=== PATIENT | female | born 1985 | race Caucasian/White ===

== ENCOUNTER 2023-04-18 12:30 | Emergency (ER) | payer OTHER, SELFPAY ==
[2023-04-18 12:34] VITALS: BP 131/65; PULSE 88; RESP 18; TEMP 36.8; O2SAT 100; BMI 26.9
--- NOTE | 2023-04-18 12:40 | ED_ITS ---
HPI - General Chief complaint: OB/Uterine Contractions Stated complaint: ISSUES 7 WEEKS Time Seen by Provider: 04/18/23 12:40 Source: patient Mode of arrival: walk-in Limitations: no limitations History of Present Illness HPI Narrative: patient here with lower abdominal cramping and some vaginal bleeding and spotting. She is approximately seven weeks by dates. She is under the care of Dr. Nowak.she has not seen her PUBLICATIONS MANAGER yet. She has not had previous ultrasound. She has two previous children. No other complaints today.patient she is Rh positive. Related Data Home Medications Medication Instructions Recorded Confirmed vit 115-iron fum 29 mg 1 tab PO QDAY 04/18/23 04/18/23 iron-folic acid 1 mg-dss 25 mg tablet Allergies Allergy/AdvReac Type Severity Reaction Status Date / Time morphine AdvReac Intermediate Verified 04/18/23 12:33 Exam Narrative Exam Narrative: patient is awake alert normal vital signs very pleasant here with her . She is in no distress and has no abdominal complaints. She says she's taken four tests at home over the last nine days and they were all faintly positive. She said this bleeding today was a little bit heavier than her normal menses. She does not have any other symptoms at this time. An ultrasound and hCG were ordered. Constitutional Vital Signs, click to edit/add: Last Vital Signs Temp 98.2 F 04/18/23 12:34 Pulse 88 04/18/23 12:34 Resp 18 04/18/23 12:34 BP 131/65 04/18/23 12:34 Pulse Ox 100 04/18/23 12:34 O2 Del Method Room Air 04/18/23 12:34 Course Vital Signs Vital signs: Vital Signs Temperature 98.2 F 04/18/23 12:34 Pulse Rate 88 04/18/23 12:34 Respiratory Rate 18 04/18/23 12:34 Blood Pressure 131/65 04/18/23 12:34 Pulse Oximetry 100 04/18/23 12:34 Oxygen Delivery Method Room Air 04/18/23 12:34 Temperature 98.2 F 04/18/23 12:34 Pulse Rate 88 04/18/23 12:34 Respiratory Rate 18 04/18/23 12:34 Blood Pressure 131/65 04/18/23 12:34 Pulse Oximetry 100 04/18/23 12:34 Oxygen Delivery Method Room Air 04/18/23 12:34 MDM - OB/Uterine Contractions MDM Narrative Medical decision making narrative: patient's hCG was extremely low at twelve and her transvaginal ultrasound could not identify any evidence of any . There is possibility that she had a very very early and is now miscarried. We will repeat her quantitative next week and she should follow-up with her PUBLICATIONS MANAGER for definitive evaluation and explanation Lab Data Labs: Lab Results 04/18/23 Range/Units 13:00 HCG, Quant 12 mIU/mL Discharge Plan Discharge Chief Complaint: OB/Uterine Contractions Clinical Impression: Abnormal vaginal bleeding Time of Disposition Decision: 14:50 Prescriptions / Home Meds: No Action prenat 115-iron [id number] 29 mg iron- 1 mg-25 mg tablet 1 tab PO QDAY Additional Instructions: repeat hCG next week and follow-up with Dr. Nowak Stand Alone Forms: Portal Instructions Referrals: Physician,Non-Staff, MD [Primary Care Provider] - 1 week
--- NOTE | 2023-04-18 12:41 | US_ITS ---
[address] [address] Patient Name: ALYSA RIOS MRN: [id number] date: 1985 Sex: F Assigned Patient Location: ER Current Patient Location: ER Accession/Order Number: [id number] Exam Date: 04/18/2023 13:15 Report Date: 04/18/2023 14:09 At the request of: ADRIENNE FOSTER Procedure: US OB transvaginal EXAMINATION: US OB transvaginal HISTORY: with vaginal bleeding COMPARISON: No relevant comparison available. FINDINGS: Transvaginal images No intrauterine or ectopic observed The uterus is normal in size, contour and echotexture. The endometrium measures 1.2 cm thick. Area of anechoic echogenicity posterior to the uterus measuring 2.1 x 0.7 x 1.7 cm, nonspecific. The cervix is closed measuring 2.9 cm. The right ovary is 3.7 x 2.4 x 2.5 cm. 1.1 cm complex cystic structure. Left ovary was not visualized US/US OB transvaginal IMPRESSION: No intrauterine or ectopic is observed. Correlate with quantitative beta hCG Nonvisualization of the left ovary Electronically authenticated by: LYNETTE NORMAN Date: 04/18/2023 14:09
[2023-04-18 13:32] LABS: HCG Quantitative 12 mIU/mL
== END 2023-04-18 14:57 | disposition home or self-care (01) ==
PROVIDERS: Emergency Provider Emergency Medicine Emergency Medical Services
DX: N93.9 Abnormal uterine and vaginal bleeding, unspecified (principal)
CPT/HCPCS: 36415; 76817; 84702; 99284

== ENCOUNTER 2023-09-03 16:33 | Outpatient (OUT) | payer OTHER, SELFPAY ==
[2023-09-03 17:13] LABS: HCG Quantitative 64 mIU/mL
== END 2023-09-03 16:34 | disposition home or self-care (01) ==
PROVIDERS: Visit Provider Obstetrics & Gynecology
DX: N92.6 Irregular menstruation, unspecified (principal)
CPT/HCPCS: 36415; 84702

== ENCOUNTER 2023-09-05 15:56 | Outpatient (OUT) | payer OTHER, SELFPAY ==
--- OUTSIDE RECORDS SUMMARY | 2023-09-05 16:01 | XMS_ITS | CCD ---
Author Name Unknown Address [address] [place] [address] [address] [place] [address] Organization [facility] Care Team Providers [employer] Name Role Phone Len YEPEZ Primary Care Physician [phone] Salome Sousa I Unavailable Unavailable NONE, XXXX Primary Care Physician Unavailab Luis Fernando Foote Attending Unavailable Luis Fernando GUZMAN Admitting Unavailable Calin Ordaz Attending Unavailable Calin Ordaz Admitting Unavailable Luis Fernando GUZMAN Consulting Unavailable DO Luis Fernando GUZMAN Consulting Unavailable Luis Fernando GUZMAN Consulting Unavailable Len YEPEZ Attending Unavailable Allergies Allergy Classification Reported Allergen(s) Allergy Type Date of Onset Reaction(s) Facility (4 sources) Morphine; Translations: [morphine] Drug Allergy [facility] Medications Current Medications Medication Drug Class(es) Dates Sig (Normalized) Sig (Original) busPIRone hydrochloride 5 mg oral tablet (3 sources) Start: 10-07-2022 take 1 tablet by mouth twice daily busPIRone 5 mg Tab 5 mg = 1 tab(s), Oral, BID, Refills(s) 0 Start Date: 10/07/22 Status: Ordered Problems Problem Classification Problem Date Documented Da te Episodic/Chronic Abdominal pain (3 sources) Epigastric pain 08-23-2020 Episodic Biliary tract disease (3 sources) Biliary dyskinesia 10-29-2013 Episodic Coagulation and hemorrhagic disorders (3 sources) Lupus anticoagulant disorder 04-30-2013 Chronic Headache; including migraine (3 sources) Migraine 03-04-2019 Chronic Thyroid disorders (3 sources) Hyperthyroidism 07-07-2010 Chronic Unclassified (3 sources) Exposure to 2019 novel coronavirus 07-12-2020 Unclassified (3 sources) Patient encounter status 08-23-2020 Results Test Name Value Interpretation Reference Range Facility DHEAon 05-05-2023 DHEA [Mass/Vol] 118 ng/dL Invalid Interpretation Code 31-701 [facility] Comment on above: Result Comment: This test was developed and its performance characteristics determined by [facility]. It has not been cleared or approved by the Food and Drug Administration. Performed at: [address] [id number] MD Garry Montenegro Performed By: #### 1 [id number], 0270250, 3844179, 45665671, 7111885, [id number], 49866169, 7195033 ####[facility] [address] [place] [address] DHEASon 05-05-2023 DHEA-S [Mass/Vol] 91.7 microgram/dL Invalid Interpretation Code 57.3-279.2 [facility] Comment on above: Result Comment: Perf ormed at: [address] [id number] PhD Salbador Douglass Performed By: #### 1 [id number], 6959717, 5649739, 86210070, 3963176, 943134130, 00698623, 3802881 #### [facility] [address] [place] [address] FSH and LHon 05-05-2023 Follitropin Qn 5.6 m[IU]/mL Invalid Interpretation Code [facility] Comment on above: Result Comment: Adul t Female: Follicular phase 3.5 - 12.5 Ovulation phase 4.7 - 21.5 Luteal phase 1.7 - 7.7 Postmenopausal 25.8 - 134.8 Performed at: [address] [id number] PhD Salbador Douglass Performed By: #### 1 [id number], 4002564, 0423344, 01830564, 8609512, 296945556, 09378393, 1649471 #### [facility] [address] [place] [address] Lutropin Qn 10.4 m[IU]/mL Invalid Interpretation Code [facility] Comment on above: Result Comment: Adul t Female: Follicular phase 2.4 - 12.6 Ovulation phase 14.0 - 95.6 Luteal phase 1.0 - 11.4 Postmenopausal 7.7 - 58.5 Performed By: #### 1 3583178, 1585421, 6663410, 26483159, 2386954, 382798516, 61283302, 6266924 #### [facility] [address] [place] [address] Auto Diffon 04-29-2023 Basophils/100 WBC (Bld) 0.8 % Normal 0.0-2.0 [facility] Comment on above: Order Comment: Order Added by Discern Expert. Performed By: #### 1 4629324, 0633088, 3064082, 21407440, 4161937, 868750388, 03850720, 0138841 #### [facility] [address] [place] [address] Basophils/Leukocytes Auto (Bld) [Pure # fraction] 0.0 E9/L Normal 0.0-0.2 [facility] Comment on above: Order Comment: Order Added by Discern Expert. Performed By: #### 1 9993099, 6855736, 4487752, 58446313, 3957138, 001714165, 68060836, 9948441 #### [facility] [address] [place] [address] Eosinophils/100 WBC (Bld) 2.3 % Normal 0.0-8.0 [facility] Comment on above: Order Comment: Order Added by Discern Expert. Performed By: #### 1 9605385, 9399861, 5555516, 98517697, 4805887, 814871999, 75545151, 2681904 #### [facility] [address] [place] [address] Eosinophils/Leukocyte s Auto (Bld) [Pure # fraction] 0.1 E9/L Normal 0.0-0.5 [facility] Comment on above: Order Comment: Order Added by Discern Expert. Performed By: #### 1 4058578, 9128275, 8790116, 45490626, 7860406, 498856120, 41104366, 4063471 #### [facility] [address] [place] [address] Lymphocytes/100 WBC (Bld) 42.1 % Normal 14.0-50.0 [facility] Comment on above: Order Comment: Order Added by Discern Expert. Performed By: #### 1 9911918, 9799361, 9479631, 11721553, 0188434, 995735014, 45821837, 1114291 #### [facility] [address] [place] [address] Lymphocytes/Leukocyte s Auto (Bld) [Pure # fraction] 2.0 E9/L Normal 1.0-4.0 [facility] Comment on above: Order Comment: Order Added by Discern Expert. Performed By: #### 1 0558800, 2331435, 7589920, 88992358, 6009820, 220144510, 25760133, 0567678 #### [facility] [address] [place] [address] Monocytes/100 WBC (Bld) 7.7 % Normal 4.0-14.0 [facility] Comment on above: Order Comment: Order Added by Discern Expert. Performed By: #### 1 6488437, 4535991, 4792744, 70360808, 4351681, 147808597, 42606300, 8529309 #### [facility] [address] [place] [address] Monocytes/Leukocytes Auto (Bld) [Pure # fraction] 0.4 E9/L Normal 0.2-1.0 [facility] Comment on above: Order Comment: Order Added by Discern Expert. Performed By: #### 1 8633556, 9909290, 0156290, 76437264, 9299716, 638584887, 67928852, 6804394 #### [facility] [address] [place] [address] Neutrophils/100 WBC (Bld) 47.1 % Normal 36.0-75.0 [facility] Comment on above: Order Comment: Order Added by Discern Expert. Performed By: #### 1 3585178, 8899044, 0075694, 86973395, 3256127, 274241798, 25841391, 7249476 #### [facility] [address] [place] [address] Neutrophils/Leukocyte s Auto (Bld) [Pure # fraction] 2.3 E9/L Normal 2.0-7.5 [facility] Comment on above: Order Comment: Order Added by Discern Expert. Performed By: #### 1 5722295, 5712361, 6182956, 36345669, 4725010, 781442533, 09432103, 7883611 #### [facility] [address] [place] [address] BhCG Quanton 04-29-2023 HCG.beta subunit Qn m[IU]/mL Normal 1-3 [facility] Comment on above: Result Comment: GEST ATIONAL AGE HCG RANGE (mIU/mL) NON- <1-3 0.2-1 WEEKS 5-50 1-2 WEEKS 50-500 2-3 WEEKS 100-5,000 3-4 WEEKS 500-10,000 4-5 WEEKS 1,000-50,000 5-6 WEEKS 10,000-100,000 6-8 WEEKS 15,000-200,000 8-12 WEEKS 10,000-100,000 Performed By: #### 2 [id number] ####[facility] [address] [place] [address] CBC w/ Auto Diffon Erythrocyte distribution width (RBC) [Ratio] 12.5 % Normal 10.9-14.2 [facility] Comment on above: Performed By: #### 1 9941404, 9914494, 8789328, 26540681, 4462340, 762409905, 29717430, 1795272 #### [facility] [address] [place] [address] Hematocrit (Bld) [Volume fraction] 39.3 % Normal 34.0-46.0 [facility] Comment on above: Performed By: #### 1 8031109, 6419899, 7860157, 72225102, 8610434, 308629430, 72010549, 0988514 #### [facility] [address] [place] [address] Hemoglobin (Bld) [Mass/Vol] 13.3 g/dL Normal 12.0-16.0 [facility] Comment on above: Performed By: #### 1 3082992, 4380497, 7650692, 43660662, 9047794, 842733243, 42295508, 4457944 #### [facility] [address] [place] [address] MCH (RBC) [Entitic mass] 32.3 pg Normal 27.0-34.0 [facility] Comment on above: Performed By: #### 1 1544662, 8821999, 5624216, 41402763, 0003455, 397395386, 44382649, 3144587 #### [facility] [address] [place] [address] MCHC (RBC) [Mass/Vol] 33.9 g/dL Normal 31.4-36.0 [facility] Comment on above: Performed By: #### 1 0473285, 6904516, 8724705, 26513178, 3660668, 389435500, 17050770, 2937351 #### [facility] [address] [place] [address] MCV (RBC) [Entitic vol] 95.2 fL Normal 80.0-100.0 [facility] Comment on above: Performed By: #### 1 9062310, 7540770, 1127168, 10884497, 3051028, 565179202, 15960713, 2826934 #### [facility] [address] [place] [address] Platelet mean volume (Bld) [Entitic vol] 9.0 fL Normal 6.4-10.8 [facility] Comment on above: Performed By: #### 1 8083820, 3387403, 4572636, 26185574, 6570252, 589819873, 32198407, 8744044 #### [facility] [address] [place] [address] Platelets (Bld) [#/Vol] 172.0 E9/L Normal 150.0-500.0 [facility] Comment on above: Performed By: #### 1 5613992, 3471404, 4480720, 86831956, 6554543, 249067143, 84414623, 5581354 #### [facility] [address] [place] [address] RBC (Bld) [#/Vol] 4.1 E12/L Low 4.3-5.9 [facility] Comment on above: Performed By: #### 1 1384673, 3584765, 6439271, 94852488, 1894580, 222507282, 83764272, 9018172 #### [facility] [address] [place] [address] WBC corrected for nucl RBC Auto (Bld) [#/Vol] 4.8 E9/L Normal 4.0-11.0 [facility] Comment on above: Performed By: #### 1 3252063, 5642002, 7593793, 37591968, 1509992, 308179904, 46087099, 7538827 #### [facility] [address] [place] [address] CHEMISTRYOrdered By: SYSTEM SYSTEM on 04-29-2023 Free T4 [Mass/Vol] 0.89 ng/dL Normal 0.58 - 1. 64 ng/dL [facility] Remisol HCG.beta subunit Qn mIU/mL Normal 1 - 3 mIU/mL FTM C Remisol TSH Qn 2.70 m[IU]/L Normal 0.34 - 5.60 mcIU/mL [facility] Remisol CHEMISTRYOrdered By: Britt Suh on 04-29-2023 HbA1c (Bld) [Mass fraction] 4.4 % Normal <=5.9% FT ChemAutoSS Consent for Treatmenton 04-18 Consent for Treatment [id number] 36#1.00CD:127 Normal [facility] Free T4on 04-29-2023 Free T4 [Mass/Vol] 0.89 ng/dL Normal 0.58-1.64 [facility] Comment on above: Performed By: #### 1 1045051, 5731025, 1997085, 35649208, 5413707, 784620421, 76775467, 9437065 #### [facility] [address] [place] [address] HEMATOLOGYOrdered By: SYSTEM SYSTEM on 04-29-2023 Basophils/100 WBC (Bld) 0.8 % Normal 0.0 - 2.0 % [facility] HemeAutoSS Basophils/Leukocytes Auto (Bld) [Pure # fraction] 0.0 E9/L Normal 0.0 - 0.2 E9/L [facility] HemeAutoSS Eosinophils/100 WBC (Bld) 2.3 % Normal 0.0 - 8.0 % [facility] HemeAutoSS Eosinophils/Leukocyte s Auto (Bld) [Pure # fraction] 0.1 E9/L Normal 0.0 - 0.5 E9/L [facility] HemeAutoSS Lymphocytes/100 WBC (Bld) 42.1 % Normal 14.0 - 50.0 % [facility] HemeAutoSS Lymphocytes/Leukocyte s Auto (Bld) [Pure # fraction] 2.0 E9/L Normal 1.0 - 4.0 E9/L [facility] HemeAutoSS Monocytes/100 WBC (Bld) 7.7 % Normal 4.0 - 14.0 % [facility] HemeAutoSS Monocytes/Leukocytes Auto (Bld) [Pure # fraction] 0.4 E9/L Normal 0.2 - 1.0 E9/L [facility] HemeAutoSS Neutrophils/100 WBC (Bld) 47.1 % Normal 36.0 - 75.0 % [facility] HemeAutoSS Neutrophils/Leukocyte s Auto (Bld) [Pure # fraction] 2.3 E9/L Normal 2.0 - 7.5 E9/L [facility] HemeAutoSS HEMATOLOGYOrdered By: Emily Encarnacion on 04-29-2023 Erythrocyte distribution width (RBC) [Ratio] 12.5 % Normal 10.9 - 14.2 % [facility] HemeAutoSS Hematocrit (Bld) [Volume fraction] 39.3 % Normal 34.0 - 46.0 % [facility] HemeAutoSS Hemoglobin (Bld) [Mass/Vol] 13.3 g/dL Normal 12.0 - 16.0 gm/dL [facility] HemeAutoSS MCH (RBC) [Entitic mass] 32.3 pg Normal 27.0 - 34.0 pg [facility] HemeAutoSS MCHC (RBC) [Mass/Vol] 33.9 g/dL Normal 31.4 - 36.0 gm/dL [facility] HemeAutoSS MCV (RBC) [Entitic vol] 95.2 fL Normal 80.0 - 100.0 fL [facility] HemeAutoSS Platelet mean volume (Bld) [Entitic vol] 9.0 fL Normal 6.4 - 10.8 fL [facility] HemeAutoSS Platelets (Bld) [#/Vol] 172.0 E9/L Normal 150.0 - 500.0 E9/L [facility] HemeAutoSS RBC (Bld) [#/Vol] 4.1 E12/L Low 4.3 - 5.9 E12/L [facility] HemeAutoSS WBC corrected for nucl RBC Auto (Bld) [#/Vol] 4.8 E9/L Normal 4.0 - 11.0 E9/L [facility] HemeAutoSS HoeU1rag 04-29-2023 HbA1c (Bld) [Mass fraction] 4.4 % Normal <=5.9 [facility] Comment on above: Performed By: #### 1 1546075, 5810887, 7303730, 23494237, 7045441, 225116485, 97222239, 4381033 #### [facility] [address] [place] [address] Physician Orderon 04-29-2023 Physician Order [id number]#1.00CD:127 Normal [facility] TSHon 04-29-2023 TSH Qn 2.70 m[IU]/L Normal 0.34-5.60 [facility] Comment on above: Performed By: #### 1 1719105, 5118234, 1364688, 06714947, 4160721, 262559196, 30349583, 4713525 #### [facility] [address] [place] [address] BhCG Quanton 04-22-2023 HCG.beta subunit Qn 2 m[IU]/mL Normal 1-3 [facility] Comment on above: Result Comment: GEST ATIONAL AGE HCG RANGE (mIU/mL) NON- <1-3 0.2-1 WEEKS 5-50 1-2 WEEKS 50-500 2-3 WEEKS 100-5,000 3-4 WEEKS 500-10,000 4-5 WEEKS 1,000-50,000 5-6 WEEKS 10,000-100,000 6-8 WEEKS 15,000-200,000 8-12 WEEKS 10,000-100,000 Performed By: #### 2 885137 #### [facility] [address] [place] [address] CHEMISTRYOrdered By: SYSTEM SYSTEM on 04-22-2023 HCG.beta subunit Qn 2 m[IU]/mL Normal 1 - 3 mIU/mL FTM C Remisol Consent for Treatmenton Consent for Treatment [id number]#1.00CD:127 Normal [facility] Physician Orderon 04-22-2023 Physician Order [id number]#1.00CD:127 Normal [facility] Ambulatory Visit Summaryon 0 10-07-2022 Ambulatory Visit Summary DONATO BALDWINICA Blair :1985 Visit Date:10/07/2022 Ambulatory Visit Instructions Your Care Team Attending Physician - Len YEPEZ DO Primary Care Physician - Len YEPEZ DO This Is Your Medications List busPIRone (busPIRone 5 mg Tab) Procedures Performed Extraction of wisdom tooth (07/18/2022), right scapular bursa injection (07/26/2015), TPI - Trigger point injection (07/26/2015), single site robot assisted laparoscopic cholecystectomy (05/11/2013), appendectomy (2002). Discharge Vitals Temperature (Temporal Artery) 36.1 ?C Heart Rate (Peripheral) 66 Blood Pressure 114/68 Height 170 cm Height 67 in Weight 70.3 kg Weight 154.66 lb BMI 24.33 Medications What How Much When Instructions Unchanged busPIRone (busPIRone 5 mg Tab) 1 Tablets By Mouth 2 times a day Medications and Immunizations Administered Not Given influenza virus vaccine, inactivated, Patient Refuses Allergies morphine (Hives) Problems Ongoing - Any problem that you are currently receiving treatment for. Biliary dyskinesia Epigastric pain Exposure to COVID-19 virus Lupus anticoagulant Migraine Preventative health care Historical - Any problem that you are no longer receiving treatment for. Appendectomy hyperthyroid Normal [facility] Medicine Office/Clini c Noteon 10-07-2022 Family Medicine Office/Clinic Note HPI Staff Alysa is a 36 year old female who presents for a yearly physical. History of Present Illness I have reviewed and verified the staff HPI to be accurate for this encounter. She has some plantar warts she would like checked. No major family history. Vegetarian(Vegan). some exercise. Has not been supplementing with B12. Review of Systems PHQ Score Initial Depression Screen Score: 0 Constitutional: no fever, no chills, no sweats, no weakness Respiratory: no shortness of breath, no cough, no orthopnea, no wheezing Cardiovascular: no chest pain, no palpitations, no edema Additional ROS info: Except as noted in the above Review of Systems and in the History of Present Illness all other systems have been reviewed and are negative or noncontributory. Physical Exam Vitals & Measurements T: 36.1 ?C(Temporal Artery) HR: 66(Peripheral) BP: 114/68 SpO2: 99% HT: 67 in HT: 170 cm WT: 70.3 kg WT: 154.66 lb BMI: 24.33 General: alert, no acute distress Skin: warm, dry Head: no trauma, normocephalic Neck: Trachea midline, no adenopathy, no tenderness Eye: normal conjunctiva, sclera clear ENMT: TM's clear, oral mucosa moist, no pharyngeal erythema or exudate Cardiovascular: regular rate and rhythm, normal peripheral perfusion Respiratory: Lungs CTA, respirations non labored Chest wall: no deformity. Gastrointestinal: soft, non distended, no tenderness, no guarding. Back: No tenderness, Normal ROM, Normal alignment. Extremities: no deformity, no trauma Neurological: oriented x 4, LOC appropriate for age, CN II-XII intact, motor strength equal & normal bilaterally, sensation equal & normal bilaterally, speech normal Psychiatric: cooperative, affect appropriate for age, normal judgement, normal psychiatric thoughts. Assessment/Plan 1. Preventative health care (Z00.00: Encounter for general adult medical examination without abnormal findings) No labs at this time. She does need to supplement with B12. Orders: famotidine, 40 mg = 1 tab(s), Oral, Once a day (at bedtime), # 90 tab(s), Refills(s) 1, Pharmacy: [facility]/pharmacy #[id number], 170, cm, 08/23/20 8:37:00 EST, Height/Length Dosing, 65.1, kg, 08/23/20 8:37:00 EST, Weight Dosing pantoprazole, 40 mg = 1 tab(s), Oral, Daily, # 90 tab(s), Refills(s) 1, Pharmacy: [facility]/pharmacy #[id number], 170, cm, 08/23/20 8:37:00 EST, Height/Length Dosing, 65.1, kg, 08/23/20 8:37:00 EST, Weight Dosing Follow-up With When Contact Information Len YEPEZ DO, FAM In 1 [address] [place] [address]- Additional Instructions: Problem List/Past Medical History Ongoing Biliary dyskinesia Epigastric pain Exposure to COVID-19 virus Lupus anticoagulant Migraine Preventative health care Historical Appendectomy hyperthyroid Procedure/Surgical History Extraction of wisdom tooth (07/18/2022), right scapular bursa injection (07/26/2015), TPI - Trigger point injection (07/26/2015), single site robot assisted laparoscopic cholecystectomy (05/11/2013), appendectomy (2002). Medications busPIRone 5 mg Tab, 5 mg= 1 tab(s), Oral, BID Allergies morphine (Hives) Social History Alcohol - Denies Alcohol Use, 04/30/2013 Substance Abuse - Denies Substance Abuse, 04/30/2013 Tobacco - Denies Tobacco Use, 04/30/2013 Never (less than 100 in lifetime) Tobacco Use:., 03/04/2019 Family History Family history is negative Immunizations Vaccine Date Status Comments influenza virus vaccine, inactivated - Not Given Patient Refuses Normal [facility] Comment on above: Result Comment: Elec tronically Signed By: Len YEPEZ DO\.br\Date and Time Signed: 10/07/22 17:12 EST Vital Signs Date Time Vital Sign Value Performing Clinician Faci keven 10-07-2022 16:18-0500 Blood Pressure Location Len YEPEZ [facility] 10-07-2022 16:18-0500 Body temperature 96.98 [degF] Len YEPEZ [facility] 10-07-2022 16:18-0500 Diastolic blood pressure 68 mm[Hg] Len YEPEZ [facility] 10-07-2022 16:18-0500 Heart rate 66 /min Len YEPEZ [facility] 10-07-2022 16:18-0500 SaO2% (BldA) [Mass fraction] 99 % Len YEPEZ [facility] 10-07-2022 16:18-0500 Systolic blood pressure 114 mm[Hg] Len YEPEZ [facility] Encounters Encounter Date Encounter Type Care Provider Facility Start: 04-29-2023 End: 04-30-2023 ambulatory Luis Fernando GUZMAN Facility:[facility] Start: 04-29-2023 End: 04-29-2023 Patient encounter procedure Luis Fernando GUZMAN [facility] Start: 04-22-2023 End: 04-23-2023 ambulatory Calin Ordaz Facility:[facility] Start: 04-22-2023 End: 04-22-2023 Patient encounter procedure Calin Ordaz [facility] Start: 10-07-2022 End: 10-08-2022 ambulatory Len YEPEZ Facility:[facility] Start: 10-07-2022 End: 10-07-2022 Patient encounter procedure Len YEPEZ [facility] Start: 10-07-2022 End: 10-07-2022 Well adult monitoring check done Len Garcia LUCHO [facility] Procedures Date Procedure Procedure Detail Performing Clinician Start: 07-18-2022 Extraction of wisdom tooth Len LUCHO Start: 07-26-2015 Injection of trigger points Len LUCHO Comment on above: right scapulathoraci c TPI in office today Start: 07-26-2015 right scapular bursa injection 1 Len LUCHO Comment on above: in office injection 0% relief Start: 05-11-2013 single site robot as sisted laparoscopic cholecystectomy 3 Len LUCHO Comment on above: 05/11/2013 Start: 08-18-2002 Appendectomy Len ANTHONY Appendectomy Appendectomy Len YEPEZ Immunizations Immunization Date Immunization Notes Care Provider Aurora guy NEGATED: Highlighted row has not occurred!10-07-2022 influenza virus vaccine, unspecified formulation Len LUCHO [facility] Payers Date Payer Category Payer Private Health Insurance 2021 Unknown [id number] 1985 Unknown [id number] [id number] 1985 Unknown [id number] [id number] 1985 Unknown [id number] [id number] [id number] Social History Date Type Detail Facility Start: 03-04-2019 Tobacco smoking status Never s moked tobacco (finding) [facility] Sex Assigned At Female [facility] Functional Status Date Assessment Result Facility 10-07-2022 Functional Status N/A [facility] Evaluation + Plan note 04-29-2023 Note Date & Type Note Facility 04-29-2023 Evaluation + Plan note Diagnostic Tests PendingFSH and LH 04/29/23DHEA 04/29/23DHEAS 04/29/23 [facility] Hospital Discharge instructions 09-24-2022 Note Date & Type Note Facility 09-24-2022 Hospital Discharg e instructions Follow Up Care 09/24/2022 13:44:14 With:Len YEPEZ DO, FAM Address: [address] [place] [address]- When:Within 1 Year(s) [facility] Evaluation + Plan note Note Date & Type Note Facility Evaluation + Plan note No data available for this section [facility] Hospital Discharge instructions Note Date & Type Note Facility Hospital Discharge instructions No data available for this section [facility] Progress note Note Date & Type Note Facility Progress note No data available for this section [facility] Summary Purpose Family History No Family History Records Found Advance Directives No Advanced Directives Records Found Additional Source Comments Patient Care team informatio n (unrecognized section and content) Personnel Name: Len YEPEZ DO Address: Address: [address] [place] [address]- Name: Salome Sousa I Personnel Name: Len YEPEZ DO Address: Address: [address] [place] [id number] Name: Salome Sousa I Personnel Name: NONE, XXXX Address: Address: [facility] Name: Salome Sousa I INFORMATION SOURCE (unrecogn ized section and content) DATE CREATED AUTHOR 05/05/2023 [place] FOR RECORDS PERTAINING TO PATIENTS WHO ARE OR HAVE BEEN ENROLLED IN A CHEMICAL DEPENDENCY/SUBSTANCEABUSE PROGRAM, SOME INFORMATION MAY BE OMITTED. This clinical summary was aggregated from multiple sources. Caution should be exercised in using it in the provision of clinical care. This summary normalizes information from multiple sources, and as a consequence, information in this document may materially change the coding, format and clinical context of patient data. In addition, data may be omitted in some cases. CLINICAL DECISIONS SHOULD BE BASED ON THE PRIMARY CLINICAL RECORDS. [facility]. provides no warranty or guarantee of the accuracy or completeness of information in this document.
[2023-09-05 17:42] LABS: HCG Quantitative 120 mIU/mL
== END 2023-09-05 15:57 | disposition home or self-care (01) ==
PROVIDERS: Visit Provider Obstetrics & Gynecology
DX: N92.6 Irregular menstruation, unspecified (principal)
CPT/HCPCS: 36415; 84702

== ENCOUNTER 2023-10-02 12:58 | Outpatient (OUT) | payer OTHER, SELFPAY ==
--- NOTE | 2023-10-02 13:00 | US_ITS ---
[place] [id number] Patient Name: ALYSA BALDWIN MRN: [id number] date: 1985 Sex: F Assigned Patient Location: [facility] Current Patient Location: [facility] Accession/Order Number: [id number] Exam Date: 10/02/2023 13:00 Report Date: 10/02/2023 14:36 At the request of: FRED GUZMAN Procedure: US OB transvaginal EXAMINATION: US OB transvaginal HISTORY: MISSED MENSES COMPARISON: No relevant comparison available. FINDINGS: GESTATIONAL SAC: Present and normal appearing. YOLK SAC: Present and normal appearing. POLE: Present and normal appearing. CARDIAC: Present. UTERUS: Normal size and appearance. OVARIES: Right: Normal. Left: Not seen. CERVIX: 4.1 cm in length and closed. CUL-DE-SAC: Normal. OTHER: None. AGE BY LMP: 8 weeks 4 days DERICK BY LMP: 05/09/2024 AGE BY US CRL: 8 weeks 0 days DERICK BY US CRL: 04/12/2024 US/US OB transvaginal IMPRESSION: 1. Single live intrauterine . Electronically authenticated by: GILDARDO WEINER Date: 10/02/2023 14:36
--- OUTSIDE RECORDS SUMMARY | 2023-10-02 13:05 | XMS_ITS | CCD ---
Author Name Unknown Address [address] [place] [address] [address] [place] [address] Organization [facility] Care Team Providers Care Salesperson Shoes Name Role Phone Len YEPEZ Primary Care Physician Salome Sousa I Unavailable Unavailable NONE, XXXX [...] (4 sources) Morphine; Translations: [morphine] Drug Allergy [facility] Medications Current Medications Medication Drug Class(es) [...] [Mass/Vol] 118 ng/dL Invalid Interpretation Code 31-701 [facility] Comment on above: Result Comment: This test was developed and its performance characteristics determined by [facility]. It has not been cleared or approved by the Food and Drug Administration. Performed at: [address] [id number] MD Garry Montenegro Performed By: #### 1 [id number], 5645634, 4638691, 91504670, 1767738, 717965220, 83375114, 8928178 ####[facility] [address] [place] [address] DHEASon 05-05-2023 DHEA-S [Mass/Vol] 91.7 microgram/dL Invalid Interpretation Code 57.3-279.2 [facility] Comment on above: Result Comment: Perf ormed at: [address] [id number] PhD Salbador Douglass Performed By: #### 1 [id number], 5619487, 7086039, 54512043, 5783230, 374913102, 47982341, 7860454 #### [facility] [address] [place] [address] FSH and LHon 05-05-2023 Follitropin Qn 5.6 m[IU]/mL Invalid Interpretation Code [facility] Comment on above: Result Comment: Adul t Female: Follicular phase 3.5 - 12.5 Ovulation phase 4.7 - 21.5 Luteal phase 1.7 - 7.7 Postmenopausal 25.8 - 134.8 Performed at: [address] [id number] PhD Salbador Douglass Performed By: #### 1 [id number], 6946994, 6439151, 63344124, 8881683, 621132270, 09217441, 8560337 #### [facility] [address] [place] [address] Lutropin Qn 10.4 m[IU]/mL Invalid Interpretation Code [facility] Comment on above: Result Comment: Adul t Female: Follicular phase 2.4 - 12.6 Ovulation phase 14.0 - 95.6 Luteal phase 1.0 - 11.4 Postmenopausal 7.7 - 58.5 Performed By: #### 1 8162618, 8235771, 5069188, 06665143, 7077760, 178814737, 06142994, 7238662 #### [facility] [address] [place] [address] Auto Diffon 04-29-2023 Basophils/100 WBC (Bld) 0.8 % Normal 0.0-2.0 [facility] Comment on above: Order Comment: Order Added by Discern Expert. Performed By: #### 1 2660690, 2847337, 1806308, 60012225, 6101939, 588642696, 78237865, 2740984 #### [facility] [address] [place] [address] Basophils/Leukocytes Auto (Bld) [Pure # fraction] 0.0 E9/L Normal 0.0-0.2 [facility] Comment on above: Order Comment: Order Added by Discern Expert. Performed By: #### 1 0928304, 6577218, 6064074, 92392545, 0092294, 065492018, 26879377, 9708586 #### [facility] [address] [place] [address] Eosinophils/100 WBC (Bld) 2.3 % Normal 0.0-8.0 [facility] Comment on above: Order Comment: Order Added by Discern Expert. Performed By: #### 1 5639881, 9186370, 6853700, 87865678, 7828121, 799427153, 06315056, 1268000 #### [facility] [address] [place] [address] Eosinophils/Leukocyte s Auto (Bld) [Pure # fraction] 0.1 E9/L Normal 0.0-0.5 [facility] Comment on above: Order Comment: Order Added by Discern Expert. Performed By: #### 1 8791484, 7258785, 5963659, 49086210, 2145885, 029153785, 75002578, 6726165 #### [facility] [address] [place] [address] Lymphocytes/100 WBC (Bld) 42.1 % Normal 14.0-50.0 [facility] Comment on above: Order Comment: Order Added by Discern Expert. Performed By: #### 1 4146176, 0842652, 7125311, 60355449, 8100246, 378934179, 96747037, 8691146 #### [facility] [address] [place] [address] Lymphocytes/Leukocyte s Auto (Bld) [Pure # fraction] 2.0 E9/L Normal 1.0-4.0 [facility] Comment on above: Order Comment: Order Added by Discern Expert. Performed By: #### 1 7913000, 9963479, 5914082, 31341347, 4547430, 851302740, 06646918, 6355179 #### [facility] [address] [place] [address] Monocytes/100 WBC (Bld) 7.7 % Normal 4.0-14.0 [facility] Comment on above: Order Comment: Order Added by Discern Expert. Performed By: #### 1 7208275, 2603962, 9692985, 34164167, 7493881, 731011683, 64660940, 1425220 #### [facility] [address] [place] [address] Monocytes/Leukocytes Auto (Bld) [Pure # fraction] 0.4 E9/L Normal 0.2-1.0 [facility] Comment on above: Order Comment: Order Added by Discern Expert. Performed By: #### 1 9736335, 8430464, 2450752, 73078765, 4661373, 590356333, 82510039, 8772333 #### [facility] [address] [place] [address] Neutrophils/100 WBC (Bld) 47.1 % Normal 36.0-75.0 [facility] Comment on above: Order Comment: Order Added by Discern Expert. Performed By: #### 1 8464238, 2754394, 7240137, 15313423, 4261501, 320696380, 00971164, 0815210 #### [facility] [address] [place] [address] Neutrophils/Leukocyte s Auto (Bld) [Pure # fraction] 2.3 E9/L Normal 2.0-7.5 [facility] Comment on above: Order Comment: Order Added by Discern Expert. Performed By: #### 1 4000058, 6935474, 8883630, 46370974, 5220995, 344806268, 02212062, 6020106 #### [facility] [address] [place] [address] BhCG Quanton 04-29-2023 HCG.beta subunit Qn m[IU]/mL Normal 1-3 [facility] Comment on above: Result Comment: GEST ATIONAL AGE HCG RANGE (mIU/mL) NON- <1-3 0.2-1 WEEKS 5-50 1-2 WEEKS 50-500 2-3 WEEKS 100-5,000 3-4 WEEKS 500-10,000 4-5 WEEKS 1,000-50,000 5-6 WEEKS 10,000-100,000 6-8 WEEKS 15,000-200,000 8-12 WEEKS 10,000-100,000 Performed By: #### 2 444559 ####[facility] [address] [place] [address] CBC w/ Auto Diffon Erythrocyte distribution width (RBC) [Ratio] 12.5 % Normal 10.9-14.2 [facility] Comment on above: Performed By: #### 1 3173141, 1488939, 5620175, 03115040, 2034633, 075030967, 56060260, 2093514 #### [facility] [address] [place] [address] Hematocrit (Bld) [Volume fraction] 39.3 % Normal 34.0-46.0 [facility] Comment on above: Performed By: #### 1 7757579, 8403423, 5575783, 19997617, 6068601, 399808561, 94508264, 9876355 #### [facility] [address] [place] [address] Hemoglobin (Bld) [Mass/Vol] 13.3 g/dL Normal 12.0-16.0 [facility] Comment on above: Performed By: #### 1 0535959, 2582589, 9739494, 84668115, 3804235, 801473162, 08823578, 3364483 #### [facility] [address] [place] [address] MCH (RBC) [Entitic mass] 32.3 pg Normal 27.0-34.0 [facility] Comment on above: Performed By: #### 1 4568780, 2044729, 3503790, 75875883, 7986603, 715849501, 50154122, 1602159 #### [facility] [address] [place] [address] MCHC (RBC) [Mass/Vol] 33.9 g/dL Normal 31.4-36.0 [facility] Comment on above: Performed By: #### 1 4654376, 1872381, 6836017, 89492393, 9932162, 419216671, 94665008, 6656680 #### [facility] [address] [place] [address] MCV (RBC) [Entitic vol] 95.2 fL Normal 80.0-100.0 [facility] Comment on above: Performed By: #### 1 4348668, 6286692, 3806097, 05284133, 4016482, 577283975, 68183066, 9147550 #### [facility] [address] [place] [address] Platelet mean volume (Bld) [Entitic vol] 9.0 fL Normal 6.4-10.8 [facility] Comment on above: Performed By: #### 1 7410992, 9194504, 5295622, 72987927, 2226673, 437009904, 44524572, 2596388 #### [facility] [address] [place] [address] Platelets (Bld) [#/Vol] 172.0 E9/L Normal 150.0-500.0 [facility] Comment on above: Performed By: #### 1 1920707, 7917279, 7983124, 38187741, 2332246, 087493640, 59335018, 6524354 #### [facility] [address] [place] [address] RBC (Bld) [#/Vol] 4.1 E12/L Low 4.3-5.9 [facility] Comment on above: Performed By: #### 1 2018621, 6439464, 6600198, 08070631, 9989033, 445571040, 42345652, 2110035 #### [facility] [address] [place] [address] WBC corrected for nucl RBC Auto (Bld) [#/Vol] 4.8 E9/L Normal 4.0-11.0 [facility] Comment on above: Performed By: #### 1 0313217, 2122884, 4403653, 67271705, 2861365, 601813547, 86239108, 6243248 #### [facility] [address] [place] [address] CHEMISTRYOrdered By: SYSTEM SYSTEM on 04-29-2023 Free [...] Treatmenton 04-18 Consent for Treatment [id number] 36#1.00CD:127 Normal [facility] Free T4on 04-29-2023 Free T4 [Mass/Vol] 0.89 ng/dL Normal 0.58-1.64 [facility] Comment on above: Performed By: #### 1 5319720, 3377818, 1664995, 36898657, 9880018, 662804715, 18660022, 4779065 #### [facility] [address] [place] [address] HEMATOLOGYOrdered By: SYSTEM SYSTEM on 04-29-2023 Basophils/100 [...] Normal 4.0 - 11.0 E9/L [facility] HemeAutoSS [id number] 04-29-2023 HbA1c (Bld) [Mass fraction] 4.4 % Normal <=5.9 [facility] Comment on above: Performed By: #### 1 9737952, 3161947, 8846973, 36833722, 3201747, 597998846, 88588776, 9225501 #### [facility] [address] [place] [address] Physician Orderon 04-29-2023 Physician Order [id number]#1.00CD:127 Normal [facility] TSHon 04-29-2023 TSH Qn 2.70 m[IU]/L Normal 0.34-5.60 [facility] Comment on above: Performed By: #### 1 6654612, 2529139, 1232550, 95736428, 7358113, 392023329, 28866535, 0616336 #### [facility] [address] [place] [address] BhCG Quanton 04-22-2023 HCG.beta subunit Qn 2 m[IU]/mL Normal 1-3 [facility] Comment on above: Result Comment: GEST ATIONAL AGE HCG RANGE (mIU/mL) NON- <1-3 0.2-1 WEEKS 5-50 1-2 WEEKS 50-500 2-3 WEEKS 100-5,000 3-4 WEEKS 500-10,000 4-5 WEEKS 1,000-50,000 5-6 WEEKS 10,000-100,000 6-8 WEEKS 15,000-200,000 8-12 WEEKS 10,000-100,000 Performed By: #### 2 749101 #### [facility] [address] [place] [address] CHEMISTRYOrdered By: SYSTEM SYSTEM on 04-22-2023 HCG.beta subunit Qn 2 m[IU]/mL Normal 1 - 3 mIU/mL FTM C Remisol Consent for Treatmenton Consent for Treatment [id number] 5B#1.00CD:127 Normal [facility] Physician Orderon 04-22-2023 Physician Order [id number]#1.00CD:127 Normal [facility] Ambulatory Visit Summaryon 0 10-07-2022 Ambulatory Visit [...] receiving treatment for. Appendectomy hyperthyroid Normal [facility] Medicine Office/Clini c Noteon 10-07-2022 Family [...] bedtime), # 90 tab(s), Refills(s) 1, Pharmacy: [facility]/pharmacy #[id number], 170, cm, 08/23/20 8:37:00 EST, Height/Length Dosing, 65.1, kg, 08/23/20 8:37:00 EST, Weight Dosing pantoprazole, 40 mg = 1 tab(s), Oral, Daily, # 90 tab(s), Refills(s) 1, Pharmacy: [facility]/pharmacy #[id number], 170, cm, 08/23/20 8:37:00 EST, Height/Length Dosing, 65.1, kg, 08/23/20 8:37:00 EST, Weight Dosing Follow-up With When Contact Information Len YEPEZ DO, FAM In 1 year [address] [place] [address]- Additional Instructions: Problem List/Past Medical History Ongoing [...] inactivated - Not Given Patient Refuses Normal [facility] Comment on above: Result Comment: Elec tronically Signed By: Len YEPEZ DO\.br\Date and Time Signed: 10/07/22 17:12 EST Vital Signs Date Time Vital Sign Value Performing Clinician Faci keven 10-07-2022 16:18-0500 Blood Pressure Location Len YEPEZ [facility] 10-07-2022 16:18-0500 Body temperature 96.98 [degF] Len YEPEZ [facility] 10-07-2022 16:18-0500 Diastolic blood pressure 68 mm[Hg] Len YEPEZ [facility] 10-07-2022 16:18-0500 Heart rate 66 /min Len YEPEZ [facility] 10-07-2022 16:18-0500 SaO2% (BldA) [Mass fraction] 99 % Len YEPEZ [facility] 10-07-2022 16:18-0500 Systolic blood pressure 114 mm[Hg] Len YEPEZ [facility] Encounters Encounter Date Encounter Type Care Provider Facility Start: 04-29-2023 End: 04-30-2023 ambulatory Luis Fernando GUZMAN Facility[facility] Start: 04-29-2023 End: 04-29-2023 Patient encounter procedure Luis Fernando GUZMAN [facility] Start: 04-22-2023 End: 04-23-2023 ambulatory Calin Ordaz Facility:[facility] Start: 04-22-2023 End: 04-22-2023 Patient encounter procedure Calin Ordaz [facility] Start: 10-07-2022 End: 10-08-2022 ambulatory Len YEPEZ Facility:[facility] Start: 10-07-2022 End: 10-07-2022 Patient encounter procedure Len YEPEZ [facility] Start: 10-07-2022 End: 10-07-2022 Well adult monitoring check done Len Garcia LUCHO [facility] Procedures Date Procedure Procedure Detail Performing Clinician [...] influenza virus vaccine, unspecified formulation Len LUCHO [facility] Payers Date Payer Category Payer Private Health Insurance 2021 Unknown [id number] 1985 Unknown [id number] 1985 Unknown [id number] [id number] [id number] 1985 Unknown [id number] [id number] [id number] Social History Date Type Detail Facility Start: 03-04-2019 Tobacco smoking status Never s moked tobacco (finding) [facility] Sex Assigned At Female [facility] Functional Status Date Assessment Result Facility 10-07-2022 Functional Status N/A [facility] Evaluation + Plan note 04-29-2023 Note Date & Type Note Facility 04-29-2023 Evaluation + Plan note Diagnostic Tests PendingFSH and LH 04/29/23DHEA 04/29/23DHEAS 04/29/23 [facility] Hospital Discharge instructions 09-24-2022 Note Date & Type Note Facility 09-24-2022 Hospital Discharg e instructions Follow Up Care 09/24/2022 13:44:14 With:Len YEPEZ DO, FAM Address: [address] [place] [address]- When:Within 1 Year(s) [facility] Evaluation + Plan note Note Date & Type Note Facility Evaluation + Plan note No data available for this section [facility] Hospital Discharge instructions Note Date & Type Note Facility Hospital Discharge instructions No data available for this section [facility] Progress note Note Date & Type Note Facility Progress note No data available for this section [facility] Summary Purpose Family History No Family History Records Found Advance Directives No Advanced Directives Records Found Additional Source Comments Patient Care team informatio n (unrecognized section and content) Personnel Name: Len YEPEZ DO Address: Address: [address] [place] [address]- Name: Salome Sousa I Personnel Name: Len YEPEZ DO Address: Address: [address] [place] [id number] Name: Salome Sousa I Personnel Name: NONE, XXXX Address: Address: [facility] Name: Salome Sousa I INFORMATION SOURCE (unrecogn ized section and content) DATE CREATED AUTHOR 05/05/2023 [facility] FOR RECORDS PERTAINING TO PATIENTS WHO ARE [...] BASED ON THE PRIMARY CLINICAL RECORDS. [employer] [facility]. provides no warranty or guarantee of the accuracy or completeness of information in this document.
== END 2023-10-02 12:59 | disposition home or self-care (01) ==
LOC: NOMS 12:58
PROVIDERS: Visit Provider Obstetrics & Gynecology
DX: Z34.91 Encounter for supervision of normal pregnancy, unspecified, first trimester (principal); Z3A.08 8 weeks gestation of pregnancy; N92.6 Irregular menstruation, unspecified
CPT/HCPCS: 76817

== ENCOUNTER 2023-10-14 16:33 | Outpatient (OUT) | payer OTHER, SELFPAY ==
[2023-10-14 17:23] LABS: Basophils Percent Auto 0.7 % (0.2-2.0); Eosinophils Absolute Auto 0.1 10^3/uL (0.0-0.7); Eosinophils Percent Auto 1.2 % (0.9-7.0); Hematocrit 37.6 % (36.0-48.0); Hemoglobin 12.9 g/dL (12.0-16.0); Immature Granulocytes Abs Auto 0.03 10^3/uL (0.00-0.03); Immature Granulocytes Pct Auto 0.5 % (0.0-0.5); Lymphocytes Absolute Auto 2.2 10^3/uL (1.2-3.8); Lymphocytes Percent Auto 36.3 % (20.5-60.0); Mean Corpuscular HGB Conc 34.3 g/dL (29.9-35.2); Mean Corpuscular Volume 96.2 fL (81.0-99.0); Mean Platelet Volume 10.1 fL (9.5-13.5); Monocytes Absolute Auto 0.5 10^3/uL (0.3-0.8); Monocytes Percent Auto 9.1 % (1.7-12.0); Neutrophils Absolute Auto 3.1 10^3/uL (1.4-6.5); Neutrophils Percent Auto 52.2 % (43.0-75.0); Platelet Count 183 10^3/uL (150-450); Red Blood Count 3.91 10^6/uL (4.20-5.40); Red Cell Distribution Width 12.1 % (11.0-15.0); White Blood Count 5.9 10^3/uL (4.0-11.0)
[2023-10-14 17:24] LABS: Estimated Average Glucose 82 mg/dL; Glycohemoglobin A1C 4.5 % (4.5-6.2)
[2023-10-15 08:09] LABS: BOX Test Sent Out Y
[2023-10-16 06:09] LABS: Rubella Antibodies, IgG 1.17 index (Immune >0.99)
[2023-10-16 08:12] LABS: HBsAg Screen Negative (Negative); HCV Ab Non Reactive (Non Reactive); HIV Ab/p24 Ag Screen Non Reactive (Non Reactive)
[2023-10-16 11:11] LABS: Rapid Plasma Reagin, Quant Non Reactive titer (NonRea<1:1)
== END 2023-10-14 16:34 | disposition home or self-care (01) ==
LOC: LAB 16:38
PROVIDERS: Visit Provider Obstetrics & Gynecology
DX: N92.6 Irregular menstruation, unspecified (principal); Z36.0 Encounter for antenatal screening for chromosomal anomalies
CPT/HCPCS: 36415; 83036; 85025; 86592; 86762; 86803; 86850; 86900; 86901; 87086; 87340; 87389

== ENCOUNTER 2023-12-01 20:22 | Outpatient (REF) | payer OTHER, SELFPAY ==
--- OUTSIDE RECORDS SUMMARY | 2023-12-01 20:39 | XMS_ITS | CCD ---
Author Organization [facility] Care Team Providers Care Artist Suspect Name Role Phone Len YEPEZ Primary Care Physician Salome Sousa I Unavailable Unavailable NONE, XXXX Primary Care Physician Unavailab Fred Foote Attending Unavailable Fred GUZMAN Admitting Unavailable Calin Ordaz Attending Unavailable Calin Ordaz Admitting Unavailable Fred GUZMAN Consulting Unavailable DO Fred GUZMAN Consulting Unavailable Fred GUZMAN Consulting Unavailable Len YEPEZ Attending Unavailable Unavailable Primary Care Provider Unavailabl e FRED GUZMAN Attending Unavailable FRED GUZMAN Attending Unavailable Allergies Allergy Classification Reported Allergen(s) Allergy Type Date of Onset Reaction(s) Facility (5 sources) Morphine; Translations: [morphine] Drug Allergy 10-29-2010 [facility] Medications Current Medications Medication Drug Class(es) Dates Sig (Normalized) Sig (Original) busPIRone hydrochloride 15 mg oral tablet (4 sources) Start: 05-02-2023 busPIRone (Buspar) 15 MG tablet Start: 10-07-2022 take 1 tablet by shyla twice daily busPIRone 5 mg Tab 5 mg = 1 tab(s), Oral, BID, Refills(s) 0 Start Date: 10/07/22 Status: Ordered ibuprofen 600 mg oral tablet (1 source) Nonsteroidal Anti-inflammatory Drug Start: 07-18-2022 take 1 tablet by mouth every six hours as needed ibuprofen 600 MG tablet Take 1 tablet by mouth every 6 (six) hours if needed. 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 Headache; including migraine (3 sources) Migraine 03-04-2019 Chronic Menstrual disorders (1 source) Missed period; Translations: [Irregular menstruation, unspecified] 09-24-2023 Chronic Thyroid disorders (3 sources) Hyperthyroidism 07-07-2010 Chronic Unclassified (3 sources) Exposure to 2019 novel coronavirus 07-12-2020 Unclassified (3 sources) Patient encounter status 08-23-2020 Results Test Name Value Interpretation Reference Range Facility HCG ( test) Ql (U)o n 10-02-2023 Interpretation and review of laboratory results Abnormal [facility] Preg Test, Ur Positive [facility] Urinalysis macro (dipstick) panel (U)on 10-02-2023 Bilirubin, UA Negative Negative - 4(70) +++ mg/dL [facility] Blood, UA Negative Negative - 50 Ra/mcL [facility] Clarity, UA Clear [facility] Color, UA Yellow [facility] Glucose, UA Negative Negative - 1999(110) ++++ mg/dL [facility] Interpretation and review of laboratory results Abnormal [facility] Ketones, UA Negative Negative - 160(16) ++++ mg/dL [facility] Leukocytes, UA Trace Negative - 500+++ Gaurav/mcL [facility] Nitrite, UA Negative Negative - Positive [facility] pH, UA 6.0 5 - 9 [facility] Protein, UA Negative Negative - 2000(20) ++++ mg/dL [facility] Spec Grav, UA 1.030 1 - 1.03 [facility] Urobilinogen, UA 0.2 0.2 - 12 mg/dL [facility] DHEAon 05-05-2023 DHEA [Mass/Vol] 118 ng/dL Invalid Interpretation Code 31-701 [facility] Comment on above: Result Comment: This test was developed and its performance characteristics determined by [facility]. It has not been cleared or approved by the Food and Drug Administration. Performed at: [address] [id number] MD Garry Montenegro Performed By: #### 1 [id number], 0720735, 9264743, 36367278, 2503352, [id number], 81299014, 1702959 ####[facility] [address] [place] [address] DHEASon 05-05-2023 DHEA-S [Mass/Vol] 91.7 microgram/dL Invalid Interpretation Code 57.3-279.2 [facility] Comment on above: Result Comment: Perf ormed at: [address] [id number] PhD Salbador Douglass Performed By: #### 1 [id number], 4584449, 0628057, 68005878, 0398273, [id number], 04023250, 9839344 #### [facility] [address] [place] [address] FSH and LHon 05-05-2023 Follitropin Qn 5.6 m[IU]/mL Invalid Interpretation Code [facility] Comment on above: Result Comment: Adul t Female: Follicular phase 3.5 - 12.5 Ovulation phase 4.7 - 21.5 Luteal phase 1.7 - 7.7 Postmenopausal 25.8 - 134.8 Performed at: [address] [id number] PhD Salbador Douglass Performed By: #### 1 [id number], 4043282, 8832580, 29465703, 3593820, 719691096, 77437152, 0291386 #### [facility] [address] [place] [address] Lutropin Qn 10.4 m[IU]/mL Invalid Interpretation Code [facility] Comment on above: Result Comment: Adul t Female: Follicular phase 2.4 - 12.6 Ovulation phase 14.0 - 95.6 Luteal phase 1.0 - 11.4 Postmenopausal 7.7 - 58.5 Performed By: #### 1 [id number], 7065150, 5961096, 48970167, 1468317, 499169811, 32847731, 4088960 #### [facility] [address] [place] [address] Auto Diffon 04-29-2023 Basophils/100 WBC (Bld) 0.8 % Normal 0.0-2.0 [facility] Comment on above: Order Comment: Order Added by Discern Expert. Performed By: #### 1 2393283, 0653476, 1789074, 95343023, 5500963, 939650398, 35453102, 9210097 #### [facility] [address] [place] [address] Basophils/Leukocytes Auto (Bld) [Pure # fraction] 0.0 E9/L Normal 0.0-0.2 [facility] Comment on above: Order Comment: Order Added by Discern Expert. Performed By: #### 1 3916108, 0011237, 2328036, 40242829, 7239386, 767873120, 70316408, 5943680 #### [facility] [address] [place] [address] Eosinophils/100 WBC (Bld) 2.3 % Normal 0.0-8.0 [facility] Comment on above: Order Comment: Order Added by Discern Expert. Performed By: #### 1 7637914, 3636051, 4830390, 64530698, 0279688, 481855393, 86586333, 9503641 #### [facility] [address] [place] [address] Eosinophils/Leukocyte s Auto (Bld) [Pure # fraction] 0.1 E9/L Normal 0.0-0.5 [facility] Comment on above: Order Comment: Order Added by Discern Expert. Performed By: #### 1 7919462, 7619753, 9526235, 94754818, 6987919, 008341271, 55260286, 2056572 #### [facility] [address] [place] [address] Lymphocytes/100 WBC (Bld) 42.1 % Normal 14.0-50.0 [facility] Comment on above: Order Comment: Order Added by Francisco Expert. Performed By: #### 1 9935149, 5627448, 4011608, 38450135, 5813458, 782723424, 66028738, 9925912 #### [facility] [address] [place] [address] Lymphocytes/Leukocyte s Auto (Bld) [Pure # fraction] 2.0 E9/L Normal 1.0-4.0 [facility] Comment on above: Order Comment: Order Added by Discern Expert. Performed By: #### 1 4171352, 4506380, 5264491, 91207449, 3402995, 444154403, 96793729, 4694989 #### [facility] [address] [place] [address]118 Monocytes/100 WBC (Bld) 7.7 % Normal 4.0-14.0 [facility] Comment on above: Order Comment: Order Added by Francisco Expert. Performed By: #### 1 2855938, 7768280, 7639363, 28480766, 7340156, 435527682, 63653416, 7541555 #### [facility] [address] [place] [address] Monocytes/Leukocytes Auto (Bld) [Pure # fraction] 0.4 E9/L Normal 0.2-1.0 [facility] Comment on above: Order Comment: Order Added by Francisco Expert. Performed By: #### 1 2323108, 7745998, 8194790, 00078557, 6270160, 991677744, 64317433, 9798688 #### [facility] [address] [place] [address] Neutrophils/100 WBC (Bld) 47.1 % Normal 36.0-75.0 [facility] Comment on above: Order Comment: Order Added by Discern Expert. Performed By: #### 1 8348011, 6558685, 4129037, 57366647, 7706112, 559669353, 74606754, 7705716 #### [facility] [address] [place] [address] Neutrophils/Leukocyte s Auto (Bld) [Pure # fraction] 2.3 E9/L Normal 2.0-7.5 [facility] Comment on above: Order Comment: Order Added by Francisco Expert. Performed By: #### 1 8719374, 7752655, 2942010, 07983363, 0532404, 821157196, 83738823, 3886362 #### [facility] [address] [place] [address] BhCG Quanton 04-29-2023 HCG.beta subunit Qn m[IU]/mL Normal 1-3 [facility] Comment on above: Result Comment: GEST ATIONAL AGE HCG RANGE (mIU/mL) NON- <1-3 0.2-1 WEEKS 5-50 1-2 WEEKS 50-500 2-3 WEEKS 100-5,000 3-4 WEEKS 500-10,000 4-5 WEEKS 1,000-50,000 5-6 WEEKS 10,000-100,000 6-8 WEEKS 15,000-200,000 8-12 WEEKS 10,000-100,000 Performed By: #### 2 862953 ####[facility] [address] [place] [address] CBC w/ Auto Diffon Erythrocyte distribution width (RBC) [Ratio] 12.5 % Normal 10.9-14.2 [facility] Comment on above: Performed By: #### 1 5681453, 8540401, 5822039, 44135991, 7262350, 157886741, 88453383, 9671162 #### [facility] [address] [place] [address] Hematocrit (Bld) [Volume fraction] 39.3 % Normal 34.0-46.0 [facility] Comment on above: Performed By: #### 1 9984083, 7805223, 9322474, 00525714, 3681737, 900566278, 04999539, 0095498 #### [facility] [address] [place] [address] Hemoglobin (Bld) [Mass/Vol] 13.3 g/dL Normal 12.0-16.0 [facility] Comment on above: Performed By: #### 1 0641285, 4757878, 6557636, 63563663, 5997357, 005039010, 08851780, 8901226 #### [facility] [address] [place] [address] MCH (RBC) [Entitic mass] 32.3 pg Normal 27.0-34.0 [facility] Comment on above: Performed By: #### 1 0607488, 7280590, 8290876, 91758605, 7320315, 674895299, 84782836, 0774249 #### [facility] [address] [place] [address] MCHC (RBC) [Mass/Vol] 33.9 g/dL Normal 31.4-36.0 [facility] Comment on above: Performed By: #### 1 7759753, 7560380, 3461952, 65179521, 7787227, 568418564, 10150271, 2977654 #### [facility] [address] [place] [address] 32761 MCV (RBC) [Entitic vol] 95.2 fL Normal 80.0-100.0 [facility] Comment on above: Performed By: #### 1 4756753, 1774466, 7657198, 26169170, 0457361, 454339799, 87697914, 3288241 #### [facility] [address] [place] [address] 27789 Platelet mean volume (Bld) [Entitic vol] 9.0 fL Normal 6.4-10.8 [facility] Comment on above: Performed By: #### 1 0710308, 7291747, 0156429, 82044018, 5069233, 150506952, 33484115, 7758365 #### [facility] [address] [place] [address] Platelets (Bld) [#/Vol] 172.0 E9/L Normal 150.0-500.0 [facility] Comment on above: Performed By: #### 1 7323935, 9645964, 8446996, 74876900, 1374223, 232582681, 04078999, 6486485 #### [facility] [address] [place] [address] RBC (Bld) [#/Vol] 4.1 E12/L Low 4.3-5.9 [facility] Comment on above: Performed By: #### 1 0620415, 9883959, 2861589, 09245370, 4346076, 036561933, 37814835, 7253150 #### [facility] [address] [place] [address] WBC corrected for nucl RBC Auto (Bld) [#/Vol] 4.8 E9/L Normal 4.0-11.0 [facility] Comment on above: Performed By: #### 1 3896343, 8825723, 9207406, 90523463, 9082458, 611834529, 04158087, 6328192 #### [facility] [address] [place] [address] CHEMISTRYOrdered By: SYSTEM SYSTEM on 04-29-2023 Free T4 [Mass/Vol] 0.89 ng/dL Normal 0.58 - 1. 64 ng/dL [facility] Remisol HCG.beta subunit Qn mIU/mL Normal 1 - 3 mIU/mL [facility] C Remisol TSH Qn 2.70 m[IU]/L Normal 0.34 - 5.60 mcIU/mL [facility]isol CHEMISTRYOrdered By: Britt Shu on 04-29-2023 HbA1c (Bld) [Mass fraction] 4.4 % Normal <=5.9% [facility] ChemAutoSS Consent for Treatmenton 04-18 Consent for Treatment [id number] 36#1.00CD:127 Normal [facility] Free T4on 04-29-2023 Free T4 [Mass/Vol] 0.89 ng/dL Normal 0.58-1.64 [facility] Comment on above: Performed By: #### 1 5426245, 2339814, 8536141, 65786006, 0641669, 033449208, 53755249, 1557014 #### [facility] [address] [place] [address] HEMATOLOGYOrdered By: SYSTEM SYSTEM on 04-29-2023 Basophils/100 [...] 172.0 E9/L Normal 150.0 - 500.0 E9/L [facility] HemeAutoSS RBC (Bld) [#/Vol] 4.1 E12/L Low 4.3 - 5.9 E12/L [facility] HemeAutoSS WBC corrected for nucl RBC Auto (Bld) [#/Vol] 4.8 E9/L Normal 4.0 - 11.0 E9/L [facility] HemeAutoSS [id number] 04-29-2023 HbA1c (Bld) [Mass fraction] 4.4 % Normal <=5.9 [facility] Comment on above: Performed By: #### 1 3199139, 2514235, 7940187, 43455296, 4368592, 402705008, 23253041, 7033875 #### [facility] [address] [place] [address] Physician Orderon 04-29-2023 Physician Order [id number] 732#1.00CD:127 Normal [facility] TSHon 04-29-2023 TSH Qn 2.70 m[IU]/L Normal 0.34-5.60 [facility] Comment on above: Performed By: #### 1 4572608, 6429563, 3325830, 74338130, 2499452, 373706339, 02393979, 9513783 #### [facility] [address] [place] [address] BhCG Quanton 04-22-2023 HCG.beta subunit Qn 2 m[IU]/mL Normal 1-3 [facility] Comment on above: Result Comment: GEST ATIONAL AGE HCG RANGE (mIU/mL) NON- <1-3 0.2-1 WEEKS 5-50 1-2 WEEKS 50-500 2-3 WEEKS 100-5,000 3-4 WEEKS 500-10,000 4-5 WEEKS 1,000-50,000 5-6 WEEKS 10,000-100,000 6-8 WEEKS 15,000-200,000 8-12 WEEKS 10,000-100,000 Performed By: #### 2 118580 #### [facility] [address] [place] [address] CHEMISTRYOrdered By: SYSTEM SYSTEM on 04-22-2023 HCG.beta subunit Qn 2 m[IU]/mL Normal 1 - 3 mIU/mL [facility] Remisol Consent for Treatmenton Consent for Treatment [id number] 5B#1.00CD:127 Normal [facility] Physician Orderon 04-22-2023 Physician Order [id number]#1.00CD:127 Normal [facility] Ambulatory Visit Summaryon 10-07-2022 Ambulatory Visit Summary ALYSA WILLIAM :1985 Visit Date:10/07/2022 Ambulatory Visit Instructions Your [...] longer receiving treatment for. Appendectomy hyperthyroid Normal [facility] Family Medicine Office/Clini c Noteon 10-07-2022 Family Medicine Office/Clinic Note HPI Staff Gonzalez is a 36 year old female who [...] bedtime), # 90 tab(s), Refills(s) 1, Pharmacy: [facility]/pharmacy #[id number], 170, cm, 08/23/20 8:37:00 EST, Height/Length Dosing, 65.1, kg, 08/23/20 8:37:00 EST, Weight Dosing pantoprazole, 40 mg = 1 tab(s), Oral, Daily, # 90 tab(s), Refills(s) 1, Pharmacy: [facility]/pharmacy #[id number], 170, cm, 08/23/20 8:37:00 EST, Height/Length Dosing, 65.1, kg, 08/23/20 8:37:00 EST, Weight Dosing Follow-up With When Contact Information Len YEPEZ DO, FAM In 1 [address] [place] [id number]- Additional Instructions: Problem List/Past Medical History Ongoing [...] inactivated - Not Given Patient Refuses Normal [facility] Comment on above: Result Comment: Elec tronically Signed By: Len YEPEZ DO\.br\Date and Time Signed: 10/07/22 17:12 EST Vital Signs Date Time Vital Sign Value Performing Clinician Facility 10-02-2023 14:02-0500 Body mass index (BMI) [Ratio] 24.22 kg/m2 [facility] 10-02-2023 14:02-0500 Body weight 74.39 kg [facility] 10-02-2023 14:02-0500 Diastolic blood pressure 70 mm[Hg] [facility] 10-02-2023 14:02-0500 Systolic blood pressure 118 mm[Hg] [facility] 10-07-2022 16:18-0500 Blood Pressure Location Len YEPEZ [facility] 10-07-2022 16:18-0500 Body temperature 96.98 [degF] Len YEPEZ [facility] 10-07-2022 16:18-0500 Diastolic blood pressure 68 mm[Hg] Len YEPEZ [facility] 10-07-2022 16:18-0500 Heart rate 66 /min Len YEPEZ [facility] 10-07-2022 16:18-0500 SaO2% (BldA) [Mass fraction] 99 % Len YEPEZ [facility] 10-07-2022 16:18-0500 Systolic blood pressure 114 mm[Hg] Len YEPEZ [facility] Encounters Encounter Date Encounter Type Care Provider Facility Start: 12-01-2023 End: 12-01-2023 ambulatory FRED ELIU Not Available Start: 10-30-2023 End: 10-30-2023 ambulatory FRED ELIU Not Available Start: 10-02-2023 End: 10-02-2023 ambulatory FRED ELIU Not Available Start: 10-02-2023 End: 10-02-2023 Office outpatient visit 5 minutes [facility] Comment on above: GA: 8w4d Start: 04-29-2023 End: 04-30-2023 ambulatory Fred R ELIU Facility:[facility] Start: 04-29-2023 End: 04-29-2023 Patient encounter procedure Fred R ELIU [facility] Start: 04-22-2023 End: 04-23-2023 ambulatory Calin Ordaz Facility:[facility] Start: 04-22-2023 End: 04-22-2023 Patient encounter procedure Calin Ordaz [facility] Start: 10-07-2022 End: 10-08-2022 ambulatory Lensilverio YEPEZ Facility:[facility] Start: 10-07-2022 End: 10-07-2022 Patient encounter procedure Len YEPEZ [facility] Start: 10-07-2022 End: 10-07-2022 Well adult monitoring check done Len Garcia LUCHO [facility] Procedures Date Procedure Procedure Detail Performing Clinician Start: 10-02-2023 Urnls dip stick/tabl et rgnt non-auto w/o micrscp Madiha MCDANIEL Work Phone: Start: 07-18-2022 Extraction of wisdom tooth Len YEPEZ Start: 07-26-2015 Injection of trigger points Len YEPEZ Comment on above: right scapulathoraci c TPI in office today Start: 07-26-2015 right scapular bursa injection 1 Len YEPEZ Comment on above: in office injection 0% relief Start: 05-11-2013 single site robot as sisted laparoscopic cholecystectomy 3 Len YEPEZ Comment on above: 05/11/2013 Start: 08-18-2002 Appendectomy Len ANTHONY Appendectomy Appendectomy Len YEPEZ Plan of Treatment Date Care Activity Detail Author Start: 10-02-2023 End: 10-02-2024 ABO/Rh ABO/Rh Lab Routine Missed menses Expected: 10/02/2023 (Approximate), Expires: 10/02/2024 [facility] Comment on above: Expected: 10/02/2023 (Approximate), Expires: 10/02/2024 Start: 10-02-2023 End: 10-02-2024 Blood type and Indirect antibody screen panel - Blood Type and screen Lab Routine Missed menses Expected: 10/02/2023 (Approximate), Expires: 10/02/2024 [facility] Work Phone: Comment on above: Expected: 10/02/2023 (Approximate), Expires: 10/02/2024 Start: 10-02-2023 End: 10-02-2024 US Pelvis transvaginal US OB transvaginal Imaging Routine Missed menses Expected: 10/02/2023 (Approximate), Expires: 10/02/2024 [facility] Comment on above: Expected: 10/02/2023 (Approximate), Expires: 10/02/2024 Bacteria identified in Urine by Culture Urine culture Microbiology Routine Missed menses Ordered: 10/02/2023 [facility] Comment on above: Ordered: 10/02/2023 CBC W Auto Different ial panel - Blood CBC and differential Lab Routine Missed menses Ordered: 10/02/2023 [facility] Comment on above: Ordered: 10/02/2023 Hemoglobin A1c/Hemoglobin.total in Blood Hemoglobin A1c Lab Routine Missed menses Ordered: 10/02/2023 [facility] Comment on above: Ordered: 10/02/2023 Hepatitis B virus surface Ag [Presence] in Serum or Plasma by Immunoassay Hepatitis B surface antigen Lab Routine Missed menses Ordered: 10/02/2023 [facility] Comment on above: Ordered: 10/02/2023 Hepatitis C virus Ab [Presence] in Serum or Plasma by Immunoassay Hepatitis C antibody Lab Routine Missed menses Ordered: 10/02/2023 [facility] Comment on above: Ordered: 10/02/2023 HIV-1/HIV-2 antigen/antibody combination immunoassay HIV-1 and HIV-2 antibodies Lab Routine Missed menses Ordered: 10/02/2023 [facility] Comment on above: Ordered: 10/02/2023 Reagin Ab [Presence] in Serum by RPR RPR Lab Routine Missed menses Ordered: 10/02/2023 [facility] Comment on above: Ordered: 10/02/2023 Rubella antibody, IgG Rubella an tibody, IgG Lab Routine Missed menses Ordered: 10/02/2023 [facility] Comment on above: Ordered: 10/02/2023 Immunizations Immunization Date Immunization Notes Care Provider Fa cility NEGATED: Highlighted row has not occurred!02-20-2023 influenza virus vaccine, unspecified formulation Len LUCHO [facility] [place] Payers Date Payer Category Payer Unknown [employer] [id number] 2023-Present [address] [place] [address] [id number] 2023 Private Health Insurance 2023 Managed Care HMO (unspecified) [employer] AETNA [id number] 2023-Present [address] [place] [address] HMO [id number] 2023 Private Health Insurance [id number] 2021 Unknown [id number] 1985 Unknown [id number] 27 1985 Unknown [id number] 27 1985 Unknown [id number] 27 1985 Unknown [id number] 1985 Unknown [id number] 259 1985 Unknown [id number] 259 Social History Date Type Detail Facility Start: 03-04-2019 Tobacco smoking status Never smoked tobacco (finding) [facility] Sex Assigned At Female [facility] Tobacco smoking status NHIS Tobacco smoking consumption unknown [facility] Start: 08-17-2023 [facility] Start: 1985 Sex Assigned At Not on file [facility] Functional Status Date Assessment Result Facility 10-07-2022 Functional Status N/A [facility] History of Present illness Narrative 10-02-2023 Teodora Vegas MA - 10/02/2023 1:30 PM EST Note Date & Type Note Facility 10-02-2023 History of Presen t illness Narrative Reason for Appointment: Patient ID: Alysa William is a 37 y.o. female who presents for Amenorrhea Patient presents today for a Nurse OB Intake appointment. Patient is Unknown with a Estimated Date of Delivery: None noted. OB History Para Term AB Living 4 2 1 SAB IAB Ectopic Multiple Live Births # Outcome Date GA Lbr Sean/2nd Weight Sex Delivery Anes PTL Lv 4 3 Para 2 Para 1 AB Current Medications: has a current medication list which includes the following prescription(s): buspirone and ibuprofen. Medical History: Active Ambulatory Problems Diagnosis Date Noted No Active Ambulatory Problems Resolved Ambulatory Problems Diagnosis Date Noted No Resolved Ambulatory Problems Past Medical History: Diagnosis Date Miscarriage 04/18/2023 No family history on file. Social History Tobacco Use Smoking status: Not on file Smokeless tobacco: Not on file Substance Use Topics Alcohol use: Not on file Drug use: Not on file History reviewed. No pertinent surgical history. Allergies Allergen Reactions Morphine Hives Vitals: Estimated body mass index is 23.91 kg/m as calculated from the following: Height as of 04/28/23: 5' 9 . Weight as of 04/28/23: 161 lb 14.4 oz. BP: No LMP recorded. Assessment/Plan Diagnoses and all orders for this visit: Missed menses - Type and screen; Future - ABO/Rh; Future - CBC and differential - Hemoglobin A1c - RPR - Rubella antibody, IgG - Hepatitis B surface antigen - Hepatitis C antibody - HIV-1 and HIV-2 antibodies - Urine culture - US OB transvaginal; Future - POCT , urine manually resulted - POCT urinalysis dipstick manually resulted Nurse Note: Pt was given her OB folder and desires [place] 21. Advised to make sure she is 10 weeks before having Maupin done along with her labs. Pt did complain of a rash in middle of her cleavage. Madiha Modi did go and examine the patients rash and advised to put hydrocortisone cream and take benadryl. To call office if it does not go away or gets worse. Follow Up: Patient is to have labs drawn at directed and return to office for initial OB appointment with provider. Patient may call office as needed with any concerns or questions. Nurse Visit Completed by: Teodora Vegas MA documented in this encounter [facility] Healthcare Evaluation + Plan note 04-29-2023 Note Date & Type Note Facility 04-29-2023 Evaluation + Plan note Diagnostic Tests PendingFSH and LH 04/29/23DHEA 04/29/23DHEAS 04/29/23 [facility] Hospital Discharge instructions 09-24-2022 Note Date & Type Note Facility 09-24-2022 Hospital Discharg e instructions Follow Up Care 09/24/2022 13:44:14 With:Len YEPEZ DO, FAM Address: [address] [place] [address]- When:Within 1 Year(s) [facility] Evaluation + Plan note Note Date & Type Note Facility Evaluation + Plan note No data available for this section [facility] Evaluation note Note Date & Type Note Facility Evaluation note Diagnosis Missed menses documented in this encounter [facility] Discharge instructions Note Date & Type Note Facility Hospital Discharge instructions No data available for this section [facility] Progress note Note Date & Type Note Facility Progress note No data available for this section [facility] Summary Purpose Family History No Family History Records FoundNo Family History Records Found Advance Directives No Advanced Directives Records FoundNo Advanced Directives Records Found Additional Source Comments Patient Care team informatio n (unrecognized section and content) Personnel Name: Len YEPEZ DO Address: Address: [address] [place] [address]- Name: Salome Sousa I Personnel Name: Len YEPEZ DO Address: Address: [address] [facility] [place] [address]- Name: Salome Sousa I Personnel Name: NONE, XXXX Address: Address: [facility] Name: Salome Sousa I INFORMATION SOURCE (unrecogn ized section and content) DATE CREATED AUTHOR 05/05/2023 [facility] DATE CREATED AUTHOR AUTHOR'S JEMAL SMITH 12/01/2023 [facility] EPIC Reason for Visit (unrecogniz ed section and content) Reason Comments Amenorrhea FOR RECORDS PERTAINING TO PATIENTS WHO ARE [...] BE BASED ON THE PRIMARY CLINICAL RECORDS. [facility] [employer] provides no warranty or guarantee of the accuracy or completeness of information in this document.
[2023-12-05 11:09] LABS: Age Gdln ACOG Testing Note (.); HPV Aptima Negative (Negative); IGP, Aptima HPV, rfx 16/18,45 Note (.)
== END 2023-12-01 20:23 | disposition home or self-care (01) ==
LOC: LAB 20:22
PROVIDERS: Visit Provider Obstetrics & Gynecology
DX: Z01.419 Encounter for gynecological examination (general) (routine) without abnormal findings (principal)
CPT/HCPCS: G0145

== ENCOUNTER 2023-12-10 16:10 | Outpatient (OUT) | payer OTHER, SELFPAY ==
--- OUTSIDE RECORDS SUMMARY | 2023-12-10 16:22 | XMS_ITS | CCD ---
Author Organization [facility] Care Team Providers Care Budget Counselor Name Role Phone Len YEPEZ Primary Care Physician [phone] Salome Sousa I Unavailable Unavailable NONE, XXXX [...] sources) Morphine; Translations: [morphine] Drug Allergy 10-29-2010 [facility] Medications Current Medications Medication Drug Class(es) Dates [...] Interpretation and review of laboratory results Abnormal [facility] Preg Test, Ur Positive [facility] Urinalysis macro (dipstick) panel (U)on 10-02-2023 Bilirubin, UA Negative Negative - 4(70) +++ mg/dL [facility] Blood, UA Negative Negative - 50 Ra/mcL [facility] Clarity, UA Clear [facility] Color, UA Yellow [facility] Glucose, UA Negative Negative - 1999(110) ++++ mg/dL [facility] Interpretation and review of laboratory results Abnormal [facility] Ketones, UA Negative Negative - 160(16) ++++ mg/dL [facility] Leukocytes, UA Trace Negative - 500+++ Gaurav/mcL [facility] Nitrite, UA Negative Negative - Positive [facility] pH, UA 6.0 5 - 9 [facility] Protein, UA Negative Negative - 2000(20) ++++ mg/dL [facility] Spec Grav, UA 1.030 1 - 1.03 [facility] Urobilinogen, UA 0.2 0.2 - 12 mg/dL [facility] DHEAon 05-05-2023 DHEA [Mass/Vol] 118 ng/dL Invalid Interpretation Code 31-701 [facility] Comment on above: Result Comment: This test was developed and its performance characteristics determined by [facility] [place]. It has not been cleared or approved by the Food and Drug Administration. Performed at: [address] [id number] MD Garry Montenegro Performed By: #### 1 [id number], 7644387, 2852864, 60119234, 7085687, 566555236, 44700168, 9854203 ####[facility] [id number] [place] [address] DHEASon 05-05-2023 DHEA-S [Mass/Vol] 91.7 microgram/dL Invalid Interpretation Code 57.3-279.2 [facility] Comment on above: Result Comment: Perf ormed at: [address] [id number] PhD Salbador Douglass Performed By: #### 1 [id number], 2908976, 9471713, 18559789, 7408750, 910757516, 52337788, 0318667 #### [facility] [address] [place] [address] FSH and LHon 05-05-2023 Follitropin Qn 5.6 m[IU]/mL Invalid Interpretation Code [facility] Comment on above: Result Comment: Adul t Female: Follicular phase 3.5 - 12.5 Ovulation phase 4.7 - 21.5 Luteal phase 1.7 - 7.7 Postmenopausal 25.8 - 134.8 Performed at: [address] [id number] PhD Salbador Douglass Performed By: #### 1 [id number], 9231420, 2622621, 11461228, 8089609, 874025877, 46525770, 3438077 #### [facility] [address] [place] [address] Lutropin Qn 10.4 m[IU]/mL Invalid Interpretation Code [facility] Comment on above: Result Comment: Adul t Female: Follicular phase 2.4 - 12.6 Ovulation phase 14.0 - 95.6 Luteal phase 1.0 - 11.4 Postmenopausal 7.7 - 58.5 Performed By: #### 1 5530591, 4641616, 0885078, 80789254, 9904573, 985892037, 50404275, 0701664 #### [facility] [address] [place] [address] Auto Diffon 04-29-2023 Basophils/100 WBC (Bld) 0.8 % Normal 0.0-2.0 [facility] Comment on above: Order Comment: Order Added by Discern Expert. Performed By: #### 1 [id number], 6291552, 6679857, 45510559, 2303629, 170045732, 15773564, 6459474 #### [facility] [address] [place] [address] Basophils/Leukocytes Auto (Bld) [Pure # fraction] 0.0 E9/L Normal 0.0-0.2 [facility] Comment on above: Order Comment: Order Added by Discern Expert. Performed By: #### 1 8129160, 9145713, 0274344, 15741288, 4360335, 247728608, 43097917, 8645409 #### [facility] [address] [place] [address] Eosinophils/100 WBC (Bld) 2.3 % Normal 0.0-8.0 [facility] Comment on above: Order Comment: Order Added by Discern Expert. Performed By: #### 1 3014546, 9088065, 5335274, 78708156, 5581596, 318948161, 78187805, 0103681 #### [facility] [address] [place] [address] Eosinophils/Leukocyte s Auto (Bld) [Pure # fraction] 0.1 E9/L Normal 0.0-0.5 [facility] Comment on above: Order Comment: Order Added by Discern Expert. Performed By: #### 1 1365525, 2302616, 4110876, 42190067, 3392034, 472188370, 68661302, 7545996 #### [facility] [address] [place] [address] Lymphocytes/100 WBC (Bld) 42.1 % Normal 14.0-50.0 [facility] Comment on above: Order Comment: Order Added by Francisco Expert. Performed By: #### 1 1154401, 3023689, 0535182, 66417696, 9421313, 181936254, 64086712, 8708905 #### [facility] [address] [place] [address] Lymphocytes/Leukocyte s Auto (Bld) [Pure # fraction] 2.0 E9/L Normal 1.0-4.0 [facility] Comment on above: Order Comment: Order Added by Discern Expert. Performed By: #### 1 0851884, 5338543, 1228617, 93760460, 0051933, 154281419, 01989478, 6771755 #### [facility] [address] [place] [address] Monocytes/100 WBC (Bld) 7.7 % Normal 4.0-14.0 [facility] Comment on above: Order Comment: Order Added by Francisco Expert. Performed By: #### 1 1072902, 8551006, 8633187, 37385730, 9447782, 358530196, 92622670, 4781108 #### [facility] [address] [place] [address] Monocytes/Leukocytes Auto (Bld) [Pure # fraction] 0.4 E9/L Normal 0.2-1.0 [facility] Comment on above: Order Comment: Order Added by Francisco Expert. Performed By: #### 1 6927399, 1588569, 0096539, 25172077, 2163705, 580012627, 26145954, 9325281 #### [facility] [address] [place] [address] Neutrophils/100 WBC (Bld) 47.1 % Normal 36.0-75.0 [facility] Comment on above: Order Comment: Order Added by Discern Expert. Performed By: #### 1 4153944, 1936217, 7120130, 02591365, 1544879, 978375422, 57699635, 7561175 #### [facility] [address] [place] [address] Neutrophils/Leukocyte s Auto (Bld) [Pure # fraction] 2.3 E9/L Normal 2.0-7.5 [facility] Comment on above: Order Comment: Order Added by Francisco Expert. Performed By: #### 1 7846708, 4930920, 9587543, 15518188, 5163208, 882644065, 02715711, 0158674 #### [facility] [address] [place] [address] BhCG Quanton 04-29-2023 HCG.beta subunit Qn m[IU]/mL Normal 1-3 [facility] Comment on above: Result Comment: GEST ATIONAL AGE HCG RANGE (mIU/mL) NON- <1-3 0.2-1 WEEKS 5-50 1-2 WEEKS 50-500 2-3 WEEKS 100-5,000 3-4 WEEKS 500-10,000 4-5 WEEKS 1,000-50,000 5-6 WEEKS 10,000-100,000 6-8 WEEKS 15,000-200,000 8-12 WEEKS 10,000-100,000 Performed By: #### 2 842791 ####[facility] [address] [place] [address] CBC w/ Auto Diffon Erythrocyte distribution width (RBC) [Ratio] 12.5 % Normal 10.9-14.2 [facility] Comment on above: Performed By: #### 1 1605467, 6201234, 6427035, 44198037, 5428902, 915523823, 61846681, 4146616 #### [facility] [address] [place] [address] Hematocrit (Bld) [Volume fraction] 39.3 % Normal 34.0-46.0 [facility] Comment on above: Performed By: #### 1 8627852, 4294929, 9425247, 08495582, 4003824, 182671713, 89154761, 1152180 #### [facility] [address] [place] [address] Hemoglobin (Bld) [Mass/Vol] 13.3 g/dL Normal 12.0-16.0 [facility] Comment on above: Performed By: #### 1 3709702, 5116978, 1681050, 93356688, 3390413, 125360831, 89088008, 9793677 #### [facility] [address] [place] [address] MCH (RBC) [Entitic mass] 32.3 pg Normal 27.0-34.0 [facility] Comment on above: Performed By: #### 1 7660508, 4512927, 6924282, 31718677, 6356869, 925001630, 27255395, 0650706 #### [facility] [address] [place] [address] MCHC (RBC) [Mass/Vol] 33.9 g/dL Normal 31.4-36.0 [facility] Comment on above: Performed By: #### 1 2947927, 1685996, 2914984, 12928039, 7170503, 383371112, 28983148, 8504483 #### [facility] [address] [place] [address] MCV (RBC) [Entitic vol] 95.2 fL Normal 80.0-100.0 [facility] Comment on above: Performed By: #### 1 7959019, 0975208, 8351799, 87424544, 3500603, 449543924, 51547777, 9564424 #### [facility] [address] [place] [address] Platelet mean volume (Bld) [Entitic vol] 9.0 fL Normal 6.4-10.8 [facility] Comment on above: Performed By: #### 1 0801330, 0442837, 4297988, 57721340, 0529220, 864115856, 30396916, 2400050 #### [facility] [address] [place] [address] Platelets (Bld) [#/Vol] 172.0 E9/L Normal 150.0-500.0 [facility] Comment on above: Performed By: #### 1 7877640, 1580297, 2536577, 31705274, 7350333, 912797038, 35903297, 7802492 #### [facility] [address] [place] [address] RBC (Bld) [#/Vol] 4.1 E12/L Low 4.3-5.9 [facility] Comment on above: Performed By: #### 1 1087850, 1566455, 4233171, 53533099, 4630097, 152416606, 73087109, 4235456 #### [facility] [address] [place] [address] WBC corrected for nucl RBC Auto (Bld) [#/Vol] 4.8 E9/L Normal 4.0-11.0 [facility] Comment on above: Performed By: #### 1 0761230, 4978283, 9889608, 33252968, 1858224, 034974023, 85211743, 0673513 #### [facility] [address] [place] [address] CHEMISTRYOrdered By: SYSTEM SYSTEM on 04-29-2023 Free [...] Treatmenton 04-18 Consent for Treatment [id number] 36#1.00CD:127 Normal [facility] Free T4on 04-29-2023 Free T4 [Mass/Vol] 0.89 ng/dL Normal 0.58-1.64 [facility] Comment on above: Performed By: #### 1 9214477, 7430199, 9136171, 83856461, 1047237, 194181864, 55649955, 8040581 #### [facility] [address] [place] [address] HEMATOLOGYOrdered By: SYSTEM SYSTEM on 04-29-2023 Basophils/100 [...] 172.0 E9/L Normal 150.0 - 500.0 E9/L [facility] HemeAutoSS RBC (Bld) [#/Vol] 4.1 E12/L Low 4.3 - 5.9 E12/L FT HemeAutoSS WBC corrected for nucl RBC Auto (Bld) [#/Vol] 4.8 E9/L Normal 4.0 - 11.0 E9/L [facility] HemeAutoSS [id number] 04-29-2023 HbA1c (Bld) [Mass fraction] 4.4 % Normal <=5.9 [facility] Comment on above: Performed By: #### 1 0269916, 1861581, 1808294, 26968634, 0785050, 561052986, 18904338, 1749011 #### [facility] [address] [place] [address] Physician Orderon 04-29-2023 Physician Order [id number]#1.00CD:127 Normal [facility] TSHon 04-29-2023 TSH Qn 2.70 m[IU]/L Normal 0.34-5.60 [facility] Comment on above: Performed By: #### 1 5720790, 5499999, 8115858, 45844415, 6455273, 416198080, 37027361, 1765721 #### [facility] [address] [place] [address] BhCG Quanton 04-22-2023 HCG.beta subunit Qn 2 m[IU]/mL Normal 1-3 [facility] Comment on above: Result Comment: GEST ATIONAL AGE HCG RANGE (mIU/mL) NON- <1-3 0.2-1 WEEKS 5-50 1-2 WEEKS 50-500 2-3 WEEKS 100-5,000 3-4 WEEKS 500-10,000 4-5 WEEKS 1,000-50,000 5-6 WEEKS 10,000-100,000 6-8 WEEKS 15,000-200,000 8-12 WEEKS 10,000-100,000 Performed By: #### 2 621156 #### [facility] [address] [place] [address] CHEMISTRYOrdered By: SYSTEM SYSTEM on 04-22-2023 HCG.beta subunit Qn 2 m[IU]/mL Normal 1 - 3 mIU/mL FTM C Remisol Consent for Treatmenton Consent for Treatment [id number]#1.00CD:127 Normal [facility] Physician Orderon 04-22-2023 Physician Order [id number]#1.00CD:127 Normal [facility] Ambulatory Visit Summaryon 10-07-2022 Ambulatory Visit [...] longer receiving treatment for. Appendectomy hyperthyroid Normal [facility] Office/Clini c Noteon 10-07-2022 [...] bedtime), # 90 tab(s), Refills(s) 1, Pharmacy: [facility]/pharmacy #[id number], 170, cm, 08/23/20 8:37:00 EST, Height/Length Dosing, 65.1, kg, 08/23/20 8:37:00 EST, Weight Dosing pantoprazole, 40 mg = 1 tab(s), Oral, Daily, # 90 tab(s), Refills(s) 1, Pharmacy: [facility]/pharmacy #[id number], 170, cm, 08/23/20 8:37:00 EST, Height/Length Dosing, 65.1, kg, 08/23/20 8:37:00 EST, Weight Dosing Follow-up With When Contact Information Len YEPEZ DO, FAM In 1 year [address] [place] [id number]- Additional Instructions: Problem List/Past Medical History Ongoing [...] inactivated - Not Given Patient Refuses Normal [facility] Comment on above: Result Comment: Elec tronically Signed By: Len YEPEZ DO\.br\Date and Time Signed: 10/07/22 17:12 EST Vital Signs Date Time Vital Sign Value Performing Clinician Facility 10-02-2023 14:02-0500 Body mass index (BMI) [Ratio] 24.22 kg/m2 [facility] 10-02-2023 14:02-0500 Body weight 74.39 kg [facility] 10-02-2023 14:02-0500 Diastolic blood pressure 70 mm[Hg] [facility] 10-02-2023 14:02-0500 Systolic blood pressure 118 mm[Hg] [facility] 10-07-2022 16:18-0500 Blood Pressure Location Len YEPEZ [facility] 10-07-2022 16:18-0500 Body temperature 96.98 [degF] Len YEPEZ [facility] 10-07-2022 16:18-0500 Diastolic blood pressure 68 mm[Hg] Len YEPEZ [facility] 10-07-2022 16:18-0500 Heart rate 66 /min Len YEPEZ [facility] 10-07-2022 16:18-0500 SaO2% (BldA) [Mass fraction] 99 % Len YEPEZ [facility] 10-07-2022 16:18-0500 Systolic blood pressure 114 mm[Hg] Len YEPEZ [facility] Encounters Encounter Date Encounter Type Care Provider [...] 04-29-2023 End: 04-30-2023 ambulatory Fred R ELIU Facility:[facility] Start: 04-29-2023 End: 04-29-2023 Patient encounter procedure Fred R ELIU [facility] Start: 04-22-2023 End: 04-23-2023 ambulatory Calin Ordaz Facility:[facility] Start: 04-22-2023 End: 04-22-2023 Patient encounter procedure Calin Ordaz [facility] Start: 10-07-2022 End: 10-08-2022 ambulatory Lensilverio YEPEZ Facility:[facility] Start: 10-07-2022 End: 10-07-2022 Patient encounter procedure Len YEPEZ [facility] Start: 10-07-2022 End: 10-07-2022 Well adult monitoring check done Len Garcia LUCHO [facility] Procedures Date Procedure Procedure Detail Performing Clinician [...] Missed menses Expected: 10/02/2023 (Approximate), Expires: 10/02/2024 [facility] Comment on above: Expected: 10/02/2023 (Approximate), Expires: 10/02/2024 Start: 10-02-2023 End: 10-02-2024 Blood type and Indirect antibody screen panel - Blood Type and screen Lab Routine Missed menses Expected: 10/02/2023 (Approximate), Expires: 10/02/2024 [facility] Work Phone: Comment on above: Expected: 10/02/2023 (Approximate), Expires: 10/02/2024 Start: 10-02-2023 End: 10-02-2024 US Pelvis transvaginal US OB transvaginal Imaging Routine Missed menses Expected: 10/02/2023 (Approximate), Expires: 10/02/2024 [facility] Comment on above: Expected: 10/02/2023 (Approximate), Expires: 10/02/2024 Bacteria identified in Urine by Culture Urine culture Microbiology Routine Missed menses Ordered: 10/02/2023 [facility] Comment on above: Ordered: 10/02/2023 CBC W Auto Different ial panel - Blood CBC and differential Lab Routine Missed menses Ordered: 10/02/2023 [facility] Comment on above: Ordered: 10/02/2023 Hemoglobin A1c/Hemoglobin.total in Blood Hemoglobin A1c Lab Routine Missed menses Ordered: 10/02/2023 [facility] Comment on above: Ordered: 10/02/2023 Hepatitis B virus surface Ag [Presence] in Serum or Plasma by Immunoassay Hepatitis B surface antigen Lab Routine Missed menses Ordered: 10/02/2023 [facility] Comment on above: Ordered: 10/02/2023 Hepatitis C virus Ab [Presence] in Serum or Plasma by Immunoassay Hepatitis C antibody Lab Routine Missed menses Ordered: 10/02/2023 [facility] Comment on above: Ordered: 10/02/2023 HIV-1/HIV-2 antigen/antibody combination immunoassay HIV-1 and HIV-2 antibodies Lab Routine Missed menses Ordered: 10/02/2023 [facility] Comment on above: Ordered: 10/02/2023 Reagin Ab [Presence] in Serum by RPR RPR Lab Routine Missed menses Ordered: 10/02/2023 [facility] Comment on above: Ordered: 10/02/2023 Rubella antibody, IgG Rubella an tibody, IgG Lab Routine Missed menses Ordered: 10/02/2023 [facility] Comment on above: Ordered: 10/02/2023 Immunizations Immunization Date Immunization Notes Care Provider Fa cility NEGATED: Highlighted row has not occurred!02-20-2023 influenza virus vaccine, unspecified formulation Len LUCHO [facility] [place] Payers Date Payer Category Payer Unknown [employer] [id number] 2023-Present [address] [place] [address] [id number] 2023 Private Health Insurance 2023 Managed Care HMO (unspecified) [employer] A[employer]NA [id number] 2023-Present [address] [place] [address] HMO [id number] 2023 Private Health Insurance [id number] 2021 Unknown [id number] 1987 Unknown [id number] 27 1987 Unknown [id number] 27 1987 Unknown [id number] 27 1987 Unknown [id number] 1987 Unknown [id number] 259 1987 Unknown [id number] 259 Social History Date Type Detail Facility Start: 03-04-2019 Tobacco smoking status Never smoked tobacco (finding) [facility] Sex Assigned At Female [facility] Tobacco smoking status NHIS Tobacco smoking consumption unknown [facility] Start: 08-17-2023 [facility] Start: 1985 Sex Assigned At Not on file [facility] Functional Status Date Assessment Result Facility 10-07-2022 Functional Status N/A [facility] History of Present illness Narrative 10-02-2023 Teodora [...] was given her OB folder and desires Hollister 21. Advised to make sure she is 10 weeks before having Hollister done along with her labs. Pt did [...] Teodora Vegas MA documented in this encounter [facility] Healthcare Evaluation + Plan note 04-29-2023 Note Date & Type Note Facility 04-29-2023 Evaluation + Plan note Diagnostic Tests PendingFSH and LH 04/29/23DHEA 04/29/23DHEAS 04/29/23 [facility] Hospital Discharge instructions 09-24-2022 Note Date & Type Note Facility 09-24-2022 Hospital Discharg e instructions Follow Up Care 09/24/2022 13:44:14 With:Len YEPEZ DO, FAM Address: [address] [place] [address]- When:Within 1 Year(s) [facility] Evaluation + Plan note Note Date & Type Note Facility Evaluation + Plan note No data available for this section [facility] Evaluation note Note Date & Type Note Facility Evaluation note Diagnosis Missed menses documented in this encounter [facility] Hospital Discharge instructions Note Date & Type Note Facility Hospital Discharge instructions No data available for this section [facility] Progress note Note Date & Type Note Facility Progress note No data available for this section [facility] Summary Purpose Family History No Family History Records FoundNo Family History Records Found Advance Directives No Advanced Directives Records FoundNo Advanced Directives Records Found Additional Source Comments Patient Care team informatio n (unrecognized section and content) Personnel Name: Len YEPEZ DO Address: Address: [address] [place] [address]- Name: Salome Sousa I Personnel Name: eLn YEPEZ DO Address: Address: [address] [facility] [place] [address]- Name: Salome Sousa I Personnel Name: NONE, XXXX Address: Address: [facility] Name: Salome Sousa I INFORMATION SOURCE (unrecogn ized section and content) DATE CREATED AUTHOR 05/05/2023 [facility] DATE CREATED AUTHOR AUTHOR'S JEMAL SMITH 12/01/2023 [facility] d[facility] Specialists EPIC Reason for Visit [...] BE BASED ON THE PRIMARY CLINICAL RECORDS. [facility] [employer] provides no warranty or guarantee of the accuracy or completeness of information in this document.
[2023-12-10 17:11] LABS: Total Protein 7.1 g/dL (6.4-8.2)
[2023-12-12 15:11] LABS: Anticardiolipin Ab, IgG, Qn <9 GPL U/mL (0-14)
[2023-12-13 01:07] LABS: Antithrombin Activity 113 % (75-135); Protein C-Functional 107 % (73-180); Protein S, Free 64 % (61-136); Protein S, Total 54 % (60-150)
[2023-12-18 10:23] LABS: Gest. Age on Collection Date 18.4 weeks; Results Report
[2023-12-18 10:24] LABS: AFP Value 39.6 ng/mL; Insulin Dep Diabetes No; Maternal Age At EDD 36.4 yrs; OSBR Risk 1 IN 10000
== END 2023-12-10 16:11 | disposition home or self-care (01) ==
LOC: LAB 16:11
PROVIDERS: Visit Provider Obstetrics & Gynecology
DX: Z34.92 Encounter for supervision of normal pregnancy, unspecified, second trimester (principal); D69.9 Hemorrhagic condition, unspecified; Z3A.17 17 weeks gestation of pregnancy
CPT/HCPCS: 36415; 81241; 82105; 84155; 85303; 85305; 85306; 85613; 86146; 86147

== ENCOUNTER 2024-01-28 07:38 | Outpatient (OUT) | payer OTHER, SELFPAY ==
--- OUTSIDE RECORDS SUMMARY | 2024-01-28 07:40 | XMS_ITS | CCD ---
Author Organization [facility] Care Team Providers Care Drain Technician Name Role Phone Len YEPEZ Primary Care Physician Salome Sousa I Unavailable Unavailable NONE, XXXX Primary Care Physician Unavailab Fred Foote Attending Unavailable Fred GUZMAN Admitting Unavailable Calin Ordaz Attending Unavailable Calin Ordaz Admitting Unavailable Fred GUZMAN R Consulting Unavailable ELIU, DO Gould R Consulting Unavailable Manju GUZMANy R Consulting Unavailable Len YEPEZ Attending Unavailable Unavailable Primary Care Provider Unavailasaf e FRED GUZMAN Attending Unavailable ELIU, FRED Attending Unavailable ELIU, FRED Attending Unavailable ELIU, FRED Attending Unavailable ОЛЬГА CAVAZOS Referring Unavailable NO, PCP Primary Care Unavailable Allergies Allergy Classification Reported Allergen(s) Allergy Type Date of Onset Reaction(s) Facility (5 sources) Morphine; Translations: [morphine] Drug Allergy 10-29-2010 [facility] Medications Current Medications Medication Drug [...] Active Problems Problem Classification Problem Date Documented Date Episodic/Chronic Abdominal pain (3 sources) Epigastric pain 08-23-2020 Episodic Biliary tract disease (3 sources) Biliary dyskinesia 10-29-2013 Episodic Coagulation and hemorrhagic disorders (3 sources) Lupus anticoagulant disorder 04-30-2013 Chronic Contraceptive and procreative management (2 sources) Encounter of female for testing for genetic disease carrier status for procreative management; Translations: [Encounter of female for testing for genetic disease carrier status for procreative management] Onset: 12-30-2023 Episodic Headache; including migraine (3 sources) Migraine 03-04-2019 Chronic Menstrual disorders (1 source) Missed period; Translations: [Irregular menstruation, unspecified] 09-24-2023 Chronic Other complications of (2 sources) Supervision of other high risk pregnancies, second trimester; Translations: [Supervision of other high risk pregnancies, second trimester] Onset: 12-30-2023 Episodic Thyroid disorders (3 sources) Hyperthyroidism 07-07-2010 Chronic Unclassified (3 sources) Exposure to 2018 novel coronavirus 07-12-2020 Unclassified (3 sources) Patient encounter status 08-23-2020 Results Test Name Value Interpretation Reference Range Facility Miscellaneouson 12-31-2023 Send Out Report [employer], FED EX [id number] Normal [facility] Comment on above: Performed By: #### C MIS #### [facility] [address] [place] [address] Liquor Maker: Gonzalo Matthews MD HCG ( test) Ql (U)o n 10-02-2023 Interpretation and review of laboratory results Abnormal [facility] Preg Test, Ur Positive [facility] Urinalysis macro (dipstick) panel (U)on 10-02-2023 Bilirubin, UA Negative Negative - 4(70) +++ mg/dL [facility] Blood, UA Negative Negative - 50 Ra/mcL [facility] Clarity, UA Clear [facility] Color, UA Yellow [facility] Glucose, UA Negative Negative - 2000(110) ++++ mg/dL [facility] Interpretation and review of laboratory results Abnormal [facility] Ketones, UA Negative Negative - 160(16) ++++ mg/dL [facility] Leukocytes, UA Trace Negative - 500+++ Gaurav/mcL [facility] Nitrite, UA Negative Negative - Positive [facility] pH, UA 6.0 5 - 9 [facility] Protein, UA Negative Negative - 1999(20) ++++ mg/dL [facility] Spec Grav, UA 1.030 1 - 1.03 [facility] Urobilinogen, UA 0.2 0.2 - 12 mg/dL [facility] DHEAon 05-05-2023 DHEA [Mass/Vol] 118 ng/dL Invalid Interpretation Code 31-681 [facility] Comment on above: Result Comment: This test was developed and its performance characteristics determined by [facility]. It has not been cleared or approved by the Food and Drug Administration. Performed at: [address] [id number] MD Garry Montenegro Performed By: #### 1 [id number], 7446557, 7482244, 60161030, 7870663, [id number], 13068179, 2028229 ####[facility] [address] [place] [address] DHEASon 05-05-2023 DHEA-S [Mass/Vol] 91.7 microgram/dL Invalid Interpretation Code 57.3-279.2 [facility] Comment on above: Result Comment: Perf ormed at: [address] [id number] PhD Salbador Douglass Performed By: #### 1 [id number], 9522858, 9733683, 06237292, 7053995, [id number], 22815180, 4698810 #### [facility] [address] [id number] FSH and LHon 05-05-2023 Follitropin Qn 5.6 m[IU]/mL Invalid Interpretation Code [facility] Comment on above: Result Comment: Adul t Female: Follicular phase 3.5 - 12.5 Ovulation phase 4.7 - 21.5 Luteal phase 1.7 - 7.7 Postmenopausal 25.8 - 134.8 Performed at: [address] [id number] PhD Salbador Douglass Performed By: #### 1 1512229, 4914550, 3856548, 36544223, 1952080, 979409867, 61033133, 1475648 #### [facility] [address] [place] [address] Lutropin Qn 10.4 m[IU]/mL Invalid Interpretation Code [facility] Comment on above: Result Comment: Adul t Female: Follicular phase 2.4 - 12.6 Ovulation phase 14.0 - 95.6 Luteal phase 1.0 - 11.4 Postmenopausal 7.7 - 58.5 Performed By: #### 1 9420498, 5454466, 9896942, 25396079, 8461351, 047445719, 22602089, 6316672 #### [facility] [address] [place] [address] Auto Diffon 04-29-2023 Basophils/100 WBC (Bld) 0.8 % Normal 0.0-2.0 [facility] Comment on above: Order Comment: Order Added by Discern Expert. Performed By: #### 1 5702992, 5848447, 3386981, 32854803, 6708639, 789440404, 21781327, 8137339 #### [facility] [address] [place] [address] Basophils/Leukocytes Auto (Bld) [Pure # fraction] 0.0 E9/L Normal 0.0-0.2 [facility] Comment on above: Order Comment: Order Added by Discern Expert. Performed By: #### 1 8097661, 4671663, 6132909, 71368647, 8143882, 084484611, 35144384, 0222259 #### [facility] [address] [place] [address] Eosinophils/100 WBC (Bld) 2.3 % Normal 0.0-8.0 [facility] Comment on above: Order Comment: Order Added by Discern Expert. Performed By: #### 1 6186498, 4515167, 9698495, 90135062, 8086236, 462708000, 52285412, 9545148 #### [facility] [address] [place] [address] Eosinophils/Leukocyte s Auto (Bld) [Pure # fraction] 0.1 E9/L Normal 0.0-0.5 [facility] Comment on above: Order Comment: Order Added by Discern Expert. Performed By: #### 1 0929470, 4975455, 1176237, 92948602, 0119923, 989825318, 70063826, 9457763 #### [facility] [address] [place] [address] Lymphocytes/100 WBC (Bld) 42.1 % Normal 14.0-50.0 [facility] Comment on above: Order Comment: Order Added by Discern Expert. Performed By: #### 1 3188860, 7616956, 7807480, 02217666, 5265283, 770816585, 15800375, 9021732 #### [facility] [address] [place] [address] Lymphocytes/Leukocyte s Auto (Bld) [Pure # fraction] 2.0 E9/L Normal 1.0-4.0 [facility] Comment on above: Order Comment: Order Added by Discern Expert. Performed By: #### 1 9644743, 0651061, 9501632, 33384691, 0948460, 872368597, 98289216, 6760768 #### [facility] [address] [place] [address] Monocytes/100 WBC (Bld) 7.7 % Normal 4.0-14.0 [facility] Comment on above: Order Comment: Order Added by Discern Expert. Performed By: #### 1 2106238, 3241163, 6444062, 18775977, 0657592, 007861568, 44397259, 0113795 #### [facility] [address] [place] [address] Monocytes/Leukocytes Auto (Bld) [Pure # fraction] 0.4 E9/L Normal 0.2-1.0 [facility] Comment on above: Order Comment: Order Added by Discern Expert. Performed By: #### 1 8762976, 0131016, 5751155, 91464477, 0859138, 162554655, 36544239, 9882933 #### [facility] [address] [place] [address] Neutrophils/100 WBC (Bld) 47.1 % Normal 36.0-75.0 [facility] Comment on above: Order Comment: Order Added by Discern Expert. Performed By: #### 1 0249876, 3047125, 9910524, 98087292, 1834423, 435201871, 57391809, 5542342 #### [facility] [address] [place] [address] Neutrophils/Leukocyte s Auto (Bld) [Pure # fraction] 2.3 E9/L Normal 2.0-7.5 [facility] Comment on above: Order Comment: Order Added by Discern Expert. Performed By: #### 1 4587804, 3121910, 6663479, 57959607, 4081261, 376201779, 34063907, 6983880 #### [facility] [address] [place] [address] BhCG Quanton 04-29-2023 HCG.beta subunit Qn m[IU]/mL Normal 1-3 [facility] Comment on above: Result Comment: GEST ATIONAL AGE HCG RANGE (mIU/mL) NON- <1-3 0.2-1 WEEKS 5-50 1-2 WEEKS 50-500 2-3 WEEKS 100-5,000 3-4 WEEKS 500-10,000 4-5 WEEKS 1,000-50,000 5-6 WEEKS 10,000-100,000 6-8 WEEKS 15,000-200,000 8-12 WEEKS 10,000-100,000 Performed By: #### 2 514544 ####[facility] [address] [place] [address] CBC w/ Auto Diffon Erythrocyte distribution width (RBC) [Ratio] 12.5 % Normal 10.9-14.2 [facility] Comment on above: Performed By: #### 1 6193593, 5295198, 4655835, 08869131, 3026303, 596088005, 23533197, 6960841 #### [facility] [address] [place] [address] Hematocrit (Bld) [Volume fraction] 39.3 % Normal 34.0-46.0 [facility] Comment on above: Performed By: #### 1 0814940, 0088279, 0627076, 96013094, 1267849, 997623095, 19128869, 4216307 #### [facility] [address] [place] [address] Hemoglobin (Bld) [Mass/Vol] 13.3 g/dL Normal 12.0-16.0 [facility] Comment on above: Performed By: #### 1 5944552, 2749638, 3997679, 23734641, 2205799, 094093291, 07037226, 8867427 #### [facility] [address] [place] [address] MCH (RBC) [Entitic mass] 32.3 pg Normal 27.0-34.0 [facility] Comment on above: Performed By: #### 1 2077717, 9711794, 3106105, 80522262, 9565659, 880416042, 66429337, 5713848 #### [facility] [address] [place] [address] MCHC (RBC) [Mass/Vol] 33.9 g/dL Normal 31.4-36.0 [facility] Comment on above: Performed By: #### 1 4711005, 0555814, 8845235, 03311794, 5560606, 421625507, 95523579, 3222497 #### [facility] [address] [place] [address] MCV (RBC) [Entitic vol] 95.2 fL Normal 80.0-100.0 [facility] Comment on above: Performed By: #### 1 8497434, 2518367, 0150194, 97642468, 9330974, 795603043, 69903948, 8737971 #### [facility] [address] [place] [address] Platelet mean volume (Bld) [Entitic vol] 9.0 fL Normal 6.4-10.8 [facility] Comment on above: Performed By: #### 1 1972691, 2423814, 8654932, 80067037, 9931604, 375997312, 61512586, 6993965 #### [facility] [address] [place] [address] Platelets (Bld) [#/Vol] 172.0 E9/L Normal 150.0-500.0 [facility] Comment on above: Performed By: #### 1 6496789, 6619168, 6037436, 76094430, 1740251, 767720318, 76411551, 2236474 #### [facility] [address] [place] [address] RBC (Bld) [#/Vol] 4.1 E12/L Low 4.3-5.9 [facility] Comment on above: Performed By: #### 1 1331636, 1966082, 8681290, 75177056, 2162387, 342679415, 74923871, 3974076 #### [facility] [address] [place] [address] WBC corrected for nucl RBC Auto (Bld) [#/Vol] 4.8 E9/L Normal 4.0-11.0 [facility] Comment on above: Performed By: #### 1 4648786, 2117393, 5535346, 57209717, 6285735, 431857844, 77643937, 5825472 #### [facility] [address] [place] [address] CHEMISTRYOrdered By: [employer] SYSTEM on 04-29-2023 Free T4 [Mass/Vol] 0.89 [...] Treatmenton 04-18 Consent for Treatment [id number] 36#1.00CD:127 Normal [facility] Free T4on 04-29-2023 Free T4 [Mass/Vol] 0.89 ng/dL Normal 0.58-1.64 [facility] Comment on above: Performed By: #### 1 5485369, 7658100, 5943663, 01271758, 6514878, 907170517, 39602619, 3332450 #### [facility] [address] [place] [address] HEMATOLOGYOrdered By: SYSTEM SYSTEM on 04-29-2023 Basophils/100 [...] Normal 4.0 - 11.0 E9/L [facility] HemeAutoSS RblM4ast 04-29-2023 HbA1c (Bld) [Mass fraction] 4.4 % Normal <=5.9 [facility] Comment on above: Performed By: #### 1 1404499, 6215948, 0687714, 54053419, 6995056, 847480288, 26380600, 4679092 #### [facility] [address] [place] [address] Physician Orderon 04-29-2023 Physician Order [id number] 732#1.00CD:127 Normal [facility] TSHon 04-29-2023 TSH Qn 2.70 m[IU]/L Normal 0.34-5.60 [facility] Comment on above: Performed By: #### 1 4125949, 3426691, 3710660, 13286202, 5655171, 603611975, 42349869, 9290824 #### [facility] [address] [place] [address] BhCG Quanton 04-22-2023 HCG.beta subunit Qn 2 m[IU]/mL Normal 1-3 [facility] Comment on above: Result Comment: GEST ATIONAL AGE HCG RANGE (mIU/mL) NON- <1-3 0.2-1 WEEKS 5-50 1-2 WEEKS 50-500 2-3 WEEKS 100-5,000 3-4 WEEKS 500-10,000 4-5 WEEKS 1,000-50,000 5-6 WEEKS 10,000-100,000 6-8 WEEKS 15,000-200,000 8-12 WEEKS 10,000-100,000 Performed By: #### 2 952668 #### [facility] [address] [place] [address] CHEMISTRYOrdered By: SYSTEM SYSTEM on 04-22-2023 HCG.beta subunit Qn 2 m[IU]/mL Normal 1 - 3 mIU/mL FTM C Remisol Consent for Treatmenton Consent for Treatment [id number] 5B#1.00CD:127 Normal [facility] Physician Orderon 04-22-2023 Physician Order [id number]#1.00CD:127 Normal [facility] Ambulatory Visit Summaryon 0 10-07-2022 Ambulatory Visit Summary DENNYDONATOALYSA L :1985 Visit Date:10/07/2022 Ambulatory Visit Instructions Your [...] longer receiving treatment for. Appendectomy hyperthyroid Normal [facility] Office/Clini c Noteon 10-07-2022 Family [...] # 90 tab(s), Refills(s) 1, Pharmacy: [facility]/pharmacy #[id number], 170, cm, 08/23/20 8:37:00 EST, Height/Length Dosing, 65.1, kg, 08/23/20 8:37:00 EST, Weight Dosing pantoprazole, 40 mg = 1 tab(s), Oral, Daily, # 90 tab(s), Refills(s) 1, Pharmacy: [facility]/pharmacy #[id number], 170, cm, 08/23/20 8:37:00 EST, Height/Length Dosing, 65.1, kg, 08/23/20 8:37:00 EST, Weight Dosing Follow-up With When Contact Information Len YEPEZ DO, FAM In 1 year [address] [place] [id number]- Additional Instructions: Problem List/Past Medical History Ongoing [...] inactivated - Not Given Patient Refuses Normal [facility] Comment on above: Result Comment: Elec tronically Signed By: Len YEPEZ DO\.br\Date and Time Signed: 10/07/22 17:12 EST Vital Signs Date Time Vital Sign Value Performing Clinician Facility 10-02-2023 14:02-050 Body mass index (BMI) [Ratio] 24.22 kg/m2 [facility] 10-02-2023 14:02-050 Body weight 74.[address] [facility] 10-02-2023 14:02-0500 Diastolic blood pressure 70 mm[Hg] [facility] 10-02-2023 14:02050 Systolic blood pressure 118 mm[Hg] [facility] 10-07-2022 16:18-0500 Blood Pressure Location Len YEPEZ [facility] 10-07-2022 16:18-0500 Body temperature 96.98 [degF] Len YEPEZ [facility] 10-07-2022 16:18-0500 Diastolic blood pressure 68 mm[Hg] Len YEPEZ [facility] 10-07-2022 16:18-0500 Heart rate 66 /min Len YEPEZ [facility] 10-07-2022 16:18-0500 SaO2% (BldA) [Mass fraction] 99 % Len YEPEZ [facility] 10-07-2022 16:18-0500 Systolic blood pressure 114 mm[Hg] Len YEPEZ [facility] Encounters Encounter Date Encounter Type Care Provider Facility Start: 01-26-2024 End: 01-26-2024 ambulatory FRED GUZMAN Not Available Start: 12-30-2023 End: 12-30-2023 [facility] Start: 12-29-2023 End: 12-29-2023 ambulatory FRED ELIU Not Available Start: 12-01-2023 End: 12-01-2023 ambulatory FRED ELIU Not Available Start: 10-30-2023 End: 10-30-2023 ambulatory FRED ELIU Not Available Start: 10-02-2023 End: 10-02-2023 ambulatory FRED ELIU Not Available Start: 10-02-2023 End: 10-02-2023 Office outpatient visit 5 minutes [facility] Comment on above: GA: 8w4d Start: 04-29-2023 End: 04-30-2023 ambulatory Fred R ELIU Facility:[facility] Start: 04-29-2023 End: 04-29-2023 Patient encounter procedure Fred R ELIU [facility] Start: 04-22-2023 End: 04-23-2023 ambulatory Calin Ordaz Facility:[facility] Start: 04-22-2023 End: 04-22-2023 Patient encounter procedure Calin Ordaz [facility] Start: 10-07-2022 End: 10-08-2022 ambulatory Len YEPEZ Facility:[facility] Start: 10-07-2022 End: 10-07-2022 Patient encounter procedure Len YEPEZ [facility] Start: 10-07-2022 End: 10-07-2022 Well adult monitoring check done Len YEPEZ [facility] Procedures Date Procedure Procedure Detail Performing Clinician [...] on above: 05/11/2013 Start: 08-18-2002 Appendectomy Len NASH RAJ Appendectomy Appendectomy Len YEPEZ Plan of Treatment Date Care Activity Detail Author Start: 10-02-2023 End: 10-02-2024 ABO/Rh ABO/Rh Lab Routine Missed menses Expected: 10/02/2023 (Approximate), Expires: 10/02/2024 [facility] [employer] Comment on above: Expected: 10/02/2023 (Approximate), Expires: 10/02/2024 Start: 10-02-2023 End: 10-02-2024 Blood type and Indirect antibody screen panel - Blood Type and screen Lab Routine Missed menses Expected: 10/02/2023 (Approximate), Expires: 10/02/2024 [facility] [employer] Work Phone: Comment on above: Expected: 10/02/2023 (Approximate), Expires: 10/02/2024 Start: 10-02-2023 End: 10-02-2024 US Pelvis transvaginal US OB transvaginal Imaging Routine Missed menses Expected: 10/02/2023 (Approximate), Expires: 10/02/2024 [facility] [employer] Comment on above: Expected: 10/02/2023 (Approximate), Expires: 10/02/2024 Bacteria identified in Urine by Culture Urine culture Microbiology Routine Missed menses Ordered: 10/02/2023 [facility] Comment on above: Ordered: 10/02/2023 CBC W Auto Different ial panel - Blood CBC and differential Lab Routine Missed menses Ordered: 10/02/2023 [facility] Comment on above: Ordered: 10/02/2023 Hemoglobin A1c/Hemoglobin.total in Blood Hemoglobin A1c Lab Routine Missed menses Ordered: 10/02/2023 [facility] Comment on above: Ordered: 10/02/2023 Hepatitis B virus surface Ag [Presence] in Serum or Plasma by Immunoassay Hepatitis B surface antigen Lab Routine Missed menses Ordered: 10/02/2023 [facility] Comment on above: Ordered: 10/02/2023 Hepatitis C virus Ab [Presence] in Serum or Plasma by Immunoassay Hepatitis C antibody Lab Routine Missed menses Ordered: 10/02/2023 [facility] Comment on above: Ordered: 10/02/2023 HIV-1/HIV-2 antigen/antibody combination immunoassay HIV-1 and HIV-2 antibodies Lab Routine Missed menses Ordered: 10/02/2023 [facility] Comment on above: Ordered: 10/02/2023 Reagin Ab [Presence] in Serum by RPR RPR Lab Routine Missed menses Ordered: 10/02/2023 [facility] Comment on above: Ordered: 10/02/2023 Rubella antibody, IgG Rubella an tibody, IgG Lab Routine Missed menses Ordered: 10/02/2023 [facility] Comment on above: Ordered: 10/02/2023 Immunizations Immunization Date Immunization Notes Care Provider Fa cility NEGATED: Highlighted row has not occurred!10-07-2022 influenza virus vaccine, unspecified formulation Len YEPEZ [facility] Payers Date Payer Category Payer Unknown [employer] [id number] 2023-Present [address] [place] [address] [id number] 2023 Private Health Insurance 2023 Managed Care HMO (unspecified) [employer] A[employer]NA [id number] 2023-Present [address] [place] [address] HMO [id number] 2023 Private Health Insurance [id number] 2021 Unknown [id number] 1985 Unknown [id number] 27 1985 Unknown [id number] 27 1985 Unknown [id number] 27 1985 Unknown [id number] 259 1985 Unknown [id number] 259 1987 Unknown [id number] 259 1987 Unknown [id number] [id number] 259 1987 Unknown [id number] [id number] 259 1985 Unknown [id number] [id number] 75 Social History Date Type Detail Facility Start: 03-04-2019 Tobacco smoking status Never smoked tobacco (finding) [facility] Sex Assigned At Female [facility] Tobacco smoking status NHIS Tobacco smoking consumption unknown [facility] Start: 08-17-2023 [facility] Start: 1985 Sex Assigned At Not on file [facility] Functional Status Date Assessment Result Facility 10-07-2022 Functional Status N/A [facility] [place] History of Present illness Narrative 10-02-2023 Teodora [...] was given her OB folder and desires Charlo 21. Advised to make sure she is 10 weeks before having Charlo done along with her labs. Pt did [...] Teodora Vegas MA documented in this encounter [facility] Evaluation + Plan note 04-29-2023 Note Date & Type Note Facility 04-29-2023 Evaluation + Plan note [facility] 04/29/23[facility] 04/29/23DHEAS 04/29/23 [facility] Discharge instructions 09-24-2022 Note Date & Type Note Facility 09-24-2022 Hospital Discharg e instructions Follow Up Care 09/24/2022 13:44:14 With:Len YEPEZ DO, FAM Address: [address] [place] [address]- When:Within 1 Year(s) [facility] Evaluation + Plan note Note Date & Type Note Facility Evaluation + Plan note No data available for this section [facility] Evaluation note Note Date & Type Note Facility Evaluation note Diagnosis Missed menses documented in this encounter [facility] Hospital Discharge instructions Note Date & Type Note Facility Hospital Discharge instructions No data available for this section [facility] Progress note Note Date & Type Note Facility Progress note No data available for this section [facility] Summary Purpose Family History No Family History Records FoundNo Family History Records FoundNo Family History Records Found Advance Directives No Advanced Directives Records FoundNo Advanced Directives Records FoundNo Advanced Directives Records Found Additional Source Comments Patient Care team informatio n (unrecognized section and content) Personnel Name: Len YEPEZ DO Address: Address: [address] [place] [address]- Name: Salome Sousa I Personnel Name: Len YEPEZ DO Address: Address: [address] [place] [address] [place] [address]- Name: Salome Sousa I Personnel Name: NONE, XXXX Address: Address: [facility] Name: Salome Sousa I INFORMATION SOURCE (unrecogn ized section and content) DATE CREATED AUTHOR 05/05/2023 [facility] DATE CREATED AUTHOR AUTHOR'S ORGANIZ ATION 01/26/2024 [facility] EPIC DATE CREATED AUTHOR AUTHOR'S ORGANIZ ATION 01/28/2024 [facility] Reason for Visit (unrecogniz ed section and [...] BE BASED ON THE PRIMARY CLINICAL RECORDS. [facility]. provides no warranty or guarantee of the accuracy or completeness of information in this document.
[2024-01-28 08:53] LABS: Basophils Percent Auto 0.5 % (0.2-2.0); Eosinophils Absolute Auto 0.1 10^3/uL (0.0-0.7); Eosinophils Percent Auto 1.1 % (0.9-7.0); Hematocrit 35.9 % (36.0-48.0); Hemoglobin 12.2 g/dL (12.0-16.0); Immature Granulocytes Pct Auto 1.2 % (0.0-0.5); Lymphocytes Absolute Auto 1.6 10^3/uL (1.2-3.8); Lymphocytes Percent Auto 20.4 % (20.5-60.0); Mean Corpuscular Hemoglobin 33.3 pg (26.7-34.0); Mean Corpuscular Volume 98.1 fL (81.0-99.0); Mean Platelet Volume 10.5 fL (9.5-13.5); Monocytes Absolute Auto 0.4 10^3/uL (0.3-0.8); Monocytes Percent Auto 5.3 % (1.7-12.0); Neutrophils Absolute Auto 5.7 10^3/uL (1.4-6.5); Neutrophils Percent Auto 71.5 % (43.0-75.0); Platelet Count 171 10^3/uL (150-450); Red Blood Count 3.66 10^6/uL (4.20-5.40); Red Cell Distribution Width 12.8 % (11.0-15.0)
[2024-01-28 09:48] LABS: Glucose 1 Hour 161 mg/dL (<130)
== END 2024-01-28 07:39 | disposition home or self-care (01) ==
LOC: LAB 07:38
PROVIDERS: Visit Provider Obstetrics & Gynecology
DX: Z13.1 Encounter for screening for diabetes mellitus (principal)
CPT/HCPCS: 36415; 82950; 85025

== ENCOUNTER 2024-02-09 07:08 | Outpatient (OUT) | payer OTHER, SELFPAY ==
--- OUTSIDE RECORDS SUMMARY | 2024-02-09 07:11 | XMS_ITS | CCD ---
Author Organization [facility] Informformerly [facility] Care Team Providers Care [facility] Specialists Name Role Phone Len YEPEZ Primary Care Physician Salome Sousa I Unavailable Unavailable NONE, XXXX Primary Care Physician Unavailab Fred Foote Attending Unavailable Fred GUZMAN Admitting Unavailable Calin Ordaz Attending Unavailable Calin Ordaz Admitting Unavailable Fred GUZMAN R Consulting Unavailable ELIU, DO Gould R Consulting Unavailable Manju GUZMANy R Consulting Unavailable Len YEPEZ Attending Unavailable Unavailable Primary Care Provider Unavailsaaf e FRED GUZMAN Attending Unavailable ELIU, FRED Attending Unavailable ELIU, FRED Attending Unavailable ELIU, FRED Attending Unavailable ОЛЬГА CAVAZOS Referring Unavailable NO, PCP Primary Care Unavailable Allergies Allergy Classification Reported Allergen(s) Allergy Type Date of Onset Reaction(s) Facility (5 sources) Morphine; Translations: [morphine] Drug Allergy 10-29-2010 [facility] Medications Current Medications Medication Drug [...] Out Report [employer], FED EX [id number] Normal [facility] Comment on above: Performed By: #### C MIS #### [facility] [address] [place] [address] [employer] Specialist: Gonzalo Matthews MD HCG ( test) Ql (U)o n 10-02-2023 Interpretation and review of laboratory results Abnormal [facility] Preg Test, Ur Positive [facility] Urinalysis macro (dipstick) panel (U)on 10-02-2023 Bilirubin, UA Negative Negative - 4(70) +++ mg/dL [facility] Blood, UA Negative Negative - 50 Ra/mcL [facility] Clarity, UA Clear [facility] Color, UA Yellow [facility] Glucose, UA Negative Negative - 2000(110) ++++ mg/dL [facility] Interpretation and review of laboratory results Abnormal [facility] Ketones, UA Negative Negative - 160(16) ++++ mg/dL [facility] Leukocytes, UA Trace Negative - 500+++ Gaurav/mcL [facility] Nitrite, UA Negative Negative - Positive [facility] pH, UA 6.0 5 - 9 [facility] Protein, UA Negative Negative - 1999(20) ++++ mg/dL [facility] Spec Grav, UA 1.030 1 - 1.03 [facility] Urobilinogen, UA 0.2 0.2 - 12 mg/dL [facility] DHEAon 05-05-2023 DHEA [Mass/Vol] 118 ng/dL Invalid Interpretation Code 31-[address] [facility] Comment on above: Result Comment: This test was developed and its performance characteristics determined by [facility]. It has not been cleared or approved by the Food and Drug Administration. Performed at: [address] [id number] MD Garry Montenegro Performed By: #### 1 [id number], 3364423, 2951109, 83058348, 9174431, [id number], 89081846, 2663630 ####[facility] [address] [place] [address] DHEASon 05-05-2023 DHEA-S [Mass/Vol] 91.7 microgram/dL Invalid Interpretation Code 57.3-279.[address] [facility] Comment on above: Result Comment: Perf ormed at: [address] [id number] PhD Salbador Douglass Performed By: #### 1 [id number], 9630059, 5116625, 05910278, 8440310, 792970653, 82677964, 3075722 #### [facility] [address] [id number] FSH and LHon 05-05-2023 Follitropin Qn 5.6 m[IU]/mL Invalid Interpretation Code [facility] Comment on above: Result Comment: Adul t Female: Follicular phase 3.5 - 12.5 Ovulation phase 4.7 - 21.5 Luteal phase 1.7 - 7.7 Postmenopausal 25.8 - 134.8 Performed at: [facility] [address] [place] [address] [id number] PhD Salbador Douglass Performed By: #### 1 8858627, 0918857, 3084766, 58035530, 5553864, 195955435, 73840015, 1033452 #### [facility] [address] [place] [address] Lutropin Qn 10.4 m[IU]/mL Invalid Interpretation Code [facility] Comment on above: Result Comment: Adul t Female: Follicular phase 2.4 - 12.6 Ovulation phase 14.0 - 95.6 Luteal phase 1.0 - 11.4 Postmenopausal 7.7 - 58.5 Performed By: #### 1 [id number], 4963189, 0376957, 48707510, 2514646, 870899226, 97731994, 4547725 #### [facility] [address] [place] [address] 19476 Auto Diffon 04-29-2023 Basophils/100 WBC (Bld) 0.8 % Normal 0.0-2.[address] [facility] Comment on above: Order Comment: Order Added by Discern Expert. Performed By: #### 1 3363703, 0269560, 6105607, 65352268, 3309032, 257402489, 78982000, 7012694 #### [facility] [address] [place] [address] Basophils/Leukocytes Auto (Bld) [Pure # fraction] 0.0 E9/L Normal 0.0-0.[address] [facility] Comment on above: Order Comment: Order Added by Discern Expert. Performed By: #### 1 0283128, 6872140, 5967429, 08470273, 5517283, 731077832, 41195935, 1825922 #### [facility] [address] [place] [address] Eosinophils/100 WBC (Bld) 2.3 % Normal 0.0-8.[address] [facility] Comment on above: Order Comment: Order Added by Discern Expert. Performed By: #### 1 8318909, 8875135, 2034193, 50436420, 7889489, 758790282, 42342761, 1941844 #### [facility] [address] [place] [address] Eosinophils/Leukocyte s Auto (Bld) [Pure # fraction] 0.1 E9/L Normal 0.0-0.[address] [facility] Comment on above: Order Comment: Order Added by Discern Expert. Performed By: #### 1 4931108, 4050624, 5808836, 66661162, 6788110, 351696156, 20293245, 1549792 #### [facility] [address] [place] [address] Lymphocytes/100 WBC (Bld) 42.1 % Normal 14.0-50.[address] [facility] Comment on above: Order Comment: Order Added by Discern Expert. Performed By: #### 1 0741319, 1205284, 6515411, 48781028, 3687660, 779810349, 83972527, 2914284 #### [facility] [address] [place] [address] Lymphocytes/Leukocyte s Auto (Bld) [Pure # fraction] 2.0 E9/L Normal 1.0-4.[address] [facility] Comment on above: Order Comment: Order Added by Discern Expert. Performed By: #### 1 8124046, 2884418, 5183720, 78466211, 5584447, 547784553, 24293111, 5146226 #### [facility] [address] [place] [address] 09342 Monocytes/100 WBC (Bld) 7.7 % Normal 4.0-14.[address] [facility] Comment on above: Order Comment: Order Added by Discern Expert. Performed By: #### 1 1457145, 4120179, 9455686, 19946770, 2871566, 295307075, 15474798, 5402222 #### [facility] [address] [place] [address] Monocytes/Leukocytes Auto (Bld) [Pure # fraction] 0.4 E9/L Normal 0.2-1.[address] [facility] Comment on above: Order Comment: Order Added by Francisco Expert. Performed By: #### 1 7987673, 7949224, 0049973, 93251429, 5009954, 550373915, 78028607, 4391896 #### [facility] [address] [place] [address] Neutrophils/100 WBC (Bld) 47.1 % Normal 36.0-75.[address] [facility] Comment on above: Order Comment: Order Added by Discern Expert. Performed By: #### 1 0289810, 2069791, 0791113, 26181067, 2747142, 844871595, 83079714, 1437649 #### [facility] [address] [place] [address] Neutrophils/Leukocyte s Auto (Bld) [Pure # fraction] 2.3 E9/L Normal 2.0-7.[address] [facility] Comment on above: Order Comment: Order Added by Discern Expert. Performed By: #### 1 1066434, 7966996, 6760388, 18775200, 9755705, 632306324, 27798407, 1797378 #### [facility] [address] [place] [address] BhCG Quanton 04-29-2023 HCG.beta subunit Qn m[IU]/mL Normal 1-3 [facility] Comment on above: Result Comment: GEST ATIONAL AGE HCG RANGE (mIU/mL) NON- <1-3 0.2-1 WEEKS 5-50 1-2 WEEKS 50-500 2-3 WEEKS 100-5,000 3-4 WEEKS 500-10,000 4-5 WEEKS 1,000-50,000 5-6 WEEKS 10,000-100,000 6-8 WEEKS 15,000-200,000 8-12 WEEKS 10,000-100,000 Performed By: #### 2 712720 ####[facility] [address] [place] [address] CBC w/ Auto Diffon Erythrocyte distribution width (RBC) [Ratio] 12.5 % Normal 10.9-14.[address] [facility] Comment on above: Performed By: #### 1 9559330, 8038332, 0895299, 35953125, 9206749, 961101305, 39588674, 1457813 #### [facility] [address] [place] [address] Hematocrit (Bld) [Volume fraction] 39.3 % Normal 34.0-46.[address] [facility] Comment on above: Performed By: #### 1 3115242, 7720274, 6502398, 87252842, 3879035, 028225271, 74343672, 5580611 #### [facility] [address] [place] [address] Hemoglobin (Bld) [Mass/Vol] 13.3 g/dL Normal 12.0-16.[address] [facility] Comment on above: Performed By: #### 1 8454936, 7030379, 4034103, 91791756, 0095973, 833635632, 02940057, 0181146 #### [facility] [address] [place], [place] [address] MCH (RBC) [Entitic mass] 32.3 pg Normal 27.0-34.[address] [facility] Comment on above: Performed By: #### 1 0814532, 7459921, 6361095, 54902332, 5902224, 823081815, 17546258, 8178668 #### [facility] [address] [place] [address] MCHC (RBC) [Mass/Vol] 33.9 g/dL Normal 31.4-36.0 [facility] Comment on above: Performed By: #### 1 7290747, 1317626, 3067023, 45024733, 3219387, 027417633, 34892740, 1173534 #### [facility] [address] [place] [address] 87881 MCV (RBC) [Entitic vol] 95.2 fL Normal 80.0-100.[address] [facility] Comment on above: Performed By: #### 1 7389087, 6298464, 4543934, 42571517, 4016675, 658033864, 59625681, 1319898 #### [facility] [address] [place] [address] 566[address] Platelet mean volume (Bld) [Entitic vol] 9.0 fL Normal 6.4-10.[address] [facility] Comment on above: Performed By: #### 1 5396911, 5463761, 2347138, 56412650, 7843036, 634077117, 35666841, 3427396 #### [facility] [address] [place] [address] Platelets (Bld) [#/Vol] 172.0 E9/L Normal 150.0-500.[address] [facility] Comment on above: Performed By: #### 1 7335493, 4378390, 0047885, 25151203, 8516299, 801127852, 46880247, 5186971 #### [facility] [address] [place] [address] RBC (Bld) [#/Vol] 4.1 E12/L Low 4.3-5.[address] [facility] Comment on above: Performed By: #### 1 4559701, 1177124, 4239608, 71820074, 9604083, 684850661, 00769730, 3237000 #### [facility] [address] [place] [address] WBC corrected for nucl RBC Auto (Bld) [#/Vol] 4.8 E9/L Normal 4.0-11.[address] [facility] Comment on above: Performed By: #### 1 7614889, 1364147, 3999460, 12661928, 1528997, 683508079, 22784093, 1264389 #### [facility] [address] [place] [address] CHEMISTRYOrdered By: Bucky Box SYSTEM on 04-29-2023 Free T4 [Mass/Vol] 0.89 [...] Treatmenton 04-18 Consent for Treatment [id number] 36#1.00CD:[address] [facility] Free T4on 04-29-2023 Free T4 [Mass/Vol] 0.89 ng/dL Normal 0.58-1.[address] [facility] Comment on above: Performed By: #### 1 0573376, 4935082, 0093009, 53910347, 6787728, 187613682, 46333655, 2340999 #### [facility] [address] [place] [address] HEMATOLOGYOrdered By: SYSTEM SYSTEM on 04-29-2023 Basophils/100 [...] Normal 4.0 - 11.0 E9/L [facility] HemeAutoSS [id number] 04-29-2023 HbA1c (Bld) [Mass fraction] 4.4 % Normal <=5.[address] [facility] Comment on above: Performed By: #### 1 6802285, 5805660, 5026546, 41559618, 0369969, 726343607, 11871025, 1905873 #### [facility] [address] [place] [address] Physician Orderon 04-29-2023 Physician Order [id number]#1.00CD:[address] [facility] TSHon 04-29-2023 TSH Qn 2.70 m[IU]/L Normal 0.34-5.[address] [facility] Comment on above: Performed By: #### 1 8768440, 4445410, 4236144, 58234825, 2082892, 011719693, 81003002, 3681053 #### [facility] [address] [place] [address] BhCG Quanton 04-22-2023 HCG.beta subunit Qn 2 m[IU]/mL Normal 1-3 [facility] Comment on above: Result Comment: GEST ATIONAL AGE HCG RANGE (mIU/mL) NON- <1-3 0.2-1 WEEKS 5-50 1-2 WEEKS 50-500 2-3 WEEKS 100-5,000 3-4 WEEKS 500-10,000 4-5 WEEKS 1,000-50,000 5-6 WEEKS 10,000-100,000 6-8 WEEKS 15,000-200,000 8-12 WEEKS 10,000-100,000 Performed By: #### 2 067510 #### [facility] [address] [place] [address] CHEMISTRYOrdered By: SYSTEM SYSTEM on 04-22-2023 HCG.beta subunit Qn 2 m[IU]/mL Normal 1 - 3 mIU/mL FTM C Remisol Consent for Treatmenton Consent for Treatment [id number]#1.00CD:[address] [facility] Physician Orderon 04-22-2023 Physician Order [id number]#1.00CD:[address] [facility] Ambulatory Visit Summaryon 0 10-07-2022 Ambulatory [...] longer receiving treatment for. Appendectomy hyperthyroid Normal [facility] Family Medicine Office/Clini c Noteon 10-07-2022 [...] # 90 tab(s), Refills(s) 1, Pharmacy: [facility]/pharmacy #[id number], 170, cm, 08/23/20 8:37:00 EST, Height/Length Dosing, 65.1, kg, 08/23/20 8:37:00 EST, Weight Dosing pantoprazole, 40 mg = 1 tab(s), Oral, Daily, # 90 tab(s), Refills(s) 1, Pharmacy: [facility]/pharmacy #[id number], 170, cm, 08/23/20 8:37:00 EST, Height/Length Dosing, 65.1, kg, 08/23/20 8:37:00 EST, Weight Dosing Follow-up With When Contact Information Len YEPEZ DO, FAM In 1 year [address] [place] [id number]- Additional Instructions: Problem List/Past Medical History Ongoing [...] inactivated - Not Given Patient Refuses Normal [facility] Comment on above: Result Comment: Elec tronically Signed By: Len YEPEZ DO\.br\Date and Time Signed: 10/07/22 17:12 EST Vital Signs Date Time Vital Sign Value Performing Clinician Facility 10-02-2023 14:02-050 Body mass index (BMI) [Ratio] 24.22 kg/m2 [facility] 10-02-2023 14:02-050 Body weight 74.39 kg [facility] Nurse [facility] 10-02-2023 14:02-0500 Diastolic blood pressure 70 mm[Hg] [facility] Nurse [facility] 10-02-2023 14:02050 Systolic blood pressure 118 mm[Hg] [facility] Nurse [facility] 10-07-2022 16:18-0500 Blood Pressure Location Len YEPEZ [facility] 10-07-2022 16:18-0500 Body temperature 96.98 [degF] Len YEPEZ [facility] 10-07-2022 16:18-0500 Diastolic blood pressure 68 mm[Hg] Len YEPEZ [facility] 10-07-2022 16:18-0500 Heart rate 66 /min Len YEPEZ [facility] 10-07-2022 16:18-0500 SaO2% (BldA) [Mass fraction] 99 % Len YEPEZ [facility] 10-07-2022 16:18-0500 Systolic blood pressure 114 mm[Hg] Len YEPEZ [facility] Encounters Encounter Date Encounter Type Care Provider Facility Start: 01-26-2024 End: 01-26-2024 ambulatory FRED GUZMAN Not Available Start: 12-30-2023 End: 12-30-2023 ambulatory ОЛЬГА CAVAZOS [facility] Start: 12-29-2023 End: 12-29-2023 ambulatory FRED [...] 04-29-2023 End: 04-30-2023 ambulatory Fred R ELIU [place] Start: 04-29-2023 End: 04-29-2023 Patient encounter procedure Fred R ELIU [facility] Start: 04-22-2023 End: 04-23-2023 ambulatory Calin Ordaz [place] Start: 04-22-2023 End: 04-22-2023 Patient encounter procedure Calin Ordaz [facility] Start: 10-07-2022 End: 10-08-2022 ambulatory Len YEPEZ Facility:[facility] Start: 10-07-2022 End: 10-07-2022 Patient encounter procedure Len YEPEZ [facility] Start: 10-07-2022 End: 10-07-2022 Well adult monitoring check done Len YEPEZ [facility] Procedures Date Procedure Procedure Detail Performing [...] Missed menses Expected: 10/02/2023 (Approximate), Expires: 10/02/2024 [facility] Comment on above: Expected: 10/02/2023 (Approximate), Expires: 10/02/2024 Start: 10-02-2023 End: 10-02-2024 Blood type and Indirect antibody screen panel - Blood Type and screen Lab Routine Missed menses Expected: 10/02/2023 (Approximate), Expires: 10/02/2024 [facility] Work Phone: Comment on above: Expected: 10/02/2023 (Approximate), Expires: 10/02/2024 Start: 10-02-2023 End: 10-02-2024 US Pelvis transvaginal US OB transvaginal Imaging Routine Missed menses Expected: 10/02/2023 (Approximate), Expires: 10/02/2024 [facility] Comment on above: Expected: 10/02/2023 (Approximate), Expires: 10/02/2024 Bacteria identified in Urine by Culture Urine culture Microbiology Routine Missed menses Ordered: 10/02/2023 [facility] Comment on above: Ordered: 10/02/2023 CBC W Auto Different ial panel - Blood CBC and differential Lab Routine Missed menses Ordered: 10/02/2023 [facility] Comment on above: Ordered: 10/02/2023 Hemoglobin A1c/Hemoglobin.total in Blood Hemoglobin A1c Lab Routine Missed menses Ordered: 10/02/2023 [facility] Comment on above: Ordered: 10/02/2023 Hepatitis B virus surface Ag [Presence] in Serum or Plasma by Immunoassay Hepatitis B surface antigen Lab Routine Missed menses Ordered: 10/02/2023 [facility] Comment on above: Ordered: 10/02/2023 Hepatitis C virus Ab [Presence] in Serum or Plasma by Immunoassay Hepatitis C antibody Lab Routine Missed menses Ordered: 10/02/2023 [facility] Comment on above: Ordered: 10/02/2023 HIV-1/HIV-2 antigen/antibody combination immunoassay HIV-1 and HIV-2 antibodies Lab Routine Missed menses Ordered: 10/02/2023 [facility] Comment on above: Ordered: 10/02/2023 Reagin Ab [Presence] in Serum by RPR RPR Lab Routine Missed menses Ordered: 10/02/2023 [facility] Comment on above: Ordered: 10/02/2023 Rubella antibody, IgG Rubella an tibody, IgG Lab Routine Missed menses Ordered: 10/02/2023 [facility] Comment on above: Ordered: 10/02/2023 Immunizations Immunization Date Immunization Notes Care Provider Fa cility NEGATED: Highlighted row has not occurred!10-07-2022 influenza virus vaccine, unspecified formulation Len YEPEZ [facility] [place] Payers Date Payer Category Payer Unknown [employer] [id number] 2023-Present [address] [place] [address] [id number] 2023 Private Health Insurance 2023 Managed Care HMO (unspecified) [employer] A[employer]NA [id number] 2023-Present [address] [place] [address] HMO [id number] 2023 Private Health Insurance [id number] 2021 Unknown [id number] 1987 Unknown [id number] 27 1987 Unknown [id number] 27 1987 Unknown [id number] 27 1987 Unknown [id number] 259 1987 Unknown [id number] [id number] 259 1987 Unknown [id number] [id number] 259 1987 Unknown [id number] [id number] 259 1987 Unknown [id number] [id number] 259 1987 Unknown [id number] [id number] 75 Social History Date Type Detail Facility Start: 03-04-2019 Tobacco smoking status Never smoked tobacco (finding) [facility] Sex Assigned At Female [facility] Tobacco smoking status NHIS Tobacco smoking consumption unknown [facility] Start: 08-17-2023 [facility] Start: 1985 Sex Assigned At Not on file [facility] Functional Status Date Assessment Result Facility 10-07-2022 Functional Status N/A [facility] [place] History of Present illness Narrative 10-02-2023 Teodora [...] was given her OB folder and desires Miles 21. Advised to make sure she is 10 weeks before having Miles done along with her labs. Pt did [...] 04-29-2023 Evaluation + Plan note [facility] 04/29/23[facility] 04/29/23DHEAS 04/29/23 [facility] Discharge instructions 09-24-2022 Note Date & Type Note Facility 09-24-2022 Hospital Discharg e instructions Follow Up Care 09/24/2022 13:44:14 With:Len YEPEZ DO, FAM Address: [address] [place] [address]- When:Within 1 Year(s) [facility] Evaluation + Plan note Note Date & Type Note Facility Evaluation + Plan note No data available for this section [facility] Evaluation note Note Date & Type Note Facility Evaluation note Diagnosis Missed menses documented in this encounter [facility] Hospital Discharge instructions Note Date & Type Note Facility Hospital Discharge instructions No data available for this section [facility] Progress note Note Date & Type Note Facility Progress note No data available for this section [facility] Summary Purpose Family History No Family History Records FoundNo Family History Records FoundNo Family History Records Found Advance Directives No Advanced Directives Records FoundNo Advanced Directives Records FoundNo Advanced Directives Records Found Additional Source Comments Patient Care team informatio n (unrecognized section and content) Personnel Name: Len YEPEZ DO Address: Address: [address] [place] [address]- Name: Salome Sousa I Personnel Name: Len YEPEZ DO Address: Address: [address] [place] [address] [facility] [place] [address] Name: Salome Sousa I Personnel Name: NONE, XXXX Address: Address: [facility] Name: Salome Sousa I INFORMATION SOURCE (unrecogn ized section and content) DATE CREATED AUTHOR 05/05/2023 [facility] DATE CREATED AUTHOR AUTHOR'S ORGANIZ ATION 01/26/2024 [facility] EPIC DATE CREATED AUTHOR AUTHOR'S ORGANIZ ATION 01/28/2024 [facility] Reason for Visit (unrecogniz ed section and [...] BE BASED ON THE PRIMARY CLINICAL RECORDS. [facility]. provides no warranty or guarantee of the accuracy or completeness of information in this document.
[2024-02-09 08:12] LABS: Glucose Fasting 84 mg/dL (<95)
[2024-02-09 10:07] LABS: Glucose 1 Hour 185 mg/dL (<180)
[2024-02-09 10:34] LABS: Glucose 2 Hour 151 mg/dL (<155)
[2024-02-09 12:14] LABS: Glucose 3 Hour 99 mg/dL (<140)
== END 2024-02-09 07:09 | disposition home or self-care (01) ==
LOC: LAB 07:09
PROVIDERS: Visit Provider Obstetrics & Gynecology
DX: R73.09 Other abnormal glucose (principal)
CPT/HCPCS: 36415; 82951; 82952

== ENCOUNTER 2024-03-16 07:26 | Outpatient (OUT) | payer OTHER, SELFPAY ==
--- OUTSIDE RECORDS SUMMARY | 2024-03-16 07:29 | XMS_ITS | CCD ---
Author Organization [facility] Care Team Providers Care Director Learning And Development Name Role Phone Len YEPEZ Primary Care Physician Salome Sousa I Unavailable Unavailable NONE, XXXX Primary Care Physician Unavailab Fred Foote Attending Unavailable ELIU, Fred R Admitting Unavailable Calin Ordaz Attending Unavailable Calin Ordaz Admitting Unavailable ELIU, Fred R Consulting Unavailable ELIU, DO Gould R Consulting Unavailable ELIU, Fred R Consulting Unavailable Len YEPEZ Attending Unavailable Unavailable Primary Care Provider Unavailabl e ELIUSTEVENY Attending Unavailable ELIU, FRED Attending Unavailable ELIU, FRED Attending Unavailable ELIU, FRED Attending Unavailable ELIU, FRED Attending Unavailable ОЛЬГА CAVAZOS Referring Unavailable NO, PCP Primary Care Unavailable Allergies Allergy Classification Reported Allergen(s) Allergy Type Date of Onset Reaction(s) Facility (5 sources) Morphine; Translations: [morphine] Drug Allergy 10-29-2010 [facility] Medications Current Medications Medication Drug Class(es) [...] Out Report [employer], FED EX [id number] Normal [facility] Comment on above: Performed By: #### C MIS #### [address] [address] Underground Conduit Installer: Gonzalo Matthews MD HCG ( test) Ql (U)o n 10-02-2023 Interpretation and review of laboratory results Abnormal [facility] Preg Test, Ur Positive [facility] Urinalysis macro (dipstick) panel (U)on 10-02-2023 Bilirubin, UA Negative Negative - 4(70) +++ mg/dL [facility] Blood, UA Negative Negative - 50 Ra/mcL [facility] Clarity, UA Clear [facility] Color, UA Yellow [facility] Glucose, UA Negative Negative - 2000(110) ++++ mg/dL [facility] Interpretation and review of laboratory results Abnormal [facility] Ketones, UA Negative Negative - 160(16) ++++ mg/dL [facility] Leukocytes, UA Trace Negative - 500+++ Gaurav/mcL [facility] Nitrite, UA Negative Negative - Positive [facility] pH, UA 6.0 5 - 9 [facility] Protein, UA Negative Negative - 2000(20) ++++ mg/dL [facility] Spec Grav, UA 1.030 1 - 1.03 [facility] Urobilinogen, UA 0.2 0.2 - 12 mg/dL [facility] DHEAon 05-05-2023 DHEA [Mass/Vol] 118 ng/dL Invalid Interpretation Code 31-951 [facility] Comment on above: Result Comment: This test was developed and its performance characteristics determined by [facility]. It has not been cleared or approved by the Food and Drug Administration. Performed at: [address] [id number] MD Garry Montenegro Performed By: #### 1 [id number], 1163947, 1866777, 84331451, 1397677, [id number], 87021530, 6087112 ####[facility] [address] [place] [address] DHEASon 05-05-2023 DHEA-S [Mass/Vol] 91.7 microgram/dL Invalid Interpretation Code 57.3-279.2 [facility] Comment on above: Result Comment: Perf ormed at: [address] [id number] PhD Salbador Douglass Performed By: #### 1 [id number], 1776737, 3422762, 68686623, 2555904, 047184874, 41728585, 4351342 #### [facility] [address] [place] [address] FSH and LHon 05-05-2023 Follitropin Qn 5.6 m[IU]/mL Invalid Interpretation Code [facility] Comment on above: Result Comment: Adul t Female: Follicular phase 3.5 - 12.5 Ovulation phase 4.7 - 21.5 Luteal phase 1.7 - 7.7 Postmenopausal 25.8 - 134.8 Performed at: [address] [id number] PhD Salbador Douglass Performed By: #### 1 7369245, 2791732, 3318104, 33453918, 7295960, 368634055, 75599100, 5133172 #### [facility] [address] [place] [address] Lutropin Qn 10.4 m[IU]/mL Invalid Interpretation Code [facility] Comment on above: Result Comment: Adul t Female: Follicular phase 2.4 - 12.6 Ovulation phase 14.0 - 95.6 Luteal phase 1.0 - 11.4 Postmenopausal 7.7 - 58.5 Performed By: #### 1 9984438, 2508541, 6739609, 83758146, 0029506, 816041305, 98516325, 8726526 #### [facility] [address] [place] [address] Auto Diffon 04-29-2023 Basophils/100 WBC (Bld) 0.8 % Normal 0.0-2.0 [facility] Comment on above: Order Comment: Order Added by Discern Expert. Performed By: #### 1 0013667, 7882570, 1219612, 38236326, 4506235, 116435011, 14064461, 0642760 #### [facility] [address] [place] [address] Basophils/Leukocytes Auto (Bld) [Pure # fraction] 0.0 E9/L Normal 0.0-0.2 [facility] Comment on above: Order Comment: Order Added by Discern Expert. Performed By: #### 1 6837341, 6962046, 1401221, 64100250, 1394894, 247961610, 78033326, 2393906 #### [facility] [address] [place] [address] Eosinophils/100 WBC (Bld) 2.3 % Normal 0.0-8.0 [facility] Comment on above: Order Comment: Order Added by Discern Expert. Performed By: #### 1 4125197, 7341322, 0017332, 24061594, 1048655, 188306114, 63358247, 1013060 #### [facility] [address] [place] [address] Eosinophils/Leukocyte s Auto (Bld) [Pure # fraction] 0.1 E9/L Normal 0.0-0.5 [facility] Comment on above: Order Comment: Order Added by Discern Expert. Performed By: #### 1 2147439, 2423096, 1639020, 89891905, 3271525, 574971932, 17066568, 4410868 #### [facility] [address] [place] [address] Lymphocytes/100 WBC (Bld) 42.1 % Normal 14.0-50.0 [facility] Comment on above: Order Comment: Order Added by Discern Expert. Performed By: #### 1 7361324, 6756134, 3828689, 80453835, 8564712, 540201148, 61868336, 5943054 #### [facility] [address] [place] [address] Lymphocytes/Leukocyte s Auto (Bld) [Pure # fraction] 2.0 E9/L Normal 1.0-4.0 [facility] Comment on above: Order Comment: Order Added by Discern Expert. Performed By: #### 1 8105173, 4219616, 7342799, 99512766, 1646072, 144286068, 55767909, 4658558 #### [facility] [address] [place] [address] Monocytes/100 WBC (Bld) 7.7 % Normal 4.0-14.0 [facility] Comment on above: Order Comment: Order Added by Discern Expert. Performed By: #### 1 6636239, 2678878, 2811537, 17347446, 1792241, 704977308, 07078698, 3110875 #### [facility] [address] [place] [address] Monocytes/Leukocytes Auto (Bld) [Pure # fraction] 0.4 E9/L Normal 0.2-1.0 [facility] Comment on above: Order Comment: Order Added by Discern Expert. Performed By: #### 1 1125166, 9998051, 3411333, 16286486, 6947041, 051938172, 62983371, 4086812 #### [facility] [address] [place] [address] Neutrophils/100 WBC (Bld) 47.1 % Normal 36.0-75.0 [facility] Comment on above: Order Comment: Order Added by Discern Expert. Performed By: #### 1 9057703, 2434260, 2526550, 27908159, 9061597, 498741763, 10666575, 7665473 #### [facility] [address] [place] [address] Neutrophils/Leukocyte s Auto (Bld) [Pure # fraction] 2.3 E9/L Normal 2.0-7.5 [facility] Comment on above: Order Comment: Order Added by Discern Expert. Performed By: #### 1 1412717, 4755448, 9221378, 30553208, 1374908, 755814655, 84675787, 3173701 #### [facility] [address] [place] [address] BhCG Quanton 04-29-2023 HCG.beta subunit Qn m[IU]/mL Normal 1-3 [facility] Comment on above: Result Comment: GEST ATIONAL AGE HCG RANGE (mIU/mL) NON- <1-3 0.2-1 WEEKS 5-50 1-2 WEEKS 50-500 2-3 WEEKS 100-5,000 3-4 WEEKS 500-10,000 4-5 WEEKS 1,000-50,000 5-6 WEEKS 10,000-100,000 6-8 WEEKS 15,000-200,000 8-12 WEEKS 10,000-100,000 Performed By: #### 2 649111 ####[facility] [address] [place] [address] CBC w/ Auto Diffon 3 Erythrocyte distribution width (RBC) [Ratio] 12.5 % Normal 10.9-14.2 [facility] Comment on above: Performed By: #### 1 1335006, 0103196, 5938589, 14617845, 1902589, 896490695, 32769970, 2276102 #### [facility] [address] [place] [address] Hematocrit (Bld) [Volume fraction] 39.3 % Normal 34.0-46.0 [facility] Comment on above: Performed By: #### 1 3183295, 8500892, 9104972, 14819548, 9075325, 300562997, 10100397, 6560015 #### [facility] [address] [place] [address] Hemoglobin (Bld) [Mass/Vol] 13.3 g/dL Normal 12.0-16.0 [facility] Comment on above: Performed By: #### 1 6243496, 9917041, 2473247, 77271172, 2571880, 989712194, 68430764, 6864871 #### [facility] [address] [place] [address] MCH (RBC) [Entitic mass] 32.3 pg Normal 27.0-34.0 [facility] Comment on above: Performed By: #### 1 6102754, 7184537, 5982591, 37452925, 6995678, 375287977, 08051197, 5161888 #### [facility] [address] [place] [address] MCHC (RBC) [Mass/Vol] 33.9 g/dL Normal 31.4-36.0 [facility] Comment on above: Performed By: #### 1 6242837, 6469938, 8026672, 31397784, 7109626, 279696086, 82314316, 5936473 #### [facility] [address] [place] [address] MCV (RBC) [Entitic vol] 95.2 fL Normal 80.0-100.0 [facility] Comment on above: Performed By: #### 1 6857114, 8185850, 7935140, 29742645, 7539824, 900959113, 73380140, 6673287 #### [facility] [address] [place] [address] Platelet mean volume (Bld) [Entitic vol] 9.0 fL Normal 6.4-10.8 [facility] Comment on above: Performed By: #### 1 3131076, 6291335, 5682518, 20990102, 5796219, 149844853, 10066216, 8711685 #### [facility] [address] [place] [address] Platelets (Bld) [#/Vol] 172.0 E9/L Normal 150.0-500.0 [facility] Comment on above: Performed By: #### 1 8690902, 4803176, 6096627, 77502852, 2694545, 243890887, 55652503, 6424305 #### [facility] [address] [place] [address] RBC (Bld) [#/Vol] 4.1 E12/L Low 4.3-5.9 [facility] Comment on above: Performed By: #### 1 6357690, 9359364, 0800275, 96792762, 0880859, 978045014, 44597016, 1304283 #### [facility] [address] [place] [address] WBC corrected for nucl RBC Auto (Bld) [#/Vol] 4.8 E9/L Normal 4.0-11.0 [facility] Comment on above: Performed By: #### 1 9543795, 0567855, 3581404, 54643923, 5572442, 110018247, 13552666, 4355417 #### [facility] [address] [place] [address] CHEMISTRYOrdered By: [employer] SYSTEM on 04-29-2023 Free T4 [Mass/Vol] 0.89 ng/dL Normal 0.58 - 1. 64 ng/dL [facility] Remisol HCG.beta subunit Qn mIU/mL Normal 1 - 3 mIU/mL [facility] C Remisol TSH Qn 2.70 m[IU]/L Normal 0.34 - 5.60 mcIU/mL [facility] Remisol CHEMISTRYOrdered By: Brtit Suh on 04-29-2023 HbA1c (Bld) [Mass fraction] 4.4 % Normal <=5.9% [facility] ChemAutoSS Consent for Treatmenton 04-18 Consent for Treatment [id number] 36#1.00CD:127 Normal [facility] Free T4on 04-29-2023 Free T4 [Mass/Vol] 0.89 ng/dL Normal 0.58-1.64 [facility] Comment on above: Performed By: #### 1 8607017, 2581067, 5549772, 34347593, 8922866, 411012521, 55190804, 3095072 #### [facility] [address] [place] [address] HEMATOLOGYOrdered By: SYSTEM SYSTEM on 04-29-2023 Basophils/100 [...] Normal 4.0 - 11.0 E9/L [facility] HemeAutoSS [id number] 04-29-2023 HbA1c (Bld) [Mass fraction] 4.4 % Normal <=5.9 [facility] Comment on above: Performed By: #### 1 8900003, 9173912, 4291897, 90426345, 6322713, 645395251, 97071302, 7670241 #### [facility] [address] [place] [address] Physician Orderon 04-29-2023 Physician Order [id number]#1.00CD:127 Normal [facility] TSHon 04-29-2023 TSH Qn 2.70 m[IU]/L Normal 0.34-5.60 [facility] Comment on above: Performed By: #### 1 8897338, 3517358, 3268983, 77104090, 2728156, 169720321, 28767338, 5201395 #### [facility] [address] [place] [address] [facility] HCG.beta subunit Qn 2 m[IU]/mL Normal 1-3 [facility] Comment on above: Result Comment: GEST ATIONAL AGE HCG RANGE (mIU/mL) NON- <1-3 0.2-1 WEEKS 5-50 1-2 WEEKS 50-500 2-3 WEEKS 100-5,000 3-4 WEEKS 500-10,000 4-5 WEEKS 1,000-50,000 5-6 WEEKS 10,000-100,000 6-8 WEEKS 15,000-200,000 8-12 WEEKS 10,000-100,000 Performed By: #### 2 904672 #### [facility] [address] [place] [address] CHEMISTRYOrdered By: SYSTEM SYSTEM on 04-22-2023 HCG.beta subunit Qn 2 m[IU]/mL Normal 1 - 3 mIU/mL F[facility] C Remisol Consent for Treatmenton Consent for Treatment [id number]#1.00CD:127 Normal [facility] Physician Orderon 04-22-2023 Physician Order [id number]#1.00CD:127 Normal [facility] Ambulatory Visit Summaryon 0 10-07-2022 Ambulatory Visit Summary ALYSA WILLIAM :1985 [...] longer receiving treatment for. Appendectomy hyperthyroid Normal [facility] Family Medicine Office/Clini c Noteon 10-07-2022 [...] 90 tab(s), Refills(s) 1, Pharmacy: [facility]/pharmacy #[id number], 170, cm, 08/23/20 8:37:00 EST, Height/Length Dosing, 65.1, kg, 08/23/20 8:37:00 EST, Weight Dosing pantoprazole, 40 mg = 1 tab(s), Oral, Daily, # 90 tab(s), Refills(s) 1, Pharmacy: [facility]/pharmacy #[id number], 170, cm, 08/23/20 8:37:00 EST, Height/Length Dosing, 65.1, kg, 08/23/20 8:37:00 EST, Weight Dosing Follow-up With When Contact Information Len YEPEZ DO, FAM In 1 year [address] [place] [address]- Additional Instructions: Problem List/Past Medical History Ongoing [...] inactivated - Not Given Patient Refuses Normal [facility] Comment on above: Result Comment: Elec tronically Signed By: Len YEPEZ DO.br\Date and Time Signed: 10/07/22 17:12 EST Vital Signs Date Time Vital Sign Value Performing Clinician Facility 10-02-2023 14:02-050 Body mass index (BMI) [Ratio] 24.22 kg/m2 [facility] Nurse [facility] 10-02-2023 14:050 Body weight 74.39 kg [facility] Nurse [facility] 10-02-2023 14:-050 Diastolic blood pressure 70 mm[Hg] [facility] Nurse [facility] 10-02-2023 14:050 Systolic blood pressure 118 mm[Hg] [facility] Nurse [facility] 10-07-2022 16:18-0500 Blood Pressure Location Len YEPEZ [facility] 10-07-2022 16:18-0500 Body temperature 96.98 [degF] Len YEPEZ [facility] 10-07-2022 16:18-0500 Diastolic blood pressure 68 mm[Hg] Len YEPEZ [facility] 10-07-2022 16:18-0500 Heart rate 66 /min Len YEPEZ [facility] 10-07-2022 16:18-0500 SaO2% (BldA) [Mass fraction] 99 % Len YEPEZ [facility] 10-07-2022 16:18-0500 Systolic blood pressure 114 mm[Hg] Len YEPEZ [facility] Encounters Encounter Date Encounter Type Care Provider Facility Start: 02-16-2024 End: 02-16-2024 ambulatory FRED ELIU Not Available Start: 01-26-2024 End: 01-26-2024 ambulatory FRED ELIU Not Available Start: 12-30-2023 End: 12-30-2023 ambulatory ОЛЬГА CAVAZOS [facility] Start: 12-29-2023 End: 12-29-2023 ambulatory FRED [...] End: 04-30-2023 ambulatory Fred R ELIU Facility:[facility] [place] Start: 04-29-2023 End: 04-29-2023 Patient encounter procedure Fred R ELIU [facility] Start: 04-22-2023 End: 04-23-2023 ambulatory Calin Ordaz Facility:[facility] [place] Start: 04-22-2023 End: 04-22-2023 Patient encounter procedure Calin Ordaz [facility] Start: 10-07-2022 End: 10-08-2022 ambulatory Len YEPEZ Facility:[facility] Start: 10-07-2022 End: 10-07-2022 Patient encounter procedure Len YEPEZ [facility] Start: 10-07-2022 End: 10-07-2022 Well adult monitoring check done Len YEPEZ [facility] Procedures Date Procedure Procedure Detail Performing [...] Comment on above: 05/11/2013 Start: 08-18-2002 Appendectomy eLn ANTHONY Appendectomy Appendectomy Len LUCHO Plan of Treatment Date Care Activity Detail Author Start: 10-02-2023 End: 10-02-2024 ABO/Rh ABO/Rh Lab Routine Missed menses Expected: 10/02/2023 (Approximate), Expires: 10/02/2024 [facility] Comment on above: Expected: 10/02/2023 (Approximate), Expires: 10/02/2024 Start: 10-02-2023 End: 10-02-2024 Blood type and Indirect antibody screen panel - Blood Type and screen Lab Routine Missed menses Expected: 10/02/2023 (Approximate), Expires: 10/02/2024 [facility] [employer] Work Phone: Comment on above: Expected: 10/02/2023 (Approximate), Expires: 10/02/2024 Start: 10-02-2023 End: 10-02-2024 US Pelvis transvaginal US OB transvaginal Imaging Routine Missed menses Expected: 10/02/2023 (Approximate), Expires: 10/02/2024 [facility] Comment on above: Expected: 10/02/2023 (Approximate), Expires: 10/02/2024 Bacteria identified in Urine by Culture Urine culture Microbiology Routine Missed menses Ordered: 10/02/2023 [facility] Comment on above: Ordered: 10/02/2023 CBC W Auto Different ial panel - Blood CBC and differential Lab Routine Missed menses Ordered: 10/02/2023 [facility] Comment on above: Ordered: 10/02/2023 Hemoglobin A1c/Hemoglobin.total in Blood Hemoglobin A1c Lab Routine Missed menses Ordered: 10/02/2023 [facility] Comment on above: Ordered: 10/02/2023 Hepatitis B virus surface Ag [Presence] in Serum or Plasma by Immunoassay Hepatitis B surface antigen Lab Routine Missed menses Ordered: 10/02/2023 [facility] Comment on above: Ordered: 10/02/2023 Hepatitis C virus Ab [Presence] in Serum or Plasma by Immunoassay Hepatitis C antibody Lab Routine Missed menses Ordered: 10/02/2023 [facility] Comment on above: Ordered: 10/02/2023 HIV-1/HIV-2 antigen/antibody combination immunoassay HIV-1 and HIV-2 antibodies Lab Routine Missed menses Ordered: 10/02/2023 [facility] Comment on above: Ordered: 10/02/2023 Reagin Ab [Presence] in Serum by RPR RPR Lab Routine Missed menses Ordered: 10/02/2023 [facility] Comment on above: Ordered: 10/02/2023 Rubella antibody, IgG Rubella an tibody, IgG Lab Routine Missed menses Ordered: 10/02/2023 [facility] Comment on above: Ordered: 10/02/2023 Immunizations Immunization Date Immunization Notes Care Provider Aurora ugy NEGATED: Highlighted row has not occurred!10-07-2022 influenza virus vaccine, unspecified formulation Len YEPEZ [facility] [place] Payers Date Payer Category Payer Unknown [employer] [id number] 2023-Present [address] [place] [address] [id number] 2023 Private Health Insurance 2023 Managed Care HMO (unspecified) [employer] A[employer] [id number] 2023-Present [address] [place] [address] HMO [id number] 2023 Private Health Insurance [id number] 2021 Unknown [id number] 1985 Unknown [id number] 27 1987 Unknown [id number] [id number] 27 1987 Unknown [id number] [id number] 27 1987 Unknown [id number] 2.16.840.1.482873.3.579.2.1 259 1987 Unknown [id number] 2.16.840.1.595055.3.579.2.1 259 1987 Unknown [id number] [id number] 259 1987 Unknown [id number] [id number] 259 1987 Unknown [id number] 2.16.840.1.400535.3.579.2.1 259 1987 Unknown [id number] [id number] 259 1987 Unknown [id number] [id number] 77 Social History Date Type Detail Facility Start: 03-04-2019 Tobacco smoking status Never smoked tobacco (finding) [facility] Sex Assigned At Female [facility] Tobacco smoking status NHIS Tobacco smoking consumption unknown [facility] Start: 08-17-2023 [facility] Start: 1985 Sex Assigned At Not on file [facility] Functional Status Date Assessment Result Facility 10-07-2022 Functional Status N/A [facility] [place] History of Present illness Narrative 10-02-2023 Teodora Vegas MA - 10/02/2023 1:30 PM EST Note Date & Type Note Facility 02-15-2024 History of Presen t illness Narrative Reason [...] was given her OB folder and desires [place] 21. Advised to make sure she is 10 weeks before having Sonora done along with her labs. Pt did [...] Teodora Vegas MA documented in this encounter [facility] Healthcare Evaluation + Plan note 04-29-2023 Note Date & Type Note Facility 04-29-2023 Evaluation + Plan note Diagnostic Tests PendingFSH and LH 04/29/23DHEA 04/29/23DHEAS 04/29/23 [facility] Hospital Discharge instructions 09-24-2022 Note Date & Type Note Facility 09-24-2022 Hospital Discharg e instructions Follow Up Care 09/24/2022 13:44:14 With:Len YEPEZ DO, FAM Address: [address] [place] [address]- When:Within 1 Year(s) [facility] Evaluation + Plan note Note Date & Type Note Facility Evaluation + Plan note No data available for this section [facility] Evaluation note Note Date & Type Note Facility Evaluation note Diagnosis Missed menses documented in this encounter [facility] Hospital Discharge instructions Note Date & Type Note Facility Hospital Discharge instructions No data available for this section [facility] Progress note Note Date & Type Note Facility Progress note No data available for this section [facility] Summary Purpose Family History No Family History Records FoundNo Family History Records FoundNo Family History Records Found Advance Directives No Advanced Directives Records FoundNo Advanced Directives Records FoundNo Advanced Directives Records Found Additional Source Comments Patient Care team informatio n (unrecognized section and content) Personnel Name: Len YEPEZ DO Address: Address: [address] [place] [address]- Name: Salome Sousa I Personnel Name: Len YEPEZ DO Address: Address: [address] [facility] [facility] [place] [address]- Name: Salome Sousa I Personnel Name: NONE, XXXX Address: Address: [facility] Name: Salome Sousa I INFORMATION SOURCE (unrecogn ized section and content) DATE CREATED AUTHOR 05/05/2023 [facility] DATE CREATED AUTHOR 'S ORGANIZ ATION 02/17/2024 [facility] EPIC DATE CREATED AUTHOR AUTHOR'S JEMAL SMITH 03/08/2024 [facility] Reason for Visit (unrecogniz ed section [...] BE BASED ON THE PRIMARY CLINICAL RECORDS. [facility] [employer] [facility]. provides no warranty or guarantee of the accuracy or completeness of information in this document.
--- NOTE | 2024-03-16 08:07 | US_ITS ---
[address] [address] Patient Name: ALYSA BALDWIN MRN: [id number] date: 1985 Sex: F Assigned Patient Location: [facility] Current Patient Location: [facility] Accession/Order Number: [id number] Exam Date: 03/16/2024 08:08 Report Date: 03/16/2024 08:41 At the request of: FRED GUZMAN Procedure: US OB BPP w non-stress EXAMINATION: US OB BPP w non-stress HISTORY: Gestational diabetes mellitus COMPARISON: No relevant comparison available. TECHNIQUE: Ultrasound biophysical profile was performed in the radiology department. non-reactive stress testing was performed by nursing staff in the birthing center. FINDINGS: BREATHING MOVEMENTS: 2 GROSS BODY MOVEMENTS: 2 TONE: 2 QUALITATIVE AMNIOTIC FLUID VOLUME: 2 PRESENTATION: CEPHALIC HEART RATE: 161.68 bpm AMNIOTIC FLUID VOLUME: 16.6 cm GESTATIONAL AGE: 32 weeks 2 days US/US OB BPP w non-stress IMPRESSION: Total biophysical profile score: 8 Electronically authenticated by: LYNETTE NORMAN Date: 03/16/2024 08:41
[2024-03-16 08:25] VITALS: TEMP 36.3
[2024-03-16 08:26] VITALS: BP 129/73; PULSE 81
== END 2024-03-16 08:50 | disposition home or self-care (01) ==
LOC: US 07:27 → FBC 08:04
PROVIDERS: Visit Provider Obstetrics & Gynecology
DX: O24.419 Gestational diabetes mellitus in pregnancy, unspecified control (principal); Z3A.32 32 weeks gestation of pregnancy
CPT/HCPCS: 76818

== ENCOUNTER 2024-03-19 06:55 | Outpatient (OUT) | payer OTHER, SELFPAY ==
--- OUTSIDE RECORDS SUMMARY | 2024-03-19 06:58 | XMS_ITS | CCD ---
Author Organization [facility] Care Team Providers Care Buckle Attacher Name Role Phone Len YEPEZ Primary Care Physician [phone] Salome Sousa I Unavailable Unavailable NONE, XXXX [...] sources) Morphine; Translations: [morphine] Drug Allergy 10-29-2010 [facility] Medications Current Medications Medication Drug Class(es) Dates [...] Out Report [employer], FED EX [phone] Normal [facility] Comment on above: Performed By: #### C MIS #### [address] [address] Grief Counselor: Gonzalo Matthews MD HCG ( test) Ql (U)o n 10-02-2023 Interpretation and review of laboratory results Abnormal [facility] Preg Test, Ur Positive [facility] Urinalysis macro (dipstick) panel (U)on 10-02-2023 Bilirubin, UA Negative Negative - 4(70) +++ mg/dL [facility] Blood, UA Negative Negative - 50 Ra/mcL [facility] Clarity, UA Clear [facility] Color, UA Yellow [facility] Glucose, UA Negative Negative - 2000(110) ++++ mg/dL [facility] Interpretation and review of laboratory results Abnormal [facility] Ketones, UA Negative Negative - 160(16) ++++ mg/dL [facility] Leukocytes, UA Trace Negative - 500+++ Gaurav/mcL [facility] Nitrite, UA Negative Negative - Positive [facility] pH, UA 6.0 5 - 9 [facility] Protein, UA Negative Negative - 2000(20) ++++ mg/dL [facility] Spec Grav, UA 1.030 1 - 1.03 [facility] Urobilinogen, UA 0.2 0.2 - 12 mg/dL [facility] DHEAon 05-05-2023 DHEA [Mass/Vol] 118 ng/dL Invalid Interpretation Code 31-731 [facility] Comment on above: Result Comment: This test was developed and its performance characteristics determined by [facility]. It has not been cleared or approved by the Food and Drug Administration. Performed at: [address] [id number] MD Garry Montenegro Performed By: #### 1 [id number], 8626319, 1132023, 08645275, 6462596, 037306875, 33495579, 9085971 ####[facility] [address] [place] [address] DHEASon 05-05-2023 DHEA-S [Mass/Vol] 91.7 microgram/dL Invalid Interpretation Code 57.3-279.2 [facility] Comment on above: Result Comment: Perf ormed at: [address] [id number] PhD Salbador Douglass Performed By: #### 1 [id number], 7997293, 4241016, 13534012, 1760264, 256507216, 60254370, 8835777 #### [facility] [address] [place] [address] FSH and LHon 05-05-2023 Follitropin Qn 5.6 m[IU]/mL Invalid Interpretation Code [facility] Comment on above: Result Comment: Adul t Female: Follicular phase 3.5 - 12.5 Ovulation phase 4.7 - 21.5 Luteal phase 1.7 - 7.7 Postmenopausal 25.8 - 134.8 Performed at: [address] [id number] PhD Salbador Douglass Performed By: #### 1 [id number], 5820640, 0444848, 69820817, 9881308, 721771417, 68707833, 9816194 #### [facility] [address] [place] [address] Lutropin Qn 10.4 m[IU]/mL Invalid Interpretation Code [facility] Comment on above: Result Comment: Adul t Female: Follicular phase 2.4 - 12.6 Ovulation phase 14.0 - 95.6 Luteal phase 1.0 - 11.4 Postmenopausal 7.7 - 58.5 Performed By: #### 1 1365417, 7781598, 7244502, 54028215, 1375583, 249384923, 30069284, 6074108 #### [facility] [address] [place] [address] Auto Diffon 04-29-2023 Basophils/100 WBC (Bld) 0.8 % Normal 0.0-2.0 [facility] Comment on above: Order Comment: Order Added by Discern Expert. Performed By: #### 1 8992063, 0233060, 7953043, 26589832, 1806033, 829286868, 38110570, 6687061 #### [facility] [address] [place] [address] Basophils/Leukocytes Auto (Bld) [Pure # fraction] 0.0 E9/L Normal 0.0-0.2 [facility] Comment on above: Order Comment: Order Added by Discern Expert. Performed By: #### 1 5476839, 0323973, 7986325, 83647450, 9076246, 130080069, 62198398, 0638384 #### [facility] [address] [place] [address] Eosinophils/100 WBC (Bld) 2.3 % Normal 0.0-8.0 [facility] Comment on above: Order Comment: Order Added by Discern Expert. Performed By: #### 1 4229578, 2602993, 0843806, 49150258, 7743603, 328922637, 57665336, 1583371 #### [facility] [address] [place] [address] Eosinophils/Leukocyte s Auto (Bld) [Pure # fraction] 0.1 E9/L Normal 0.0-0.5 [facility] Comment on above: Order Comment: Order Added by Discern Expert. Performed By: #### 1 9714702, 4015909, 8953863, 71729604, 1638532, 703707050, 55739401, 0909604 #### [facility] [address] [place] [address] Lymphocytes/100 WBC (Bld) 42.1 % Normal 14.0-50.0 [facility] Comment on above: Order Comment: Order Added by Discern Expert. Performed By: #### 1 6510141, 4859240, 8509451, 47800414, 5324149, 801467200, 14754642, 6146107 #### [facility] [address] [place] [address] Lymphocytes/Leukocyte s Auto (Bld) [Pure # fraction] 2.0 E9/L Normal 1.0-4.0 [facility] Comment on above: Order Comment: Order Added by Discern Expert. Performed By: #### 1 8348526, 9542668, 8198366, 68514206, 5647658, 188450636, 80385091, 1750309 #### [facility] [address] [place] [address] Monocytes/100 WBC (Bld) 7.7 % Normal 4.0-14.0 [facility] Comment on above: Order Comment: Order Added by Discern Expert. Performed By: #### 1 6643932, 5946186, 7045970, 25287766, 3574316, 120379331, 18421706, 1328141 #### [facility] [address] [place] [address] Monocytes/Leukocytes Auto (Bld) [Pure # fraction] 0.4 E9/L Normal 0.2-1.0 [facility] Comment on above: Order Comment: Order Added by Discern Expert. Performed By: #### 1 8301305, 7950165, 6810333, 89247775, 5594962, 861131167, 61001471, 5387595 #### [facility] [address] [place] [address] Neutrophils/100 WBC (Bld) 47.1 % Normal 36.0-75.0 [facility] Comment on above: Order Comment: Order Added by Discern Expert. Performed By: #### 1 8331395, 2626979, 8926440, 87983720, 5159322, 406867457, 79293624, 4298844 #### [facility] [address] [place] [address] Neutrophils/Leukocyte s Auto (Bld) [Pure # fraction] 2.3 E9/L Normal 2.0-7.5 [facility] Comment on above: Order Comment: Order Added by Discern Expert. Performed By: #### 1 5858399, 4332199, 7075999, 13751897, 6326752, 157999552, 22034413, 8747344 #### [facility] [address] [place] [address] BhCG Quanton 04-29-2023 HCG.beta subunit Qn m[IU]/mL Normal 1-3 [facility] Comment on above: Result Comment: GEST ATIONAL AGE HCG RANGE (mIU/mL) NON- <1-3 0.2-1 WEEKS 5-50 1-2 WEEKS 50-500 2-3 WEEKS 100-5,000 3-4 WEEKS 500-10,000 4-5 WEEKS 1,000-50,000 5-6 WEEKS 10,000-100,000 6-8 WEEKS 15,000-200,000 8-12 WEEKS 10,000-100,000 Performed By: #### 2 568[address] ####[facility] [address] [place] [address] CBC w/ Auto Diffon 3 Erythrocyte distribution width (RBC) [Ratio] 12.5 % Normal 10.9-14.2 [facility] Comment on above: Performed By: #### 1 4459718, 5715833, 0245561, 68162036, 0431173, 569435534, 15752750, 4768486 #### [facility] [address] [place] [address] Hematocrit (Bld) [Volume fraction] 39.3 % Normal 34.0-46.0 [facility] Comment on above: Performed By: #### 1 1838023, 1507776, 3543906, 06363434, 8341721, 399700581, 12896559, 4373974 #### [facility] [address] [place] [address] Hemoglobin (Bld) [Mass/Vol] 13.3 g/dL Normal 12.0-16.0 [facility] Comment on above: Performed By: #### 1 0462661, 9702476, 4893984, 00974959, 3717778, 345855756, 10233893, 8998588 #### [facility] [address] [place] [address] MCH (RBC) [Entitic mass] 32.3 pg Normal 27.0-34.0 [facility] Comment on above: Performed By: #### 1 4414098, 2449374, 7011120, 50225901, 6355746, 175079841, 95170442, 1698560 #### [facility] [address] [place] [address] MCHC (RBC) [Mass/Vol] 33.9 g/dL Normal 31.4-36.0 [facility] Comment on above: Performed By: #### 1 7860849, 4925403, 3076663, 57689911, 7895793, 983034930, 38052923, 0401319 #### [facility] [address] [place] [address] MCV (RBC) [Entitic vol] 95.2 fL Normal 80.0-100.0 [facility] Comment on above: Performed By: #### 1 7635863, 6124542, 6239245, 76900553, 5728567, 543918135, 35480165, 5086431 #### [facility] [address] [place] [address] Platelet mean volume (Bld) [Entitic vol] 9.0 fL Normal 6.4-10.8 [facility] Comment on above: Performed By: #### 1 6828995, 1305712, 6169776, 55008755, 0462514, 620809527, 94959862, 5516118 #### [facility] [address] [place] [address] Platelets (Bld) [#/Vol] 172.0 E9/L Normal 150.0-500.0 [facility] Comment on above: Performed By: #### 1 4983580, 1328839, 1142828, 05393789, 8449721, 484870441, 06329365, 7928505 #### [facility] [address] [place] [address] RBC (Bld) [#/Vol] 4.1 E12/L Low 4.3-5.9 [facility] Comment on above: Performed By: #### 1 4697875, 5896330, 0888404, 84952694, 2977267, 149334283, 86239377, 7040817 #### [facility] [address] [place] [address] WBC corrected for nucl RBC Auto (Bld) [#/Vol] 4.8 E9/L Normal 4.0-11.0 [facility] Comment on above: Performed By: #### 1 3623746, 3157374, 9467713, 82371516, 6055968, 711414990, 80077920, 0296081 #### [facility] [address] [place] [address] CHEMISTRYOrdered By: [employer] SYSTEM on 04-29-2023 Free T4 [Mass/Vol] 0.89 [...] Treatmenton 04-18 Consent for Treatment [id number] 36#1.00CD:127 Normal [facility] Free T4on 04-29-2023 Free T4 [Mass/Vol] 0.89 ng/dL Normal 0.58-1.64 [facility] Comment on above: Performed By: #### 1 9883174, 6364706, 3605544, 00311216, 6527171, 019334310, 48514627, 4373542 #### [facility] [address] [place] [address] HEMATOLOGYOrdered By: SYSTEM SYSTEM on 04-29-2023 Basophils/100 [...] Normal 4.0 - 11.0 E9/L [facility] HemeAutoSS UptV2rox 04-29-2023 HbA1c (Bld) [Mass fraction] 4.4 % Normal <=5.9 [facility] Comment on above: Performed By: #### 1 7926767, 1497666, 8303279, 40055559, 0410608, 586641649, 17810169, 3663003 #### [facility] [address] [place] [address] Physician Orderon 04-29-2023 Physician Order [id number]#1.00CD:127 Normal [facility] TSHon 04-29-2023 TSH Qn 2.70 m[IU]/L Normal 0.34-5.60 [facility] Comment on above: Performed By: #### 1 4129914, 7075948, 1018411, 36296705, 8078491, 352455560, 62812017, 8080538 #### [facility] [address] [place] [address] [facility] 04-22-2023 HCG.beta subunit Qn 2 m[IU]/mL Normal 1-3 [facility] Comment on above: Result Comment: GEST ATIONAL AGE HCG RANGE (mIU/mL) NON- <1-3 0.2-1 WEEKS 5-50 1-2 WEEKS 50-500 2-3 WEEKS 100-5,000 3-4 WEEKS 500-10,000 4-5 WEEKS 1,000-50,000 5-6 WEEKS 10,000-100,000 6-8 WEEKS 15,000-200,000 8-12 WEEKS 10,000-100,000 Performed By: #### 2 481708 #### [facility] [address] [place] [address] CHEMISTRYOrdered By: SYSTEM SYSTEM on 04-22-2023 HCG.beta subunit Qn 2 m[IU]/mL Normal 1 - 3 mIU/mL FTM C Remisol Consent for Treatmenton Consent for Treatment [id number]#1.00CD:127 Normal [facility] Physician Orderon 04-22-2023 Physician Order [id number]#1.00CD:127 Normal [facility] Ambulatory Visit Summaryon 0 10-07-2022 Ambulatory [...] longer receiving treatment for. Appendectomy hyperthyroid Normal [facility] Noteon 10-07-2022 [...] bedtime), # 90 tab(s), Refills(s) 1, Pharmacy: [facility]/pharmacy #[id number], 170, cm, 08/23/20 8:37:00 EST, Height/Length Dosing, 65.1, kg, 08/23/20 8:37:00 EST, Weight Dosing pantoprazole, 40 mg = 1 tab(s), Oral, Daily, # 90 tab(s), Refills(s) 1, Pharmacy: [facility]/pharmacy #[id number], 170, cm, 08/23/20 8:37:00 EST, Height/Length Dosing, 65.1, kg, 08/23/20 8:37:00 EST, Weight Dosing Follow-up With When Contact Information Len YEPEZ DO, FAM In 1 [address] [place] [address]- Additional Instructions: Problem List/Past Medical History Ongoing [...] inactivated - Not Given Patient Refuses Normal [facility] Comment on above: Result Comment: Elec tronically Signed By: Len YEPEZ DO.br\Date and Time Signed: 10/07/22 17:12 EST Vital Signs Date Time Vital Sign Value Performing Clinician Facility 10-02-2023 14:02-050 Body mass index (BMI) [Ratio] 24.22 kg/m2 [facility] Nurse [facility] 10-02-2023 14:050 Body weight 74.39 kg [facility] Nurse [facility] 10-02-2023 14:-050 Diastolic blood pressure 70 mm[Hg] [facility] Nurse [facility] 10-02-2023 14:050 Systolic blood pressure 118 mm[Hg] [facility] Nurse [facility] 10-07-2022 16:18-0500 Blood Pressure Location Len YEPEZ [facility] 10-07-2022 16:18-0500 Body temperature 96.98 [degF] Len YEPEZ [facility] 10-07-2022 16:18-0500 Diastolic blood pressure 68 mm[Hg] Len YEPEZ [facility] 10-07-2022 16:18-0500 Heart rate 66 /min Len YEPEZ [facility] 10-07-2022 16:18-0500 SaO2% (BldA) [Mass fraction] 99 % Len YEPEZ [facility] 10-07-2022 16:18-0500 Systolic blood pressure 114 mm[Hg] Len YEPEZ [facility] Encounters Encounter Date Encounter Type Care Provider Facility Start: 02-16-2024 End: 02-16-2024 ambulatory FRED ELIU Not Available Start: 01-26-2024 End: 01-26-2024 ambulatory FRED ELIU Not Available Start: 12-30-2023 End: 12-30-2023 ambulatory ОЛЬГА CAVAZOS [facility] Start: 12-29-2023 End: 12-29-2023 ambulatory FRED [...] 04-29-2023 End: 04-30-2023 ambulatory Fred R ELIU Facility:[facility] Start: 04-29-2023 End: 04-29-2023 Patient encounter procedure Fred R ELIU [facility] Start: 04-22-2023 End: 04-23-2023 ambulatory Calin Ordaz Facility:[facility] Start: 04-22-2023 End: 04-22-2023 Patient encounter procedure Calin Ordaz [facility] Start: 10-07-2022 End: 10-08-2022 ambulatory Len YEPEZ Facility:[facility] Start: 10-07-2022 End: 10-07-2022 Patient encounter procedure Len YEPEZ [facility] Start: 10-07-2022 End: 10-07-2022 Well adult monitoring check done Len YEPEZ [facility] Procedures Date Procedure Procedure Detail Performing Clinician Start: 10-02-2023 Urnls dip stick/tabl et rgnt non-auto w/o micrscp Madiha MCDANIEL Work Phone: Start: 07-18-2022 Extraction of wisdom tooth Len LUCHO Start: 07-26-2015 Injection of trigger points Lne LUCHO Comment on above: right scapulathoraci c TPI in office today Start: 07-26-2015 right scapular bursa injection 1 Len LUCHO Comment on above: in office injection 0% relief Start: 05-11-2013 single site robot as sisted laparoscopic cholecystectomy 3 Len LUCHO Comment on above: 05/11/2013 Start: 08-18-2002 Appendectomy Len ANTHONY Appendectomy Appendectomy Len LUCHO Plan of Treatment Date Care Activity Detail Author Start: 10-02-2023 End: 10-02-2024 ABO/Rh ABO/Rh Lab Routine Missed menses Expected: 10/02/2023 (Approximate), Expires: 10/02/2024 [facility] Comment on above: Expected: 10/02/2023 (Approximate), Expires: 10/02/2024 Start: 10-02-2023 End: 10-02-2024 Blood type and Indirect antibody screen panel - Blood Type and screen Lab Routine Missed menses Expected: 10/02/2023 (Approximate), Expires: 10/02/2024 [facility] [employer] Work Phone: Comment on above: Expected: 10/02/2023 (Approximate), Expires: 10/02/2024 Start: 10-02-2023 End: 10-02-2024 US Pelvis transvaginal US OB transvaginal Imaging Routine Missed menses Expected: 10/02/2023 (Approximate), Expires: 10/02/2024 [facility] Comment on above: Expected: 10/02/2023 (Approximate), Expires: 10/02/2024 Bacteria identified in Urine by Culture Urine culture Microbiology Routine Missed menses Ordered: 10/02/2023 [facility] Comment on above: Ordered: 10/02/2023 CBC W Auto Different ial panel - Blood CBC and differential Lab Routine Missed menses Ordered: 10/02/2023 [facility] Comment on above: Ordered: 10/02/2023 Hemoglobin A1c/Hemoglobin.total in Blood Hemoglobin A1c Lab Routine Missed menses Ordered: 10/02/2023 [facility] Comment on above: Ordered: 10/02/2023 Hepatitis B virus surface Ag [Presence] in Serum or Plasma by Immunoassay Hepatitis B surface antigen Lab Routine Missed menses Ordered: 10/02/2023 [facility] Comment on above: Ordered: 10/02/2023 Hepatitis C virus Ab [Presence] in Serum or Plasma by Immunoassay Hepatitis C antibody Lab Routine Missed menses Ordered: 10/02/2023 [facility] Comment on above: Ordered: 10/02/2023 HIV-1/HIV-2 antigen/antibody combination immunoassay HIV-1 and HIV-2 antibodies Lab Routine Missed menses Ordered: 10/02/2023 [facility] Comment on above: Ordered: 10/02/2023 Reagin Ab [Presence] in Serum by RPR RPR Lab Routine Missed menses Ordered: 10/02/2023 [facility] Comment on above: Ordered: 10/02/2023 Rubella antibody, IgG Rubella an tibody, IgG Lab Routine Missed menses Ordered: 10/02/2023 [facility] Comment on above: Ordered: 10/02/2023 Immunizations Immunization Date Immunization Notes Care Provider Aurora guy NEGATED: Highlighted row has not occurred!10-07-2022 influenza virus vaccine, unspecified formulation Len YEPEZ [facility] [place] Payers Date Payer Category Payer Unknown [employer] [id number] 2023-Present [address] [place] [address] [id number] 2023 Private Health Insurance 2023 Managed Care HMO (unspecified) [employer] A[employer] [id number] 2023-Present [address] [place] [address] HMO [id number] 2023 Private Health Insurance [id number] 2021 Unknown [id number] 1985 Unknown [id number] [id number] 27 1985 Unknown [id number] [id number] 27 1985 Unknown [id number] 2.16.840.1.557448.3.579.2.7 27 1985 Unknown [id number] 2.16.840.1.074077.3.579.2.1 259 1985 Unknown [id number] 2.16.840.1.882481.3.579.2.1 259 1987 Unknown [id number] 2.16.840.1.410119.3.579.2.1 259 1987 Unknown [id number] 2.16.840.1.650201.3.579.2.1 259 1987 Unknown [id number] 2.16.840.1.301527.3.579.2.1 259 1987 Unknown [id number] 2.16.840.1.574378.3.579.2.1 259 1987 Unknown [id number] [id number] 75 Social History Date Type Detail Facility Start: 03-04-2019 Tobacco smoking status Never smoked tobacco (finding) [facility] Sex Assigned At Female [facility] Tobacco smoking status NHIS Tobacco smoking consumption unknown [facility] Start: 08-17-2023 [facility] Start: 1985 Sex Assigned At Not on file [facility] Functional Status Date Assessment Result Facility 10-07-2022 Functional Status N/A [facility] [place] History of Present illness Narrative 10-02-2023 Teodora [...] was given her OB folder and desires [place] 21. Advised to make sure she is 10 weeks before having [place] done along with her labs. Pt did [...] Teodora Vegas MA documented in this encounter [facility] Healthcare Evaluation + Plan note 04-29-2023 Note Date & Type Note Facility 04-29-2023 Evaluation + Plan note Diagnostic Tests PendingFSH and LH 04/29/23DHEA 04/29/23DHEAS 04/29/23 [facility] Hospital Discharge instructions 09-24-2022 Note Date & Type Note Facility 09-24-2022 Hospital Discharg e instructions Follow Up Care 09/24/2022 13:44:14 With:Len YEPEZ DO, FAM Address: [address] [place] [address]- When:Within 1 Year(s) [facility] Evaluation + Plan note Note Date & Type Note Facility Evaluation + Plan note No data available for this section [facility] Evaluation note Note Date & Type Note Facility Evaluation note Diagnosis Missed menses documented in this encounter [facility] Healthcare Hospital Discharge instructions Note Date & Type Note Facility Hospital Discharge instructions No data available for this section [facility] Progress note Note Date & Type Note Facility Progress note No data available for this section [facility] Summary Purpose Family History No Family History Records FoundNo Family History Records FoundNo Family History Records Found Advance Directives No Advanced Directives Records FoundNo Advanced Directives Records FoundNo Advanced Directives Records Found Additional Source Comments Patient Care team informatio n (unrecognized section and content) Personnel Name: Len YEPEZ DO Address: Address: [address] [place] [address]- Name: Salome Sousa I Personnel Name: Len YEPEZ DO Address: Address: [address] [facility] [place] [address]- Name: Salome Sousa I Personnel Name: NONE, XXXX Address: Address: [facility] Name: Salome Sousa I INFORMATION SOURCE (unrecogn ized section and content) DATE CREATED AUTHOR 05/05/2023 [facility] DATE CREATED AUTHOR 'S ORGANIZ ATION 02/17/2024 [facility] EPIC DATE CREATED AUTHOR AUTHOR'S JEMAL SMITH 03/08/2024 [facility] Reason for Visit (unrecogniz ed section and [...] PRIMARY CLINICAL RECORDS. [facility] [employer] [facility]. provides no warranty or guarantee of the accuracy or completeness of information in this document.
[2024-03-19 10:13] VITALS: BP 119/67; PULSE 70
== END 2024-03-19 10:47 | disposition home or self-care (01) ==
LOC: FBCO 06:55 → FBC 10:01
PROVIDERS: Visit Provider Obstetrics & Gynecology
DX: O24.419 Gestational diabetes mellitus in pregnancy, unspecified control (principal)
CPT/HCPCS: 59025

== ENCOUNTER 2024-03-23 07:00 | Outpatient (OUT) | payer OTHER, SELFPAY ==
--- OUTSIDE RECORDS SUMMARY | 2024-03-23 07:03 | XMS_ITS | CCD ---
Author Organization [facility] InformFormerly [facility] Care Team Providers Care Court Commissioner Name Role Phone Len YEPEZ Primary Care Physician Salome Sousa I Unavailable Unavailable NONE, XXXX Primary Care Physician Unavailab Fred Foote Attending Unavailable Fred GUZMAN Admitting Unavailable Calin Ordaz Attending Unavailable Calin Ordaz Admitting Unavailable ELIU, Fred R Consulting Unavailable ELIU, DO Gould R Consulting Unavailable Manju GUZMANy R Consulting Unavailable Len YEPEZ Attending Unavailable Unavailable Primary Care Provider UnavailОЛЬГА Humphreys Referring Unavailable NO, PCP Primary Care Unavailable ELIU, FRED Attending Unavailable ELIU, FRED Attending Unavailable ELIU, FRED Attending Unavailable ELIU, FRED Attending Unavailable ELIU, FRED Attending Unavailable CARL, MADIHA Attending Unavailable CARL, MADIHA Attending Unavailable Allergies Allergy Classification Reported Allergen(s) Allergy Type Date of Onset Reaction(s) Facility (5 sources) Morphine; Translations: [morphine] Drug Allergy 10-29-2010 [facility] Medications Current Medications Medication Drug Class(es) Dates Sig (Normalized) Sig (Original) busPIRone hydrochloride 15 mg oral tablet (4 sources) Start: 05-02-2023 busPIRone (Buspar) 15 MG tablet Start: 10-07-2022 take 1 tablet by twice daily busPIRone 5 mg Tab 5 [...] Out Report [employer], FED EX 1986 [id number] Normal [facility] Comment on above: Performed By: #### C MIS #### [facility] [address] [place] [address] Durable Medical Equipment Repairer: Gonzalo Matthews MD HCG ( test) Ql (U)o n 10-02-2023 Interpretation and review of laboratory results Abnormal [facility] Preg Test, Ur Positive [facility] Urinalysis macro (dipstick) panel (U)on 10-02-2023 Bilirubin, UA Negative Negative - 4(70) +++ mg/dL [facility] Blood, UA Negative Negative - 50 Ra/mcL [facility] Clarity, UA Clear [facility] Color, UA Yellow [facility] Glucose, UA Negative Negative - 2000(110) ++++ mg/dL [facility] Interpretation and review of laboratory results Abnormal [facility] Ketones, UA Negative Negative - 160(16) ++++ mg/dL [facility] Leukocytes, UA Trace Negative - 500+++ Gaurav/mcL [facility] Nitrite, UA Negative Negative - Positive [facility] pH, UA 6.0 5 - 9 [facility] Protein, UA Negative Negative - 2000(20) ++++ mg/dL [facility] Spec Grav, UA 1.030 1 - 1.03 [facility] Urobilinogen, UA 0.2 0.2 - 12 mg/dL [facility] DHEAon 05-05-2023 DHEA [Mass/Vol] 118 ng/dL Invalid Interpretation Code 31701 [facility] Comment on above: Result Comment: This test was developed and its performance characteristics determined by [facility]. It has not been cleared or approved by the Food and Drug Administration. Performed at: [address] [id number] MD Garry Montenegro Performed By: #### 1 [id number], 7592119, 7827902, 19534803, 0342960, [id number], 81120880, 5386108 ####[facility] [id number] [place] [address] DHEASon 05-05-2023 DHEA-S [Mass/Vol] 91.7 microgram/dL Invalid Interpretation Code 57.3-279.2 [facility] Comment on above: Result Comment: Perf ormed at: [address] [id number] PhD Salbador Douglass Performed By: #### 1 [id number], 9205173, 9797946, 98688778, 9726174, [id number], 23219496, 2763674 #### [facility] Laboratory [address] [place] [address] FSH and LHon 05-05-2023 Follitropin Qn 5.6 m[IU]/mL Invalid Interpretation Code [facility] Comment on above: Result Comment: Adul t Female: Follicular phase 3.5 - 12.5 Ovulation phase 4.7 - 21.5 Luteal phase 1.7 - 7.7 Postmenopausal 25.8 - 134.8 Performed at: [address] [id number] PhD Salbador Douglass Performed By: #### 1 3064372, 4297632, 9305928, 09218473, 8507430, 266504975, 82551951, 4457966 #### [facility] Laboratory [address] [place] [address] Lutropin Qn 10.4 m[IU]/mL Invalid Interpretation Code [facility] Comment on above: Result Comment: Adul t Female: Follicular phase 2.4 - 12.6 Ovulation phase 14.0 - 95.6 Luteal phase 1.0 - 11.4 Postmenopausal 7.7 - 58.5 Performed By: #### 1 0488598, 8882772, 2796496, 26947544, 7854207, 228583744, 28694734, 4998170 #### [facility] Laboratory [address] [place] [address] Auto Diffon 04-29-2023 Basophils/100 WBC (Bld) 0.8 % Normal 0.0-2.0 [facility] Comment on above: Order Comment: Order Added by Discern Expert. Performed By: #### 1 5533803, 7399449, 8228350, 95174091, 0873538, 293621541, 65639675, 6749347 #### [facility] Laboratory [address] [place] [address] Basophils/Leukocytes Auto (Bld) [Pure # fraction] 0.0 E9/L Normal 0.0-0.2 [facility] Comment on above: Order Comment: Order Added by Discern Expert. Performed By: #### 1 2828043, 3240850, 2976357, 12631824, 1856056, 019505534, 60167099, 8029158 #### [facility] Laboratory [address] [place] [address] Eosinophils/100 WBC (Bld) 2.3 % Normal 0.0-8.0 [facility] Comment on above: Order Comment: Order Added by Discern Expert. Performed By: #### 1 3778357, 9227878, 2657388, 48796523, 0115755, 517358568, 48670241, 9349652 #### [facility] Laboratory [address] [place] [address] Eosinophils/Leukocyte s Auto (Bld) [Pure # fraction] 0.1 E9/L Normal 0.0-0.5 [facility] Comment on above: Order Comment: Order Added by Discern Expert. Performed By: #### 1 6958770, 2788540, 2347798, 18975404, 0476258, 716031996, 05215183, 6394302 #### [facility] Laboratory [address] [place] [address] Lymphocytes/100 WBC (Bld) 42.1 % Normal 14.0-50.0 [facility] Comment on above: Order Comment: Order Added by Discern Expert. Performed By: #### 1 8836213, 7331176, 3967136, 71089816, 2040459, 460084404, 73783105, 4629951 #### [facility] Laboratory [address] [place] [address] Lymphocytes/Leukocyte s Auto (Bld) [Pure # fraction] 2.0 E9/L Normal 1.0-4.0 [facility] Comment on above: Order Comment: Order Added by Discern Expert. Performed By: #### 1 6210335, 1207333, 0882650, 81982204, 9147862, 452117948, 29710211, 9805630 #### [facility] Laboratory [address] [place] [address] Monocytes/100 WBC (Bld) 7.7 % Normal 4.0-14.0 [facility] Comment on above: Order Comment: Order Added by Discern Expert. Performed By: #### 1 5483366, 7641808, 8896489, 62502135, 0838357, 427725273, 32024895, 8589397 #### [facility] Laboratory [address] [place] [address] Monocytes/Leukocytes Auto (Bld) [Pure # fraction] 0.4 E9/L Normal 0.2-1.0 [facility] Comment on above: Order Comment: Order Added by Francisco Expert. Performed By: #### 1 3739672, 8316250, 4376994, 59110335, 1339335, 468868586, 73402398, 3924652 #### [facility] Laboratory [address] [place] [address] Neutrophils/100 WBC (Bld) 47.1 % Normal 36.0-75.0 [facility] Comment on above: Order Comment: Order Added by Discern Expert. Performed By: #### 1 7157675, 4276222, 6694847, 10185834, 2151159, 801236694, 63003334, 0537558 #### [facility] Laboratory [address] [place] [address] Neutrophils/Leukocyte s Auto (Bld) [Pure # fraction] 2.3 E9/L Normal 2.0-7.5 [facility] Comment on above: Order Comment: Order Added by Discern Expert. Performed By: #### 1 2674947, 7746685, 1764911, 28506423, 0414814, 005955361, 55445110, 0369523 #### [facility] Laboratory [address] [place] [address] BhCG Quanton 04-29-2023 HCG.beta subunit Qn m[IU]/mL Normal 1-3 [facility] Comment on above: Result Comment: GEST ATIONAL AGE HCG RANGE (mIU/mL) NON- <1-3 0.2-1 WEEKS 5-50 1-2 WEEKS 50-500 2-3 WEEKS 100-5,000 3-4 WEEKS 500-10,000 4-5 WEEKS 1,000-50,000 5-6 WEEKS 10,000-100,000 6-8 WEEKS 15,000-200,000 8-12 WEEKS 10,000-100,000 Performed By: #### 2 957251 ####[facility] [id number] [place] [address] CBC w/ Auto Diffon 3 Erythrocyte distribution width (RBC) [Ratio] 12.5 % Normal 10.9-14.2 [facility] Comment on above: Performed By: #### 1 3171181, 7180960, 5434933, 00669047, 6289703, 247749048, 29542995, 3742382 #### [facility] Laboratory [address] [place] [address] Hematocrit (Bld) [Volume fraction] 39.3 % Normal 34.0-46.0 [facility] Comment on above: Performed By: #### 1 2476432, 4852994, 2502355, 42715891, 2575790, 002879670, 10971000, 3184071 #### [facility] Laboratory [address] [place] [address] Hemoglobin (Bld) [Mass/Vol] 13.3 g/dL Normal 12.0-16.0 [facility] Comment on above: Performed By: #### 1 4460141, 7731371, 8689304, 91167124, 2742089, 559906943, 25443965, 6174134 #### [facility] Laboratory [address] [place] [address] MCH (RBC) [Entitic mass] 32.3 pg Normal 27.0-34.0 [facility] Comment on above: Performed By: #### 1 5014774, 9624880, 8250388, 76640838, 5611009, 491612159, 48950896, 2665903 #### [facility] Laboratory [address] [place] [address] MCHC (RBC) [Mass/Vol] 33.9 g/dL Normal 31.4-36.0 [facility] Comment on above: Performed By: #### 1 9597964, 7039506, 6341909, 88005729, 7927596, 960981869, 32363405, 4667967 #### [facility] Laboratory [address] [place] [address] MCV (RBC) [Entitic vol] 95.2 fL Normal 80.0-100.0 [facility] Comment on above: Performed By: #### 1 0295419, 4275665, 3373771, 95912121, 1818061, 724821298, 69010537, 6983563 #### [facility] Laboratory [address] [place] [address] Platelet mean volume (Bld) [Entitic vol] 9.0 fL Normal 6.4-10.8 [facility] Comment on above: Performed By: #### 1 4823964, 3132943, 6344389, 74742478, 2495360, 130968568, 64092062, 4959942 #### [facility] Laboratory [address] [place] [address] Platelets (Bld) [#/Vol] 172.0 E9/L Normal 150.0-500.0 [facility] Comment on above: Performed By: #### 1 1943093, 0637738, 2666824, 47776890, 2072054, 014428885, 02954386, 5590665 #### [facility] Laboratory [address] [place] [address] RBC (Bld) [#/Vol] 4.1 E12/L Low 4.3-5.9 [facility] Comment on above: Performed By: #### 1 8755729, 8102133, 1715826, 86660179, 7666365, 269420793, 45706129, 4766803 #### [facility] [address] [place] [address] WBC corrected for nucl RBC Auto (Bld) [#/Vol] 4.8 E9/L Normal 4.0-11.0 [facility] Comment on above: Performed By: #### 1 6271900, 9789137, 4957759, 32945610, 5329850, 260877764, 59289865, 9795518 #### [facility] [address] [place] [address] CHEMISTRYOrdered By: Sunglass SYSTEM on 04-29-2023 Free T4 [Mass/Vol] 0.89 ng/dL Normal 0.58 - 1. 64 ng/dL [facility] Remisol HCG.beta subunit Qn mIU/mL Normal 1 - 3 mIU/mL F[facility] C Remisol TSH Qn 2.70 m[IU]/L Normal 0.34 - 5.60 mcIU/mL [facility] Remisol CHEMISTRYOrdered By: Britt Suh on 04-29-2023 HbA1c (Bld) [Mass fraction] 4.4 % Normal <=5.9% [facility] ChemAutoSS Consent for Treatmenton 04-18 Consent for Treatment [id number] 36#1.00CD:127 Normal [facility] Free T4on 04-29-2023 Free T4 [Mass/Vol] 0.89 ng/dL Normal 0.58-1.64 [facility] Comment on above: Performed By: #### 1 6007999, 0842021, 7529923, 07242331, 5313006, 619611256, 89642934, 3964134 #### [facility] Laboratory [address] [place] [address] HEMATOLOGYOrdered By: SYSTEM SYSTEM on 04-29-2023 Basophils/100 [...] 12.5 % Normal 10.9 - 14.2 % [facility] HemeAutoSS Hematocrit (Bld) [Volume fraction] 39.3 % Normal 34.0 - 46.0 % [facility] HemeAutoSS Hemoglobin (Bld) [Mass/Vol] 13.3 g/dL Normal 12.0 - 16.0 gm/dL [facility] HemeAutoSS MCH (RBC) [Entitic mass] 32.3 pg Normal 27.0 - 34.0 pg [facility] HemeAutoSS MCHC (RBC) [Mass/Vol] 33.9 g/dL Normal 31.4 - 36.0 gm/dL [facility] HemeAutoSS MCV (RBC) [Entitic vol] 95.2 fL Normal 80.0 - 100.0 fL [facility] HemeAutoSS Platelet mean volume (Bld) [Entitic vol] 9.0 fL Normal 6.4 - 10.8 fL [facility] HemeAutoSS Platelets (Bld) [#/Vol] 172.0 E9/L Normal 150.0 - 500.0 E9/L [facility] HemeAutoSS RBC (Bld) [#/Vol] 4.1 E12/L Low 4.3 - 5.9 E12/L [facility] HemeAutoSS WBC corrected for nucl RBC Auto (Bld) [#/Vol] 4.8 E9/L Normal 4.0 - 11.0 E9/L [facility] HemeAutoSS [id number] 04-29-2023 HbA1c (Bld) [Mass fraction] 4.4 % Normal <=5.9 [facility] Comment on above: Performed By: #### 1 4268471, 0810115, 2833828, 21176756, 5419524, 561427427, 07890906, 9643068 #### [facility] Laboratory [address] [place] [address] Physician Orderon 04-29-2023 Physician Order [id number] 732#1.00CD:127 Normal [facility] TSHon 04-29-2023 TSH Qn 2.70 m[IU]/L Normal 0.34-5.60 [facility] Comment on above: Performed By: #### 1 3318823, 9715572, 3105912, 77548087, 1805546, 269139914, 41928520, 0200147 #### [facility] Laboratory [address] [place] [address] BhCG Quanton 04-22-2023 HCG.beta subunit Qn 2 m[IU]/mL Normal 1-3 [facility] Comment on above: Result Comment: GEST ATIONAL AGE HCG RANGE (mIU/mL) NON- <1-3 0.2-1 WEEKS 5-50 1-2 WEEKS 50-500 2-3 WEEKS 100-5,000 3-4 WEEKS 500-10,000 4-5 WEEKS 1,000-50,000 5-6 WEEKS 10,000-100,000 6-8 WEEKS 15,000-200,000 8-12 WEEKS 10,000-100,000 Performed By: #### 2 892839 #### [facility] Laboratory [address] [place] [address] CHEMISTRYOrdered By: SYSTEM SYSTEM on 04-22-2023 HCG.beta subunit Qn 2 m[IU]/mL Normal 1 - 3 mIU/mL FTM C Remisol Consent for Treatmenton Consent for Treatment [id number]#1.00CD:127 Normal [facility] Physician Orderon 04-22-2023 Physician Order [id number]#1.00CD:127 Normal [facility] Ambulatory Visit Summaryon 0 10-07-2022 Ambulatory Visit Summary DENNY ALYSA L :1985 Visit Date:10/07/2022 Ambulatory Visit Instructions [...] longer receiving treatment for. Appendectomy hyperthyroid Normal [facility] Family Medicine Office/Clini c Noteon 10-07-2022 Family [...] bedtime), # 90 tab(s), Refills(s) 1, Pharmacy: [facility]/pharmacy #[id number], 170, cm, 08/23/20 8:37:00 EST, Height/Length Dosing, 65.1, kg, 08/23/20 8:37:00 EST, Weight Dosing pantoprazole, 40 mg = 1 tab(s), Oral, Daily, # 90 tab(s), Refills(s) 1, Pharmacy: [facility]/pharmacy #[id number], 170, cm, 08/23/20 8:37:00 EST, Height/Length Dosing, 65.1, kg, 08/23/20 8:37:00 EST, Weight Dosing Follow-up With When Contact Information Len YEPEZ DO, FAM In 1 year [address] [place] [address]- Additional Instructions: Problem List/Past Medical History Ongoing [...] inactivated - Not Given Patient Refuses Normal [facility] Comment on above: Result Comment: Elec tronically Signed By: Len YEPEZ DO\.br\Date and Time Signed: 10/07/22 17:12 EST Vital Signs Date Time Vital Sign Value Performing Clinician Facility 10-02-2023 14:02-0500 Body mass index (BMI) [Ratio] 24.22 kg/m2 [facility] Nurse [facility] 10-02-2023 14:-0500 Body weight 74.[address] [facility] Nurse [facility] 10-02-2023 14:02-0500 Diastolic blood pressure 70 mm[Hg] [facility] Nurse [facility] 10-02-2023 14:02-0500 Systolic blood pressure 118 mm[Hg] [facility] Nurse [facility] 10-07-2022 16:18-0500 Blood Pressure Location Len YEPEZ [facility] 10-07-2022 16:18-0500 Body temperature 96.98 [degF] Len YEPEZ [facility] 10-07-2022 16:18-0500 Diastolic blood pressure 68 mm[Hg] Len YEPEZ [facility] 10-07-2022 16:18-0500 Heart rate 66 /min Len YEPEZ [facility] 10-07-2022 16:18-0500 SaO2% (BldA) [Mass fraction] 99 % Len YEPEZ [facility] 10-07-2022 16:18-0500 Systolic blood pressure 114 mm[Hg] Len YEPEZ [facility] Encounters Encounter Date Encounter Type Care Provider Facility Start: 03-17-2024 End: 03-17-2024 ambulatory MADIHA HENRY Not Available Start: 03-01-2024 End: 03-01-2024 ambulatory MADIHA HENRY Not Available Start: 02-16-2024 End: 02-16-2024 ambulatory FRED ELIU Not Available Start: 01-26-2024 End: 01-26-2024 ambulatory FRED ELIU Not Available Start: 12-30-2023 End: 12-30-2023 ambulatory ОЛЬГА CAVAZOS [facility] Start: 12-29-2023 End: 12-29-2023 ambulatory FRED ELIU [...] 04-29-2023 End: 04-30-2023 ambulatory Fred R ELIU Facility:[facility] Start: 04-29-2023 End: 04-29-2023 Patient encounter procedure Fred R ELIU [facility] Start: 04-22-2023 End: 04-23-2023 ambulatory Calin Ordaz Facility:[facility] Start: 04-22-2023 End: 04-22-2023 Patient encounter procedure Calin Ordaz [facility] Start: 10-07-2022 End: 10-08-2022 ambulatory Len YEPEZ Facility: [facility] Start: 10-07-2022 End: 10-07-2022 Patient encounter procedure Len YEPEZ [facility] Start: 10-07-2022 End: 10-07-2022 Well adult monitoring check done Len YEPEZ [facility] [place] Procedures Date Procedure Procedure Detail Performing Clinician [...] Missed menses Expected: 10/02/2023 (Approximate), Expires: 10/02/2024 [facility] Comment on above: Expected: 10/02/2023 (Approximate), Expires: 10/02/2024 Start: 10-02-2023 End: 10-02-2024 Blood type and Indirect antibody screen panel - Blood Type and screen Lab Routine Missed menses Expected: 10/02/2023 (Approximate), Expires: 10/02/2024 [facility] Work Phone: Comment on above: Expected: 10/02/2023 (Approximate), Expires: 10/02/2024 Start: 10-02-2023 End: 10-02-2024 US Pelvis transvaginal US OB transvaginal Imaging Routine Missed menses Expected: 10/02/2023 (Approximate), Expires: 10/02/2024 [facility] Comment on above: Expected: 10/02/2023 (Approximate), Expires: 10/02/2024 Bacteria identified in Urine by Culture Urine culture Microbiology Routine Missed menses Ordered: 10/02/2023 [facility] Comment on above: Ordered: 10/02/2023 CBC W Auto Different ial panel - Blood CBC and differential Lab Routine Missed menses Ordered: 10/02/2023 [facility] Comment on above: Ordered: 10/02/2023 Hemoglobin A1c/Hemoglobin.total in Blood Hemoglobin A1c Lab Routine Missed menses Ordered: 10/02/2023 [facility] Comment on above: Ordered: 10/02/2023 Hepatitis B virus surface Ag [Presence] in Serum or Plasma by Immunoassay Hepatitis B surface antigen Lab Routine Missed menses Ordered: 10/02/2023 [facility] Comment on above: Ordered: 10/02/2023 Hepatitis C virus Ab [Presence] in Serum or Plasma by Immunoassay Hepatitis C antibody Lab Routine Missed menses Ordered: 10/02/2023 [facility] Comment on above: Ordered: 10/02/2023 HIV-1/HIV-2 antigen/antibody combination immunoassay HIV-1 and HIV-2 antibodies Lab Routine Missed menses Ordered: 10/02/2023 [facility] Comment on above: Ordered: 10/02/2023 Reagin Ab [Presence] in Serum by RPR RPR Lab Routine Missed menses Ordered: 10/02/2023 [facility] Comment on above: Ordered: 10/02/2023 Rubella antibody, IgG Rubella an tibody, IgG Lab Routine Missed menses Ordered: 10/02/2023 [facility] Comment on above: Ordered: 10/02/2023 Immunizations Immunization Date Immunization Notes Care Provider Aurora guy NEGATED: Highlighted row has not occurred!10-07-2022 influenza virus vaccine, unspecified formulation Len YEPEZ [facility] [place] Payers Date Payer Category Payer Unknown [employer] [id number] 2023-Present [address] [place] [address] [id number] 2023 Private Health Insurance 2023 Managed Care HMO (unspecified) [employer] A[employer] [id number] 2023-Present [address] [place] [address] [facility] [place] [id number] 2023 Private Health Insurance [id number] 2021 Unknown [id number] 1985 Unknown [id number] 2.16.840.1.734918.3.579.2.7 27 1985 Unknown [id number] 2.16.840.1.135487.3.579.2.7 27 1987 Unknown [id number] 2.16.840.1.260140.3.579.2.7 27 1985 Unknown [id number] 2.16.840.1.109769.3.579.2.1 75 1985 Unknown [id number] 2.16.840.1.315652.3.579.2.1 259 1985 Unknown [id number] 2.16.840.1.156724.3.579.2.1 259 1987 Unknown [id number] 2.16.840.1.178400.3.579.2.1 259 1987 Unknown [id number] 2.16.840.1.681619.3.579.2.1 259 1987 Unknown [id number] 2.16.840.1.697408.3.579.2.1 259 1987 Unknown [id number] 2.16.840.1.225463.3.579.2.1 259 1987 Unknown [id number] 2.16.840.1.265040.3.579.2.1 259 1987 Unknown [id number] 2.16.840.1.694139.3.579.2.1 259 Social History Date Type Detail Facility Start: 03-04-2019 Tobacco smoking status Never smoked tobacco (finding) [facility] Sex Assigned At Female [facility] Tobacco smoking status NHIS Tobacco smoking consumption unknown [facility] Start: 08-17-2023 [facility] Start: 1985 Sex Assigned At Not on file [facility] Functional Status Date Assessment Result Facility 10-07-2022 Functional Status N/A [facility] [place] History of Present illness Narrative 10-02-2023 Teodora [...] was given her OB folder and desires Poca 21. Advised to make sure she is 10 weeks before having Poca done along with her labs. Pt did complain of a rash in middle of her cleavage. Madiha Henry did go and examine the patients rash [...] Teodora Vegas MA documented in this encounter [facility] Evaluation + Plan note 04-29-2023 Note Date & Type Note Facility 04-29-2023 Evaluation + Plan note Diagnostic [facility] 04/29/23DHEA 04/29/23DHEAS 04/29/23 [facility] Hospital Discharge instructions 09-24-2022 Note Date & Type Note Facility 09-24-2022 Hospital Discharg e instructions Follow Up Care 09/24/2022 13:44:14 With:Len YEPEZ DO [facility] Address: [address] [address]- When:Within 1 Year(s) [facility] Evaluation + Plan note Note Date & Type Note Facility Evaluation + Plan note No data available for this section [facility] Evaluation note Note Date & Type Note Facility Evaluation note Diagnosis Missed menses documented in this encounter [facility] Hospital Discharge instructions Note Date & Type Note Facility Hospital Discharge instructions No data available for this section [facility] Progress note Note Date & Type Note Facility Progress note No data available for this section [facility] Summary Purpose Family History No Family History Records FoundNo Family History Records FoundNo Family History Records Found Advance Directives No Advanced Directives Records FoundNo Advanced Directives Records FoundNo Advanced Directives Records Found Additional Source Comments Patient Care team informatio n (unrecognized section and content) Personnel Name: Len YEPEZ DO Address: Address: [address] [place] [id number]- Name: Salome Sousa Prudencio Personnel Name: LUCHO AREVALO Len Garcia Address: Address: [address] [facility] [place] [address]- Name: Salome Sousa I Personnel Name: NONE, XXXX Address: Address: [facility] Name: Salome Sousa I INFORMATION SOURCE (unrecogn ized section and content) DATE CREATED AUTHOR 05/05/2023 [facility] DATE CREATED AUTHOR AUTHOR'S ORGANIZ ATION 03/08/2024 [facility] DATE CREATED AUTHOR AUTHOR'S ORGANIZ ATION 03/19/2024 [facility] EPIC Reason for Visit [...] BE BASED ON THE PRIMARY CLINICAL RECORDS. [facility]. provides no warranty or guarantee of the accuracy or completeness of information in this document.
--- NOTE | 2024-03-23 08:12 | US_ITS ---
[address] [address] Patient Name: ALYSA BALDWIN MRN: [id number] date: 1985 Sex: F Assigned Patient Location: [facility] Current Patient Location: Accession/Order Number: [id number] Exam Date: 03/23/2024 08:15 Report Date: 03/23/2024 09:23 At the request of: FRED GUZMAN Procedure: US OB BPP w non-stress EXAMINATION: US OB BPP w non-stress HISTORY:Gestational diabetes mellitus COMPARISON: Ultrasound OB biophysical 03/16/2024 TECHNIQUE: Ultrasound biophysical profile was performed in the radiology department. BREATHING MOVEMENTS: 2 GROSS BODY MOVEMENTS: 2 TONE: 2 QUALITATIVE AMNIOTIC FLUID VOLUME: 2 PRESENTATION: CEPHALIC HEART RATE: 148.35 bpm AMNIOTIC FLUID VOLUME: 14.98 cm GESTATIONAL AGE: 33 weeks 2 days US/US OB BPP w non-stress IMPRESSION: Total biophysical profile score: 8 Electronically authenticated by: GILDARDO WEINER Date: 03/23/2024 09:23
[2024-03-23 08:44] VITALS: BP 128/73; PULSE 78
== END 2024-03-23 09:10 | disposition home or self-care (01) ==
LOC: US 07:00 → FBC 08:03
PROVIDERS: Visit Provider Obstetrics & Gynecology
DX: O24.419 Gestational diabetes mellitus in pregnancy, unspecified control (principal)
CPT/HCPCS: 76818

== ENCOUNTER 2024-03-26 07:01 | Outpatient (OUT) | payer OTHER, SELFPAY ==
--- OUTSIDE RECORDS SUMMARY | 2024-03-26 07:02 | XMS_ITS | CCD ---
Author Organization [facility] Team Providers Care Clay Preparation Supervisor Name Role Phone Len YEPEZ Primary Care Physician [phone] Salome Sousa I Unavailable Unavailable NONE, XXXX [...] Out Report [employer], FED EX [id number] [id number] Normal [facility] Comment on above: Performed By: #### C MIS #### [facility] Touch-Writer [address] [place] [address] Child Care Associate: Gonzalo Matthews MD HCG ( test) Ql (U)o n 10-02-2023 Interpretation and review of laboratory results Abnormal [facility] Preg Test, Ur Positive [facility] Urinalysis macro (dipstick) panel (U)on 10-02-2023 Bilirubin, UA Negative Negative - 4(70) +++ mg/dL [facility] Blood, UA Negative Negative - 50 Ra/mcL [facility] Clarity, UA Clear [facility] Color, UA Yellow [facility] Glucose, UA Negative Negative - 2000(110) ++++ mg/dL [facility] Interpretation and review of laboratory results Abnormal [facility] Ketones, UA Negative Negative - 160(16) ++++ mg/dL [facility] Leukocytes, UA Trace Negative - 500+++ Gaurav/mcL [facility] Nitrite, UA Negative Negative - Positive [facility] pH, UA 6.0 5 - 9 [facility] Protein, UA Negative Negative - 2000(20) ++++ mg/dL [facility] Spec Grav, UA 1.030 1 - 1.03 [facility] Urobilinogen, UA 0.2 0.2 - 12 mg/dL [facility] DHEAon 05-05-2023 DHEA [Mass/Vol] 118 ng/dL Invalid Interpretation Code 31701 [facility] Comment on above: Result Comment: This test was developed and its performance characteristics determined by [facility]. It has not been cleared or approved by the Food and Drug Administration. Performed at: [address] [id number] MD Garry Montenegro Performed By: #### 1 [id number], 5686566, 0307611, 73749286, 6532945, 228174216, 92041952, 7912580 ####[facility] [address] [place] [address] DHEASon 05-05-2023 DHEA-S [Mass/Vol] 91.7 microgram/dL Invalid Interpretation Code 57.3-279.2 [facility] Comment on above: Result Comment: Perf ormed at: [address] [id number] PhD Salbador Douglass Performed By: #### 1 [id number], 8684296, 5231233, 43494392, 5227166, 668142458, 03110601, 8121456 #### [facility] [address] [place] [address] FSH and LHon 05-05-2023 Follitropin Qn 5.6 m[IU]/mL Invalid Interpretation Code [facility] Comment on above: Result Comment: Adul t Female: Follicular phase 3.5 - 12.5 Ovulation phase 4.7 - 21.5 Luteal phase 1.7 - 7.7 Postmenopausal 25.8 - 134.8 Performed at: [address] [id number] PhD Salbador Douglass Performed By: #### 1 [id number], 0109473, 6852467, 39185587, 1630448, 816482237, 79326263, 2065336 #### [facility] [address] [place] [address] Lutropin Qn 10.4 m[IU]/mL Invalid Interpretation Code [facility] Comment on above: Result Comment: Adul t Female: Follicular phase 2.4 - 12.6 Ovulation phase 14.0 - 95.6 Luteal phase 1.0 - 11.4 Postmenopausal 7.7 - 58.5 Performed By: #### 1 5064240, 4547565, 9850038, 21686637, 3798588, 529918032, 81163856, 7178816 #### [facility] [address] [place] [address] Auto Diffon 04-29-2023 Basophils/100 WBC (Bld) 0.8 % Normal 0.0-2.0 [facility] Comment on above: Order Comment: Order Added by Discern Expert. Performed By: #### 1 [id number], 4867084, 2933586, 32639996, 0952802, 393029377, 91663495, 1633973 #### [facility] [address] [place] [address] Basophils/Leukocytes Auto (Bld) [Pure # fraction] 0.0 E9/L Normal 0.0-0.2 [facility] Comment on above: Order Comment: Order Added by Discern Expert. Performed By: #### 1 9510895, 0712522, 0292397, 60160202, 8237634, 606551758, 89200140, 7856914 #### [facility] [address] [place] [address] Eosinophils/100 WBC (Bld) 2.3 % Normal 0.0-8.0 [facility] Comment on above: Order Comment: Order Added by Discern Expert. Performed By: #### 1 4238748, 9604506, 1653779, 46617642, 1717756, 434487616, 83617371, 5741731 #### [facility] [address] [place] [address] Eosinophils/Leukocyte s Auto (Bld) [Pure # fraction] 0.1 E9/L Normal 0.0-0.5 [facility] Comment on above: Order Comment: Order Added by Discern Expert. Performed By: #### 1 0274432, 0398498, 8413594, 28580148, 7513602, 106318305, 64401370, 2158116 #### [facility] [address] [place] [address] Lymphocytes/100 WBC (Bld) 42.1 % Normal 14.0-50.0 [facility] Comment on above: Order Comment: Order Added by Discern Expert. Performed By: #### 1 2046970, 7972115, 4785100, 49538728, 2814726, 307841792, 08596227, 1351055 #### [facility] [address] [place] [address] Lymphocytes/Leukocyte s Auto (Bld) [Pure # fraction] 2.0 E9/L Normal 1.0-4.0 [facility] Comment on above: Order Comment: Order Added by Discern Expert. Performed By: #### 1 9252698, 2904116, 7266616, 40080039, 2656346, 492276564, 65604851, 0933551 #### [facility] [address] [place] [address] Monocytes/100 WBC (Bld) 7.7 % Normal 4.0-14.0 [facility] Comment on above: Order Comment: Order Added by Discern Expert. Performed By: #### 1 6854252, 7494054, 2711452, 30565336, 1873159, 540651549, 12452378, 6734520 #### [facility] [address] [place] [address] Monocytes/Leukocytes Auto (Bld) [Pure # fraction] 0.4 E9/L Normal 0.2-1.0 [facility] Comment on above: Order Comment: Order Added by Francisco Expert. Performed By: #### 1 2404285, 3653738, 9608984, 35805954, 9122622, 476336198, 71422252, 0177694 #### [facility] [address] [place] [address] Neutrophils/100 WBC (Bld) 47.1 % Normal 36.0-75.0 [facility] Comment on above: Order Comment: Order Added by Discern Expert. Performed By: #### 1 6426593, 8185228, 1666004, 16219752, 2015548, 185168469, 74594313, 2806775 #### [facility] [address] [place] [address] Neutrophils/Leukocyte s Auto (Bld) [Pure # fraction] 2.3 E9/L Normal 2.0-7.5 [facility] Comment on above: Order Comment: Order Added by Discern Expert. Performed By: #### 1 4938125, 5768049, 8792207, 07687451, 9491737, 986648088, 91691226, 6686160 #### [facility] [address] [place] [address] BhCG Quanton 04-29-2023 HCG.beta subunit Qn m[IU]/mL Normal 1-3 [facility] Comment on above: Result Comment: GEST ATIONAL AGE HCG RANGE (mIU/mL) NON- <1-3 0.2-1 WEEKS 5-50 1-2 WEEKS 50-500 2-3 WEEKS 100-5,000 3-4 WEEKS 500-10,000 4-5 WEEKS 1,000-50,000 5-6 WEEKS 10,000-100,000 6-8 WEEKS 15,000-200,000 8-12 WEEKS 10,000-100,000 Performed By: #### 2 [id number] ####[facility] [address] [place] [address] CBC w/ Auto Diffon 3 Erythrocyte distribution width (RBC) [Ratio] 12.5 % Normal 10.9-14.2 [facility] Comment on above: Performed By: #### 1 9424816, 8324094, 0683369, 07469336, 7231760, 736313644, 50109579, 9517405 #### [facility] [address] [place] [address] Hematocrit (Bld) [Volume fraction] 39.3 % Normal 34.0-46.0 [facility] Comment on above: Performed By: #### 1 9506798, 7442461, 7016076, 65787978, 3059035, 209144054, 89305503, 0974734 #### [facility] [address] [place] [address] Hemoglobin (Bld) [Mass/Vol] 13.3 g/dL Normal 12.0-16.0 [facility] Comment on above: Performed By: #### 1 0874891, 0244893, 4911062, 26701862, 7362091, 270836956, 30559890, 1444503 #### [facility] [address] [address] MCH (RBC) [Entitic mass] 32.3 pg Normal 27.0-34.0 [facility] Comment on above: Performed By: #### 1 6262409, 2387289, 4178168, 97928026, 6153818, 843541712, 20664622, 2374589 #### [facility] [address] [place] [address] MCHC (RBC) [Mass/Vol] 33.9 g/dL Normal 31.4-36.0 [facility] Comment on above: Performed By: #### 1 0101997, 5466620, 9704942, 93292717, 7814556, 356602353, 44564523, 0690721 #### [facility] [address] [place] [address] MCV (RBC) [Entitic vol] 95.2 fL Normal 80.0-100.0 [facility] Comment on above: Performed By: #### 1 0121809, 8280759, 7548597, 19351909, 4591260, 404940362, 90861155, 0069995 #### [facility] [address] [place] [address] Platelet mean volume (Bld) [Entitic vol] 9.0 fL Normal 6.4-10.8 [facility] Comment on above: Performed By: #### 1 3970982, 8934637, 8771382, 43180030, 8793626, 647657803, 58176752, 6302509 #### [facility] [address] [place] [address] Platelets (Bld) [#/Vol] 172.0 E9/L Normal 150.0-500.0 [facility] Comment on above: Performed By: #### 1 0898159, 4656959, 4943828, 61948942, 4652378, 912832246, 47769798, 2977974 #### [facility] [address] [place] [address] RBC (Bld) [#/Vol] 4.1 E12/L Low 4.3-5.9 [facility] Comment on above: Performed By: #### 1 5477920, 2256783, 4810880, 39726215, 4926802, 505714270, 61083341, 9983206 #### [facility] [address] [place] [address] WBC corrected for nucl RBC Auto (Bld) [#/Vol] 4.8 E9/L Normal 4.0-11.0 [facility] Comment on above: Performed By: #### 1 2247659, 6142305, 2910708, 38925071, 7892549, 590579376, 99152579, 0630166 #### [facility] [address] [place] [address] CHEMISTRYOrdered By: [employer] SYSTEM on 04-29-2023 Free T4 [Mass/Vol] 0.89 ng/dL Normal 0.58 - 1. 64 ng/dL [facility] HCG.beta subunit Qn mIU/mL Normal 1 - 3 mIU/mL F[facility] C Remisol TSH Qn 2.70 m[IU]/L Normal 0.34 - 5.60 mcIU/mL [facility] CHEMISTRYOrdered By: Brtit Suh on 04-29-2023 HbA1c (Bld) [Mass fraction] 4.4 % Normal <=5.9% [facility] ChemAutoSS Consent for Treatmenton 04-18 Consent for Treatment [id number] 36#1.00CD:127 Normal [facility] Free T4on 04-29-2023 Free T4 [Mass/Vol] 0.89 ng/dL Normal 0.58-1.64 [facility] Comment on above: Performed By: #### 1 0343508, 6528813, 9886479, 44594247, 9362102, 975017680, 02819519, 9454085 #### [facility] [address] [place] [address] HEMATOLOGYOrdered By: SYSTEM SYSTEM on 04-29-2023 Basophils/100 [...] Normal 4.0 - 11.0 E9/L FT HemeAutoSS HoiR2ijy 04-29-2023 HbA1c (Bld) [Mass fraction] 4.4 % Normal <=5.9 [facility] Comment on above: Performed By: #### 1 2516791, 2889167, 1938905, 82695096, 2156616, 336110903, 35913488, 2425696 #### [facility] [address] [place] [address] Physician Orderon 04-29-2023 Physician Order [id number]:127 Normal [facility] TSHon 04-29-2023 TSH Qn 2.70 m[IU]/L Normal 0.34-5.60 [facility] Comment on above: Performed By: #### 1 1303180, 1413337, 6371167, 51889915, 4076306, 495193222, 32482742, 2091826 #### [facility] [address] [place] [address] BhCG Quanton 04-22-2023 HCG.beta subunit Qn 2 m[IU]/mL Normal 1-3 [facility] Comment on above: Result Comment: GEST ATIONAL AGE HCG RANGE (mIU/mL) NON- <1-3 0.2-1 WEEKS 5-50 1-2 WEEKS 50-500 2-3 WEEKS 100-5,000 3-4 WEEKS 500-10,000 4-5 WEEKS 1,000-50,000 5-6 WEEKS 10,000-100,000 6-8 WEEKS 15,000-200,000 8-12 WEEKS 10,000-100,000 Performed By: #### 2 467639 #### [facility] [address] [place] [address] CHEMISTRYOrdered By: SYSTEM SYSTEM on 04-22-2023 HCG.beta subunit Qn 2 m[IU]/mL Normal 1 - 3 mIU/mL FTM C Remisol Consent for Treatmenton Consent for Treatment [id number]#1.00CD:127 Normal [facility] Physician Orderon 04-22-2023 Physician Order [id number]#1.00CD:127 Normal [facility] Ambulatory Visit Summaryon 0 10-07-2022 Ambulatory [...] treatment for. Appendectomy hyperthyroid Normal [facility] Family Medicine Office/Clini c Noteon 10-07-2022 [...] bedtime), # 90 tab(s), Refills(s) 1, Pharmacy: [facility]/pharmacy #[id number], 170, cm, 08/23/20 8:37:00 EST, Height/Length Dosing, 65.1, kg, 08/23/20 8:37:00 EST, Weight Dosing pantoprazole, 40 mg = 1 tab(s), Oral, Daily, # 90 tab(s), Refills(s) 1, Pharmacy: [facility]/pharmacy #[id number], 170, cm, 08/23/20 8:37:00 EST, Height/Length Dosing, 65.1, kg, 08/23/20 8:37:00 EST, Weight Dosing Follow-up With When Contact Information Len YEPEZ DO, FAM In 1 year [address] [place] [address]- Additional Instructions: Problem List/Past Medical History Ongoing [...] Not Given Patient Refuses Normal [facility] Comment on above: Result Comment: Elec tronically Signed By: Len YEPEZ DO\.br\Date and Time Signed: 10/07/22 17:12 EST Vital Signs Date Time Vital Sign Value Performing Clinician Facility 10-02-2023 14:02-0500 Body mass index (BMI) [Ratio] 24.22 kg/m2 [facility] 10-02-2023 14:-0500 Body weight 74.39 kg [facility] 10-02-2023 14:02-0500 Diastolic blood pressure 70 mm[Hg] [facility] 10-02-2023 14:02-0500 Systolic blood pressure 118 mm[Hg] [facility] 10-07-2022 16:18-0500 Blood Pressure Location Len YEPEZ [facility] 10-07-2022 16:18-0500 Body temperature 96.98 [degF] Len YEPEZ [facility] 10-07-2022 16:18-0500 Diastolic blood pressure 68 mm[Hg] Len YEPEZ [facility] 10-07-2022 16:18-0500 Heart rate 66 /min Len YEPEZ [facility] 10-07-2022 16:18-0500 SaO2% (BldA) [Mass fraction] 99 % Len YEPEZ [facility] 10-07-2022 16:18-0500 Systolic blood pressure 114 mm[Hg] Len YEPEZ [facility] Encounters Encounter Date Encounter Type Care Provider Facility Start: 03-17-2024 End: 03-17-2024 ambulatory MADIHA HENRY Not Available Start: 03-01-2024 End: 03-01-2024 ambulatory MADIHA HENRY Not Available Start: 02-16-2024 End: 02-16-2024 ambulatory FRED ELIU Not Available Start: 01-26-2024 End: 01-26-2024 ambulatory FRED ELIU Not Available Start: 12-30-2023 End: 12-30-2023 ambulatory ОЛЬГА CAVAZOS [facility] Start: 12-29-2023 End: 12-29-2023 ambulatory FRED [...] 04-29-2023 End: 04-30-2023 ambulatory Fred R ELIU Facility:[facility] Start: 04-29-2023 End: 04-29-2023 Patient encounter procedure Fred R ELIU [facility] Start: 04-22-2023 End: 04-23-2023 ambulatory Calin Ordaz Facility:[facility] Start: 04-22-2023 End: 04-22-2023 Patient encounter procedure Calin Ordaz [facility] Start: 10-07-2022 End: 10-08-2022 ambulatory Len YEPEZ Facility: [place] Start: 10-07-2022 End: 10-07-2022 Patient encounter procedure Len YEPEZ [facility] [place] Start: 10-07-2022 End: 10-07-2022 Well adult monitoring check done Len YEPEZ [facility] [place] Procedures Date Procedure Procedure Detail Performing Clinician [...] Missed menses Expected: 10/02/2023 (Approximate), Expires: 10/02/2024 [facility] Comment on above: Expected: 10/02/2023 (Approximate), Expires: 10/02/2024 Start: 10-02-2023 End: 10-02-2024 Blood type and Indirect antibody screen panel - Blood Type and screen Lab Routine Missed menses Expected: 10/02/2023 (Approximate), Expires: 10/02/2024 [facility] Work Phone: Comment on above: Expected: 10/02/2023 (Approximate), Expires: 10/02/2024 Start: 10-02-2023 End: 10-02-2024 US Pelvis transvaginal US OB transvaginal Imaging Routine Missed menses Expected: 10/02/2023 (Approximate), Expires: 10/02/2024 [facility] Comment on above: Expected: 10/02/2023 (Approximate), Expires: 10/02/2024 Bacteria identified in Urine by Culture Urine culture Microbiology Routine Missed menses Ordered: 10/02/2023 [facility] Comment on above: Ordered: 10/02/2023 CBC W Auto Different ial panel - Blood CBC and differential Lab Routine Missed menses Ordered: 10/02/2023 [facility] Comment on above: Ordered: 10/02/2023 Hemoglobin A1c/Hemoglobin.total in Blood Hemoglobin A1c Lab Routine Missed menses Ordered: 10/02/2023 [facility] Comment on above: Ordered: 10/02/2023 Hepatitis B virus surface Ag [Presence] in Serum or Plasma by Immunoassay Hepatitis B surface antigen Lab Routine Missed menses Ordered: 10/02/2023 [facility] Comment on above: Ordered: 10/02/2023 Hepatitis C virus Ab [Presence] in Serum or Plasma by Immunoassay Hepatitis C antibody Lab Routine Missed menses Ordered: 10/02/2023 [facility] Comment on above: Ordered: 10/02/2023 HIV-1/HIV-2 antigen/antibody combination immunoassay HIV-1 and HIV-2 antibodies Lab Routine Missed menses Ordered: 10/02/2023 [facility] Comment on above: Ordered: 10/02/2023 Reagin Ab [Presence] in Serum by RPR RPR Lab Routine Missed menses Ordered: 10/02/2023 [facility] Comment on above: Ordered: 10/02/2023 Rubella antibody, IgG Rubella an tibody, IgG Lab Routine Missed menses Ordered: 10/02/2023 [facility] Comment on above: Ordered: 10/02/2023 Immunizations Immunization Date Immunization Notes Care Provider Aurora guy NEGATED: Highlighted row has not occurred!10-07-2022 influenza virus vaccine, unspecified formulation Len YEPEZ [facility] [place] Payers Date Payer Category Payer Unknown [employer] [id number] 2023-Present [address] [place] [address] [id number] 2023 Private Health Insurance 2023 Managed Care HMO (unspecified) [employer] A[employer] [id number] 2023-Present [address] [place] [address] [facility] [id number] 2023 Private Health Insurance [id number] 2021 Unknown [id number] 1987 Unknown [id number] [id number] 27 1987 Unknown [id number] 2.16.840.1.157519.3.579.2.7 27 1987 Unknown [id number] 2.16.840.1.197188.3.579.2.7 27 1987 Unknown [id number] 2.16.840.1.184229.3.579.2.1 75 1987 Unknown [id number] 2.16.840.1.002809.3.579.2.1 259 1987 Unknown [id number] 2.16.840.1.528427.3.579.2.1 259 1987 Unknown [id number] 2.16.840.1.760878.3.579.2.1 259 1987 Unknown [id number] 2.16.840.1.077233.3.579.2.1 259 1987 Unknown [id number] 2.16.840.1.886309.3.579.2.1 259 1987 Unknown [id number] 2.16.840.1.698173.3.579.2.1 259 1987 Unknown [id number] 2.16.840.1.217985.3.579.2.1 259 1987 Unknown [id number] 2.16.840.1.958681.3.579.2.1 259 Social History Date Type Detail Facility Start: 03-04-2019 Tobacco smoking status Never smoked tobacco (finding) [facility] Sex Assigned At Female [facility] Tobacco smoking status NHIS Tobacco smoking consumption unknown [facility] Start: 08-17-2023 [facility] Start: 1985 Sex Assigned At Not on file [facility] Functional Status Date Assessment Result Facility 10-07-2022 Functional Status N/A [facility] [place] History of Present illness [...] was given her OB folder and desires [place] 21. Advised to make sure she is 10 weeks before having [place] done along with her labs. Pt did [...] Teodora Vegas MA documented in this encounter [facility] Evaluation + Plan note 04-29-2023 Note Date & Type Note Facility 04-29-2023 Evaluation + Plan note [facility] 04/29/23DHEA 04/29/23DHEAS 04/29/23 [facility] Hospital Discharge instructions 09-24-2022 Note Date & Type Note Facility 09-24-2022 Hospital Discharg e instructions Follow Up Care 09/24/2022 13:44:14 With:Len YEPEZ DO [facility] Address: [address] [address]- When:Within 1 Year(s) [facility] Evaluation + Plan note Note Date & Type Note Facility Evaluation + Plan note No data available for this section [facility] Evaluation note Note Date & Type Note Facility Evaluation note Diagnosis Missed menses documented in this encounter [facility] Hospital Discharge instructions Note Date & Type Note Facility Hospital Discharge instructions No data available for this section [facility] Progress note Note Date & Type Note Facility Progress note No data available for this section [facility] Summary Purpose Family History No Family History Records FoundNo Family History Records FoundNo Family History Records Found Advance Directives No Advanced Directives Records FoundNo Advanced Directives Records FoundNo Advanced Directives Records Found Additional Source Comments Patient Care team informatio n (unrecognized section and content) Personnel Name: Len YEPEZ DO Address: Address: [address] [place] [address]- Name: Salome Sousa Prudencio Personnel Name: LUCHO AREVALO Len Garcia Address: Address: [address] [facility] [place] [address]- Name: Salome Sousa I Personnel Name: NONE, XXXX Address: Address: [facility] Name: Salome Sousa I INFORMATION SOURCE (unrecogn ized section and content) DATE CREATED AUTHOR 05/05/2023 [facility] DATE CREATED AUTHOR AUTHOR'S ORGANIZ ATION 03/08/2024 [facility] DATE CREATED AUTHOR AUTHOR'S ORGANIZ ATION 03/19/2024 [facility] EPIC Reason for Visit (unrecogniz [...] BE BASED ON THE PRIMARY CLINICAL RECORDS. [facility]. provides no warranty or guarantee of the accuracy or completeness of information in this document.
[2024-03-26 08:11] VITALS: BP 122/75; PULSE 77
== END 2024-03-26 08:43 | disposition home or self-care (01) ==
LOC: FBCO 07:28 → FBC 08:05
PROVIDERS: Visit Provider Obstetrics & Gynecology
DX: O09.529 Supervision of elderly multigravida, unspecified trimester (principal)
CPT/HCPCS: 59025

== ENCOUNTER 2024-03-30 06:58 | Outpatient (OUT) | payer OTHER, SELFPAY ==
--- OUTSIDE RECORDS SUMMARY | 2024-03-30 07:00 | XMS_ITS | CCD ---
Author Organization [facility] Team Providers Care Plant Hr Manager Name Role Phone Len YEPEZ Primary Care [...] sources) Morphine; Translations: [morphine] Drug Allergy 10-29-2010 [facility] Medications Current Medications Medication Drug [...] Out Report FORWARD [employer] KIT, FED EX [id number] Normal [facility] Comment on above: Performed By: #### C MIS #### [facility] [address] [place] [address] Ammonium Nitrate Crystallizer: Gonzalo Matthews MD HCG ( test) Ql (U)o n 10-02-2023 Interpretation and review of laboratory results Abnormal [facility] Preg Test, Ur Positive [facility] Urinalysis macro (dipstick) panel (U)on 10-02-2023 Bilirubin, UA Negative Negative - 4(70) +++ mg/dL [facility] Blood, UA Negative Negative - 50 Ra/mcL [facility] Clarity, UA Clear [facility] Color, UA Yellow [facility] Glucose, UA Negative Negative - 2000(110) ++++ mg/dL [facility] Interpretation and review of laboratory results Abnormal [facility] Ketones, UA Negative Negative - 160(16) ++++ mg/dL [facility] Leukocytes, UA Trace Negative - 500+++ Gaurav/mcL [facility] Nitrite, UA Negative Negative - Positive [facility] pH, UA 6.0 5 - 9 [facility] Protein, UA Negative Negative - 2000(20) ++++ mg/dL [facility] Spec Grav, UA 1.030 1 - 1.03 [facility] Urobilinogen, UA 0.2 0.2 - 12 mg/dL [facility] DHEAon 05-05-2023 DHEA [Mass/Vol] 118 ng/dL Invalid Interpretation Code 31701 [facility] Comment on above: Result Comment: This test was developed and its performance characteristics determined by [facility]. It has not been cleared or approved by the Food and Drug Administration. Performed at: [address] [id number] MD Garry Montenegro Performed By: #### 1 [id number], 6536947, 4989250, 57913247, 8009513, 112238185, 07231067, 6427377 ####[facility] [address] [place] [address] DHEASon 05-05-2023 DHEA-S [Mass/Vol] 91.7 microgram/dL Invalid Interpretation Code 57.3-279.2 [facility] Comment on above: Result Comment: Perf ormed at: [address] [id number] PhD Salbador Douglass Performed By: #### 1 [id number], 5507240, 2918024, 09364399, 5145588, 091475742, 25293701, 3838231 #### [facility] [address] [place] [address] FSH and LHon 05-05-2023 Follitropin Qn 5.6 m[IU]/mL Invalid Interpretation Code [facility] Comment on above: Result Comment: Adul t Female: Follicular phase 3.5 - 12.5 Ovulation phase 4.7 - 21.5 Luteal phase 1.7 - 7.7 Postmenopausal 25.8 - 134.8 Performed at: [address] [id number] PhD Salbador Douglass Performed By: #### 1 [id number], 7098899, 6500732, 81400639, 8891424, 794742778, 42442059, 6666880 #### [facility] [address] [place] [address] Lutropin Qn 10.4 m[IU]/mL Invalid Interpretation Code [facility] Comment on above: Result Comment: Adul t Female: Follicular phase 2.4 - 12.6 Ovulation phase 14.0 - 95.6 Luteal phase 1.0 - 11.4 Postmenopausal 7.7 - 58.5 Performed By: #### 1 7792543, 9277110, 0028705, 26794542, 3535910, 430524742, 89312457, 1173789 #### [facility] [address] [place] [address] Auto Diffon 04-29-2023 Basophils/100 WBC (Bld) 0.8 % Normal 0.0-2.0 [facility] Comment on above: Order Comment: Order Added by Discern Expert. Performed By: #### 1 [id number], 5183723, 6890592, 50153135, 6571338, 088578436, 99345545, 5557723 #### [facility] [address] [place] [address] Basophils/Leukocytes Auto (Bld) [Pure # fraction] 0.0 E9/L Normal 0.0-0.2 [facility] Comment on above: Order Comment: Order Added by Discern Expert. Performed By: #### 1 0590786, 3689437, 4253040, 65033115, 6126319, 639267511, 26495858, 2331032 #### [facility] [address] [place] [address] Eosinophils/100 WBC (Bld) 2.3 % Normal 0.0-8.0 [facility] Comment on above: Order Comment: Order Added by Discern Expert. Performed By: #### 1 7879428, 2311212, 5934067, 28091480, 2298321, 647460652, 11179223, 5566558 #### [facility] [address] [place] [address] Eosinophils/Leukocyte s Auto (Bld) [Pure # fraction] 0.1 E9/L Normal 0.0-0.5 [facility] Comment on above: Order Comment: Order Added by Discern Expert. Performed By: #### 1 9131613, 8760669, 5588107, 64387350, 4182158, 792998258, 65501212, 3765626 #### [facility] [address] [place] [address] Lymphocytes/100 WBC (Bld) 42.1 % Normal 14.0-50.0 [facility] Comment on above: Order Comment: Order Added by Discern Expert. Performed By: #### 1 9568456, 7343525, 9319913, 13778629, 4500819, 292951397, 38950817, 6865022 #### [facility] [address] [place] [address] Lymphocytes/Leukocyte s Auto (Bld) [Pure # fraction] 2.0 E9/L Normal 1.0-4.0 [facility] Comment on above: Order Comment: Order Added by Discern Expert. Performed By: #### 1 2506615, 8441044, 4143297, 83729858, 6385146, 131642050, 93751992, 8797268 #### [facility] [address] [place] [address] Monocytes/100 WBC (Bld) 7.7 % Normal 4.0-14.0 [facility] Comment on above: Order Comment: Order Added by Discern Expert. Performed By: #### 1 3659266, 5828028, 9514168, 68443845, 4077889, 831682296, 43096252, 4214945 #### [facility] [address] [place] [address] Monocytes/Leukocytes Auto (Bld) [Pure # fraction] 0.4 E9/L Normal 0.2-1.0 [facility] Comment on above: Order Comment: Order Added by Francisco Expert. Performed By: #### 1 3740222, 2395032, 5774171, 70666640, 5220383, 886034731, 43657846, 6052183 #### [facility] [address] [place] [address] Neutrophils/100 WBC (Bld) 47.1 % Normal 36.0-75.0 [facility] Comment on above: Order Comment: Order Added by Discern Expert. Performed By: #### 1 2975205, 2520010, 7110052, 25270851, 0467073, 408905706, 53011237, 2347132 #### [facility] [address] [place] [address] Neutrophils/Leukocyte s Auto (Bld) [Pure # fraction] 2.3 E9/L Normal 2.0-7.5 [facility] Comment on above: Order Comment: Order Added by Discern Expert. Performed By: #### 1 6038958, 3792537, 2397319, 43320568, 6027959, 062765574, 56852428, 8461709 #### [facility] [address] [place] [address] BhCG Quanton 04-29-2023 HCG.beta subunit Qn m[IU]/mL Normal 1-3 [facility] Comment on above: Result Comment: GEST ATIONAL AGE HCG RANGE (mIU/mL) NON- <1-3 0.2-1 WEEKS 5-50 1-2 WEEKS 50-500 2-3 WEEKS 100-5,000 3-4 WEEKS 500-10,000 4-5 WEEKS 1,000-50,000 5-6 WEEKS 10,000-100,000 6-8 WEEKS 15,000-200,000 8-12 WEEKS 10,000-100,000 Performed By: #### 2 [id number] ####[facility] [address] [place] [address] CBC w/ Auto Diffon 3 Erythrocyte distribution width (RBC) [Ratio] 12.5 % Normal 10.9-14.2 [facility] Comment on above: Performed By: #### 1 5320146, 3438492, 2637604, 52905358, 5188847, 031130179, 39358634, 5323839 #### [facility] [address] [place] [address] Hematocrit (Bld) [Volume fraction] 39.3 % Normal 34.0-46.0 [facility] Comment on above: Performed By: #### 1 3638503, 7612604, 6761514, 06064111, 7393973, 660072903, 92859370, 6043543 #### [facility] [address] [place] [address] Hemoglobin (Bld) [Mass/Vol] 13.3 g/dL Normal 12.0-16.0 [facility] Comment on above: Performed By: #### 1 3983266, 4256226, 0028429, 27855183, 2619675, 132392487, 72392348, 5764693 #### [facility] [address] [address] MCH (RBC) [Entitic mass] 32.3 pg Normal 27.0-34.0 [facility] Comment on above: Performed By: #### 1 0041778, 2110650, 6591863, 31820594, 0331092, 314721841, 17946507, 7390643 #### [facility] [address] [place] [address] MCHC (RBC) [Mass/Vol] 33.9 g/dL Normal 31.4-36.0 [facility] Comment on above: Performed By: #### 1 6717178, 9899718, 9889135, 81438751, 9352183, 898443537, 68354316, 7786929 #### [facility] [address] [place] [address] MCV (RBC) [Entitic vol] 95.2 fL Normal 80.0-100.0 [facility] Comment on above: Performed By: #### 1 2840627, 3236608, 3334129, 72426703, 0840888, 158170621, 47784165, 0697031 #### [facility] [address] [place] [address] Platelet mean volume (Bld) [Entitic vol] 9.0 fL Normal 6.4-10.8 [facility] Comment on above: Performed By: #### 1 5091510, 7957037, 5300495, 70830986, 8805674, 441755401, 19315951, 6238160 #### [facility] [address] [place] [address] Platelets (Bld) [#/Vol] 172.0 E9/L Normal 150.0-500.0 [facility] Comment on above: Performed By: #### 1 9655341, 7416576, 2165245, 88200792, 8228082, 392559651, 61448629, 8071034 #### [facility] [address] [place] [address] RBC (Bld) [#/Vol] 4.1 E12/L Low 4.3-5.9 [facility] Comment on above: Performed By: #### 1 5223928, 3466602, 3914899, 22886798, 1543699, 797034532, 26155740, 6289677 #### [facility] [address] [place] [address] WBC corrected for nucl RBC Auto (Bld) [#/Vol] 4.8 E9/L Normal 4.0-11.0 [facility] Comment on above: Performed By: #### 1 2530136, 2987604, 4083018, 09355461, 7157149, 537134583, 64110322, 4930950 #### [facility] [address] [place] [address] CHEMISTRYOrdered By: Invoiceable SYSTEM on 04-29-2023 Free T4 [Mass/Vol] 0.89 ng/dL Normal 0.58 - 1. 64 ng/dL [facility] Remisol HCG.beta subunit Qn mIU/mL Normal 1 - 3 mIU/mL [facility] C Remisol TSH Qn 2.70 m[IU]/L Normal 0.34 - 5.60 mcIU/mL [facility] CHEMISTRYOrdered By: Britt Suh on 04-29-2023 HbA1c (Bld) [Mass fraction] 4.4 % Normal <=5.9% [facility] ChemAutoSS Consent for Treatmenton 04-18 Consent for Treatment [id number] 36#1.00CD:127 Normal [facility] Free T4on 04-29-2023 Free T4 [Mass/Vol] 0.89 ng/dL Normal 0.58-1.64 [facility] Comment on above: Performed By: #### 1 3608131, 9707210, 2187114, 31276424, 1418661, 179162140, 29795870, 3509829 #### [facility] [address] [place] [address] HEMATOLOGYOrdered By: SYSTEM SYSTEM on 04-29-2023 Basophils/100 [...] Normal 4.0 - 11.0 E9/L FT HemeAutoSS [id number] 04-29-2023 HbA1c (Bld) [Mass fraction] 4.4 % Normal <=5.9 [facility] Comment on above: Performed By: #### 1 4170946, 5676452, 7722622, 89371714, 1065173, 140576879, 21497355, 2475296 #### [facility] [address] [place] [address] Physician Orderon 04-29-2023 Physician Order [id number] 732#1.00CD:127 Normal [facility] TSHon 04-29-2023 TSH Qn 2.70 m[IU]/L Normal 0.34-5.60 [facility] Comment on above: Performed By: #### 1 0488763, 8559840, 8461416, 72562715, 7833191, 920141806, 54938679, 5841707 #### [facility] [address] [place] [address] BhCG Quanton 04-22-2023 HCG.beta subunit Qn 2 m[IU]/mL Normal 1-3 [facility] Comment on above: Result Comment: GEST ATIONAL AGE HCG RANGE (mIU/mL) NON- <1-3 0.2-1 WEEKS 5-50 1-2 WEEKS 50-500 2-3 WEEKS 100-5,000 3-4 WEEKS 500-10,000 4-5 WEEKS 1,000-50,000 5-6 WEEKS 10,000-100,000 6-8 WEEKS 15,000-200,000 8-12 WEEKS 10,000-100,000 Performed By: #### 2 286631 #### [facility] [address] [place] [address] CHEMISTRYOrdered By: SYSTEM SYSTEM on 04-22-2023 HCG.beta subunit Qn 2 m[IU]/mL Normal 1 - 3 mIU/mL [facility] C Remisol Consent for Treatmenton Consent for Treatment [id number] 5B#1.00CD:127 Normal [facility] Physician Orderon 04-22-2023 Physician Order [id number] 571#1.00CD:127 Normal [facility] Ambulatory Visit Summaryon 0 10-07-2022 Ambulatory Visit [...] longer receiving treatment for. Appendectomy hyperthyroid Normal [facility] Family Medicine Office/Clini c Noteon 10-07-2022 Family [...] bedtime), # 90 tab(s), Refills(s) 1, Pharmacy: [facility]/pharmacy #[id number], 170, cm, 08/23/20 8:37:00 EST, Height/Length Dosing, 65.1, kg, 08/23/20 8:37:00 EST, Weight Dosing pantoprazole, 40 mg = 1 tab(s), Oral, Daily, # 90 tab(s), Refills(s) 1, Pharmacy: [facility]/pharmacy #[id number], 170, cm, 08/23/20 8:37:00 EST, Height/Length Dosing, 65.1, kg, 08/23/20 8:37:00 EST, Weight Dosing Follow-up With When Contact Information Len YEPEZ DO, FAM In 1 year [address] [place] [address]- Additional Instructions: Problem List/Past Medical History Ongoing [...] inactivated - Not Given Patient Refuses Normal [facility] Comment on above: Result Comment: Elec tronically Signed By: Len YEPEZ DO\.br\Date and Time Signed: 10/07/22 17:12 EST Vital Signs Date Time Vital Sign Value Performing Clinician Facility 10-02-2023 14:02-0500 Body mass index (BMI) [Ratio] 24.22 kg/m2 [facility] 10-02-2023 14:-0500 Body weight 74.39 kg [facility] 10-02-2023 14:02-0500 Diastolic blood pressure 70 mm[Hg] [facility] 10-02-2023 14:02-0500 Systolic blood pressure 118 mm[Hg] [facility] 10-07-2022 16:18-0500 Blood Pressure Location Len YEPEZ [facility] 10-07-2022 16:18-0500 Body temperature 96.98 [degF] Len YEPEZ [facility] 10-07-2022 16:18-0500 Diastolic blood pressure 68 mm[Hg] Len YEPEZ [facility] 10-07-2022 16:18-0500 Heart rate 66 /min Len YEPEZ [facility] 10-07-2022 16:18-0500 SaO2% (BldA) [Mass fraction] 99 % Len YEPEZ [facility] 10-07-2022 16:18-0500 Systolic blood pressure 114 mm[Hg] Len YEPEZ [facility] Encounters Encounter Date Encounter Type Care Provider Facility Start: 03-17-2024 End: 03-17-2024 ambulatory MADIHA HENRY Not Available Start: 03-01-2024 End: 03-01-2024 ambulatory MADIHA HENRY Not Available Start: 02-16-2024 End: 02-16-2024 ambulatory FRED ELIU Not Available Start: 01-26-2024 End: 01-26-2024 ambulatory FRED ELIU Not Available Start: 12-30-2023 End: 12-30-2023 ambulatory ОЛЬГА CAVAZOS [facility] Start: 12-29-2023 End: 12-29-2023 ambulatory [...] 04-29-2023 End: 04-30-2023 ambulatory Fred R ELIU Facility:[facility] Start: 04-29-2023 End: 04-29-2023 Patient encounter procedure Fred R ELIU [facility] Start: 04-22-2023 End: 04-23-2023 ambulatory Calin Ordaz Facility:[facility] Start: 04-22-2023 End: 04-22-2023 Patient encounter procedure Calin Ordaz [facility] Start: 10-07-2022 End: 10-08-2022 ambulatory Len YEPEZ Facility: [facility] Start: 10-07-2022 End: 10-07-2022 Patient encounter procedure Len YEPEZ [facility] Start: 10-07-2022 End: 10-07-2022 Well adult monitoring check done Len YEPEZ [facility] [place] Procedures Date Procedure Procedure Detail Performing Clinician [...] Missed menses Expected: 10/02/2023 (Approximate), Expires: 10/02/2024 [facility] Comment on above: Expected: 10/02/2023 (Approximate), Expires: 10/02/2024 Start: 10-02-2023 End: 10-02-2024 Blood type and Indirect antibody screen panel - Blood Type and screen Lab Routine Missed menses Expected: 10/02/2023 (Approximate), Expires: 10/02/2024 [facility] Work Phone: Comment on above: Expected: 10/02/2023 (Approximate), Expires: 10/02/2024 Start: 10-02-2023 End: 10-02-2024 US Pelvis transvaginal US OB transvaginal Imaging Routine Missed menses Expected: 10/02/2023 (Approximate), Expires: 10/02/2024 [facility] Comment on above: Expected: 10/02/2023 (Approximate), Expires: 10/02/2024 Bacteria identified in Urine by Culture Urine culture Microbiology Routine Missed menses Ordered: 10/02/2023 [facility] Comment on above: Ordered: 10/02/2023 CBC W Auto Different ial panel - Blood CBC and differential Lab Routine Missed menses Ordered: 10/02/2023 [facility] Comment on above: Ordered: 10/02/2023 Hemoglobin A1c/Hemoglobin.total in Blood Hemoglobin A1c Lab Routine Missed menses Ordered: 10/02/2023 [facility] Comment on above: Ordered: 10/02/2023 Hepatitis B virus surface Ag [Presence] in Serum or Plasma by Immunoassay Hepatitis B surface antigen Lab Routine Missed menses Ordered: 10/02/2023 [facility] Comment on above: Ordered: 10/02/2023 Hepatitis C virus Ab [Presence] in Serum or Plasma by Immunoassay Hepatitis C antibody Lab Routine Missed menses Ordered: 10/02/2023 [facility] Comment on above: Ordered: 10/02/2023 HIV-1/HIV-2 antigen/antibody combination immunoassay HIV-1 and HIV-2 antibodies Lab Routine Missed menses Ordered: 10/02/2023 [facility] Comment on above: Ordered: 10/02/2023 Reagin Ab [Presence] in Serum by RPR RPR Lab Routine Missed menses Ordered: 10/02/2023 [facility] Comment on above: Ordered: 10/02/2023 Rubella antibody, IgG Rubella an tibody, IgG Lab Routine Missed menses Ordered: 10/02/2023 [facility] Comment on above: Ordered: 10/02/2023 Immunizations Immunization Date Immunization Notes Care Provider Aurora guy NEGATED: Highlighted row has not occurred!10-07-2022 influenza virus vaccine, unspecified formulation Len YEPEZ [facility] [place] Payers Date Payer Category Payer Unknown [employer] [id number] 2023-Present [address] [place] [address] [id number] 2023 Private Health Insurance 2023 Managed Care HMO (unspecified) [employer] A[employer] [id number] 2023-Present [address] [place] [address] [facility] [id number] 2023 Private Health Insurance [id number] 2021 Unknown [id number] 1985 Unknown [id number] [id number] 27 1987 Unknown [id number] 2.16.840.1.540390.3.579.2.7 27 1987 Unknown [id number] 2.16.840.1.606630.3.579.2.7 27 1987 Unknown [id number] 2.16.840.1.211252.3.579.2.1 75 1987 Unknown [id number] 2.16.840.1.719118.3.579.2.1 259 1987 Unknown [id number] 2.16.840.1.886119.3.579.2.1 259 1987 Unknown [id number] 2.16.840.1.806640.3.579.2.1 259 1987 Unknown [id number] 2.16.840.1.521389.3.579.2.1 259 1987 Unknown [id number] 2.16.840.1.061995.3.579.2.1 259 1987 Unknown [id number] 2.16.840.1.900709.3.579.2.1 259 1987 Unknown [id number] 2.16.840.1.128895.3.579.2.1 259 1987 Unknown [id number] 2.16.840.1.819381.3.579.2.1 259 Social History Date Type Detail Facility Start: 03-04-2019 Tobacco smoking status Never smoked tobacco (finding) [facility] Sex Assigned At Female [facility] Tobacco smoking status NHIS Tobacco smoking consumption unknown [facility] Start: 08-17-2023 [facility] Start: 1985 Sex Assigned At Not on file [facility] Functional Status Date Assessment Result Facility 10-07-2022 Functional Status N/A [facility] [place] History of Present illness Narrative 10-02-2023 Teodora [...] was given her OB folder and desires [facility]. Advised to make sure she is 10 weeks before having [facility] done along with her labs. Pt did [...] Teodora Vegas MA documented in this encounter [facility] Evaluation + Plan note 04-29-2023 Note Date & Type Note Facility 04-29-2023 Evaluation + [facility]/29/23[facility] 04/29/23DHEAS 04/29/23 [facility] Hospital Discharge instructions 09-24-2022 Note Date & Type Note Facility 09-24-2022 Hospital Discharg e instructions Follow Up Care 09/24/2022 13:44:14 With:Len YEPEZ DO [facility] Address: [address] [address]- When:Within 1 Year(s) [facility] Evaluation + Plan note Note Date & Type Note Facility Evaluation + Plan note No data available for this section [facility] Evaluation note Note Date & Type Note Facility Evaluation note Diagnosis Missed menses documented in this encounter [facility] Hospital Discharge instructions Note Date & Type Note Facility Hospital Discharge instructions No data available for this section [facility] Progress note Note Date & Type Note Facility Progress note No data available for this section [facility] Summary Purpose Family History No Family History Records FoundNo Family History Records FoundNo Family History Records Found Advance Directives No Advanced Directives Records FoundNo Advanced Directives Records FoundNo Advanced Directives Records Found Additional Source Comments Patient Care team informatio n (unrecognized section and content) Personnel Name: Len YEPEZ DO Address: Address: [address] [place] [address]- Name: Salome Sousa Prudencio Personnel Name: LUCHO AREVALO Len Garcia Address: Address: [address] [facility] [place] [address]- Name: Salome Sousa I Personnel Name: NONE, XXXX Address: Address: [facility] Name: Salome Sousa I INFORMATION SOURCE (unrecogn ized section and content) DATE CREATED AUTHOR 05/05/2023 [facility] DATE CREATED AUTHOR AUTHOR'S ORGANIZ ATION 03/08/2024 [facility] DATE CREATED AUTHOR AUTHOR'S ORGANIZ ATION 03/19/2024 [facility] EPIC Reason for Visit (unrecogniz [...] BE BASED ON THE PRIMARY CLINICAL RECORDS. [facility] [employer] [facility]. provides no warranty or guarantee of the accuracy or completeness of information in this document.
[2024-03-30 08:14] VITALS: BP 117/66; PULSE 74
--- NOTE | 2024-03-30 08:15 | US_ITS ---
[address] [address] Patient Name: ALYSA BALDWIN MRN: [id number] date: 1985 Sex: F Assigned Patient Location: US Current Patient Location: US Accession/Order Number: [id number] Exam Date: 03/30/2024 08:45 Report Date: 03/30/2024 10:20 At the request of: FRED GUZMAN Procedure: US OB BPP w non-stress EXAMINATION: US OB BPP w non-stress HISTORY: Gestational diabetes mellitus O24.419 COMPARISON: No relevant comparison available. TECHNIQUE: Ultrasound biophysical profile was performed in the radiology department. non-reactive stress testing was performed by nursing staff in the birthing center. FINDINGS: BREATHING MOVEMENTS: 2 GROSS BODY MOVEMENTS: 2 TONE: 2 QUALITATIVE AMNIOTIC FLUID VOLUME: 2 PRESENTATION: TRANSVERSE HEART RATE: 149.17 bpm AMNIOTIC FLUID VOLUME: 17.5 cm GESTATIONAL AGE: 34 weeks 2 days US/US OB BPP w non-stress IMPRESSION: Total biophysical profile score: 8 Electronically authenticated by: LYNETTE NORMAN Date: 03/30/2024 10:20
== END 2024-03-30 09:09 | disposition home or self-care (01) ==
LOC: US 06:58 → FBC 08:03
PROVIDERS: Visit Provider Obstetrics & Gynecology
DX: O24.419 Gestational diabetes mellitus in pregnancy, unspecified control (principal); Z3A.34 34 weeks gestation of pregnancy
CPT/HCPCS: 76818

== ENCOUNTER 2024-04-02 06:58 | Outpatient (OUT) | payer OTHER, SELFPAY ==
--- OUTSIDE RECORDS SUMMARY | 2024-04-02 07:00 | XMS_ITS | CCD ---
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 Name Role Phone Len YEPEZ Primary Care [...] sources) Morphine; Translations: [morphine] Drug Allergy 10-29-2010 [facility] Medications Current Medications Medication Drug Class(es) [...] Out Report [employer], FED EX [phone] Normal [facility] Comment on above: Performed By: #### C MIS #### [facility] [employer] [address] [place] [address] Acquisition Professional: Gonzalo Matthews MD HCG ( test) Ql (U)o n 10-02-2023 Interpretation and review of laboratory results Abnormal [facility] Preg Test, Ur Positive [facility] Urinalysis macro (dipstick) panel (U)on 10-02-2023 Bilirubin, UA Negative Negative - 4(70) +++ mg/dL [facility] Blood, UA Negative Negative - 50 Ra/mcL [facility] Clarity, UA Clear [facility] Color, UA Yellow [facility] Glucose, UA Negative Negative - 2000(110) ++++ mg/dL [facility] Interpretation and review of laboratory results Abnormal [facility] Ketones, UA Negative Negative - 160(16) ++++ mg/dL [facility] Leukocytes, UA Trace Negative - 500+++ Gaurav/mcL [facility] Nitrite, UA Negative Negative - Positive [facility] pH, UA 6.0 5 - 9 [facility] Protein, UA Negative Negative - 2000(20) ++++ mg/dL [facility] Spec Grav, UA 1.030 1 - 1.03 [facility] Urobilinogen, UA 0.2 0.2 - 12 mg/dL [facility] DHEAon 05-05-2023 DHEA [Mass/Vol] 118 ng/dL Invalid Interpretation Code 31701 [facility] Comment on above: Result Comment: This test was developed and its performance characteristics determined by [facility]. It has not been cleared or approved by the Food and Drug Administration. Performed at: [address] [id number] MD Garry Montenegro Performed By: #### 1 [id number], 1620785, 4113962, 47304457, 3413893, 246683770, 69756025, 4839459 ####[facility] [address] [place] [address] DHEASon 05-05-2023 DHEA-S [Mass/Vol] 91.7 microgram/dL Invalid Interpretation Code 57.3-279.2 [facility] Comment on above: Result Comment: Perf ormed at: [address] [id number] PhD Salbador Douglass Performed By: #### 1 [id number], 2958877, 6879230, 68944400, 6862625, 299698601, 02452341, 4718387 #### [facility] [address] [place] [address] FSH and LHon 05-05-2023 Follitropin Qn 5.6 m[IU]/mL Invalid Interpretation Code [facility] Comment on above: Result Comment: Adul t Female: Follicular phase 3.5 - 12.5 Ovulation phase 4.7 - 21.5 Luteal phase 1.7 - 7.7 Postmenopausal 25.8 - 134.8 Performed at: [address] [id number] PhD Salbador Douglass Performed By: #### 1 [id number], 5904831, 0088105, 76116899, 5641706, 614060068, 39281107, 3207900 #### [facility] [address] [place] [address] Lutropin Qn 10.4 m[IU]/mL Invalid Interpretation Code [facility] Comment on above: Result Comment: Adul t Female: Follicular phase 2.4 - 12.6 Ovulation phase 14.0 - 95.6 Luteal phase 1.0 - 11.4 Postmenopausal 7.7 - 58.5 Performed By: #### 1 5266115, 1881156, 9482995, 50046937, 8836333, 179437595, 45598168, 8663483 #### [facility] [address] [place] [address] Auto Diffon 04-29-2023 Basophils/100 WBC (Bld) 0.8 % Normal 0.0-2.0 [facility] Comment on above: Order Comment: Order Added by Discern Expert. Performed By: #### 1 2622745, 4324403, 5099526, 70400791, 6412196, 499503716, 38833483, 8003913 #### [facility] [address] [place] [address] Basophils/Leukocytes Auto (Bld) [Pure # fraction] 0.0 E9/L Normal 0.0-0.2 [facility] Comment on above: Order Comment: Order Added by Discern Expert. Performed By: #### 1 9339692, 6602086, 8803624, 08157560, 3209041, 840576472, 57709445, 1970933 #### [facility] [address] [place] [address] Eosinophils/100 WBC (Bld) 2.3 % Normal 0.0-8.0 [facility] Comment on above: Order Comment: Order Added by Discern Expert. Performed By: #### 1 1120374, 7697594, 4918649, 01726909, 9299497, 454724226, 67297910, 5070847 #### [facility] [address] [place] [address] Eosinophils/Leukocyte s Auto (Bld) [Pure # fraction] 0.1 E9/L Normal 0.0-0.5 [facility] Comment on above: Order Comment: Order Added by Discern Expert. Performed By: #### 1 4856495, 0934591, 4376880, 44246726, 5000938, 254760147, 11375061, 6443634 #### [facility] [address] [place] [address] Lymphocytes/100 WBC (Bld) 42.1 % Normal 14.0-50.0 [facility] Comment on above: Order Comment: Order Added by Discern Expert. Performed By: #### 1 6359955, 1295179, 1832801, 06210844, 8000600, 881426504, 59043979, 4603974 #### [facility] [address] [place] [address] Lymphocytes/Leukocyte s Auto (Bld) [Pure # fraction] 2.0 E9/L Normal 1.0-4.0 [facility] Comment on above: Order Comment: Order Added by Discern Expert. Performed By: #### 1 2446240, 8798696, 4710522, 19321769, 2976989, 857395312, 28150421, 3348827 #### [facility] [address] [place] [address] Monocytes/100 WBC (Bld) 7.7 % Normal 4.0-14.0 [facility] Comment on above: Order Comment: Order Added by Discern Expert. Performed By: #### 1 7124743, 4642558, 0126546, 34799565, 2886446, 712675855, 87350357, 1105105 #### [facility] [address] [place] [address] Monocytes/Leukocytes Auto (Bld) [Pure # fraction] 0.4 E9/L Normal 0.2-1.0 [facility] Comment on above: Order Comment: Order Added by Francisco Expert. Performed By: #### 1 0660531, 1501352, 0408582, 44980429, 2176272, 084395343, 77933781, 6060589 #### [facility] [address] [place] [address] Neutrophils/100 WBC (Bld) 47.1 % Normal 36.0-75.0 [facility] Comment on above: Order Comment: Order Added by Discern Expert. Performed By: #### 1 2038996, 2963711, 0083362, 33868315, 8535754, 752159892, 20263198, 8177420 #### [facility] [address] [place] [address] Neutrophils/Leukocyte s Auto (Bld) [Pure # fraction] 2.3 E9/L Normal 2.0-7.5 [facility] Comment on above: Order Comment: Order Added by Discern Expert. Performed By: #### 1 4613801, 6469092, 6766475, 68308841, 3706404, 525366613, 40214322, 9088791 #### [facility] [address] [place] [address] BhCG Quanton 04-29-2023 HCG.beta subunit Qn m[IU]/mL Normal 1-3 [facility] Comment on above: Result Comment: GEST ATIONAL AGE HCG RANGE (mIU/mL) NON- <1-3 0.2-1 WEEKS 5-50 1-2 WEEKS 50-500 2-3 WEEKS 100-5,000 3-4 WEEKS 500-10,000 4-5 WEEKS 1,000-50,000 5-6 WEEKS 10,000-100,000 6-8 WEEKS 15,000-200,000 8-12 WEEKS 10,000-100,000 Performed By: #### 2 072808 ####[facility] [address] [place] [address] CBC w/ Auto Diffon 3 Erythrocyte distribution width (RBC) [Ratio] 12.5 % Normal 10.9-14.2 [facility] Comment on above: Performed By: #### 1 6520908, 1370085, 1710702, 44330607, 3307114, 021224649, 49642845, 6284294 #### [facility] [address] [place] [address] Hematocrit (Bld) [Volume fraction] 39.3 % Normal 34.0-46.0 [facility] Comment on above: Performed By: #### 1 7731172, 7362587, 8191706, 78186401, 3313255, 630226325, 37348633, 3403518 #### [facility] [address] [place] [address] Hemoglobin (Bld) [Mass/Vol] 13.3 g/dL Normal 12.0-16.0 [facility] Comment on above: Performed By: #### 1 3740814, 9189046, 8735044, 51544972, 8859740, 228333758, 84930264, 0045613 #### [facility] [address] [place] [id number] MCH (RBC) [Entitic mass] 32.3 pg Normal 27.0-34.0 [facility] Comment on above: Performed By: #### 1 8178924, 0655154, 7818202, 25421193, 2145046, 627729854, 17165560, 8392699 #### [facility] [address] [place] [address] MCHC (RBC) [Mass/Vol] 33.9 g/dL Normal 31.4-36.0 [facility] Comment on above: Performed By: #### 1 2155587, 1229893, 1757875, 77474339, 5677602, 337782554, 00512345, 1594242 #### [facility] [address] [place] [address] MCV (RBC) [Entitic vol] 95.2 fL Normal 80.0-100.0 [facility] Comment on above: Performed By: #### 1 3332565, 5580840, 5221801, 78696882, 5154644, 184994376, 13163529, 9519618 #### [facility] [address] [place] [address] Platelet mean volume (Bld) [Entitic vol] 9.0 fL Normal 6.4-10.8 [facility] Comment on above: Performed By: #### 1 1017815, 6954010, 1923506, 50972810, 3335269, 866244236, 68900460, 2571279 #### [facility] [address] [place] [address] Platelets (Bld) [#/Vol] 172.0 E9/L Normal 150.0-500.0 [facility] Comment on above: Performed By: #### 1 9755998, 2831162, 0633411, 44900520, 2620770, 831792736, 26273109, 7090860 #### [facility] [address] [place] [address] RBC (Bld) [#/Vol] 4.1 E12/L Low 4.3-5.9 [facility] Comment on above: Performed By: #### 1 5509765, 5032228, 4862824, 72400200, 5823274, 786239202, 37096895, 7950652 #### [facility] [address] [place] [address] WBC corrected for nucl RBC Auto (Bld) [#/Vol] 4.8 E9/L Normal 4.0-11.0 [facility] Comment on above: Performed By: #### 1 0926528, 7106784, 8993952, 61960539, 4631480, 366957242, 93749451, 5864221 #### [facility] [address] [place] [address] CHEMISTRYOrdered By: [employer] SYSTEM on 04-29-2023 Free T4 [Mass/Vol] 0.89 ng/dL Normal 0.58 - 1. 64 ng/dL [facility] Remisol HCG.beta subunit Qn mIU/mL Normal 1 - 3 mIU/mL F[facility] C Remisol TSH Qn 2.70 m[IU]/L Normal 0.34 - 5.60 mcIU/mL [facility]isol CHEMISTRYOrdered By: Britt Suh on 04-29-2023 HbA1c (Bld) [Mass fraction] 4.4 % Normal <=5.9% [facility] ChemAutoSS Consent for Treatmenton 04-18 Consent for Treatment [id number] 36#1.00CD:127 Normal [facility] Free T4on 04-29-2023 Free T4 [Mass/Vol] 0.89 ng/dL Normal 0.58-1.64 [facility] Comment on above: Performed By: #### 1 6806381, 7294855, 5477000, 57763827, 5708601, 113745065, 76394695, 5244102 #### [facility] [address] [place] [address] HEMATOLOGYOrdered By: SYSTEM SYSTEM on 04-29-2023 Basophils/100 [...] Normal 4.0 - 11.0 E9/L FT HemeAutoSS [id number] 04-29-2023 HbA1c (Bld) [Mass fraction] 4.4 % Normal <=5.9 [facility] Comment on above: Performed By: #### 1 4637392, 9883193, 3771420, 77116036, 4007856, 996990423, 82254137, 5572346 #### [facility] [address] [place] [address] Physician Orderon 04-29-2023 Physician Order [id number] 732#1.00CD:127 Normal [facility] TSHon 04-29-2023 TSH Qn 2.70 m[IU]/L Normal 0.34-5.60 [facility] Comment on above: Performed By: #### 1 3647747, 1785686, 3792978, 82222737, 1246412, 683651290, 86613087, 2329004 #### [facility] [address] [place] [address] BhCG Quanton 04-22-2023 HCG.beta subunit Qn 2 m[IU]/mL Normal 1-3 [facility] Comment on above: Result Comment: GEST ATIONAL AGE HCG RANGE (mIU/mL) NON- <1-3 0.2-1 WEEKS 5-50 1-2 WEEKS 50-500 2-3 WEEKS 100-5,000 3-4 WEEKS 500-10,000 4-5 WEEKS 1,000-50,000 5-6 WEEKS 10,000-100,000 6-8 WEEKS 15,000-200,000 8-12 WEEKS 10,000-100,000 Performed By: #### 2 376962 #### [facility] [address] [place] [address] CHEMISTRYOrdered By: SYSTEM SYSTEM on 04-22-2023 HCG.beta subunit Qn 2 m[IU]/mL Normal 1 - 3 mIU/mL FTM C Remisol Consent for Treatmenton Consent for Treatment [id number]#1.00CD:127 Normal [facility] Physician Orderon 04-22-2023 Physician Order [id number]#1.00CD:127 Normal [facility] Ambulatory Visit Summaryon 0 10-07-2022 [...] longer receiving treatment for. Appendectomy hyperthyroid Normal [facility] Family Medicine Office/Clini c Noteon 10-07-2022 [...] bedtime), # 90 tab(s), Refills(s) 1, Pharmacy: [facility]/pharmacy #[id number], 170, cm, 08/23/20 8:37:00 EST, Height/Length Dosing, 65.1, kg, 08/23/20 8:37:00 EST, Weight Dosing pantoprazole, 40 mg = 1 tab(s), Oral, Daily, # 90 tab(s), Refills(s) 1, Pharmacy: [facility]/pharmacy #[id number], 170, cm, 08/23/20 8:37:00 EST, Height/Length Dosing, 65.1, kg, 08/23/20 8:37:00 EST, Weight Dosing Follow-up With When Contact Information Len YEPEZ DO, FAM In 1 year [address] [place] [address]- Additional Instructions: Problem List/Past Medical History Ongoing [...] inactivated - Not Given Patient Refuses Normal [facility] Comment on above: Result Comment: Elec tronically Signed By: Len YEPEZ DO\.br\Date and Time Signed: 10/07/22 17:12 EST Vital Signs Date Time Vital Sign Value Performing Clinician Facility 10-02-2023 14:02-0500 Body mass index (BMI) [Ratio] 24.22 kg/m2 [facility] Nurse [facility] 10-02-2023 14:-0500 Body weight 74.39 kg [facility] Nurse [facility] 10-02-2023 14:02-0500 Diastolic blood pressure 70 mm[Hg] [facility] Nurse [facility] 10-02-2023 14:02-0500 Systolic blood pressure 118 mm[Hg] [facility] Nurse [facility] 10-07-2022 16:18-0500 Blood Pressure Location Len YEPEZ [facility] 10-07-2022 16:18-0500 Body temperature 96.98 [degF] Len YEPEZ [facility] 10-07-2022 16:18-0500 Diastolic blood pressure 68 mm[Hg] Len YEPEZ [facility] 10-07-2022 16:18-0500 Heart rate 66 /min Len YEPEZ [facility] 10-07-2022 16:18-0500 SaO2% (BldA) [Mass fraction] 99 % Len YEPEZ [facility] 10-07-2022 16:18-0500 Systolic blood pressure 114 mm[Hg] Len YEPEZ [facility] Encounters Encounter Date Encounter Type Care Provider [...] 04-29-2023 End: 04-30-2023 ambulatory Fred R ELIU Facility:[facility] Start: 04-29-2023 End: 04-29-2023 Patient encounter procedure Fred R ELIU [facility] Start: 04-22-2023 End: 04-23-2023 ambulatory Calin Ordaz Facility:[facility] Start: 04-22-2023 End: 04-22-2023 Patient encounter procedure Calin Ordaz [facility] Start: 10-07-2022 End: 10-08-2022 ambulatory Len YEPEZ Facility: [facility] Start: 10-07-2022 End: 10-07-2022 Patient encounter procedure Len YEPEZ [facility] Start: 10-07-2022 End: 10-07-2022 Well adult monitoring check done Len YEPEZ [facility] [place] Procedures Date Procedure Procedure Detail Performing Clinician [...] menses Expected: 10/02/2023 (Approximate), Expires: 10/02/2024 [facility] Comment on above: Expected: 10/02/2023 (Approximate), Expires: 10/02/2024 Start: 10-02-2023 End: 10-02-2024 Blood type and Indirect antibody screen panel - Blood Type and screen Lab Routine Missed menses Expected: 10/02/2023 (Approximate), Expires: 10/02/2024 [facility] Work Phone: Comment on above: Expected: 10/02/2023 (Approximate), Expires: 10/02/2024 Start: 10-02-2023 End: 10-02-2024 US Pelvis transvaginal US OB transvaginal Imaging Routine Missed menses Expected: 10/02/2023 (Approximate), Expires: 10/02/2024 [facility] Comment on above: Expected: 10/02/2023 (Approximate), Expires: 10/02/2024 Bacteria identified in Urine by Culture Urine culture Microbiology Routine Missed menses Ordered: 10/02/2023 [facility] Comment on above: Ordered: 10/02/2023 CBC W Auto Different ial panel - Blood CBC and differential Lab Routine Missed menses Ordered: 10/02/2023 [facility] Comment on above: Ordered: 10/02/2023 Hemoglobin A1c/Hemoglobin.total in Blood Hemoglobin A1c Lab Routine Missed menses Ordered: 10/02/2023 [facility] Comment on above: Ordered: 10/02/2023 Hepatitis B virus surface Ag [Presence] in Serum or Plasma by Immunoassay Hepatitis B surface antigen Lab Routine Missed menses Ordered: 10/02/2023 [facility] Comment on above: Ordered: 10/02/2023 Hepatitis C virus Ab [Presence] in Serum or Plasma by Immunoassay Hepatitis C antibody Lab Routine Missed menses Ordered: 10/02/2023 [facility] Comment on above: Ordered: 10/02/2023 HIV-1/HIV-2 antigen/antibody combination immunoassay HIV-1 and HIV-2 antibodies Lab Routine Missed menses Ordered: 10/02/2023 [facility] Comment on above: Ordered: 10/02/2023 Reagin Ab [Presence] in Serum by RPR RPR Lab Routine Missed menses Ordered: 10/02/2023 [facility] Comment on above: Ordered: 10/02/2023 Rubella antibody, IgG Rubella an tibody, IgG Lab Routine Missed menses Ordered: 10/02/2023 [facility] Comment on above: Ordered: 10/02/2023 Immunizations Immunization Date Immunization Notes Care Provider Aurora guy NEGATED: Highlighted row has not occurred!10-07-2022 influenza virus vaccine, unspecified formulation Len YEPEZ [facility] [place] Payers Date Payer Category Payer Unknown [employer] [id number] 2023-Present [address] [place] [address] [id number] 2023 Private Health Insurance 2023 Managed Care HMO (unspecified) [employer] A[employer] [id number] 2023-Present [address] [place] [address] [facility] [id number] 2023 Private Health Insurance [id number] 2021 Unknown [id number] 1987 Unknown [id number] [id number] 27 1987 Unknown [id number] 2.16.840.1.641041.3.579.2.7 27 1987 Unknown [id number] 2.16.840.1.866195.3.579.2.7 27 1987 Unknown [id number] 2.16.840.1.616217.3.579.2.1 75 1987 Unknown [id number] 2.16.840.1.374591.3.579.2.1 259 1987 Unknown [id number] 2.16.840.1.482938.3.579.2.1 259 1987 Unknown [id number] 2.16.840.1.740843.3.579.2.1 259 1987 Unknown [id number] 2.16.840.1.691153.3.579.2.1 259 1987 Unknown [id number] 2.16.840.1.002650.3.579.2.1 259 1987 Unknown [id number] 2.16.840.1.269046.3.579.2.1 259 1987 Unknown [id number] 2.16.840.1.844401.3.579.2.1 259 1987 Unknown [id number] 2.16.840.1.797196.3.579.2.1 259 Social History Date Type Detail Facility Start: 03-04-2019 Tobacco smoking status Never smoked tobacco (finding) [facility] Sex Assigned At Female [facility] Tobacco smoking status NHIS Tobacco smoking consumption unknown [facility] Start: 08-17-2023 [facility] Start: 1985 Sex Assigned At Not on file [facility] Functional Status Date Assessment Result Facility 10-07-2022 Functional Status N/A [facility] [place] History of Present illness Narrative 10-02-2023 Teodora [...] was given her OB folder and desires Strawberry 21. Advised to make sure she is 10 weeks before having Strawberry done along with her labs. Pt did [...] Teodora Vegas MA documented in this encounter [facility] Evaluation + Plan note 04-29-2023 Note Date & Type Note Facility 04-29-2023 Evaluation + [facility]/23[facility] 04/29/23DHEAS 04/29/23 [facility] Hospital Discharge instructions 09-24-2022 Note Date & Type Note Facility 09-24-2022 Hospital Discharg e instructions Follow Up Care 09/24/2022 13:44:14 With:Len YEPEZ DO [facility] Address: [address] [address]- When:Within 1 Year(s) [facility] Evaluation + Plan note Note Date & Type Note Facility Evaluation + Plan note No data available for this section [facility] Evaluation note Note Date & Type Note Facility Evaluation note Diagnosis Missed menses documented in this encounter [facility] Hospital Discharge instructions Note Date & Type Note Facility Hospital Discharge instructions No data available for this section [facility] Progress note Note Date & Type Note Facility Progress note No data available for this section [facility] Summary Purpose Family History No Family History Records FoundNo Family History Records FoundNo Family History Records Found Advance Directives No Advanced Directives Records FoundNo Advanced Directives Records FoundNo Advanced Directives Records Found Additional Source Comments Patient Care team informatio n (unrecognized section and content) Personnel Name: Len YEPEZ DO Address: Address: [address] [place] [address]- Name: Salome Sousa Prudencio Personnel Name: LUCHO AREVALO Len Garcia Address: Address: [address] [facility] [place] [address]- Name: Salome Sousa I Personnel Name: NONE, XXXX Address: Address: [facility] Name: Salome Sousa I INFORMATION SOURCE (unrecogn ized section and content) DATE CREATED AUTHOR 05/05/2023 [facility] DATE CREATED AUTHOR AUTHOR'S ORGANIZ ATION 03/08/2024 [facility] DATE CREATED AUTHOR AUTHOR'S ORGANIZ ATION 03/19/2024 [facility] EPIC Reason for Visit (unrecogniz [...] BE BASED ON THE PRIMARY CLINICAL RECORDS. [facility]. provides no warranty or guarantee of the accuracy or completeness of information in this document.
[2024-04-02 08:07] VITALS: BP 122/65; PULSE 80
== END 2024-04-02 08:29 | disposition home or self-care (01) ==
LOC: FBCO 06:58 → FBC 08:01
PROVIDERS: Visit Provider Obstetrics & Gynecology
DX: O09.523 Supervision of elderly multigravida, third trimester (principal)
CPT/HCPCS: 59025

== ENCOUNTER 2024-04-06 07:01 | Outpatient (OUT) | payer OTHER, SELFPAY ==
--- OUTSIDE RECORDS SUMMARY | 2024-04-06 07:03 | XMS_ITS | CCD ---
Author Organization [facility] Care Team Providers Care Roll Icer Name Role Phone Len YEPEZ Primary Care Physician [phone] Salome Sousa I Unavailable Unavailable NONE, XXXX Primary Care Physician Unavailab Fred Foote Attending Unavailable Fred GUZMAN Admitting Unavailable Calin Ordaz Attending Unavailable Calin Ordaz Admitting Unavailable ELIU, Fred R Consulting Unavailable ELIU, DO Fred R Consulting Unavailable ELIU, Fred R Consulting Unavailable Len YEPEZ Attending Unavailable Unavailable Primary Care Provider UnavailОЛЬГА Humphreys Referring Unavailable NO, PCP Primary Care Unavailable ELIU, FRED Attending Unavailable ELIU, FRED Attending Unavailable ELIU, FRED Attending Unavailable ELIU, FRED Attending Unavailable ELIU, FRED Attending Unavailable CARL, MADIHA Attending Unavailable CARL, MADIHA Attending Unavailable ELIU, FRED Attending Unavailable Allergies Allergy Classification Reported Allergen(s) Allergy Type Date of Onset Reaction(s) Facility (5 sources) Morphine; Translations: [morphine] Drug Allergy 10-29-2010 [facility] Medications Current Medications Medication Drug [...] Out Report [employer], FED EX [phone] Normal [facility] Comment on above: Performed By: #### C MIS #### [facility] [employer] [address] [place] [address] Wire Stretcher: Gonzalo Matthews MD HCG ( test) Ql (U)o n 10-02-2023 Interpretation and review of laboratory results Abnormal [facility] Preg Test, Ur Positive [facility] Urinalysis macro (dipstick) panel (U)on 10-02-2023 Bilirubin, UA Negative Negative - 4(70) +++ mg/dL [facility] Blood, UA Negative Negative - 50 Ra/mcL [facility] Clarity, UA Clear [facility] Color, UA Yellow [facility] Glucose, UA Negative Negative - 2000(110) ++++ mg/dL [facility] Interpretation and review of laboratory results Abnormal [facility] Ketones, UA Negative Negative - 160(16) ++++ mg/dL [facility] Leukocytes, UA Trace Negative - 500+++ Gaurav/mcL [facility] Nitrite, UA Negative Negative - Positive [facility] pH, UA 6.0 5 - 9 [facility] Protein, UA Negative Negative - 2000(20) ++++ mg/dL [facility] Spec Grav, UA 1.030 1 - 1.03 [facility] Urobilinogen, UA 0.2 0.2 - 12 mg/dL [facility] DHEAon 05-05-2023 DHEA [Mass/Vol] 118 ng/dL Invalid Interpretation Code 31-701 [facility] Comment on above: Result Comment: This test was developed and its performance characteristics determined by [facility]. It has not been cleared or approved by the Food and Drug Administration. Performed at: [address] [id number] MD Garry Montenegro Performed By: #### 1 [id number], 7901433, 3318151, 65349653, 5266723, 584245255, 31763259, 9679340 ####[facility] [address] [place] [address] DHEASon 05-05-2023 DHEA-S [Mass/Vol] 91.7 microgram/dL Invalid Interpretation Code 57.3-279.2 [facility] Comment on above: Result Comment: Perf ormed at: [address] [id number] PhD Salbador Douglass Performed By: #### 1 5903782, 3205309, 9020475, 27170501, 8206091, 452941064, 30879011, 6780928 #### [facility] [address] [place] [address] FSH and LHon 05-05-2023 Follitropin Qn 5.6 m[IU]/mL Invalid Interpretation Code [facility] Comment on above: Result Comment: Adul t Female: Follicular phase 3.5 - 12.5 Ovulation phase 4.7 - 21.5 Luteal phase 1.7 - 7.7 Postmenopausal 25.8 - 134.8 Performed at: [address] [id number] PhD Salbador Douglass Performed By: #### 1 8503469, 4266286, 8151484, 62305332, 1623295, 997513170, 39310495, 3127831 #### [facility] [address] [place] [address] Lutropin Qn 10.4 m[IU]/mL Invalid Interpretation Code [facility] Comment on above: Result Comment: Adul t Female: Follicular phase 2.4 - 12.6 Ovulation phase 14.0 - 95.6 Luteal phase 1.0 - 11.4 Postmenopausal 7.7 - 58.5 Performed By: #### 1 4662213, 3692109, 5364407, 90687983, 9910418, 705487893, 28278994, 5932409 #### [facility] [address] [place] [address] Auto Diffon 04-29-2023 Basophils/100 WBC (Bld) 0.8 % Normal 0.0-2.0 [facility] Comment on above: Order Comment: Order Added by Discern Expert. Performed By: #### 1 5238710, 9615887, 4647857, 64624479, 8754269, 154487932, 22355126, 9207419 #### [facility] [address] [place] [address] Basophils/Leukocytes Auto (Bld) [Pure # fraction] 0.0 E9/L Normal 0.0-0.2 [facility] Comment on above: Order Comment: Order Added by Discern Expert. Performed By: #### 1 8727811, 0044537, 6820739, 97030402, 1117509, 765595727, 40954857, 7891698 #### [facility] [address] [place] [address] Eosinophils/100 WBC (Bld) 2.3 % Normal 0.0-8.0 [facility] Comment on above: Order Comment: Order Added by Discern Expert. Performed By: #### 1 2062125, 9362524, 7745336, 08120770, 9085049, 464343440, 84395688, 1701900 #### [facility] [address] [place] [address] Eosinophils/Leukocyte s Auto (Bld) [Pure # fraction] 0.1 E9/L Normal 0.0-0.5 [facility] Comment on above: Order Comment: Order Added by Discern Expert. Performed By: #### 1 6175506, 4832165, 4730045, 96834738, 1384213, 980399394, 99866772, 4142568 #### [facility] [address] [place] [address] Lymphocytes/100 WBC (Bld) 42.1 % Normal 14.0-50.0 [facility] Comment on above: Order Comment: Order Added by Discern Expert. Performed By: #### 1 1819921, 4502755, 6593541, 55273246, 2291648, 802125811, 54181724, 4069419 #### [facility] [address] [place] [address] Lymphocytes/Leukocyte s Auto (Bld) [Pure # fraction] 2.0 E9/L Normal 1.0-4.0 [facility] Comment on above: Order Comment: Order Added by Discern Expert. Performed By: #### 1 7547739, 6567389, 8538416, 56478312, 7909194, 354838573, 80256875, 8042645 #### [facility] [address] [place] [address] Monocytes/100 WBC (Bld) 7.7 % Normal 4.0-14.0 [facility] Comment on above: Order Comment: Order Added by Discern Expert. Performed By: #### 1 1747566, 7042566, 5452799, 34129877, 4608382, 079789061, 49493825, 4755418 #### [facility] [address] [place] [address] Monocytes/Leukocytes Auto (Bld) [Pure # fraction] 0.4 E9/L Normal 0.2-1.0 [facility] Comment on above: Order Comment: Order Added by Discern Expert. Performed By: #### 1 3111276, 2145692, 1447665, 53651898, 1794298, 588386845, 48571974, 7785015 #### [facility] [address] [place] [address] Neutrophils/100 WBC (Bld) 47.1 % Normal 36.0-75.0 [facility] Comment on above: Order Comment: Order Added by Discern Expert. Performed By: #### 1 4794920, 9846865, 8951361, 44021604, 1749293, 091584850, 61223616, 6987497 #### [facility] [address] [place] [address] Neutrophils/Leukocyte s Auto (Bld) [Pure # fraction] 2.3 E9/L Normal 2.0-7.5 [facility] Comment on above: Order Comment: Order Added by Discern Expert. Performed By: #### 1 1133253, 9007215, 9559824, 98972564, 8726714, 670686155, 31130259, 5435318 #### [facility] [address] [place] [address] BhCG Quanton 04-29-2023 HCG.beta subunit Qn m[IU]/mL Normal 1-3 [facility] Comment on above: Result Comment: GEST ATIONAL AGE HCG RANGE (mIU/mL) NON- <1-3 0.2-1 WEEKS 5-50 1-2 WEEKS 50-500 2-3 WEEKS 100-5,000 3-4 WEEKS 500-10,000 4-5 WEEKS 1,000-50,000 5-6 WEEKS 10,000-100,000 6-8 WEEKS 15,000-200,000 8-12 WEEKS 10,000-100,000 Performed By: #### 2 294042 ####[facility] [address] [place] [address] CBC w/ Auto Diffon 3 Erythrocyte distribution width (RBC) [Ratio] 12.5 % Normal 10.9-14.2 [facility] Comment on above: Performed By: #### 1 8531161, 6095588, 3695554, 22461375, 6547905, 801997819, 22893571, 2763008 #### [facility] [address] [place] [address] Hematocrit (Bld) [Volume fraction] 39.3 % Normal 34.0-46.0 [facility] Comment on above: Performed By: #### 1 3840823, 3394260, 7838921, 73253764, 7826992, 192135132, 35511655, 4517675 #### [facility] [address] [place] [address] Hemoglobin (Bld) [Mass/Vol] 13.3 g/dL Normal 12.0-16.0 [facility] Comment on above: Performed By: #### 1 9172954, 4261357, 9828732, 20767284, 0012033, 701025147, 54424917, 1575554 #### [facility] [address] [place] [address] MCH (RBC) [Entitic mass] 32.3 pg Normal 27.0-34.0 [facility] Comment on above: Performed By: #### 1 6809791, 6468658, 7937771, 57302085, 1647934, 628455108, 71548557, 7369765 #### [facility] [address] [place] [address] MCHC (RBC) [Mass/Vol] 33.9 g/dL Normal 31.4-36.0 [facility] Comment on above: Performed By: #### 1 6381141, 6989976, 7082183, 93630019, 6277653, 386950678, 59175319, 4332096 #### [facility] [address] [place] [address] MCV (RBC) [Entitic vol] 95.2 fL Normal 80.0-100.0 [facility] Comment on above: Performed By: #### 1 0731140, 7994876, 2435535, 11215015, 4170879, 519246067, 69277559, 6443124 #### [facility] [address] [place] [address] Platelet mean volume (Bld) [Entitic vol] 9.0 fL Normal 6.4-10.8 [facility] Comment on above: Performed By: #### 1 1318158, 0930245, 2825610, 40465878, 8662346, 266087649, 89035408, 5372154 #### [facility] [address] [place] [address] Platelets (Bld) [#/Vol] 172.0 E9/L Normal 150.0-500.0 [facility] Comment on above: Performed By: #### 1 7338151, 4615296, 0919887, 79787973, 7612908, 069859664, 81195557, 7324758 #### [facility] [address] [place] [address] RBC (Bld) [#/Vol] 4.1 E12/L Low 4.3-5.9 [facility] Comment on above: Performed By: #### 1 2523971, 9854471, 0994081, 57853725, 9118350, 670705288, 37855033, 4239802 #### [facility] [address] [place] [address] WBC corrected for nucl RBC Auto (Bld) [#/Vol] 4.8 E9/L Normal 4.0-11.0 [facility] Comment on above: Performed By: #### 1 0349354, 9422314, 2068618, 96325922, 1462637, 478830132, 49303067, 9514106 #### [facility] [address] [place] [address] CHEMISTRYOrdered By: [employer] SYSTEM on 04-29-2023 Free T4 [Mass/Vol] 0.89 [...] Treatmenton 04-18 Consent for Treatment [id number] 36#1.00CD:127 Normal [facility] Free T4on 04-29-2023 Free T4 [Mass/Vol] 0.89 ng/dL Normal 0.58-1.64 [facility] Comment on above: Performed By: #### 1 8432032, 3237133, 0093503, 52509568, 1930581, 625374847, 26626758, 7559844 #### [facility] [address] [place] [address] HEMATOLOGYOrdered By: SYSTEM SYSTEM on 04-29-2023 Basophils/100 [...] Normal 4.0 - 11.0 E9/L [facility] HemeAutoSS AfgB8dtm 04-29-2023 HbA1c (Bld) [Mass fraction] 4.4 % Normal <=5.9 [facility] Comment on above: Performed By: #### 1 2890751, 1066753, 3270088, 19628244, 9904953, 571482663, 17969039, 2551651 #### [facility] [address] [place] [address] Physician Orderon 04-29-2023 Physician Order [id number] 732#1.00CD:127 Normal [facility] TSHon 04-29-2023 TSH Qn 2.70 m[IU]/L Normal 0.34-5.60 [facility] Comment on above: Performed By: #### 1 1605426, 4320403, 6025912, 60688011, 7216186, 921152011, 06794932, 8111757 #### [facility] [address] [place] [address] BhCG Quanton 04-22-2023 HCG.beta subunit Qn 2 m[IU]/mL Normal 1-3 [facility] Comment on above: Result Comment: GEST ATIONAL AGE HCG RANGE (mIU/mL) NON- <1-3 0.2-1 WEEKS 5-50 1-2 WEEKS 50-500 2-3 WEEKS 100-5,000 3-4 WEEKS 500-10,000 4-5 WEEKS 1,000-50,000 5-6 WEEKS 10,000-100,000 6-8 WEEKS 15,000-200,000 8-12 WEEKS 10,000-100,000 Performed By: #### 2 890183 #### [facility] [address] [place] [address] CHEMISTRYOrdered By: SYSTEM SYSTEM on 04-22-2023 HCG.beta subunit Qn 2 m[IU]/mL Normal 1 - 3 mIU/mL FTM C Remisol Consent for Treatmenton Consent for Treatment [id number] 5B#1.00CD:127 Normal [facility] Physician Orderon 04-22-2023 Physician Order [id number] 571#1.00CD:127 Normal [facility] Ambulatory Visit Summaryon 0 10-07-2022 Ambulatory Visit [...] longer receiving treatment for. Appendectomy hyperthyroid Normal [facility] Medicine Office/Clini c Noteon 10-07-2022 Family [...] 90 tab(s), Refills(s) 1, Pharmacy: [facility]/pharmacy #[id number], 170, cm, 08/23/20 8:37:00 EST, Height/Length Dosing, 65.1, kg, 08/23/20 8:37:00 EST, Weight Dosing pantoprazole, 40 mg = 1 tab(s), Oral, Daily, # 90 tab(s), Refills(s) 1, Pharmacy: [facility]/pharmacy #[id number], 170, cm, 08/23/20 8:37:00 EST, Height/Length Dosing, 65.1, kg, 08/23/20 8:37:00 EST, Weight Dosing Follow-up With When Contact Information Len YEPEZ DO, FAM In 1 year [address] [place] [address]- Additional Instructions: Problem List/Past Medical History Ongoing [...] inactivated - Not Given Patient Refuses Normal [facility] Comment on above: Result Comment: Elec tronically Signed By: Len YEPEZ DO\.br\Date and Time Signed: 10/07/22 17:12 EST Vital Signs Date Time Vital Sign Value Performing Clinician Facility 10-02-2023 14:02-0500 Body mass index (BMI) [Ratio] 24.22 kg/m2 [facility] Nurse [facility] 10-02-2023 14:050 Body weight 74.39 kg [facility] Nurse [facility] 10-02-2023 14:02-0500 Diastolic blood pressure 70 mm[Hg] [facility] Nurse [facility] 10-02-2023 14:02-0500 Systolic blood pressure 118 mm[Hg] [facility] Nurse [facility] 10-07-2022 16:18-0500 Blood Pressure Location Len YEPEZ [facility] 10-07-2022 16:18-0500 Body temperature 96.98 [degF] Len YEPEZ [facility] 10-07-2022 16:18-0500 Diastolic blood pressure 68 mm[Hg] Len YEPEZ [facility] 10-07-2022 16:18-0500 Heart rate 66 /min Len YEPEZ [facility] 10-07-2022 16:18-0500 SaO2% (BldA) [Mass fraction] 99 % Len YEPEZ [facility] 10-07-2022 16:18-0500 Systolic blood pressure 114 mm[Hg] Len YEPEZ [facility] Encounters Encounter Date Encounter Type Care Provider Facility Start: 04-01-2024 End: 04-01-2024 ambulatory FRED ELIU Not Available Start: 03-17-2024 End: 03-17-2024 ambulatory MADIHA HENRY Not Available Start: 03-01-2024 End: 03-01-2024 ambulatory MADIHA HENRY Not Available Start: 02-16-2024 End: 02-16-2024 ambulatory FRED ELIU Not Available Start: 01-26-2024 End: 01-26-2024 ambulatory FRED ELIU Not Available Start: 12-30-2023 End: 12-30-2023 ambulatory ОЛЬГА CAVAZOS [facility] Start: 12-29-2023 End: 12-29-2023 ambulatory FRED ELIU [...] 04-30-2023 ambulatory Fred R ELIU [place] [place]: 04-29-2023 End: 04-29-2023 Patient encounter procedure Fred R ELIU [facility] Start: 04-22-2023 End: 04-23-2023 ambulatory Calin Ordaz [place] Start: 04-22-2023 End: 04-22-2023 Patient encounter procedure Calin Ordaz [facility] Start: 10-07-2022 End: 10-08-2022 ambulatory Len YEPEZ Facility:[facility] Start: 10-07-2022 End: 10-07-2022 Patient encounter procedure Len YEPEZ [facility] [place] Start: 10-07-2022 End: 10-07-2022 Well adult monitoring check done Len Jose LUCHO [facility] [place] Procedures Date Procedure Procedure Detail Performing Clinician [...] Missed menses Expected: 10/02/2023 (Approximate), Expires: 10/02/2024 [facility] Comment on above: Expected: 10/02/2023 (Approximate), Expires: 10/02/2024 Start: 10-02-2023 End: 10-02-2024 Blood type and Indirect antibody screen panel - Blood Type and screen Lab Routine Missed menses Expected: 10/02/2023 (Approximate), Expires: 10/02/2024 [facility] Work Phone: Comment on above: Expected: 10/02/2023 (Approximate), Expires: 10/02/2024 Start: 10-02-2023 End: 10-02-2024 US Pelvis transvaginal US OB transvaginal Imaging Routine Missed menses Expected: 10/02/2023 (Approximate), Expires: 10/02/2024 [facility] Comment on above: Expected: 10/02/2023 (Approximate), Expires: 10/02/2024 Bacteria identified in Urine by Culture Urine culture Microbiology Routine Missed menses Ordered: 10/02/2023 [facility] Comment on above: Ordered: 10/02/2023 CBC W Auto Different ial panel - Blood CBC and differential Lab Routine Missed menses Ordered: 10/02/2023 [facility] Comment on above: Ordered: 10/02/2023 Hemoglobin A1c/Hemoglobin.total in Blood Hemoglobin A1c Lab Routine Missed menses Ordered: 10/02/2023 [facility] Comment on above: Ordered: 10/02/2023 Hepatitis B virus surface Ag [Presence] in Serum or Plasma by Immunoassay Hepatitis B surface antigen Lab Routine Missed menses Ordered: 10/02/2023 [facility] Comment on above: Ordered: 10/02/2023 Hepatitis C virus Ab [Presence] in Serum or Plasma by Immunoassay Hepatitis C antibody Lab Routine Missed menses Ordered: 10/02/2023 [facility] Comment on above: Ordered: 10/02/2023 HIV-1/HIV-2 antigen/antibody combination immunoassay HIV-1 and HIV-2 antibodies Lab Routine Missed menses Ordered: 10/02/2023 [facility] Comment on above: Ordered: 10/02/2023 Reagin Ab [Presence] in Serum by RPR RPR Lab Routine Missed menses Ordered: 10/02/2023 [facility] Comment on above: Ordered: 10/02/2023 Rubella antibody, IgG Rubella an tibody, IgG Lab Routine Missed menses Ordered: 10/02/2023 [facility] Comment on above: Ordered: 10/02/2023 Immunizations Immunization Date Immunization Notes Care Provider Fa cility NEGATED: Highlighted row has not occurred!10-07-2022 influenza virus vaccine, unspecified formulation Len YEPEZ [facility] [place] Payers Date Payer Category Payer Unknown [employer] [id number] 2023-Present [address] [place] [address] [id number] 2023 Private Health Insurance 2023 Managed Care HMO (unspecified) RHIANNA MOCTEZUMA [id number] 2023-Present [address] [place] [address] HMO [id number] 2023 Private Health Insurance [id number] 2021 Unknown [id number] 1985 Unknown [id number] 2.16.840.1.463781.3.579.2.7 27 1987 Unknown [id number] 2.16.840.1.499845.3.579.2.7 27 1987 Unknown [id number] 2.16.840.1.160404.3.579.2.7 27 1987 Unknown [id number] 2.16.840.1.763711.3.579.2.1 75 1987 Unknown [id number] 2.16.840.1.711126.3.579.2.1 259 1987 Unknown [id number] 2.16.840.1.503861.3.579.2.1 259 1987 Unknown [id number] 2.16.840.1.961365.3.579.2.1 259 1987 Unknown [id number] 2.16.840.1.240877.3.579.2.1 259 1987 Unknown [id number] 2.16.840.1.044192.3.579.2.1 259 1987 Unknown [id number] 2.16.840.1.467395.3.579.2.1 259 1987 Unknown [id number] 2.16.840.1.318782.3.579.2.1 259 1987 Unknown [id number] 2.16.840.1.233920.3.579.2.1 259 1987 Unknown [id number] 2.16.840.1.888953.3.579.2.1 259 Social History Date Type Detail Facility Start: 03-04-2019 Tobacco smoking status Never smoked tobacco (finding) [facility] Sex Assigned At Female [facility] Tobacco smoking status NHIS Tobacco smoking consumption unknown [facility] Start: 08-17-2023 [facility] Start: 1985 Sex Assigned At Not on file [facility] Functional Status Date Assessment Result Facility 10-07-2022 Functional Status N/A [facility] [place] History of Present illness Narrative 10-02-2023 Teodora [...] was given her OB folder and desires Willard 21. Advised to make sure she is 10 weeks before having Willard done along with her labs. Pt did [...] Teodora Vegas MA documented in this encounter [facility] Evaluation + Plan note 04-29-2023 Note Date & Type Note Facility 04-29-2023 Evaluation + Plan note [facility] 04/29/23DHEA 04/29/23DHEAS 04/29/23 [facility] Hospital Discharge instructions 09-24-2022 Note Date & Type Note Facility 09-24-2022 Hospital Discharg e instructions Follow Up Care 09/24/2022 13:44:14 With:Len YEPEZ DO, FAM Address: [address] [place] [address]- When:Within 1 Year(s) [facility] Evaluation + Plan note Note Date & Type Note Facility Evaluation + Plan note No data available for this section [facility] Evaluation note Note Date & Type Note Facility Evaluation note Diagnosis Missed menses documented in this encounter [facility] Hospital Discharge instructions Note Date & Type Note Facility Hospital Discharge instructions No data available for this section [facility] Progress note Note Date & Type Note Facility Progress note No data available for this section [facility] Summary Purpose Family History No Family History Records FoundNo Family History Records FoundNo Family History Records Found Advance Directives No Advanced Directives Records FoundNo Advanced Directives Records FoundNo Advanced Directives Records Found Additional Source Comments Patient Care team informatio n (unrecognized section and content) Personnel Name: LUCHO AREVALO Len S Address: Address: [address] [place] [address]- Name: WilmanSalome sampson I Personnel Name: Len YEPEZ DO Address: Address: [address] [facility] [place] [address]- [place] Name: Salome Sousa I Personnel Name: NONE, XXXX Address: Address: [facility] Name: Wilmanadrián Salome I INFORMATION SOURCE (unrecogn ized section and content) DATE CREATED AUTHOR 05/05/2023 [facility] DATE CREATED AUTHOR AUTHOR'S ORGANIZ ATION 03/08/2024 [facility] DATE CREATED AUTHOR AUTHOR'S ORGANIZ ATION 04/03/2024 [facility] EPIC Reason for Visit [...] BE BASED ON THE PRIMARY CLINICAL RECORDS. [facility] [employer] [facility]. provides no warranty or guarantee of the accuracy or completeness of information in this document.
--- NOTE | 2024-04-06 17:08 | US_ITS ---
[address] [address] Patient Name: ALYSA BALDWIN MRN: [id number] date: 1985 Sex: F Assigned Patient Location: [facility] Current Patient Location: Accession/Order Number: [id number] Exam Date: 04/06/2024 17:15 Report Date: 04/07/2024 06:15 At the request of: FRED GUZMAN Procedure: US OB BPP w non-stress EXAMINATION: US OB BPP w non-stress HISTORY:GESTATIONAL DIABETES MELLITUS O24.419 COMPARISON: Ultrasound OB biophysical 03/30/2024 TECHNIQUE: Ultrasound biophysical profile was performed in the radiology department. BREATHING MOVEMENTS: 2 GROSS BODY MOVEMENTS: 2 TONE: 2 QUALITATIVE AMNIOTIC FLUID VOLUME: 2 PRESENTATION: CEPHALIC HEART RATE: 131.71 bpm AMNIOTIC FLUID VOLUME: 17.76 cm GESTATIONAL AGE: 35 weeks 2 days US/US OB BPP w non-stress IMPRESSION: Total biophysical profile score: 8 Electronically authenticated by: GILDARDO WEINER Date: 04/07/2024 06:15
[2024-04-06 17:57] VITALS: BP 116/72; PULSE 73
== END 2024-04-06 18:22 | disposition home or self-care (01) ==
LOC: US 07:01 → FBC 17:06
PROVIDERS: Visit Provider Obstetrics & Gynecology
DX: O24.419 Gestational diabetes mellitus in pregnancy, unspecified control (principal); Z3A.35 35 weeks gestation of pregnancy
CPT/HCPCS: 76818

== ENCOUNTER 2024-04-09 07:17 | Outpatient (OUT) | payer OTHER, SELFPAY ==
--- OUTSIDE RECORDS SUMMARY | 2024-04-09 07:21 | XMS_ITS | CCD ---
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 [phone] Normal [facility] Comment on above: Performed By: #### C MIS #### [facility] [employer] [address] [place] [address] Outsole Skiver: Gonzalo Matthews MD HCG ( test) Ql (U)o n 10-02-2023 Interpretation and review of laboratory results Abnormal [facility] Preg Test, Ur Positive [facility] Urinalysis [...] UA Negative Negative - 2000(20) ++++ mg/dL [facility] Spec Grav, UA 1.030 1 - 1.03 [facility] Urobilinogen, UA 0.2 0.2 - 12 mg/dL [facility] DHEAon 05-05-2023 DHEA [Mass/Vol] 118 ng/dL Invalid Interpretation Code 31-701 [facility] Comment on above: Result Comment: This test was developed and its performance characteristics determined by [facility]. It has not been cleared or approved by the Food and Drug Administration. Performed at: [address] [id number] MD Garry Montenegro Performed By: #### 1 [id number], 9541288, 7730904, 58287079, 3631503, 095472992, 90571115, 8032260 ####[facility] [address] [place] [address] DHEASon 05-05-2023 DHEA-S [Mass/Vol] 91.7 microgram/dL Invalid Interpretation Code 57.3-279.2 [facility] Comment on above: Result Comment: Perf ormed at: [address] [id number] PhD Salbador Douglass Performed By: #### 1 3957621, 5173921, 8724728, 55264319, 3936062, 058892245, 94159043, 6822681 #### [facility] [address] [place] [address] FSH and LHon 05-05-2023 Follitropin Qn 5.6 m[IU]/mL Invalid Interpretation Code [facility] Comment on above: Result Comment: Adul t Female: Follicular phase 3.5 - 12.5 Ovulation phase 4.7 - 21.5 Luteal phase 1.7 - 7.7 Postmenopausal 25.8 - 134.8 Performed at: [address] [id number] PhD Salbador Douglass Performed By: #### 1 [id number], 6311921, 4175252, 18241569, 1435042, 329939610, 94517003, 0583930 #### [facility] [address] [place] [address] Lutropin Qn 10.4 m[IU]/mL Invalid Interpretation Code [facility] Comment on above: Result Comment: Adul t Female: Follicular phase 2.4 - 12.6 Ovulation phase 14.0 - 95.6 Luteal phase 1.0 - 11.4 Postmenopausal 7.7 - 58.5 Performed By: #### 1 0461822, 7598813, 1961904, 99904460, 8219328, 734207195, 22605005, 3530768 #### [facility] [address] [place] [address] Auto Diffon 04-29-2023 Basophils/100 WBC (Bld) 0.8 % Normal 0.0-2.0 [facility] Comment on above: Order Comment: Order Added by Discern Expert. Performed By: #### 1 1820233, 8228510, 0013461, 35050884, 1176366, 882331751, 63946898, 0378056 #### [facility] [address] [place] [address] Basophils/Leukocytes Auto (Bld) [Pure # fraction] 0.0 E9/L Normal 0.0-0.2 [facility] Comment on above: Order Comment: Order Added by Discern Expert. Performed By: #### 1 4940671, 2843428, 3769944, 08372518, 5129278, 226630547, 38472384, 4633792 #### [facility] [address] [place] [address] Eosinophils/100 WBC (Bld) 2.3 % Normal 0.0-8.0 [facility] Comment on above: Order Comment: Order Added by Discern Expert. Performed By: #### 1 4879084, 2851266, 9663357, 86013755, 2347932, 153650669, 62555866, 6753618 #### [facility] [address] [place] [address] Eosinophils/Leukocyte s Auto (Bld) [Pure # fraction] 0.1 E9/L Normal 0.0-0.5 [facility] Comment on above: Order Comment: Order Added by Discern Expert. Performed By: #### 1 9672630, 0953357, 3015277, 71051547, 3781667, 179107356, 18698977, 4811043 #### [facility] [address] [place] [address] Lymphocytes/100 WBC (Bld) 42.1 % Normal 14.0-50.0 [facility] Comment on above: Order Comment: Order Added by Discern Expert. Performed By: #### 1 5541403, 5583661, 2987313, 49106540, 4666795, 156885683, 80677904, 5877472 #### [facility] [address] [place] [address] Lymphocytes/Leukocyte s Auto (Bld) [Pure # fraction] 2.0 E9/L Normal 1.0-4.0 [facility] Comment on above: Order Comment: Order Added by Discern Expert. Performed By: #### 1 8699287, 4004180, 7174946, 03156795, 6342210, 804523719, 33133931, 5782766 #### [facility] [address] [place] [address] Monocytes/100 WBC (Bld) 7.7 % Normal 4.0-14.0 [facility] Comment on above: Order Comment: Order Added by Discern Expert. Performed By: #### 1 0069796, 3121863, 6775709, 20237931, 3388466, 369022115, 79703429, 2531193 #### [facility] [address] [place] [address] Monocytes/Leukocytes Auto (Bld) [Pure # fraction] 0.4 E9/L Normal 0.2-1.0 [facility] Comment on above: Order Comment: Order Added by Discern Expert. Performed By: #### 1 7959552, 1450628, 0907842, 60978500, 4531999, 520714960, 98514142, 6072156 #### [facility] [address] [place] [address] Neutrophils/100 WBC (Bld) 47.1 % Normal 36.0-75.0 [facility] Comment on above: Order Comment: Order Added by Discern Expert. Performed By: #### 1 5920281, 2741089, 8273997, 36124381, 7598050, 338220364, 13009089, 3513268 #### [facility] [address] [place] [address] Neutrophils/Leukocyte s Auto (Bld) [Pure # fraction] 2.3 E9/L Normal 2.0-7.5 [facility] Comment on above: Order Comment: Order Added by Discern Expert. Performed By: #### 1 0150084, 2025057, 4041036, 63874113, 9056948, 890656985, 68172479, 8210849 #### [facility] [address] [place] [address] BhCG Quanton 04-29-2023 HCG.beta subunit Qn m[IU]/mL Normal 1-3 [facility] Comment on above: Result Comment: GEST ATIONAL AGE HCG RANGE (mIU/mL) NON- <1-3 0.2-1 WEEKS 5-50 1-2 WEEKS 50-500 2-3 WEEKS 100-5,000 3-4 WEEKS 500-10,000 4-5 WEEKS 1,000-50,000 5-6 WEEKS 10,000-100,000 6-8 WEEKS 15,000-200,000 8-12 WEEKS 10,000-100,000 Performed By: #### 2 265230 ####[facility] [address] [place] [address] CBC w/ Auto Diffon 3 Erythrocyte distribution width (RBC) [Ratio] 12.5 % Normal 10.9-14.2 [facility] Comment on above: Performed By: #### 1 3330957, 2986402, 0089748, 03614116, 6098132, 052347280, 14078369, 6475489 #### [facility] [address] [place] [address] Hematocrit (Bld) [Volume fraction] 39.3 % Normal 34.0-46.0 [facility] Comment on above: Performed By: #### 1 2966037, 4666564, 2268754, 82601637, 1413395, 249067883, 22734331, 9717091 #### [facility] [address] [place] [address] Hemoglobin (Bld) [Mass/Vol] 13.3 g/dL Normal 12.0-16.0 [facility] Comment on above: Performed By: #### 1 9750225, 5130188, 9358534, 21852166, 6091946, 205358153, 03369981, 0284211 #### [facility] [address] [place] [address] MCH (RBC) [Entitic mass] 32.3 pg Normal 27.0-34.0 [facility] Comment on above: Performed By: #### 1 0418020, 8197385, 4709049, 63957291, 2218829, 879354378, 02799171, 0404763 #### [facility] [address] [place] [address] MCHC (RBC) [Mass/Vol] 33.9 g/dL Normal 31.4-36.0 [facility] Comment on above: Performed By: #### 1 4329295, 1353973, 5350156, 28056193, 0759374, 294978839, 52727754, 9599659 #### [facility] [address] [place] [address] MCV (RBC) [Entitic vol] 95.2 fL Normal 80.0-100.0 [facility] Comment on above: Performed By: #### 1 8015417, 5873993, 9319515, 70821278, 0908524, 204322513, 63308223, 3463882 #### [facility] [address] [place] [address] Platelet mean volume (Bld) [Entitic vol] 9.0 fL Normal 6.4-10.8 [facility] Comment on above: Performed By: #### 1 9294860, 8969446, 5279995, 47746373, 4604617, 217663454, 87443394, 7786632 #### [facility] [address] [place] [address] Platelets (Bld) [#/Vol] 172.0 E9/L Normal 150.0-500.0 [facility] Comment on above: Performed By: #### 1 4231142, 7417719, 1083545, 23170684, 4069078, 342297976, 97042634, 7032589 #### [facility] [address] [place] [address] RBC (Bld) [#/Vol] 4.1 E12/L Low 4.3-5.9 [facility] Comment on above: Performed By: #### 1 3122180, 2419014, 1230785, 91927742, 7353496, 802141055, 60184483, 3640024 #### [facility] [address] [place] [address] WBC corrected for nucl RBC Auto (Bld) [#/Vol] 4.8 E9/L Normal 4.0-11.0 [facility] Comment on above: Performed By: #### 1 4581613, 2389566, 8968492, 92149386, 0689174, 927793226, 97900008, 9577945 #### [facility] [address] [place] [address] CHEMISTRYOrdered By: [employer] SYSTEM on 04-29-2023 Free T4 [Mass/Vol] 0.89 [...] Treatmenton 04-18 Consent for Treatment [id number] 36#1.00CD:127 Normal [facility] Free T4on 04-29-2023 Free T4 [Mass/Vol] 0.89 ng/dL Normal 0.58-1.64 [facility] Comment on above: Performed By: #### 1 6959532, 4948169, 4666556, 63791144, 2248251, 985346677, 33667721, 9853789 #### [facility] [address] [place] [address] HEMATOLOGYOrdered By: SYSTEM SYSTEM on 04-29-2023 Basophils/100 [...] Normal 4.0 - 11.0 E9/L [facility] HemeAutoSS [id number] 04-29-2023 HbA1c (Bld) [Mass fraction] 4.4 % Normal <=5.9 [facility] Comment on above: Performed By: #### 1 9317731, 6238283, 2645655, 92597195, 1649117, 717454130, 72394010, 2527180 #### [facility] [address] [place] [address] Physician Orderon 04-29-2023 Physician Order [id number]#1.00CD:127 Normal [facility] TSHon 04-29-2023 TSH Qn 2.70 m[IU]/L Normal 0.34-5.60 [facility] Comment on above: Performed By: #### 1 2701199, 9133285, 2739008, 49045603, 6988703, 416958776, 73795319, 8911519 #### [facility] [address] [place] [address] BhCG Quanton 04-22-2023 HCG.beta subunit Qn 2 m[IU]/mL Normal 1-3 [facility] Comment on above: Result Comment: GEST ATIONAL AGE HCG RANGE (mIU/mL) NON- <1-3 0.2-1 WEEKS 5-50 1-2 WEEKS 50-500 2-3 WEEKS 100-5,000 3-4 WEEKS 500-10,000 4-5 WEEKS 1,000-50,000 5-6 WEEKS 10,000-100,000 6-8 WEEKS 15,000-200,000 8-12 WEEKS 10,000-100,000 Performed By: #### 2 975723 #### [facility] [address] [place] [address] CHEMISTRYOrdered By: SYSTEM SYSTEM on 04-22-2023 HCG.beta subunit Qn 2 m[IU]/mL Normal 1 - 3 mIU/mL FTM C Remisol Consent for Treatmenton Consent for Treatment [id number]#1.00CD:127 Normal [facility] Physician Orderon 04-22-2023 Physician Order [id number]#1.00CD:127 Normal [facility] Ambulatory Visit Summaryon 0 10-07-2022 Ambulatory [...] hyperthyroid Normal [facility] Medicine Office/Clini c Noteon 10-07-2022 Family Medicine [...] In 1 year [address] [place] [address]- Additional Instructions: Problem List/Past Medical [...] inactivated - Not Given Patient Refuses Normal [facility] Comment on above: Result Comment: Elec tronically Signed By: Len YEPEZ DO\.br\Date and Time Signed: 10/07/22 17:12 EST Vital Signs Date Time Vital Sign Value Performing Clinician Facility 10-02-2023 14:02-0500 Body mass index (BMI) [Ratio] 24.22 kg/m2 [facility] 10-02-2023 14:050 Body weight 74.39 kg [facility] 10-02-2023 14:02-0500 Diastolic blood pressure 70 mm[Hg] [facility] 10-02-2023 14:02-0500 Systolic blood pressure 118 mm[Hg] [facility] 10-07-2022 16:18-0500 Blood Pressure Location Len YEPEZ [facility] 10-07-2022 16:18-0500 Body temperature 96.98 [degF] Len YEPEZ [facility] 10-07-2022 16:18-0500 Diastolic blood pressure 68 mm[Hg] Len YEPEZ [facility] 10-07-2022 16:18-0500 Heart rate 66 /min Len YEPEZ [facility] 10-07-2022 16:18-0500 SaO2% (BldA) [Mass fraction] 99 % Len YEPEZ [facility] 10-07-2022 16:18-0500 Systolic blood pressure 114 mm[Hg] Len YEPEZ [facility] Encounters Encounter Date Encounter Type Care Provider Facility Start: 04-01-2024 End: 04-01-2024 ambulatory FRED ELIU Not Available Start: 03-17-2024 End: 03-17-2024 ambulatory MADIHA HENRY Not Available Start: 03-01-2024 End: 03-01-2024 ambulatory MADIHA HENRY Not Available Start: 02-16-2024 End: 02-16-2024 ambulatory FRED ELIU Not Available Start: 01-26-2024 End: 01-26-2024 ambulatory FRED ELIU Not Available Start: 12-30-2023 End: 12-30-2023 ambulatory ОЛЬГА CAVAZOS [facility] Start: 12-29-2023 End: 12-29-2023 ambulatory FRED ELIU [...] 04-29-2023 Patient encounter procedure Fred R ELIU [facility] Start: 04-22-2023 End: 04-23-2023 ambulatory Calin Ordaz Facility[facility] Start: 04-22-2023 End: 04-22-2023 Patient encounter procedure Calin Ordaz [facility] Start: 10-07-2022 End: 10-08-2022 ambulatory Len YEPEZ Facility:[facility] Start: 10-07-2022 End: 10-07-2022 Patient encounter procedure Len YEPEZ [facility] [place] Start: 10-07-2022 End: 10-07-2022 Well adult monitoring check done Len Jose LUCHO [facility] [place] Procedures Date Procedure Procedure Detail Performing Clinician [...] Missed menses Expected: 10/02/2023 (Approximate), Expires: 10/02/2024 [facility] Comment on above: Expected: 10/02/2023 (Approximate), Expires: 10/02/2024 Start: 10-02-2023 End: 10-02-2024 Blood type and Indirect antibody screen panel - Blood Type and screen Lab Routine Missed menses Expected: 10/02/2023 (Approximate), Expires: 10/02/2024 [facility] Work Phone: Comment on above: Expected: 10/02/2023 (Approximate), Expires: 10/02/2024 Start: 10-02-2023 End: 10-02-2024 US Pelvis transvaginal US OB transvaginal Imaging Routine Missed menses Expected: 10/02/2023 (Approximate), Expires: 10/02/2024 [facility] Comment on above: Expected: 10/02/2023 [...] influenza virus vaccine, unspecified formulation Len YEPEZ [facility] [place] Payers Date Payer Category Payer Unknown [employer] [id number] 2023-Present [address] [place] [address] [id number] 2023 Private Health Insurance 2023 Managed Care HMO (unspecified) RHIANNA MOCTEZUMA [id number] 2023-Present [address] [place] [address] HMO [id number] 2023 Private Health Insurance [id number] 2021 Unknown [id number] 1987 Unknown [id number] 2.16.840.1.505836.3.579.2.7 27 1987 Unknown [id number] 2.16.840.1.984354.3.579.2.7 27 1987 Unknown [id number] 2.16.840.1.609586.3.579.2.7 27 1987 Unknown [id number] 2.16.840.1.255047.3.579.2.1 75 1987 Unknown [id number] 2.16.840.1.726699.3.579.2.1 259 1987 Unknown [id number] 2.16.840.1.916941.3.579.2.1 259 1987 Unknown [id number] 2.16.840.1.589064.3.579.2.1 259 1987 Unknown [id number] 2.16.840.1.314525.3.579.2.1 259 1987 Unknown [id number] 2.16.840.1.902675.3.579.2.1 259 1987 Unknown [id number] 2.16.840.1.155713.3.579.2.1 259 1987 Unknown [id number] 2.16.840.1.408180.3.579.2.1 259 1987 Unknown [id number] 2.16.840.1.470902.3.579.2.1 259 1987 Unknown [id number] 2.16.840.1.804973.3.579.2.1 259 Social History Date Type Detail Facility Start: 03-04-2019 Tobacco smoking status Never smoked tobacco (finding) [facility] Sex Assigned At Female [facility] Tobacco smoking status NHIS Tobacco smoking consumption unknown [facility] Start: 08-17-2023 [facility] Start: 1985 Sex Assigned At Not on file [facility] Functional Status Date Assessment Result Facility 10-07-2022 Functional Status N/A [facility] [place] History of Present illness Narrative 10-02-2023 Teodora [...] was given her OB folder and desires [place] 21. Advised to make sure she is 10 weeks before having Weippe done along with her labs. Pt did [...] Teodora [place] MA documented in this encounter [facility] Evaluation + Plan note 04-29-2023 Note Date & Type Note Facility 04-29-2023 Evaluation + [facility] 04/29/23DHEA 04/29/23DHEAS 04/29/23 [facility] Hospital Discharge instructions 09-24-2022 Note Date & Type Note Facility 09-24-2022 Hospital Discharg e instructions Follow Up Care 09/24/2022 13:44:14 With:Len YEPEZ DO, FAM Address: [address] [place] [address]- When:Within 1 Year(s) [facility] Evaluation + Plan note Note Date & Type Note Facility Evaluation + Plan note No data available for this section [facility] Evaluation note Note Date & Type Note Facility Evaluation note Diagnosis Missed menses documented in this encounter [facility] Hospital Discharge instructions Note Date & Type Note Facility Hospital Discharge instructions No data available for this section [facility] Progress note Note Date & Type Note Facility Progress note No data available for this section [facility] Summary Purpose Family History No Family History Records FoundNo Family History Records FoundNo Family History Records Found Advance Directives No Advanced Directives Records FoundNo Advanced Directives Records FoundNo Advanced Directives Records Found Additional Source Comments Patient Care team informatio n (unrecognized section and content) Personnel Name: LUCHO AREVALO Len S Address: Address: [address] [place] [address]- Name: WilmanSalome sampson I Personnel Name: Len YEPEZ DO Address: Address: [address] [facility] [place] [address]- [place] Name: Salome Sousa I Personnel Name: NONE, XXXX Address: Address: [facility] Name: Wilmanadrián Salome I INFORMATION SOURCE (unrecogn ized section and content) DATE CREATED AUTHOR 05/05/2023 [facility] DATE CREATED AUTHOR AUTHOR'S ORGANIZ ATION 03/08/2024 [facility] DATE CREATED AUTHOR AUTHOR'S ORGANIZ ATION 04/03/2024 [facility] EPIC Reason for Visit [...] THE PRIMARY CLINICAL RECORDS. [facility] [employer] [facility]. provides no warranty or guarantee of the accuracy or completeness of information in this document.
[2024-04-09 16:46] VITALS: BP 121/74; PULSE 83
== END 2024-04-09 17:15 | disposition home or self-care (01) ==
LOC: FBCO 07:17 → FBC 16:40
PROVIDERS: Visit Provider Obstetrics & Gynecology
DX: O09.523 Supervision of elderly multigravida, third trimester (principal)
CPT/HCPCS: 59025

== ENCOUNTER 2024-04-13 07:34 | Outpatient (OUT) | payer OTHER, SELFPAY ==
--- OUTSIDE RECORDS SUMMARY | 2024-04-13 07:37 | XMS_ITS | CCD ---
Author Organization [facility] Care Team Providers Care Pig Farmer Name Role Phone Len YEPEZ Primary Care Physician [phone] Salome Sousa I Unavailable Unavailable NONE, XXXX Primary Care Physician Unavailab Fred Foote Attending Unavailable ELIUFred HOLLY R Admitting Unavailable Calin Ordaz Attending Unavailable [...] MADIHA Attending Unavailable ELIU, FRED Attending Unavailable ELIU, FRED Attending Unavailable Allergies Allergy Classification Reported Allergen(s) Allergy Type Date of Onset Reaction(s) Facility (5 sources) Morphine; Translations: [morphine] Drug Allergy 10-29-2010 [facility] Medications Current Medications Medication Drug [...] Facility Miscellaneouson 12-31-2023 Send Out Report FORWARD TAJ ARROYO, FED EX [phone] Normal [facility] Comment on above: Performed By: #### C MIS #### [place] [address] [employer] Chief: Gonzalo Matthews MD HCG ( test) Ql (U)o n 10-02-2023 Interpretation and review of laboratory results Abnormal [facility] Preg Test, Ur Positive [facility] Urinalysis macro (dipstick) panel (U)on 10-02-2023 Bilirubin, UA Negative Negative - 4(70) +++ mg/dL [facility] Blood, UA Negative Negative - 50 Ra/mcL [facility] Clarity, UA Clear [facility] Color, UA Yellow [facility] Glucose, UA Negative Negative - 2000(110) ++++ mg/dL [facility] Interpretation and review of laboratory results Abnormal [facility] Ketones, UA Negative Negative - 160(16) ++++ mg/dL [facility] Leukocytes, UA Trace Negative - 500+++ Gaurav/mcL [facility] Nitrite, UA Negative Negative - Positive [facility] pH, UA 6.0 5 - 9 [facility] Protein, UA Negative Negative - 2000(20) ++++ mg/dL [facility] Spec Grav, UA 1.030 1 - 1.03 [facility] Urobilinogen, UA 0.2 0.2 - 12 mg/dL [facility] DHEAon 05-05-2023 DHEA [Mass/Vol] 118 ng/dL Invalid Interpretation Code 31-701 [facility] Comment on above: Result Comment: This test was developed and its performance characteristics determined by [employer]. It has not been cleared or approved by the Food and Drug Administration. Performed at: [address] [id number] MD Garry Montenegro Performed By: #### 1 [id number], 4547500, 1394176, 81333134, 8752300, 355665393, 82969792, 1872569 ####[facility] [address] [place] [address] DHEASon 05-05-2023 DHEA-S [Mass/Vol] 91.7 microgram/dL Invalid Interpretation Code 57.3-279.2 [facility] Comment on above: Result Comment: Perf ormed at: [address] [id number] PhD Salbador Douglass Performed By: #### 1 [id number], 5315196, 1109003, 54461764, 8477617, 330463858, 92313232, 9108547 #### [facility] [address] [place] [address] FSH and LHon 05-05-2023 Follitropin Qn 5.6 m[IU]/mL Invalid Interpretation Code [facility] Comment on above: Result Comment: Adul t Female: Follicular phase 3.5 - 12.5 Ovulation phase 4.7 - 21.5 Luteal phase 1.7 - 7.7 Postmenopausal 25.8 - 134.8 Performed at: [address] [id number] PhD Salbador Douglass Performed By: #### 1 5247083, 8489401, 9144623, 45150020, 6413138, 345438950, 36317442, 7840369 #### [facility] [address] [place] [address] Lutropin Qn 10.4 m[IU]/mL Invalid Interpretation Code [facility] Comment on above: Result Comment: Adul t Female: Follicular phase 2.4 - 12.6 Ovulation phase 14.0 - 95.6 Luteal phase 1.0 - 11.4 Postmenopausal 7.7 - 58.5 Performed By: #### 1 1258402, 5105824, 7284675, 66765327, 4664496, 741340647, 17518311, 9342947 #### [facility] [address] [place] [address] Auto Diffon 04-29-2023 Basophils/100 WBC (Bld) 0.8 % Normal 0.0-2.0 [facility] Comment on above: Order Comment: Order Added by Discern Expert. Performed By: #### 1 3802170, 6396938, 5992858, 95901734, 3983164, 019084404, 55040977, 3557211 #### [facility] [address] [place] [address] Basophils/Leukocytes Auto (Bld) [Pure # fraction] 0.0 E9/L Normal 0.0-0.2 [facility] Comment on above: Order Comment: Order Added by Discern Expert. Performed By: #### 1 0757101, 3523083, 1277739, 13559078, 1459993, 701083105, 94777679, 3777715 #### [facility] [address] [place] [address] Eosinophils/100 WBC (Bld) 2.3 % Normal 0.0-8.0 [facility] Comment on above: Order Comment: Order Added by Discern Expert. Performed By: #### 1 5345051, 9017315, 0562552, 72568403, 5225828, 268081937, 29234735, 1765090 #### [facility] [address] [place] [address] Eosinophils/Leukocyte s Auto (Bld) [Pure # fraction] 0.1 E9/L Normal 0.0-0.5 [facility] Comment on above: Order Comment: Order Added by Discern Expert. Performed By: #### 1 4898130, 7430882, 7167402, 72197822, 6744067, 589008385, 44328715, 5425056 #### [facility] [address] [place] [address] Lymphocytes/100 WBC (Bld) 42.1 % Normal 14.0-50.0 [facility] Comment on above: Order Comment: Order Added by Discern Expert. Performed By: #### 1 0741471, 0361465, 4200575, 76910822, 0208477, 232511473, 52655269, 1376009 #### [facility] [address] [place] [address] Lymphocytes/Leukocyte s Auto (Bld) [Pure # fraction] 2.0 E9/L Normal 1.0-4.0 [facility] Comment on above: Order Comment: Order Added by Discern Expert. Performed By: #### 1 5982692, 5598121, 4102844, 66762982, 8118124, 752327590, 60175544, 7329555 #### [facility] [address] [place] [address] Monocytes/100 WBC (Bld) 7.7 % Normal 4.0-14.0 [facility] Comment on above: Order Comment: Order Added by Discern Expert. Performed By: #### 1 6837804, 3507593, 3363949, 70439081, 9350609, 200812567, 56559015, 3052703 #### [facility] [address] [place] [address] Monocytes/Leukocytes Auto (Bld) [Pure # fraction] 0.4 E9/L Normal 0.2-1.0 [facility] Comment on above: Order Comment: Order Added by Discern Expert. Performed By: #### 1 6300051, 3954335, 4083348, 97656067, 7030349, 102685737, 99562536, 7819484 #### [facility] [address] [place] [address] Neutrophils/100 WBC (Bld) 47.1 % Normal 36.0-75.0 [facility] Comment on above: Order Comment: Order Added by Discern Expert. Performed By: #### 1 8566818, 9924497, 6668844, 31405314, 4178915, 253993294, 38322052, 8044803 #### [facility] [address] [place] [address] Neutrophils/Leukocyte s Auto (Bld) [Pure # fraction] 2.3 E9/L Normal 2.0-7.5 [facility] Comment on above: Order Comment: Order Added by Discern Expert. Performed By: #### 1 7148910, 6930837, 3272616, 30081762, 7083459, 145153102, 38603830, 2174203 #### [facility] [address] [place] [address] BhCG Quanton 04-29-2023 HCG.beta subunit Qn m[IU]/mL Normal 1-3 [facility] Comment on above: Result Comment: GEST ATIONAL AGE HCG RANGE (mIU/mL) NON- <1-3 0.2-1 WEEKS 5-50 1-2 WEEKS 50-500 2-3 WEEKS 100-5,000 3-4 WEEKS 500-10,000 4-5 WEEKS 1,000-50,000 5-6 WEEKS 10,000-100,000 6-8 WEEKS 15,000-200,000 8-12 WEEKS 10,000-100,000 Performed By: #### 2 308544 ####[facility] [address] [place] [address] CBC w/ Auto Diffon 3 Erythrocyte distribution width (RBC) [Ratio] 12.5 % Normal 10.9-14.2 [facility] Comment on above: Performed By: #### 1 0364401, 4133833, 4426571, 84872686, 0232345, 531974284, 63097329, 0188804 #### [facility] [address] [place] [address] Hematocrit (Bld) [Volume fraction] 39.3 % Normal 34.0-46.0 [facility] Comment on above: Performed By: #### 1 0114185, 9427573, 4719798, 31623714, 8656118, 905999143, 03603272, 1874496 #### [facility] [address] [place] [address] Hemoglobin (Bld) [Mass/Vol] 13.3 g/dL Normal 12.0-16.0 [facility] Comment on above: Performed By: #### 1 8613735, 1522734, 3774040, 65662783, 3102186, 183513536, 75904773, 1082478 #### [facility] [address] [place], [place] [address] MCH (RBC) [Entitic mass] 32.3 pg Normal 27.0-34.0 [facility] Comment on above: Performed By: #### 1 5765619, 7234210, 2899279, 82105785, 1458314, 985820977, 96646998, 9420589 #### [facility] [address] [place] [address] MCHC (RBC) [Mass/Vol] 33.9 g/dL Normal 31.4-36.0 [facility] Comment on above: Performed By: #### 1 2635341, 7352105, 5310314, 23442741, 8776756, 405389107, 28048855, 6303620 #### [facility] [address] [place] [address] MCV (RBC) [Entitic vol] 95.2 fL Normal 80.0-100.0 [facility] Comment on above: Performed By: #### 1 7952230, 8110902, 3620018, 13800416, 3853361, 484900239, 82455860, 8101568 #### [facility] [address] [place] [address] Platelet mean volume (Bld) [Entitic vol] 9.0 fL Normal 6.4-10.8 [facility] Comment on above: Performed By: #### 1 5469789, 4960678, 1682116, 80988346, 6688337, 602709343, 63998732, 3767237 #### [facility] [address] [place] [address] Platelets (Bld) [#/Vol] 172.0 E9/L Normal 150.0-500.0 [facility] Comment on above: Performed By: #### 1 5091347, 8689766, 8232297, 83969388, 2535993, 945442160, 93530799, 3851804 #### [facility] [address] [place] [address] RBC (Bld) [#/Vol] 4.1 E12/L Low 4.3-5.9 [facility] Comment on above: Performed By: #### 1 3594239, 7706434, 1318029, 21318731, 9379376, 895877981, 76591181, 9751571 #### [facility] [address] [place] [address] WBC corrected for nucl RBC Auto (Bld) [#/Vol] 4.8 E9/L Normal 4.0-11.0 [facility] Comment on above: Performed By: #### 1 0479166, 9088485, 8760728, 07617490, 9170814, 452446154, 91048634, 4778861 #### [facility] [address] [place] [address] CHEMISTRYOrdered By: SYSTEM SYSTEM on 04-29-2023 Free [...] Treatmenton 04-18 Consent for Treatment [id number] 36#1.00CD:127 Normal [facility] Free T4on 04-29-2023 Free T4 [Mass/Vol] 0.89 ng/dL Normal 0.58-1.64 [facility] Comment on above: Performed By: #### 1 4587013, 7092840, 4336388, 43427964, 4772835, 798628715, 25282616, 2217667 #### [facility] [address] [place] [address] HEMATOLOGYOrdered By: SYSTEM SYSTEM on 04-29-2023 Basophils/100 [...] Normal 4.0 - 11.0 E9/L [facility] HemeAutoSS [id number] 04-29-2023 HbA1c (Bld) [Mass fraction] 4.4 % Normal <=5.9 [facility] Comment on above: Performed By: #### 1 2169833, 2502301, 0299443, 94492007, 2831908, 541449642, 91681641, 4920184 #### [facility] [address] [place] [address] Physician Orderon 04-29-2023 Physician Order [id number]#1.00CD:127 Normal [facility] TSHon 04-29-2023 TSH Qn 2.70 m[IU]/L Normal 0.34-5.60 [facility] Comment on above: Performed By: #### 1 0245917, 3162058, 3285802, 57354135, 9867946, 288281287, 74833365, 7597931 #### [facility] [address] [place] [address] BhCG Quanton 04-22-2023 HCG.beta subunit Qn 2 m[IU]/mL Normal 1-3 [facility] Comment on above: Result Comment: GEST ATIONAL AGE HCG RANGE (mIU/mL) NON- <1-3 0.2-1 WEEKS 5-50 1-2 WEEKS 50-500 2-3 WEEKS 100-5,000 3-4 WEEKS 500-10,000 4-5 WEEKS 1,000-50,000 5-6 WEEKS 10,000-100,000 6-8 WEEKS 15,000-200,000 8-12 WEEKS 10,000-100,000 Performed By: #### 2 482156 #### [facility] [address] [place] [address] CHEMISTRYOrdered By: SYSTEM SYSTEM on 04-22-2023 HCG.beta subunit Qn 2 m[IU]/mL Normal 1 - 3 mIU/mL FTM C Remisol Consent for Treatmenton Consent for Treatment [id number]#1.00CD:127 Normal [facility] Physician Orderon 04-22-2023 Physician Order [id number]#1.00CD:127 Normal [facility] Ambulatory Visit Summaryon 0 10-07-2022 Ambulatory [...] longer receiving treatment for. Appendectomy hyperthyroid Normal [facility] Medicine Office/Clini c Noteon 10-07-2022 Family [...] bedtime), # 90 tab(s), Refills(s) 1, Pharmacy: [facility]/pharmacy #[id number], 170, cm, 08/23/20 8:37:00 EST, Height/Length Dosing, 65.1, kg, 08/23/20 8:37:00 EST, Weight Dosing pantoprazole, 40 mg = 1 tab(s), Oral, Daily, # 90 tab(s), Refills(s) 1, Pharmacy: [facility]/pharmacy #[id number], 170, cm, 08/23/20 8:37:00 EST, Height/Length Dosing, 65.1, kg, 08/23/20 8:37:00 EST, Weight Dosing Follow-up With When Contact Information Len YEPEZ DO, FAM In 1 year [address] [place] [address]- Additional Instructions: Problem List/Past Medical History Ongoing [...] inactivated - Not Given Patient Refuses Normal [facility] Comment on above: Result Comment: Elec tronically Signed By: Len YEPEZ DO\.br\Date and Time Signed: 10/07/22 17:12 EST Vital Signs Date Time Vital Sign Value Performing Clinician Facility 10-02-2023 14:02-0500 Body mass index (BMI) [Ratio] 24.22 kg/m2 [facility] Nurse [facility] 10-02-2023 14:050 Body weight 74.39 kg [facility] Nurse [facility] 10-02-2023 14:02-0500 Diastolic blood pressure 70 mm[Hg] [facility] Nurse [facility] 10-02-2023 14:02-0500 Systolic blood pressure 118 mm[Hg] [facility] Nurse [facility] 10-07-2022 16:18-0500 Blood Pressure Location Len YEPEZ [facility] 10-07-2022 16:18-0500 Body temperature 96.98 [degF] Len YEPEZ [facility] 10-07-2022 16:18-0500 Diastolic blood pressure 68 mm[Hg] Len YEPEZ [facility] 10-07-2022 16:18-0500 Heart rate 66 /min Len YEPEZ [facility] 10-07-2022 16:18-0500 SaO2% (BldA) [Mass fraction] 99 % Len YEPEZ [facility] 10-07-2022 16:18-0500 Systolic blood pressure 114 mm[Hg] Len YEPEZ [facility] Encounters Encounter Date Encounter Type Care Provider Facility Start: 04-08-2024 End: 04-08-2024 ambulatory FRED ELIU Not Available Start: 04-01-2024 End: 04-01-2024 ambulatory FRED ELIU Not Available Start: 03-17-2024 End: 03-17-2024 ambulatory MADIHA HENRY Not Available Start: 03-01-2024 End: 03-01-2024 ambulatory MADIHA HENRY Not Available Start: 02-16-2024 End: 02-16-2024 ambulatory FRED ELIU Not Available Start: 01-26-2024 End: 01-26-2024 ambulatory FRED ELIU Not Available Start: 12-30-2023 End: 12-30-2023 ambulatory ОЛЬГА CAVAZOS [facility] Start: 12-29-2023 End: 12-29-2023 ambulatory FRED ELIU [...] 04-29-2023 End: 04-30-2023 ambulatory Fred R ELIU Facility[place] Start: 04-29-2023 End: 04-29-2023 Patient encounter procedure Fred R ELIU [facility] Start: 04-22-2023 End: 04-23-2023 ambulatory Calin Ordaz Facility:[facility] Start: 04-22-2023 End: 04-22-2023 Patient encounter procedure Calin Ordaz [facility] Start: 10-07-2022 End: 10-08-2022 ambulatory Len YEPEZ Facility:[facility] Start: 10-07-2022 End: 10-07-2022 Patient encounter procedure Len YEPEZ [facility] Start: 10-07-2022 End: 10-07-2022 Well adult monitoring check done Len Garcia LUCHO [facility] Procedures Date Procedure Procedure Detail Performing [...] Missed menses Expected: 10/02/2023 (Approximate), Expires: 10/02/2024 [facility] Comment on above: Expected: 10/02/2023 (Approximate), Expires: 10/02/2024 Start: 10-02-2023 End: 10-02-2024 Blood type and Indirect antibody screen panel - Blood Type and screen Lab Routine Missed menses Expected: 10/02/2023 (Approximate), Expires: 10/02/2024 [facility] Work Phone: Comment on above: Expected: 10/02/2023 (Approximate), Expires: 10/02/2024 Start: 10-02-2023 End: 10-02-2024 US Pelvis transvaginal US OB transvaginal Imaging Routine Missed menses Expected: 10/02/2023 (Approximate), Expires: 10/02/2024 [facility] Comment on above: Expected: 10/02/2023 (Approximate), Expires: 10/02/2024 Bacteria identified in Urine by Culture Urine culture Microbiology Routine Missed menses Ordered: 10/02/2023 [facility] Comment on above: Ordered: 10/02/2023 CBC W Auto Different ial panel - Blood CBC and differential Lab Routine Missed menses Ordered: 10/02/2023 [facility] Comment on above: Ordered: 10/02/2023 Hemoglobin A1c/Hemoglobin.total in Blood Hemoglobin A1c Lab Routine Missed menses Ordered: 10/02/2023 [facility] Comment on above: Ordered: 10/02/2023 Hepatitis B virus surface Ag [Presence] in Serum or Plasma by Immunoassay Hepatitis B surface antigen Lab Routine Missed menses Ordered: 10/02/2023 [facility] Comment on above: Ordered: 10/02/2023 Hepatitis C virus Ab [Presence] in Serum or Plasma by Immunoassay Hepatitis C antibody Lab Routine Missed menses Ordered: 10/02/2023 [facility] Comment on above: Ordered: 10/02/2023 HIV-1/HIV-2 antigen/antibody combination immunoassay HIV-1 and HIV-2 antibodies Lab Routine Missed menses Ordered: 10/02/2023 [facility] Comment on above: Ordered: 10/02/2023 Reagin Ab [Presence] in Serum by RPR RPR Lab Routine Missed menses Ordered: 10/02/2023 [facility] Comment on above: Ordered: 10/02/2023 Rubella antibody, IgG Rubella an tibody, IgG Lab Routine Missed menses Ordered: 10/02/2023 [facility] Comment on above: Ordered: 10/02/2023 Immunizations Immunization Date Immunization Notes Care Provider Aurora guy NEGATED: Highlighted row has not occurred!10-07-2022 influenza virus vaccine, unspecified formulation Len YEPEZ [facility] [place] Payers Date Payer Category Payer Unknown [employer] [id number] 2023-Present [address] [place] [address] [id number] 2023 Private Health Insurance 2023 Managed Care HMO (unspecified) RHIANNA MOCTEZUMA [id number] 2023-Present [address] [place] [address] HMO [id number] 2023 Private Health Insurance [id number] 2021 Unknown [id number] 1985 Unknown [id number] 2.16.840.1.801751.3.579.2.7 27 1987 Unknown [id number] 2.16.840.1.597996.3.579.2.7 27 1987 Unknown [id number] 2.16.840.1.069013.3.579.2.7 27 1987 Unknown [id number] 2.16.840.1.297888.3.579.2.1 75 1987 Unknown [id number] 2.16.840.1.101437.3.579.2.1 259 1987 Unknown [id number] 2.16.840.1.014009.3.579.2.1 259 1987 Unknown [id number] 2.16.840.1.916857.3.579.2.1 259 1987 Unknown [id number] 2.16.840.1.982049.3.579.2.1 259 1987 Unknown [id number] 2.16.840.1.025821.3.579.2.1 259 1987 Unknown [id number] 2.16.840.1.124448.3.579.2.1 259 1987 Unknown [id number] 2.16.840.1.718825.3.579.2.1 259 1987 Unknown [id number] 2.16.840.1.912835.3.579.2.1 259 1987 Unknown [id number] 2.16.840.1.043194.3.579.2.1 259 1987 Unknown [id number] 2.16.840.1.443834.3.579.2.1 259 Social History Date Type Detail Facility Start: 03-04-2019 Tobacco smoking status Never smoked tobacco (finding) [facility] Sex Assigned At Female [facility] Tobacco smoking status NHIS Tobacco smoking consumption unknown [facility] Start: 08-17-2023 [facility] Start: 1985 Sex Assigned At Not on file [facility] Functional Status Date Assessment Result Facility 10-07-2022 Functional Status N/A [facility] [place] History of Present illness Narrative 10-02-2023 Teodora [...] was given her OB folder and desires [place]. Advised to make sure she is 10 weeks before having [place] done along with her labs. Pt did [...] Teodora Vegas MA documented in this encounter [facility] Evaluation + Plan note 04-29-2023 Note Date & Type Note Facility 04-29-2023 Evaluation + Plan note Diagnostic Tests PendingFS and LH 04/29/23DHEA 04/29/23DHEAS 04/29/23 [facility] Hospital Discharge instructions 09-24-2022 Note Date & Type Note Facility 09-24-2022 Hospital Discharg e instructions Follow Up Care 09/24/2022 13:44:14 With:Len YEPEZ DO, FAM Address: [address] [address]- When:Within 1 Year(s) [facility] Evaluation + Plan note Note Date & Type Note Facility Evaluation + Plan note No data available for this section [facility] Evaluation note Note Date & Type Note Facility Evaluation note Diagnosis Missed menses documented in this encounter [facility] Hospital Discharge instructions Note Date & Type Note Facility Hospital Discharge instructions No data available for this section [facility] Progress note Note Date & Type Note Facility Progress note No data available for this section [facility] [place] Summary Purpose Family History No Family History Records FoundNo Family History Records FoundNo Family History Records Found Advance Directives No Advanced Directives Records FoundNo Advanced Directives Records FoundNo Advanced Directives Records Found Additional Source Comments Patient Care team informatio n (unrecognized section and content) Personnel Name: Len YEPEZ DO Address: Address: [address] [place] [address]- Name: Salome Sousa I Personnel Name: Len YEPEZ DO Address: Address: [address] [facility] [place] [address]- Name: Salome Sousa I Personnel Name: NONE, XXXX Address: Address: [facility] Name: Salome Sousa I INFORMATION SOURCE (unrecogn ized section and content) DATE CREATED AUTHOR 05/05/2023 [facility] DATE CREATED AUTHOR AUTHOR'S ORGANIZ ATION 03/08/2024 [facility] DATE CREATED AUTHOR AUTHOR'S ORGANIZ ATION 04/10/2024 [facility] EPIC Reason for Visit [...] ON THE PRIMARY CLINICAL RECORDS. [facility]. provides no warranty or guarantee of the accuracy or completeness of information in this document.
--- NOTE | 2024-04-13 17:02 | US_ITS ---
[address] [address] Patient Name: ALYSA BALDWIN MRN: [id number] date: 1985 Sex: F Assigned Patient Location: [facility] Current Patient Location: Accession/Order Number: [id number] Exam Date: 04/13/2024 17:05 Report Date: 04/14/2024 08:50 At the request of: FRED GUZMAN Procedure: US OB BPP w non-stress EXAMINATION: US OB BPP w non-stress HISTORY:GESTATIONAL DIABETES MELLITUS [id number] COMPARISON: Ultrasound OB biophysical 04/06/2024 TECHNIQUE: Ultrasound biophysical profile was performed in the radiology department. BREATHING MOVEMENTS: 2 GROSS BODY MOVEMENTS: 2 TONE: 2 QUALITATIVE AMNIOTIC FLUID VOLUME: 2 PRESENTATION: CEPHALIC HEART RATE: 131.71 bpm AMNIOTIC FLUID VOLUME: 18.86 cm GESTATIONAL AGE: 36 weeks 2 days US/US OB BPP w non-stress IMPRESSION: Total biophysical profile score: 8 Electronically authenticated by: GILDARDO WEINER Date: 04/14/2024 08:50
== END 2024-04-13 18:05 | disposition home or self-care (01) ==
LOC: US 07:35 → FBC 16:55
PROVIDERS: Visit Provider Obstetrics & Gynecology
DX: O24.419 Gestational diabetes mellitus in pregnancy, unspecified control (principal); Z3A.36 36 weeks gestation of pregnancy
CPT/HCPCS: 76818

== ENCOUNTER 2024-04-15 19:01 | Outpatient (REF) | payer OTHER, SELFPAY ==
--- OUTSIDE RECORDS SUMMARY | 2024-04-15 19:07 | XMS_ITS | CCD ---
Author Organization [facility] Care Team Providers Care Architectural Drafting Instructor Name Role Phone Len YEPEZ Primary Care Physician [phone] Salome Sousa I Unavailable Unavailable NONE, XXXX [...] sources) Morphine; Translations: [morphine] Drug Allergy 10-29-2010 [facility] Medications Current Medications Medication Drug Class(es) Dates [...] Out Report FORWARD TAJ ARROYO, FED EX [phone] Normal [facility] Comment on above: Performed By: #### C MIS #### [place] [address] Instrumentation Supervisor: Gonzalo Matthews MD HCG ( test) Ql (U)o n 10-02-2023 Interpretation and review of laboratory results Abnormal [facility] Preg Test, Ur Positive [facility] Urinalysis macro (dipstick) panel (U)on 10-02-2023 Bilirubin, UA Negative Negative - 4(70) +++ mg/dL [facility] Blood, UA Negative Negative - 50 Ra/mcL [facility] Clarity, UA Clear [facility] Color, UA Yellow [facility] Glucose, UA Negative Negative - 2000(110) ++++ mg/dL [facility] Interpretation and review of laboratory results Abnormal [facility] Ketones, UA Negative Negative - 160(16) ++++ mg/dL [facility] Leukocytes, UA Trace Negative - 500+++ Gaurav/mcL [facility] Nitrite, UA Negative Negative - Positive [facility] pH, UA 6.0 5 - 9 [facility] Protein, UA Negative Negative - 2000(20) ++++ mg/dL [facility] Spec Grav, UA 1.030 1 - 1.03 [facility] Urobilinogen, UA 0.2 0.2 - 12 mg/dL [facility] DHEAon 05-05-2023 DHEA [Mass/Vol] 118 ng/dL Invalid Interpretation Code 31-701 [facility] Comment on above: Result Comment: This test was developed and its performance characteristics determined by [facility]. It has not been cleared or approved by the Food and Drug Administration. Performed at: [address] [id number] MD Garry Montenegro Performed By: #### 1 [id number], 0691126, 0616443, 39454008, 9600355, 455011751, 39541189, 5086273 ####[facility] [address] [place] [address] DHEASon 05-05-2023 DHEA-S [Mass/Vol] 91.7 microgram/dL Invalid Interpretation Code 57.3-279.2 [facility] Comment on above: Result Comment: Perf ormed at: [address] [id number] PhD Salbador Douglass Performed By: #### 1 7682130, 8337863, 1013956, 33696682, 2925867, 299711865, 23120435, 6562147 #### [facility] [address] [place] [address] FSH and LHon 05-05-2023 Follitropin Qn 5.6 m[IU]/mL Invalid Interpretation Code [facility] Comment on above: Result Comment: Adul t Female: Follicular phase 3.5 - 12.5 Ovulation phase 4.7 - 21.5 Luteal phase 1.7 - 7.7 Postmenopausal 25.8 - 134.8 Performed at: [address] [id number] PhD Salbador Douglass Performed By: #### 1 9482429, 0884950, 0838056, 83429027, 9552275, 653654245, 04146082, 0650816 #### [facility] [address] [place] [address] Lutropin Qn 10.4 m[IU]/mL Invalid Interpretation Code [facility] Comment on above: Result Comment: Adul t Female: Follicular phase 2.4 - 12.6 Ovulation phase 14.0 - 95.6 Luteal phase 1.0 - 11.4 Postmenopausal 7.7 - 58.5 Performed By: #### 1 3038991, 7211638, 8855695, 01314697, 8228200, 529668366, 06110455, 2032949 #### [facility] [address] [place] [address] Auto Diffon 04-29-2023 Basophils/100 WBC (Bld) 0.8 % Normal 0.0-2.0 [facility] Comment on above: Order Comment: Order Added by Discern Expert. Performed By: #### 1 0180234, 7207731, 7138312, 28694008, 8813680, 125080249, 02270611, 0342022 #### [facility] [address] [place] [address] Basophils/Leukocytes Auto (Bld) [Pure # fraction] 0.0 E9/L Normal 0.0-0.2 [facility] Comment on above: Order Comment: Order Added by Discern Expert. Performed By: #### 1 6759857, 6778948, 5595099, 46870218, 8809285, 301559204, 56072926, 1173319 #### [facility] [address] [place] [address] Eosinophils/100 WBC (Bld) 2.3 % Normal 0.0-8.0 [facility] Comment on above: Order Comment: Order Added by Discern Expert. Performed By: #### 1 3330782, 2699919, 3773287, 51876841, 4064057, 591750720, 33838746, 7089776 #### [facility] [address] [place] [address] Eosinophils/Leukocyte s Auto (Bld) [Pure # fraction] 0.1 E9/L Normal 0.0-0.5 [facility] Comment on above: Order Comment: Order Added by Discern Expert. Performed By: #### 1 9399660, 4704732, 2357678, 42619527, 6151964, 134893372, 29917227, 0824190 #### [facility] [address] [place] [address] Lymphocytes/100 WBC (Bld) 42.1 % Normal 14.0-50.0 [facility] Comment on above: Order Comment: Order Added by Discern Expert. Performed By: #### 1 6234479, 4722738, 5941633, 29123408, 9078441, 052533347, 51361175, 4717229 #### [facility] [address] [place] [address] Lymphocytes/Leukocyte s Auto (Bld) [Pure # fraction] 2.0 E9/L Normal 1.0-4.0 [facility] Comment on above: Order Comment: Order Added by Discern Expert. Performed By: #### 1 7149823, 7498293, 8848137, 00840303, 5214553, 500620730, 44120958, 1314579 #### [facility] [address] [place] [address] Monocytes/100 WBC (Bld) 7.7 % Normal 4.0-14.0 [facility] Comment on above: Order Comment: Order Added by Discern Expert. Performed By: #### 1 1798223, 2929895, 2732033, 29568565, 1846800, 129356989, 74841345, 4199991 #### [facility] [address] [place] [address] Monocytes/Leukocytes Auto (Bld) [Pure # fraction] 0.4 E9/L Normal 0.2-1.0 [facility] Comment on above: Order Comment: Order Added by Discern Expert. Performed By: #### 1 8199603, 9342039, 4940180, 57083517, 9115257, 043601594, 73926123, 6574268 #### [facility] [address] [place] [address] Neutrophils/100 WBC (Bld) 47.1 % Normal 36.0-75.0 [facility] Comment on above: Order Comment: Order Added by Discern Expert. Performed By: #### 1 1727120, 4127572, 0744464, 77568107, 1895753, 852758706, 93582963, 8780006 #### [facility] [address] [place] [address] Neutrophils/Leukocyte s Auto (Bld) [Pure # fraction] 2.3 E9/L Normal 2.0-7.5 [facility] Comment on above: Order Comment: Order Added by Discern Expert. Performed By: #### 1 4877103, 9786829, 7141279, 10810481, 5221040, 284376406, 79676251, 0400989 #### [facility] [address] [place] [address] BhCG Quanton 04-29-2023 HCG.beta subunit Qn m[IU]/mL Normal 1-3 [facility] Comment on above: Result Comment: GEST ATIONAL AGE HCG RANGE (mIU/mL) NON- <1-3 0.2-1 WEEKS 5-50 1-2 WEEKS 50-500 2-3 WEEKS 100-5,000 3-4 WEEKS 500-10,000 4-5 WEEKS 1,000-50,000 5-6 WEEKS 10,000-100,000 6-8 WEEKS 15,000-200,000 8-12 WEEKS 10,000-100,000 Performed By: #### 2 657793 ####[facility] [address] [place] [address] CBC w/ Auto Diffon 3 Erythrocyte distribution width (RBC) [Ratio] 12.5 % Normal 10.9-14.2 [facility] Comment on above: Performed By: #### 1 2557663, 1963331, 3058642, 67626337, 3829873, 856082541, 44736182, 3964879 #### [facility] [address] [place] [address] Hematocrit (Bld) [Volume fraction] 39.3 % Normal 34.0-46.0 [facility] Comment on above: Performed By: #### 1 4405782, 5595886, 6084267, 81574144, 6299030, 685320121, 11787534, 2906816 #### [facility] [address] [place] [address] Hemoglobin (Bld) [Mass/Vol] 13.3 g/dL Normal 12.0-16.0 [facility] Comment on above: Performed By: #### 1 2354152, 5541155, 0123026, 16544491, 7983135, 716825005, 81498138, 3320875 #### [facility] [address] [place], [place] [address] MCH (RBC) [Entitic mass] 32.3 pg Normal 27.0-34.0 [facility] Comment on above: Performed By: #### 1 7282170, 6176117, 6596515, 22840380, 8907360, 533654294, 36081813, 0932791 #### [facility] [address] [place] [address] MCHC (RBC) [Mass/Vol] 33.9 g/dL Normal 31.4-36.0 [facility] Comment on above: Performed By: #### 1 5189256, 4292259, 3643919, 93562156, 4634541, 390561831, 38045894, 2307579 #### [facility] [address] [place] [address] MCV (RBC) [Entitic vol] 95.2 fL Normal 80.0-100.0 [facility] Comment on above: Performed By: #### 1 6783684, 9182184, 4368715, 74636690, 4591985, 877611401, 94265146, 0478016 #### [facility] [address] [place] [address] Platelet mean volume (Bld) [Entitic vol] 9.0 fL Normal 6.4-10.8 [facility] Comment on above: Performed By: #### 1 9460010, 3853722, 2538660, 59894741, 0311247, 736353686, 31206363, 4429891 #### [facility] [address] [place] [address] Platelets (Bld) [#/Vol] 172.0 E9/L Normal 150.0-500.0 [facility] Comment on above: Performed By: #### 1 0147591, 5992956, 8319172, 60033093, 6932852, 866311328, 01388567, 5288377 #### [facility] [address] [place] [address] RBC (Bld) [#/Vol] 4.1 E12/L Low 4.3-5.9 [facility] Comment on above: Performed By: #### 1 1577572, 5634484, 5441711, 29359348, 4786882, 160543171, 94938785, 3532494 #### [facility] [address] [place] [address] WBC corrected for nucl RBC Auto (Bld) [#/Vol] 4.8 E9/L Normal 4.0-11.0 [facility] Comment on above: Performed By: #### 1 9543783, 2280710, 6009206, 68967888, 4430558, 706291587, 92375065, 9507796 #### [facility] [address] [place] [address] CHEMISTRYOrdered By: SYSTEM SYSTEM on 04-29-2023 Free [...] Treatmenton 04-18 Consent for Treatment [id number] 36#1.00CD:[address] [facility] Free T4on 04-29-2023 Free T4 [Mass/Vol] 0.89 ng/dL Normal 0.58-1.64 [facility] Comment on above: Performed By: #### 1 5185215, 3313747, 2249388, 77235202, 6115948, 000043944, 39109054, 8933564 #### [facility] [address] [place] [address] HEMATOLOGYOrdered By: SYSTEM SYSTEM on 04-29-2023 Basophils/100 [...] Normal 4.0 - 11.0 E9/L [facility] HemeAutoSS [id number] 04-29-2023 HbA1c (Bld) [Mass fraction] 4.4 % Normal <=5.9 [facility] Comment on above: Performed By: #### 1 3968457, 6371034, 4033146, 08668946, 9024975, 469763905, 28010792, 1111460 #### [facility] [address] [place] [address] Physician Orderon 04-29-2023 Physician Order [id number] 732#1.00CD:[address] [facility] TSHon 04-29-2023 TSH Qn 2.70 m[IU]/L Normal 0.34-5.60 [facility] Comment on above: Performed By: #### 1 5739853, 0165362, 4822636, 42788422, 2078660, 779812762, 00053988, 3329544 #### [facility] [address] [place] [address] BhCG Quanton 04-22-2023 HCG.beta subunit Qn 2 m[IU]/mL Normal 1-3 [facility] Comment on above: Result Comment: GEST ATIONAL AGE HCG RANGE (mIU/mL) NON- <1-3 0.2-1 WEEKS 5-50 1-2 WEEKS 50-500 2-3 WEEKS 100-5,000 3-4 WEEKS 500-10,000 4-5 WEEKS 1,000-50,000 5-6 WEEKS 10,000-100,000 6-8 WEEKS 15,000-200,000 8-12 WEEKS 10,000-100,000 Performed By: #### 2 902188 #### [facility] [address] [place] [address] CHEMISTRYOrdered By: SYSTEM SYSTEM on 04-22-2023 HCG.beta subunit Qn 2 m[IU]/mL Normal 1 - 3 mIU/mL FTM C Remisol Consent for Treatmenton Consent for Treatment [id number]#1.00CD:[address] [facility] Physician Orderon 04-22-2023 Physician Order [id number]#1.00CD:[address] [facility] Ambulatory Visit Summaryon 0 10-07-2022 Ambulatory [...] longer receiving treatment for. Appendectomy hyperthyroid Normal [facility] Medicine Office/Clini c Noteon 10-07-2022 Family [...] bedtime), # 90 tab(s), Refills(s) 1, Pharmacy: [facility]/pharmacy #[id number], 170, cm, 08/23/20 8:37:00 EST, Height/Length Dosing, 65.1, kg, 08/23/20 8:37:00 EST, Weight Dosing pantoprazole, 40 mg = 1 tab(s), Oral, Daily, # 90 tab(s), Refills(s) 1, Pharmacy: [facility]/pharmacy #[id number], 170, cm, 08/23/20 8:37:00 EST, Height/Length Dosing, 65.1, kg, 08/23/20 8:37:00 EST, Weight Dosing Follow-up With When Contact Information Len YEPEZ DO, FAM In 1 year [address] [place] [address]- Additional Instructions: Problem List/Past Medical History Ongoing [...] inactivated - Not Given Patient Refuses Normal [facility] Comment on above: Result Comment: Elec tronically Signed By: Len YEPEZ DO\.br\Date and Time Signed: 10/07/22 17:12 EST Vital Signs Date Time Vital Sign Value Performing Clinician Facility 10-02-2023 14:02-0500 Body mass index (BMI) [Ratio] 24.22 kg/m2 [facility] Nurse [facility] 10-02-2023 14:050 Body weight 74.39 kg [facility] Nurse [facility] 10-02-2023 14:02-0500 Diastolic blood pressure 70 mm[Hg] [facility] Nurse [facility] 10-02-2023 14:02-0500 Systolic blood pressure 118 mm[Hg] [facility] Nurse [facility] 10-07-2022 16:18-0500 Blood Pressure Location Len YEPEZ [facility] 10-07-2022 16:18-0500 Body temperature 96.98 [degF] Len YEPEZ [facility] 10-07-2022 16:18-0500 Diastolic blood pressure 68 mm[Hg] Len YEPEZ [facility] 10-07-2022 16:18-0500 Heart rate 66 /min Len YEPEZ [facility] 10-07-2022 16:18-0500 SaO2% (BldA) [Mass fraction] 99 % Len YEPEZ [facility] 10-07-2022 16:18-0500 Systolic blood pressure 114 mm[Hg] Len YEPEZ [facility] Encounters Encounter Date Encounter Type Care Provider [...] Start: 12-30-2023 End: 12-30-2023 ambulatory ОЛЬГА CAVAZOS [facility] Start: 12-29-2023 End: 12-29-2023 ambulatory FRED [...] 04-30-2023 ambulatory Fred R ELIU [place] [place]: 04-29-2023 End: 04-29-2023 Patient encounter procedure Fred R ELIU [facility] Start: 04-22-2023 End: 04-23-2023 ambulatory Calin Ordaz [place] Start: 04-22-2023 End: 04-22-2023 Patient encounter procedure Calin Ordaz [facility] Start: 10-07-2022 End: 10-08-2022 ambulatory Len YEPEZ Facility:[facility] Start: 10-07-2022 End: 10-07-2022 Patient encounter procedure Len YEPEZ [facility] Start: 10-07-2022 End: 10-07-2022 Well adult monitoring check done Len Garcia LUCHO [facility] Procedures Date Procedure Procedure Detail Performing Clinician [...] Missed menses Expected: 10/02/2023 (Approximate), Expires: 10/02/2024 [facility] Comment on above: Expected: 10/02/2023 (Approximate), Expires: 10/02/2024 Start: 10-02-2023 End: 10-02-2024 Blood type and Indirect antibody screen panel - Blood Type and screen Lab Routine Missed menses Expected: 10/02/2023 (Approximate), Expires: 10/02/2024 [facility] Work Phone: Comment on above: Expected: 10/02/2023 (Approximate), Expires: 10/02/2024 Start: 10-02-2023 End: 10-02-2024 US Pelvis transvaginal US OB transvaginal Imaging Routine Missed menses Expected: 10/02/2023 (Approximate), Expires: 10/02/2024 [facility] Comment on above: Expected: 10/02/2023 (Approximate), Expires: 10/02/2024 Bacteria identified in Urine by Culture Urine culture Microbiology Routine Missed menses Ordered: 10/02/2023 [facility] Comment on above: Ordered: 10/02/2023 CBC W Auto Different ial panel - Blood CBC and differential Lab Routine Missed menses Ordered: 10/02/2023 [facility] Comment on above: Ordered: 10/02/2023 Hemoglobin A1c/Hemoglobin.total in Blood Hemoglobin A1c Lab Routine Missed menses Ordered: 10/02/2023 [facility] Comment on above: Ordered: 10/02/2023 Hepatitis B virus surface Ag [Presence] in Serum or Plasma by Immunoassay Hepatitis B surface antigen Lab Routine Missed menses Ordered: 10/02/2023 [facility] Comment on above: Ordered: 10/02/2023 Hepatitis C virus Ab [Presence] in Serum or Plasma by Immunoassay Hepatitis C antibody Lab Routine Missed menses Ordered: 10/02/2023 [facility] Comment on above: Ordered: 10/02/2023 HIV-1/HIV-2 antigen/antibody combination immunoassay HIV-1 and HIV-2 antibodies Lab Routine Missed menses Ordered: 10/02/2023 [facility] Comment on above: Ordered: 10/02/2023 Reagin Ab [Presence] in Serum by RPR RPR Lab Routine Missed menses Ordered: 10/02/2023 [facility] Comment on above: Ordered: 10/02/2023 Rubella antibody, IgG Rubella an tibody, IgG Lab Routine Missed menses Ordered: 10/02/2023 [facility] Comment on above: Ordered: 10/02/2023 Immunizations Immunization Date Immunization Notes Care Provider [facility] guy NEGATED: Highlighted row has not occurred!10-07-2022 influenza virus vaccine, unspecified formulation Len YEPEZ [facility] [place] Payers Date Payer Category Payer Unknown [employer] [id number] 2023-Present [address] [place] [address] [id number] 2023 Private Health Insurance 2023 Managed Care HMO (unspecified) RHIANNA MOCTEZUMA [id number] 2023-Present [address] [place] [address] HMO [id number] 2023 Private Health Insurance [id number] 2021 Unknown [id number] 1987 Unknown [id number] 2.16.840.1.671895.3.579.2.7 27 1987 Unknown [id number] 2.16.840.1.607536.3.579.2.7 27 1987 Unknown [id number] 2.16.840.1.560669.3.579.2.7 27 1987 Unknown [id number] 2.16.840.1.840779.3.579.2.1 75 1987 Unknown [id number] 2.16.840.1.389633.3.579.2.1 259 1987 Unknown [id number] 2.16.840.1.177141.3.579.2.1 259 1987 Unknown [id number] 2.16.840.1.367213.3.579.2.1 259 1987 Unknown [id number] 2.16.840.1.500098.3.579.2.1 259 1987 Unknown [id number] 2.16.840.1.140473.3.579.2.1 259 1987 Unknown [id number] 2.16.840.1.056178.3.579.2.1 259 1987 Unknown [id number] 2.16.840.1.115916.3.579.2.1 259 1987 Unknown [id number] 2.16.840.1.676713.3.579.2.1 259 1987 Unknown [id number] 2.16.840.1.788623.3.579.2.1 259 1987 Unknown [id number] 2.16.840.1.455730.3.579.2.1 259 Social History Date Type Detail Facility Start: 03-04-2019 Tobacco smoking status Never smoked tobacco (finding) [facility] Sex Assigned At Female [facility] Tobacco smoking status NHIS Tobacco smoking consumption unknown [facility] Start: 08-17-2023 [facility] Start: 1985 Sex Assigned At Not on file [facility] Functional Status Date Assessment Result Facility 10-07-2022 Functional Status N/A [facility] [place] History of Present illness Narrative 10-02-2023 Teodora [...] was given her OB folder and desires Ely 21. Advised to make sure she is 10 weeks before having Ely done along with her labs. Pt did [...] Teodora Vegas MA documented in this encounter [facility] Evaluation + Plan note 04-29-2023 Note Date & Type Note Facility 04-29-2023 Evaluation + Plan note Diagnostic Tests PendingFS and LH 04/29/23DHEA 04/29/23DHEAS 04/29/23 [facility] Hospital Discharge instructions 09-24-2022 Note Date & Type Note Facility 09-24-2022 Hospital Discharg e instructions Follow Up Care 09/24/2022 13:44:14 With:Len YEPEZ DO, FAM Address: [address] [address]- When:Within 1 Year(s) [facility] Evaluation + Plan note Note Date & Type Note Facility Evaluation + Plan note No data available for this section [facility] Evaluation note Note Date & Type Note Facility Evaluation note Diagnosis Missed menses documented in this encounter [facility] Hospital Discharge instructions Note Date & Type Note Facility Hospital Discharge instructions No data available for this section [facility] Progress note Note Date & Type Note Facility Progress note No data available for this section [facility] [place] Summary Purpose Family History No Family History Records FoundNo Family History Records FoundNo Family History Records Found Advance Directives No Advanced Directives Records FoundNo Advanced Directives Records FoundNo Advanced Directives Records Found Additional Source Comments Patient Care team informatio n (unrecognized section and content) Personnel Name: Len YEPEZ DO Address: Address: [address] [place] [address]- Name: Salome Sousa I Personnel Name: Len YEPEZ DO Address: Address: [address] [facility] [place] [address]- Name: Salome Sousa I Personnel Name: NONE, XXXX Address: Address: [facility] Name: Salome Sousa I INFORMATION SOURCE (unrecogn ized section and content) DATE CREATED AUTHOR 05/05/2023 [facility] DATE CREATED AUTHOR AUTHOR'S ORGANIZ ATION 03/08/2024 [facility] DATE CREATED AUTHOR AUTHOR'S ORGANIZ ATION 04/10/2024 [facility] EPIC Reason for Visit [...] BE BASED ON THE PRIMARY CLINICAL RECORDS. [facility]. provides no warranty or guarantee of the accuracy or completeness of information in this document.
== END 2024-04-15 19:02 | disposition home or self-care (01) ==
LOC: LAB 19:01
PROVIDERS: Visit Provider Physician Assistant
DX: Z34.93 Encounter for supervision of normal pregnancy, unspecified, third trimester (principal)
CPT/HCPCS: 87081; 87150

== ENCOUNTER 2024-04-16 07:14 | Outpatient (OUT) | payer OTHER, SELFPAY ==
--- OUTSIDE RECORDS SUMMARY | 2024-04-16 07:16 | XMS_ITS | CCD ---
Author Organization [facility] Care Team Providers Care Roller Leveler Name Role Phone Len YEPEZ Primary Care [...] Primary Care Unavailable ELIU, FRED Attending Unavailable LEIU, FRED Attending Unavailable ELIU, FRED Attending Unavailable ELIU, FRED Attending Unavailable ELIU, FRED Attending Unavailable CARL, MADIHA Attending Unavailable CARL, MADIHA Attending Unavailable ELIU, FRED Attending Unavailable ELIU, FRED Attending Unavailable Allergies Allergy Classification Reported Allergen(s) Allergy Type Date of Onset Reaction(s) Facility (5 sources) Morphine; Translations: [morphine] Drug Allergy 10-29-2010 [facility] [place] Medications Current Medications Medication Drug Class(es) Dates [...] Out Report FORWARD TAJ ARROYO, FED EX [id number] [facility] Comment on above: Performed By: #### C MIS #### [place] [address] Stamp Clerk: Gonzalo Matthews MD HCG ( test) Ql (U)o n 10-02-2023 Interpretation and review of laboratory results Abnormal [facility] Preg Test, Ur Positive [facility] [place] [facility] Urinalysis macro (dipstick) panel (U)on 10-02-2023 Bilirubin, UA Negative Negative - 4(70) +++ mg/dL [facility] Blood, UA Negative Negative - 50 Ra/mcL [facility] Clarity, UA Clear [facility] Color, UA Yellow [facility] Glucose, UA Negative Negative - 2000(110) ++++ mg/dL [facility] Interpretation and review of laboratory results Abnormal [facility] Ketones, UA Negative Negative - 160(16) ++++ mg/dL [facility] Leukocytes, UA Trace Negative - 500+++ Gaurav/mcL [facility] Nitrite, UA Negative Negative - Positive [facility] pH, UA 6.0 5 - 9 [facility] Protein, UA Negative Negative - 2000(20) ++++ mg/dL [facility] Spec Grav, UA 1.030 1 - 1.03 [facility] Urobilinogen, UA 0.2 0.2 - 12 mg/dL [facility] [place] [facility] DHEAon 05-05-2023 DHEA [Mass/Vol] 118 ng/dL Invalid Interpretation Code 31-701 [facility] Comment on above: Result Comment: This test was developed and its performance characteristics determined by [facility]. It has not been cleared or approved by the Food and Drug Administration. Performed at: [address] [id number] MD Garry Montenegro Performed By: #### 1 [id number], 0863430, 7359004, 33241207, 8133318, 965565191, 18720371, 1652784 ####[facility] [id number] [place] [address] DHEASon 05-05-2023 DHEA-S [Mass/Vol] 91.7 microgram/dL Invalid Interpretation Code 57.3-279.2 [facility] Comment on above: Result Comment: Perf ormed at: [address] [id number] PhD Salbador Douglass Performed By: #### 1 [id number], 6643947, 1790631, 33852352, 1702658, 984301405, 69089529, 8891157 #### [facility] [address] [place] [address] FSH and LHon 05-05-2023 Follitropin Qn 5.6 m[IU]/mL Invalid Interpretation Code [facility] Comment on above: Result Comment: Adul t Female: Follicular phase 3.5 - 12.5 Ovulation phase 4.7 - 21.5 Luteal phase 1.7 - 7.7 Postmenopausal 25.8 - 134.8 Performed at: [address] [id number] PhD Salbador Douglass Performed By: #### 1 [id number], 2485289, 6151405, 70213546, 1228850, 577803474, 78365484, 0993395 #### [facility] [address] [place] [address] Lutropin Qn 10.4 m[IU]/mL Invalid Interpretation Code [facility] Comment on above: Result Comment: Adul t Female: Follicular phase 2.4 - 12.6 Ovulation phase 14.0 - 95.6 Luteal phase 1.0 - 11.4 Postmenopausal 7.7 - 58.5 Performed By: #### 1 6441709, 9587704, 5983153, 23974029, 1755908, 756365114, 61855943, 8553006 #### [facility] [address] [place] [address] Auto Diffon 04-29-2023 Basophils/100 WBC (Bld) 0.8 % Normal 0.0-2.0 [facility] Comment on above: Order Comment: Order Added by Discern Expert. Performed By: #### 1 3187798, 0761123, 9603927, 59960680, 1275045, 565654988, 75177345, 7067620 #### [facility] [address] [place] [address] Basophils/Leukocytes Auto (Bld) [Pure # fraction] 0.0 E9/L Normal 0.0-0.2 [facility] Comment on above: Order Comment: Order Added by Discern Expert. Performed By: #### 1 4386826, 6563469, 4622178, 73039475, 2878940, 793882905, 14435307, 0567303 #### [facility] [address] [place] [address] Eosinophils/100 WBC (Bld) 2.3 % Normal 0.0-8.0 [facility] Comment on above: Order Comment: Order Added by Discern Expert. Performed By: #### 1 1662299, 8930092, 9989859, 27946033, 8908557, 513822659, 92908379, 1765866 #### [facility] [address] [place] [address] Eosinophils/Leukocyte s Auto (Bld) [Pure # fraction] 0.1 E9/L Normal 0.0-0.5 [facility] Comment on above: Order Comment: Order Added by Discern Expert. Performed By: #### 1 3761604, 4167128, 8020338, 65831857, 6075683, 166052158, 76715732, 1300482 #### [facility] [address] [place] [address] Lymphocytes/100 WBC (Bld) 42.1 % Normal 14.0-50.0 [facility] Comment on above: Order Comment: Order Added by Discern Expert. Performed By: #### 1 1862770, 5599387, 1164388, 37143446, 3366755, 296533615, 43211617, 6391162 #### [facility] [address] [place] [address] Lymphocytes/Leukocyte s Auto (Bld) [Pure # fraction] 2.0 E9/L Normal 1.0-4.0 [facility] Comment on above: Order Comment: Order Added by Discern Expert. Performed By: #### 1 1066575, 0890499, 5152009, 90750348, 7122728, 011407701, 97609449, 3062635 #### [facility] [address] [place] [address] Monocytes/100 WBC (Bld) 7.7 % Normal 4.0-14.0 [facility] Comment on above: Order Comment: Order Added by Discern Expert. Performed By: #### 1 8592707, 3555240, 7809486, 02554073, 9662451, 693969077, 54569713, 7007465 #### [facility] [address] [place] [address] Monocytes/Leukocytes Auto (Bld) [Pure # fraction] 0.4 E9/L Normal 0.2-1.0 [facility] Comment on above: Order Comment: Order Added by Discern Expert. Performed By: #### 1 3025881, 2471685, 3724804, 56563387, 4496259, 956244499, 73066594, 8668107 #### [facility] [address] [place] [address] Neutrophils/100 WBC (Bld) 47.1 % Normal 36.0-75.0 [facility] Comment on above: Order Comment: Order Added by Discern Expert. Performed By: #### 1 6853087, 7953245, 4734893, 60638260, 4883665, 314168164, 30053738, 3558844 #### [facility] [address] [place] [address] Neutrophils/Leukocyte s Auto (Bld) [Pure # fraction] 2.3 E9/L Normal 2.0-7.5 [facility] Comment on above: Order Comment: Order Added by Discern Expert. Performed By: #### 1 1670205, 9434997, 7660979, 39137768, 0621304, 810652121, 63156156, 7364105 #### [facility] [address] [place] [address] BhCG Quanton 04-29-2023 HCG.beta subunit Qn m[IU]/mL Normal 1-3 [facility] Comment on above: Result Comment: GEST ATIONAL AGE HCG RANGE (mIU/mL) NON- <1-3 0.2-1 WEEKS 5-50 1-2 WEEKS 50-500 2-3 WEEKS 100-5,000 3-4 WEEKS 500-10,000 4-5 WEEKS 1,000-50,000 5-6 WEEKS 10,000-100,000 6-8 WEEKS 15,000-200,000 8-12 WEEKS 10,000-100,000 Performed By: #### 2 272404 ####[facility] [address] [place] [address] CBC w/ Auto Diffon 3 Erythrocyte distribution width (RBC) [Ratio] 12.5 % Normal 10.9-14.2 [facility] Comment on above: Performed By: #### 1 3967443, 0070293, 9479133, 92821455, 3718672, 036813082, 76757375, 7972105 #### [facility] [address] [place] [address] Hematocrit (Bld) [Volume fraction] 39.3 % Normal 34.0-46.0 [facility] Comment on above: Performed By: #### 1 2988756, 2183374, 6269559, 09270476, 0285087, 167165256, 44587547, 4229869 #### [facility] [address] [place] [address] Hemoglobin (Bld) [Mass/Vol] 13.3 g/dL Normal 12.0-16.0 [facility] Comment on above: Performed By: #### 1 2316888, 0918199, 1317431, 68137261, 2476903, 602582762, 76711851, 6252438 #### [facility] [address] [place], [place] [address] MCH (RBC) [Entitic mass] 32.3 pg Normal 27.0-34.0 [facility] Comment on above: Performed By: #### 1 6498332, 0041262, 2903639, 23969362, 7319504, 823009630, 71861567, 1258569 #### [facility] [address] [place] [address] MCHC (RBC) [Mass/Vol] 33.9 g/dL Normal 31.4-36.0 [facility] Comment on above: Performed By: #### 1 2200638, 7405964, 0779198, 32825080, 3963076, 180097575, 03121226, 8157416 #### [facility] [address] [place] [address] MCV (RBC) [Entitic vol] 95.2 fL Normal 80.0-100.0 [facility] Comment on above: Performed By: #### 1 4686410, 2258455, 9191985, 86484122, 9819961, 183270024, 12316085, 5041630 #### [facility] [address] [place] [address] Platelet mean volume (Bld) [Entitic vol] 9.0 fL Normal 6.4-10.8 [facility] Comment on above: Performed By: #### 1 5539370, 0209806, 9472185, 92927105, 1088182, 311126258, 90471110, 7576391 #### [facility] [address] [place] [address] Platelets (Bld) [#/Vol] 172.0 E9/L Normal 150.0-500.0 [facility] Comment on above: Performed By: #### 1 8704682, 6955986, 8242252, 21782377, 3374459, 906476884, 74280549, 4420046 #### [facility] [address] [place] [address] RBC (Bld) [#/Vol] 4.1 E12/L Low 4.3-5.9 [facility] Comment on above: Performed By: #### 1 8158459, 9457638, 3633260, 65184674, 2979869, 793662671, 03461090, 6130019 #### [facility] [address] [place] [address] WBC corrected for nucl RBC Auto (Bld) [#/Vol] 4.8 E9/L Normal 4.0-11.0 [facility] Comment on above: Performed By: #### 1 7088814, 8215891, 9346884, 79813998, 9771192, 784318441, 25041377, 0037359 #### [facility] [address] [place] [address] CHEMISTRYOrdered By: SYSTEM SYSTEM on 04-29-2023 Free [...] Treatmenton 04-18 Consent for Treatment [id number] 36#1.00CD:127 Normal [facility] Free T4on 04-29-2023 Free T4 [Mass/Vol] 0.89 ng/dL Normal 0.58-1.64 [facility] Comment on above: Performed By: #### 1 4580448, 1854768, 6337627, 94136921, 0836496, 473482414, 35886526, 1091341 #### [facility] [address] [place] [address] HEMATOLOGYOrdered By: SYSTEM SYSTEM on 04-29-2023 Basophils/100 [...] Normal 4.0 - 11.0 E9/L [facility] HemeAutoSS [id number] 04-29-2023 HbA1c (Bld) [Mass fraction] 4.4 % Normal <=5.9 [facility] Comment on above: Performed By: #### 1 1190155, 3000976, 0044829, 37836964, 7028581, 755369508, 25310279, 5282954 #### [facility] [address] [place] [address] Physician Orderon 04-29-2023 Physician Order [id number] 732#1.00CD:127 Normal [facility] TSHon 04-29-2023 TSH Qn 2.70 m[IU]/L Normal 0.34-5.60 [facility] Comment on above: Performed By: #### 1 8352507, 8197358, 8483031, 92872087, 5436559, 534662536, 76674038, 2696535 #### [facility] [address] [place] [address] BhCG Quanton 04-22-2023 HCG.beta subunit Qn 2 m[IU]/mL Normal 1-3 [facility] Comment on above: Result Comment: GEST ATIONAL AGE HCG RANGE (mIU/mL) NON- <1-3 0.2-1 WEEKS 5-50 1-2 WEEKS 50-500 2-3 WEEKS 100-5,000 3-4 WEEKS 500-10,000 4-5 WEEKS 1,000-50,000 5-6 WEEKS 10,000-100,000 6-8 WEEKS 15,000-200,000 8-12 WEEKS 10,000-100,000 Performed By: #### 2 530957 #### [facility] [address] [place] [address] CHEMISTRYOrdered By: SYSTEM SYSTEM on 04-22-2023 HCG.beta subunit Qn 2 m[IU]/mL Normal 1 - 3 mIU/mL FTM C Remisol Consent for Treatmenton Consent for Treatment [id number]#1.00CD:127 Normal [facility] Physician Orderon 04-22-2023 Physician Order [id number]#1.00CD:127 Normal [facility] Ambulatory Visit Summaryon 0 10-07-2022 Ambulatory [...] hyperthyroid Normal [facility] Medicine Office/Clini c Noteon 10-07-2022 Family [...] bedtime), # 90 tab(s), Refills(s) 1, Pharmacy: [facility]/pharmacy #[id number], 170, cm, 08/23/20 8:37:00 EST, Height/Length Dosing, 65.1, kg, 08/23/20 8:37:00 EST, Weight Dosing pantoprazole, 40 mg = 1 tab(s), Oral, Daily, # 90 tab(s), Refills(s) 1, Pharmacy: [facility]/pharmacy #[id number], 170, cm, 08/23/20 8:37:00 EST, Height/Length Dosing, 65.1, kg, 08/23/20 8:37:00 EST, Weight Dosing Follow-up With When Contact Information Len YEPEZ DO, FAM In 1 year [address] [place] [address]- Additional Instructions: Problem List/Past Medical History Ongoing [...] inactivated - Not Given Patient Refuses Normal [facility] Comment on above: Result Comment: Elec tronically Signed By: Len YEPEZ DO\.br\Date and Time Signed: 10/07/22 17:12 EST Vital Signs Date Time Vital Sign Value Performing Clinician Facility 10-02-2023 14:02-0500 Body mass index (BMI) [Ratio] 24.22 kg/m2 [facility] Nurse [facility] 10-02-2023 14:050 Body weight 74.[address] [facility] Nurse [facility] 10-02-2023 14:02-0500 Diastolic blood pressure 70 mm[Hg] [facility] Nurse [facility] 10-02-2023 14:02-0500 Systolic blood pressure 118 mm[Hg] [facility] Nurse [facility] 10-07-2022 16:18-0500 Blood Pressure Location Len YEPEZ [facility] 10-07-2022 16:18-0500 Body temperature 96.98 [degF] Len YEPEZ [facility] 10-07-2022 16:18-0500 Diastolic blood pressure 68 mm[Hg] Len YEPEZ [facility] 10-07-2022 16:18-0500 Heart rate 66 /min Len YEPEZ [facility] 10-07-2022 16:18-0500 SaO2% (BldA) [Mass fraction] 99 % Len YEPEZ [facility] 10-07-2022 16:18-0500 Systolic blood pressure 114 mm[Hg] Len YEPEZ [facility] Encounters Encounter Date Encounter Type Care [...] Start: 12-30-2023 End: 12-30-2023 ambulatory ОЛЬГА CAVAZOS [facility] Start: 12-29-2023 End: 12-29-2023 ambulatory FRED [...] 04-29-2023 End: 04-30-2023 ambulatory Fred R ELIU [place] [place]: 04-29-2023 End: 04-29-2023 Patient encounter procedure Fred R ELIU [facility] Start: 04-22-2023 End: 04-23-2023 ambulatory Calin Ordaz [place] [place]: 04-22-2023 End: 04-22-2023 Patient encounter procedure Calin Ordaz [facility] Start: 10-07-2022 End: 10-08-2022 ambulatory Len YEPEZ Facility:[facility] Start: 10-07-2022 End: 10-07-2022 Patient encounter procedure Len YEPEZ [facility] Start: 10-07-2022 End: 10-07-2022 Well adult monitoring check done Len Garcia [facility] Procedures Date Procedure Procedure Detail Performing [...] Missed menses Expected: 10/02/2023 (Approximate), Expires: 10/02/2024 [facility] Comment on above: Expected: 10/02/2023 (Approximate), Expires: 10/02/2024 Start: 10-02-2023 End: 10-02-2024 Blood type and Indirect antibody screen panel - Blood Type and screen Lab Routine Missed menses Expected: 10/02/2023 (Approximate), Expires: 10/02/2024 [facility] Work Phone: Comment on above: Expected: 10/02/2023 (Approximate), Expires: 10/02/2024 Start: 10-02-2023 End: 10-02-2024 US Pelvis transvaginal US OB transvaginal Imaging Routine Missed menses Expected: 10/02/2023 (Approximate), Expires: 10/02/2024 [facility] Comment on above: Expected: 10/02/2023 (Approximate), Expires: 10/02/2024 Bacteria identified in Urine by Culture Urine culture Microbiology Routine Missed menses Ordered: 10/02/2023 [facility] Comment on above: Ordered: 10/02/2023 CBC W Auto Different ial panel - Blood CBC and differential Lab Routine Missed menses Ordered: 10/02/2023 [facility] Comment on above: Ordered: 10/02/2023 Hemoglobin A1c/Hemoglobin.total in Blood Hemoglobin A1c Lab Routine Missed menses Ordered: 10/02/2023 [facility] Comment on above: Ordered: 10/02/2023 Hepatitis B virus surface Ag [Presence] in Serum or Plasma by Immunoassay Hepatitis B surface antigen Lab Routine Missed menses Ordered: 10/02/2023 [facility] Comment on above: Ordered: 10/02/2023 Hepatitis C virus Ab [Presence] in Serum or Plasma by Immunoassay Hepatitis C antibody Lab Routine Missed menses Ordered: 10/02/2023 [facility] Comment on above: Ordered: 10/02/2023 HIV-1/HIV-2 antigen/antibody combination immunoassay HIV-1 and HIV-2 antibodies Lab Routine Missed menses Ordered: 10/02/2023 [facility] Comment on above: Ordered: 10/02/2023 Reagin Ab [Presence] in Serum by RPR RPR Lab Routine Missed menses Ordered: 10/02/2023 [facility] Comment on above: Ordered: 10/02/2023 Rubella antibody, IgG Rubella an tibody, IgG Lab Routine Missed menses Ordered: 10/02/2023 [facility] Comment on above: Ordered: 10/02/2023 Immunizations Immunization Date Immunization Notes Care Provider Aurora guy NEGATED: Highlighted row has not occurred!10-07-2022 influenza virus vaccine, unspecified formulation Len YEPEZ [facility] [place] Payers Date Payer Category Payer Unknown [employer] [id number] 2023-Present [address] [place] [address] [id number] 2023 Private Health Insurance 2023 Managed Care HMO (unspecified) RHIANNA MOCTEZUMA [id number] 2023-Present [address] [place] [address] HMO [id number] 2023 Private Health Insurance [id number] 2021 Unknown [id number] 1987 Unknown [id number] 2.16.840.1.122772.3.579.2.7 27 1987 Unknown [id number] 2.16.840.1.179282.3.579.2.7 27 1987 Unknown [id number] 2.16.840.1.758973.3.579.2.7 27 1987 Unknown [id number] 2.16.840.1.828415.3.579.2.1 75 1987 Unknown [id number] 2.16.840.1.710164.3.579.2.1 259 1987 Unknown [id number] 2.16.840.1.457887.3.579.2.1 259 1987 Unknown [id number] 2.16.840.1.085167.3.579.2.1 259 1987 Unknown [id number] 2.16.840.1.533317.3.579.2.1 259 1987 Unknown [id number] 2.16.840.1.806694.3.579.2.1 259 1987 Unknown [id number] 2.16.840.1.796360.3.579.2.1 259 1987 Unknown [id number] 2.16.840.1.967620.3.579.2.1 259 1987 Unknown [id number] 2.16.840.1.806197.3.579.2.1 259 1987 Unknown [id number] 2.16.840.1.872695.3.579.2.1 259 1987 Unknown [id number] 2.16.840.1.756790.3.579.2.1 259 Social History Date Type Detail Facility Start: 03-04-2019 Tobacco smoking status Never smoked tobacco (finding) [facility] Sex Assigned At Female [facility] Tobacco smoking status NHIS Tobacco smoking consumption unknown [facility] Start: 08-17-2023 [facility] Start: 1985 Sex Assigned At Not on file [facility] Functional Status Date Assessment Result Facility 10-07-2022 Functional Status N/A [facility] [place] History of Present illness Narrative 10-02-2023 Teodora [...] was given her OB folder and desires Holton 21. Advised to make sure she is 10 weeks before having Holton done along with her labs. Pt did [...] Teodora Vegas MA documented in this encounter [facility] Evaluation + Plan note 04-29-2023 Note Date & Type Note Facility 04-29-2023 Evaluation + Plan note Diagnostic Tests PendingFS and LH 04/29/23DHEA 04/29/23DHEAS 04/29/23 [facility] Hospital Discharge instructions 09-24-2022 Note Date & Type Note Facility 09-24-2022 Hospital Discharg e instructions Follow Up Care 09/24/2022 13:44:14 With:Len YEPEZ DO, FAM Address: [address] [address]- When:Within 1 Year(s) [facility] Evaluation + Plan note Note Date & Type Note Facility Evaluation + Plan note No data available for this section [facility] Evaluation note Note Date & Type Note Facility Evaluation note Diagnosis Missed menses documented in this encounter [facility] Hospital Discharge instructions Note Date & Type Note Facility Hospital Discharge instructions No data available for this section [facility] Progress note Note Date & Type Note Facility Progress note No data available for this section [facility] [place] Summary Purpose Family History No Family History Records FoundNo Family History Records FoundNo Family History Records Found Advance Directives No Advanced Directives Records FoundNo Advanced Directives Records FoundNo Advanced Directives Records Found Additional Source Comments Patient Care team informatio n (unrecognized section and content) Personnel Name: Len YEPEZ DO Address: Address: [address] [place] [address]- Name: Salome Sousa I Personnel Name: Len YEPEZ DO Address: Address: [address] [facility] [place] [address]- Name: Salome Sousa I Personnel Name: NONE, XXXX Address: Address: [facility] Name: Salome Sousa I INFORMATION SOURCE (unrecogn ized section and content) DATE CREATED AUTHOR 05/05/2023 [facility] DATE CREATED AUTHOR AUTHOR'S ORGANIZ ATION 03/08/2024 [facility] DATE CREATED AUTHOR AUTHOR'S ORGANIZ ATION 04/10/2024 [facility] EPIC Reason for [...] PRIMARY CLINICAL RECORDS. [facility] [employer] [facility]. provides no warranty or guarantee of the accuracy or completeness of information in this document.
[2024-04-16 16:37] VITALS: BP 121/69; PULSE 75
== END 2024-04-16 16:59 | disposition home or self-care (01) ==
LOC: FBCO 07:15 → FBC 16:32
PROVIDERS: Visit Provider Obstetrics & Gynecology
DX: O09.529 Supervision of elderly multigravida, unspecified trimester (principal)
CPT/HCPCS: 59025

== ENCOUNTER 2024-04-20 07:14 | Outpatient (OUT) | payer OTHER, SELFPAY ==
--- OUTSIDE RECORDS SUMMARY | 2024-04-20 07:17 | XMS_ITS | CCD ---
Author Organization [facility] Care Team Providers Care Scrap Separator Name Role Phone Len YEPEZ Primary Care [...] sources) Morphine; Translations: [morphine] Drug Allergy 10-29-2010 [facility] Medications Current Medications Medication Drug Class(es) [...] Out Report FORWARD TAJ ARROYO, FED EX [phone] Normal [facility] Comment on above: Performed By: #### C MIS #### [place] [address] Ehs Teacher: Gonzalo Matthews MD HCG ( test) Ql (U)o n 10-02-2023 Interpretation and review of laboratory results Abnormal [facility] Preg Test, Ur Positive [facility] Urinalysis macro (dipstick) panel (U)on 10-02-2023 Bilirubin, UA Negative Negative - 4(70) +++ mg/dL [facility] Blood, UA Negative Negative - 50 Ra/mcL [facility] Clarity, UA Clear [facility] Color, UA Yellow [facility] Glucose, UA Negative Negative - 2000(110) ++++ mg/dL [facility] Interpretation and review of laboratory results Abnormal [facility] Ketones, UA Negative Negative - 160(16) ++++ mg/dL [facility] Leukocytes, UA Trace Negative - 500+++ Gaurav/mcL [facility] Nitrite, UA Negative Negative - Positive [facility] pH, UA 6.0 5 - 9 [facility] Protein, UA Negative Negative - 2000(20) ++++ mg/dL [facility] Spec Grav, UA 1.030 1 - 1.03 [facility] Urobilinogen, UA 0.2 0.2 - 12 mg/dL [facility] DHEAon 05-05-2023 DHEA [Mass/Vol] 118 ng/dL Invalid Interpretation Code 31-701 [facility] Comment on above: Result Comment: This test was developed and its performance characteristics determined by [facility]. It has not been cleared or approved by the Food and Drug Administration. Performed at: [address] [id number] MD Garry Montenegro Performed By: #### 1 [id number], [id number], 1097363, 02472247, 5541713, [id number], 89824835, 3022023 ####[facility] [address] [place] [address] DHEASon 05-05-2023 DHEA-S [Mass/Vol] 91.7 microgram/dL Invalid Interpretation Code 57.3-279.2 [facility] Comment on above: Result Comment: Perf ormed at: [address] [id number] PhD Salbador Douglass Performed By: #### 1 [id number], 6673152, 8360004, 28049746, 4154852, [id number], 69092287, 6916573 #### [facility] [address] [place] [address] FSH and LHon 05-05-2023 Follitropin Qn 5.6 m[IU]/mL Invalid Interpretation Code [facility] Comment on above: Result Comment: Adul t Female: Follicular phase 3.5 - 12.5 Ovulation phase 4.7 - 21.5 Luteal phase 1.7 - 7.7 Postmenopausal 25.8 - 134.8 Performed at: [address] [id number] PhD Salbador Douglass Performed By: #### 1 1048276, 3271162, 5073979, 39114742, 0891948, 163550044, 98963609, 6081739 #### [facility] [address] [place] [address] Lutropin Qn 10.4 m[IU]/mL Invalid Interpretation Code [facility] Comment on above: Result Comment: Adul t Female: Follicular phase 2.4 - 12.6 Ovulation phase 14.0 - 95.6 Luteal phase 1.0 - 11.4 Postmenopausal 7.7 - 58.5 Performed By: #### 1 3315248, 9627560, 3372062, 43750411, 6430464, 251061007, 16165396, 2640533 #### [facility] [address] [place] [address] Auto Diffon 04-29-2023 Basophils/100 WBC (Bld) 0.8 % Normal 0.0-2.0 [facility] Comment on above: Order Comment: Order Added by Discern Expert. Performed By: #### 1 [id number], 8272877, 9887324, 53309301, 6802257, 574918573, 47165086, 4276962 #### [facility] [address] [place] [address] Basophils/Leukocytes Auto (Bld) [Pure # fraction] 0.0 E9/L Normal 0.0-0.2 [facility] Comment on above: Order Comment: Order Added by Discern Expert. Performed By: #### 1 3797837, 9537111, 9426304, 54663819, 3870289, 271195193, 50914604, 9863437 #### [facility] [address] [place] [address] Eosinophils/100 WBC (Bld) 2.3 % Normal 0.0-8.0 [facility] Comment on above: Order Comment: Order Added by Discern Expert. Performed By: #### 1 6059510, 1317478, 4945204, 03460224, 2319019, 044697121, 91428396, 6002136 #### [facility] [address] [place] [address] Eosinophils/Leukocyte s Auto (Bld) [Pure # fraction] 0.1 E9/L Normal 0.0-0.5 [facility] Comment on above: Order Comment: Order Added by Discern Expert. Performed By: #### 1 1378540, 8566617, 0331206, 03261901, 4654615, 138538177, 72304450, 0346587 #### [facility] [address] [place] [address] Lymphocytes/100 WBC (Bld) 42.1 % Normal 14.0-50.0 [facility] Comment on above: Order Comment: Order Added by Discern Expert. Performed By: #### 1 8613133, 1956355, 0958771, 65546520, 0267259, 333850048, 20674180, 9780648 #### [facility] [address] [place] [address] Lymphocytes/Leukocyte s Auto (Bld) [Pure # fraction] 2.0 E9/L Normal 1.0-4.0 [facility] Comment on above: Order Comment: Order Added by Discern Expert. Performed By: #### 1 0855747, 6270018, 0965592, 01934759, 4145155, 849473790, 21245614, 5412929 #### [facility] [address] [place] [address] Monocytes/100 WBC (Bld) 7.7 % Normal 4.0-14.0 [facility] Comment on above: Order Comment: Order Added by Discern Expert. Performed By: #### 1 5435646, 6710529, 4761156, 25964172, 7690448, 522638234, 53066900, 7950327 #### [facility] [address] [place] [address] Monocytes/Leukocytes Auto (Bld) [Pure # fraction] 0.4 E9/L Normal 0.2-1.0 [facility] Comment on above: Order Comment: Order Added by Discern Expert. Performed By: #### 1 2473646, 7054948, 0808427, 40211332, 6112887, 838423883, 39941790, 2151695 #### [facility] [address] [place] [address] Neutrophils/100 WBC (Bld) 47.1 % Normal 36.0-75.0 [facility] Comment on above: Order Comment: Order Added by Discern Expert. Performed By: #### 1 1429239, 7650141, 1777824, 89262670, 2740531, 521563750, 41722597, 6928117 #### [facility] [address] [place] [address] Neutrophils/Leukocyte s Auto (Bld) [Pure # fraction] 2.3 E9/L Normal 2.0-7.5 [facility] Comment on above: Order Comment: Order Added by Discern Expert. Performed By: #### 1 6940523, 6082804, 1907036, 25079920, 6418253, 098477779, 08557397, 5566331 #### [facility] [address] [place] [address] BhCG Quanton 04-29-2023 HCG.beta subunit Qn m[IU]/mL Normal 1-3 [facility] Comment on above: Result Comment: GEST ATIONAL AGE HCG RANGE (mIU/mL) NON- <1-3 0.2-1 WEEKS 5-50 1-2 WEEKS 50-500 2-3 WEEKS 100-5,000 3-4 WEEKS 500-10,000 4-5 WEEKS 1,000-50,000 5-6 WEEKS 10,000-100,000 6-8 WEEKS 15,000-200,000 8-12 WEEKS 10,000-100,000 Performed By: #### 2 860232 ####[facility] [address] [place] [address] CBC w/ Auto Diffon 3 Erythrocyte distribution width (RBC) [Ratio] 12.5 % Normal 10.9-14.2 [facility] Comment on above: Performed By: #### 1 1794350, 2991496, 3060998, 04591200, 8833946, 517968104, 57147398, 2858135 #### [facility] [address] [place] [address] Hematocrit (Bld) [Volume fraction] 39.3 % Normal 34.0-46.0 [facility] Comment on above: Performed By: #### 1 8910516, 2265623, 5206403, 62765407, 1577086, 554808983, 60633992, 9674606 #### [facility] [address] [place] [address] Hemoglobin (Bld) [Mass/Vol] 13.3 g/dL Normal 12.0-16.0 [facility] Comment on above: Performed By: #### 1 3011219, 8828209, 5749893, 54131111, 9632862, 605158007, 36315865, 2705699 #### [facility] [address] [place], [place] [address] MCH (RBC) [Entitic mass] 32.3 pg Normal 27.0-34.0 [facility] Comment on above: Performed By: #### 1 1900620, 1687099, 3241610, 00929332, 3002027, 113639210, 19303682, 2011665 #### [facility] [address] [place] [address] MCHC (RBC) [Mass/Vol] 33.9 g/dL Normal 31.4-36.0 [facility] Comment on above: Performed By: #### 1 6535500, 0374127, 1027216, 59561683, 8816301, 650039893, 14507034, 1463652 #### [facility] [address] [place] [address] MCV (RBC) [Entitic vol] 95.2 fL Normal 80.0-100.0 [facility] Comment on above: Performed By: #### 1 1542420, 7651992, 5763585, 81800079, 7629858, 289213394, 83589797, 8508467 #### [facility] [address] [place] [address] Platelet mean volume (Bld) [Entitic vol] 9.0 fL Normal 6.4-10.8 [facility] Comment on above: Performed By: #### 1 1708322, 0274512, 3153397, 89318451, 8333016, 735608085, 03873233, 3200321 #### [facility] [address] [place] [address] Platelets (Bld) [#/Vol] 172.0 E9/L Normal 150.0-500.0 [facility] Comment on above: Performed By: #### 1 8492903, 1590379, 0915217, 81320537, 1820633, 940307531, 46844565, 7878906 #### [facility] [address] [place] [address] RBC (Bld) [#/Vol] 4.1 E12/L Low 4.3-5.9 [facility] Comment on above: Performed By: #### 1 5209632, 7723840, 0672335, 62471786, 0458777, 953768425, 15103526, 6952856 #### [facility] [address] [place] [address] WBC corrected for nucl RBC Auto (Bld) [#/Vol] 4.8 E9/L Normal 4.0-11.0 [facility] Comment on above: Performed By: #### 1 4796728, 7015265, 8392389, 76935555, 6628333, 883376995, 31665484, 6794111 #### [facility] [address] [place] [address] CHEMISTRYOrdered By: SYSTEM SYSTEM on 04-29-2023 Free [...] Treatmenton 04-18 Consent for Treatment [id number] 36#1.00CD:127 Normal [facility] Free T4on 04-29-2023 Free T4 [Mass/Vol] 0.89 ng/dL Normal 0.58-1.64 [facility] Comment on above: Performed By: #### 1 9418132, 7719741, 6529301, 13020715, 0862689, 385870528, 46111553, 8139335 #### [facility] [address] [place] [address] HEMATOLOGYOrdered By: SYSTEM SYSTEM on 04-29-2023 Basophils/100 [...] Normal 4.0 - 11.0 E9/L [facility] HemeAutoSS EypO5oln 04-29-2023 HbA1c (Bld) [Mass fraction] 4.4 % Normal <=5.9 [facility] Comment on above: Performed By: #### 1 0092090, 7083202, 7018305, 14767938, 6431761, 618706214, 19225062, 8153839 #### [facility] [address] [place] [address] Physician Orderon 04-29-2023 Physician Order [id number]#[id number]:127 Normal [facility] TSHon 04-29-2023 TSH Qn 2.70 m[IU]/L Normal 0.34-5.60 [facility] Comment on above: Performed By: #### 1 6039530, 2968666, 5002136, 70037452, 4473976, 857374246, 86795007, 5793390 #### [facility] [address] [place] [address] BhCG Quanton 04-22-2023 HCG.beta subunit Qn 2 m[IU]/mL Normal 1-3 [facility] Comment on above: Result Comment: GEST ATIONAL AGE HCG RANGE (mIU/mL) NON- <1-3 0.2-1 WEEKS 5-50 1-2 WEEKS 50-500 2-3 WEEKS 100-5,000 3-4 WEEKS 500-10,000 4-5 WEEKS 1,000-50,000 5-6 WEEKS 10,000-100,000 6-8 WEEKS 15,000-200,000 8-12 WEEKS 10,000-100,000 Performed By: #### 2 278933 #### [facility] [address] [place] [address] CHEMISTRYOrdered By: SYSTEM SYSTEM on 04-22-2023 HCG.beta subunit Qn 2 m[IU]/mL Normal 1 - 3 mIU/mL FTM C Remisol Consent for Treatmenton Consent for Treatment [id number]#1.00CD:127 Normal [facility] Physician Orderon 04-22-2023 Physician Order [id number]#[id number]:127 Normal [facility] Ambulatory Visit Summaryon 0 10-07-2022 Ambulatory [...] longer receiving treatment for. Appendectomy hyperthyroid Normal [facility] Medicine Office/Clini c Noteon 10-07-2022 Family [...] bedtime), # 90 tab(s), Refills(s) 1, Pharmacy: [facility]/pharmacy #[id number], 170, cm, 08/23/20 8:37:00 EST, Height/Length Dosing, 65.1, kg, 08/23/20 8:37:00 EST, Weight Dosing pantoprazole, 40 mg = 1 tab(s), Oral, Daily, # 90 tab(s), Refills(s) 1, Pharmacy: [facility]/pharmacy #[id number], 170, cm, 08/23/20 8:37:00 EST, Height/Length Dosing, 65.1, kg, 08/23/20 8:37:00 EST, Weight Dosing Follow-up With When Contact Information Len YEPEZ DO, FAM In 1 year [address] [place] [address]- Additional Instructions: Problem List/Past Medical History Ongoing [...] inactivated - Not Given Patient Refuses Normal [facility] Comment on above: Result Comment: Elec tronically Signed By: Len YEPEZ DO\.br\Date and Time Signed: 10/07/22 17:12 EST Vital Signs Date Time Vital Sign Value Performing Clinician Facility 10-02-2023 14:02-0500 Body mass index (BMI) [Ratio] 24.22 kg/m2 [facility] Nurse [facility] 10-02-2023 14:050 Body weight 74.39 kg [facility] Nurse [facility] 10-02-2023 14:02-0500 Diastolic blood pressure 70 mm[Hg] [facility] 10-02-2023 14:02-0500 Systolic blood pressure 118 mm[Hg] [facility] Nurse [facility] 10-07-2022 16:18-0500 Blood Pressure Location Len YEPEZ [facility] 10-07-2022 16:18-0500 Body temperature 96.98 [degF] Len YEPEZ [facility] 10-07-2022 16:18-0500 Diastolic blood pressure 68 mm[Hg] Len YEPEZ [facility] 10-07-2022 16:18-0500 Heart rate 66 /min Len YEPEZ [facility] 10-07-2022 16:18-0500 SaO2% (BldA) [Mass fraction] 99 % Len YEPEZ [facility] 10-07-2022 16:18-0500 Systolic blood pressure 114 mm[Hg] Len YEPEZ [facility] Encounters Encounter Date Encounter Type [...] 12-30-2023 End: 12-30-2023 ambulatory ОЛЬГА CAVAZOS [facility] Start: 12-29-2023 End: 12-29-2023 ambulatory FRED ELIU [...] 04-29-2023 End: 04-30-2023 ambulatory Fred R ELIU Facility:[facility] Start: 04-29-2023 End: 04-29-2023 Patient encounter procedure Fred R ELIU [facility] Start: 04-22-2023 End: 04-23-2023 ambulatory Calin Ordaz Facility:[facility] Start: 04-22-2023 End: 04-22-2023 Patient encounter procedure Calin Ordaz [facility] Start: 10-07-2022 End: 10-08-2022 ambulatory Len YEPEZ Facility:[facility] Start: 10-07-2022 End: 10-07-2022 Patient encounter procedure Len YEPEZ [facility] Start: 10-07-2022 End: 10-07-2022 Well adult monitoring check done Len Garcia LUCHO [facility] Procedures Date Procedure Procedure Detail [...] Missed menses Expected: 10/02/2023 (Approximate), Expires: 10/02/2024 [facility] Comment on above: Expected: 10/02/2023 (Approximate), Expires: 10/02/2024 Start: 10-02-2023 End: 10-02-2024 Blood type and Indirect antibody screen panel - Blood Type and screen Lab Routine Missed menses Expected: 10/02/2023 (Approximate), Expires: 10/02/2024 [facility] Work Phone: Comment on above: Expected: 10/02/2023 (Approximate), Expires: 10/02/2024 Start: 10-02-2023 End: 10-02-2024 US Pelvis transvaginal US OB transvaginal Imaging Routine Missed menses Expected: 10/02/2023 (Approximate), Expires: 10/02/2024 [facility] Comment on above: Expected: 10/02/2023 (Approximate), Expires: 10/02/2024 Bacteria identified in Urine by Culture Urine culture Microbiology Routine Missed menses Ordered: 10/02/2023 [facility] Comment on above: Ordered: 10/02/2023 CBC W Auto Different ial panel - Blood CBC and differential Lab Routine Missed menses Ordered: 10/02/2023 [facility] Comment on above: Ordered: 10/02/2023 Hemoglobin A1c/Hemoglobin.total in Blood Hemoglobin A1c Lab Routine Missed menses Ordered: 10/02/2023 [facility] Comment on above: Ordered: 10/02/2023 Hepatitis B virus surface Ag [Presence] in Serum or Plasma by Immunoassay Hepatitis B surface antigen Lab Routine Missed menses Ordered: 10/02/2023 [facility] Comment on above: Ordered: 10/02/2023 Hepatitis C virus Ab [Presence] in Serum or Plasma by Immunoassay Hepatitis C antibody Lab Routine Missed menses Ordered: 10/02/2023 [facility] Comment on above: Ordered: 10/02/2023 HIV-1/HIV-2 antigen/antibody combination immunoassay HIV-1 and HIV-2 antibodies Lab Routine Missed menses Ordered: 10/02/2023 [facility] Comment on above: Ordered: 10/02/2023 Reagin Ab [Presence] in Serum by RPR RPR Lab Routine Missed menses Ordered: 10/02/2023 [facility] Comment on above: Ordered: 10/02/2023 Rubella antibody, IgG Rubella an tibody, IgG Lab Routine Missed menses Ordered: 10/02/2023 [facility] Comment on above: Ordered: 10/02/2023 Immunizations Immunization Date Immunization Notes Care Provider Aurora guy NEGATED: Highlighted row has not occurred!10-07-2022 influenza virus vaccine, unspecified formulation Len YEPEZ [facility] [place] Payers Date Payer Category Payer Unknown [employer] [id number] 2023-Present [address] [place] [address] [id number] 2023 Private Health Insurance 2023 Managed Care HMO (unspecified) RHIANNA MOCTEZUMA [id number] 2023-Present [address] [place] [address] HMO [id number] 2023 Private Health Insurance [id number] 2021 Unknown [id number] 1987 Unknown [id number] 2.16.840.1.565075.3.579.2.7 27 1987 Unknown [id number] 2.16.840.1.406167.3.579.2.7 27 1987 Unknown [id number] 2.16.840.1.475745.3.579.2.7 27 1987 Unknown [id number] 2.16.840.1.283975.3.579.2.1 75 1987 Unknown [id number] 2.16.840.1.830402.3.579.2.1 259 1987 Unknown [id number] 2.16.840.1.965804.3.579.2.1 259 1987 Unknown [id number] 2.16.840.1.508669.3.579.2.1 259 1987 Unknown [id number] 2.16.840.1.783716.3.579.2.1 259 1987 Unknown [id number] 2.16.840.1.234699.3.579.2.1 259 1987 Unknown [id number] 2.16.840.1.791908.3.579.2.1 259 1987 Unknown [id number] 2.16.840.1.621064.3.579.2.1 259 1987 Unknown [id number] 2.16.840.1.349532.3.579.2.1 259 1987 Unknown [id number] 2.16.840.1.508475.3.579.2.1 259 1987 Unknown [id number] 2.16.840.1.126395.3.579.2.1 259 Social History Date Type Detail Facility Start: 03-04-2019 Tobacco smoking status Never smoked tobacco (finding) [facility] Sex Assigned At Female [facility] Tobacco smoking status NHIS Tobacco smoking consumption unknown [facility] Start: 08-17-2023 [facility] Start: 1985 Sex Assigned At Not on file [facility] Functional Status Date Assessment Result Facility 10-07-2022 Functional Status N/A [facility] [place] History of Present illness Narrative 10-02-2023 Teodora [...] was given her OB folder and desires Delta 21. Advised to make sure she is 10 weeks before having Delta done along with her labs. Pt did [...] Teodora Vegas MA documented in this encounter [facility] Evaluation + Plan note 04-29-2023 Note Date & Type Note Facility 04-29-2023 Evaluation + Plan note Diagnostic Tests PendingFS and LH 04/29/23DHEA 04/29/23DHEAS 04/29/23 [facility] Hospital Discharge instructions 09-24-2022 Note Date & Type Note Facility 09-24-2022 Hospital Discharg e instructions Follow Up Care 09/24/2022 13:44:14 With:Len YEPEZ DO, FAM Address: [address] [address]- When:Within 1 Year(s) [facility] Evaluation + Plan note Note Date & Type Note Facility Evaluation + Plan note No data available for this section [facility] Evaluation note Note Date & Type Note Facility Evaluation note Diagnosis Missed menses documented in this encounter [facility] Hospital Discharge instructions Note Date & Type Note Facility Hospital Discharge instructions No data available for this section [facility] Progress note Note Date & Type Note Facility Progress note No data available for this section [facility] [place] Summary Purpose Family History No Family History Records FoundNo Family History Records FoundNo Family History Records Found Advance Directives No Advanced Directives Records FoundNo Advanced Directives Records FoundNo Advanced Directives Records Found Additional Source Comments Patient Care team informatio n (unrecognized section and content) Personnel Name: Len YEPEZ DO Address: Address: [address] [place] [address]- Name: Salome Sousa I Personnel Name: Len YEPEZ DO Address: Address: [address] [facility] [place] [address]- Name: Salome Sousa I Personnel Name: NONE, XXXX Address: Address: [facility] Name: Salome Sousa I INFORMATION SOURCE (unrecogn ized section and content) DATE CREATED AUTHOR 05/05/2023 [facility] DATE CREATED AUTHOR AUTHOR'S ORGANIZ ATION 03/08/2024 [facility] DATE CREATED AUTHOR AUTHOR'S ORGANIZ ATION 04/10/2024 [facility] EPIC Reason for [...] BE BASED ON THE PRIMARY CLINICAL RECORDS. [facility] [employer] [facility]. provides no warranty or guarantee of the accuracy or completeness of information in this document.
--- NOTE | 2024-04-20 17:03 | US_ITS ---
[address] [address] Patient Name: ALYSA BALDWIN MRN: [id number] date: 1985 Sex: F Assigned Patient Location: [facility] Current Patient Location: Accession/Order Number: [id number] Exam Date: 04/20/2024 17:06 Report Date: 04/21/2024 05:55 At the request of: FRED GUZMAN Procedure: US OB BPP w non-stress EXAMINATION: US OB BPP w non-stress HISTORY:GESTATIONAL DIABETES MELLITUS O24.419 COMPARISON: Ultrasound OB biophysical 04/13/2024 TECHNIQUE: Ultrasound biophysical profile was performed in the radiology department. BREATHING MOVEMENTS: 2 GROSS BODY MOVEMENTS: 2 TONE: 2 QUALITATIVE AMNIOTIC FLUID VOLUME: 2 PRESENTATION: CEPHALIC HEART RATE: 133.66 bpm AMNIOTIC FLUID VOLUME: 17.17 cm GESTATIONAL AGE: 37 weeks 2 days US/US OB BPP w non-stress IMPRESSION: Total biophysical profile score: 8 Electronically authenticated by: GILDARDO WEINER Date: 04/21/2024 05:55
[2024-04-20 17:37] VITALS: BP 126/82; PULSE 74
== END 2024-04-20 18:00 | disposition home or self-care (01) ==
LOC: US 07:14 → FBC 16:55
PROVIDERS: Visit Provider Obstetrics & Gynecology
DX: O24.419 Gestational diabetes mellitus in pregnancy, unspecified control (principal); O09.523 Supervision of elderly multigravida, third trimester; Z3A.37 37 weeks gestation of pregnancy
CPT/HCPCS: 76818

== ENCOUNTER 2024-04-23 07:00 | Outpatient (OUT) | payer OTHER, SELFPAY ==
--- OUTSIDE RECORDS SUMMARY | 2024-04-23 07:05 | XMS_ITS | CCD ---
Author Organization [facility] Care Team Providers Care Strap Buckler Name Role Phone Len YEPEZ Primary Care [...] FRED Attending Unavailable ELIU, FRED Attending Unavailable LEIU, FRED Attending Unavailable CARL, MADIHA Attending Unavailable CARL, MADIHA Attending Unavailable ELIU, FRED Attending Unavailable ELIU, FRED Attending Unavailable Allergies Allergy Classification Reported Allergen(s) Allergy Type Date of Onset Reaction(s) Facility (5 sources) Morphine; Translations: [morphine] Drug Allergy 10-29-2010 [facility] Medications Current Medications Medication Drug Class(es) Dates [...] Out Report FORWARD TAJ ARROYO, FED EX [phone] Normal [facility] Comment on above: Performed By: #### C MIS #### [place] [address] Manganese Heater: Gonzalo Matthews MD HCG ( test) Ql (U)o n 10-02-2023 Interpretation and review of laboratory results Abnormal [facility] Preg Test, Ur Positive [facility] Urinalysis macro (dipstick) panel (U)on 10-02-2023 Bilirubin, UA Negative Negative - 4(70) +++ mg/dL [facility] Blood, UA Negative Negative - 50 Ra/mcL [facility] Clarity, UA Clear [facility] Color, UA Yellow [facility] Glucose, UA Negative Negative - 2000(110) ++++ mg/dL [facility] Interpretation and review of laboratory results Abnormal [facility] Ketones, UA Negative Negative - 160(16) ++++ mg/dL [facility] Leukocytes, UA Trace Negative - 500+++ Gaurav/mcL [facility] Nitrite, UA Negative Negative - Positive [facility] pH, UA 6.0 5 - 9 [facility] Protein, UA Negative Negative - 2000(20) ++++ mg/dL [facility] Spec Grav, UA 1.030 1 - 1.03 [facility] Urobilinogen, UA 0.2 0.2 - 12 mg/dL [facility] DHEAon 05-05-2023 DHEA [Mass/Vol] 118 ng/dL Invalid Interpretation Code 31-701 [facility] Comment on above: Result Comment: This test was developed and its performance characteristics determined by [facility]. It has not been cleared or approved by the Food and Drug Administration. Performed at: [address] [id number] MD Garry Montenegro Performed By: #### 1 [id number], 6061437, 7358972, 59801715, 5880432, 726552686, 10680044, 3034124 ####[facility] [id number] [place] [address] DHEASon 05-05-2023 DHEA-S [Mass/Vol] 91.7 microgram/dL Invalid Interpretation Code 57.3-279.2 [facility] Comment on above: Result Comment: Perf ormed at: [address] [id number] PhD Salbador Douglass Performed By: #### 1 [id number], 3869598, 2096629, 47202995, 3713058, 150138253, 18601704, 0651559 #### [facility] Laboratory [address] [place] [address] FSH and LHon 05-05-2023 Follitropin Qn 5.6 m[IU]/mL Invalid Interpretation Code [facility] Comment on above: Result Comment: Adul t Female: Follicular phase 3.5 - 12.5 Ovulation phase 4.7 - 21.5 Luteal phase 1.7 - 7.7 Postmenopausal 25.8 - 134.8 Performed at: [address] [id number] PhD Salbador Douglass Performed By: #### 1 [id number], 7323468, 9651394, 24235477, 4486630, 518182756, 12534362, 0911159 #### [facility] Laboratory [address] [place] [address] Lutropin Qn 10.4 m[IU]/mL Invalid Interpretation Code [facility] Comment on above: Result Comment: Adul t Female: Follicular phase 2.4 - 12.6 Ovulation phase 14.0 - 95.6 Luteal phase 1.0 - 11.4 Postmenopausal 7.7 - 58.5 Performed By: #### 1 6668619, 9640334, 4159293, 01862463, 4803838, 380519415, 74442156, 0014779 #### [facility] Laboratory [address] [place] [address] Auto Diffon 04-29-2023 Basophils/100 WBC (Bld) 0.8 % Normal 0.0-2.0 [facility] Comment on above: Order Comment: Order Added by Discern Expert. Performed By: #### 1 [id number], 0694170, 2618140, 90126500, 6972853, 360091501, 69340152, 8852504 #### [facility] Laboratory [address] [place] [address] Basophils/Leukocytes Auto (Bld) [Pure # fraction] 0.0 E9/L Normal 0.0-0.2 [facility] Comment on above: Order Comment: Order Added by Discern Expert. Performed By: #### 1 5288852, 6200489, 0936997, 56858750, 6221333, 412345516, 09760556, 3238494 #### [facility] Laboratory [address] [place] [address] Eosinophils/100 WBC (Bld) 2.3 % Normal 0.0-8.0 [facility] Comment on above: Order Comment: Order Added by Discern Expert. Performed By: #### 1 3489522, 4644476, 8879598, 80984927, 9608101, 631110197, 51662444, 0937997 #### [facility] Laboratory [address] [place] [address] Eosinophils/Leukocyte s Auto (Bld) [Pure # fraction] 0.1 E9/L Normal 0.0-0.5 [facility] Comment on above: Order Comment: Order Added by Discern Expert. Performed By: #### 1 8249538, 3074063, 2286336, 17808969, 6822306, 236561313, 33285593, 1912668 #### [facility] Laboratory [address] [place] [address] Lymphocytes/100 WBC (Bld) 42.1 % Normal 14.0-50.0 [facility] Comment on above: Order Comment: Order Added by Discern Expert. Performed By: #### 1 5533658, 8414027, 9562327, 14867681, 6264895, 552504034, 56730005, 8175323 #### [facility] Laboratory [address] [place] [address] Lymphocytes/Leukocyte s Auto (Bld) [Pure # fraction] 2.0 E9/L Normal 1.0-4.0 [facility] Comment on above: Order Comment: Order Added by Discern Expert. Performed By: #### 1 6735407, 8055131, 5728084, 68190779, 7037357, 488981385, 13679897, 9590807 #### [facility] Laboratory [address] [place] [address] Monocytes/100 WBC (Bld) 7.7 % Normal 4.0-14.0 [facility] Comment on above: Order Comment: Order Added by Discern Expert. Performed By: #### 1 7702589, 8290833, 0017792, 13354199, 3695861, 905668716, 38911560, 0045004 #### [facility] [address] [place] [address] Monocytes/Leukocytes Auto (Bld) [Pure # fraction] 0.4 E9/L Normal 0.2-1.0 [facility] Comment on above: Order Comment: Order Added by Discern Expert. Performed By: #### 1 7358524, 7390186, 0905323, 41655677, 4671610, 935523845, 24880259, 7069629 #### [facility] [address] [place] [address] Neutrophils/100 WBC (Bld) 47.1 % Normal 36.0-75.0 [facility] Comment on above: Order Comment: Order Added by Discern Expert. Performed By: #### 1 2086617, 0144036, 5586133, 77688445, 0795664, 194766234, 61466568, 3356807 #### [facility] [address] [place] [address] Neutrophils/Leukocyte s Auto (Bld) [Pure # fraction] 2.3 E9/L Normal 2.0-7.5 [facility] Comment on above: Order Comment: Order Added by Discern Expert. Performed By: #### 1 0293669, 3051909, 5785552, 06535283, 4943119, 636840717, 98765132, 5594830 #### [facility] [address] [place] [address] BhCG Quanton 04-29-2023 HCG.beta subunit Qn m[IU]/mL Normal 1-3 [facility] Comment on above: Result Comment: GEST ATIONAL AGE HCG RANGE (mIU/mL) NON- <1-3 0.2-1 WEEKS 5-50 1-2 WEEKS 50-500 2-3 WEEKS 100-5,000 3-4 WEEKS 500-10,000 4-5 WEEKS 1,000-50,000 5-6 WEEKS 10,000-100,000 6-8 WEEKS 15,000-200,000 8-12 WEEKS 10,000-100,000 Performed By: #### 2 982673 ####[facility] [address] [place] [address] CBC w/ Auto Diffon 3 Erythrocyte distribution width (RBC) [Ratio] 12.5 % Normal 10.9-14.2 [facility] Comment on above: Performed By: #### 1 4051938, 9283785, 4443125, 15633529, 6313555, 057752845, 46067639, 2649934 #### [facility] [address] [place] [address] Hematocrit (Bld) [Volume fraction] 39.3 % Normal 34.0-46.0 [facility] Comment on above: Performed By: #### 1 2315759, 3853832, 4360532, 97679877, 8566520, 282223681, 85302311, 5615945 #### [facility] [address] [place] [address] Hemoglobin (Bld) [Mass/Vol] 13.3 g/dL Normal 12.0-16.0 [facility] Comment on above: Performed By: #### 1 2062166, 3679479, 6816839, 66469787, 5057489, 297063110, 14013232, 0292548 #### [facility] Laboratory [address] [place], [place] [address] MCH (RBC) [Entitic mass] 32.3 pg Normal 27.0-34.0 [facility] Comment on above: Performed By: #### 1 3036303, 8879616, 7635457, 24163544, 2115846, 159441814, 51132541, 6753093 #### [facility] [address] [place] [address] MCHC (RBC) [Mass/Vol] 33.9 g/dL Normal 31.4-36.0 [facility] Comment on above: Performed By: #### 1 3154193, 9566571, 1165287, 92141933, 1381847, 267442326, 52196884, 9907008 #### [facility] [address] [place] [address] MCV (RBC) [Entitic vol] 95.2 fL Normal 80.0-100.0 [facility] Comment on above: Performed By: #### 1 3534961, 1523309, 3581369, 84574646, 3547616, 499984551, 22988125, 6113976 #### [facility] [address] [place] [address] Platelet mean volume (Bld) [Entitic vol] 9.0 fL Normal 6.4-10.8 [facility] Comment on above: Performed By: #### 1 9197351, 2650335, 8713855, 59874744, 3688978, 858454978, 86696334, 0150212 #### [facility] [address] [place] [address] Platelets (Bld) [#/Vol] 172.0 E9/L Normal 150.0-500.0 [facility] Comment on above: Performed By: #### 1 2917742, 2483734, 0714865, 45396596, 1417214, 606113900, 14380847, 0302841 #### [facility] [address] [place] [address] RBC (Bld) [#/Vol] 4.1 E12/L Low 4.3-5.9 [facility] Comment on above: Performed By: #### 1 2810766, 3533140, 6976371, 06455134, 9952748, 797858084, 30290040, 8186971 #### [facility] [address] [place] [address] WBC corrected for nucl RBC Auto (Bld) [#/Vol] 4.8 E9/L Normal 4.0-11.0 [facility] Comment on above: Performed By: #### 1 6269786, 4200066, 4283570, 51196390, 7564015, 955457093, 59910228, 5964649 #### [facility] [address] [place] [address] CHEMISTRYOrdered By: SYSTEM SYSTEM on 04-29-2023 Free [...] Treatmenton 04-18 Consent for Treatment [id number] 36#1.00CD:[address] [facility] Free T4on 04-29-2023 Free T4 [Mass/Vol] 0.89 ng/dL Normal 0.58-1.64 [facility] Comment on above: Performed By: #### 1 7181196, 2371237, 1846184, 10638847, 6479289, 987671767, 39480587, 4716319 #### [facility] [address] [place] [address] HEMATOLOGYOrdered By: SYSTEM SYSTEM on 04-29-2023 Basophils/100 [...] Normal 4.0 - 11.0 E9/L [facility] HemeAutoSS [id number] 04-29-2023 HbA1c (Bld) [Mass fraction] 4.4 % Normal <=5.9 [facility] Comment on above: Performed By: #### 1 0847868, 1003118, 8705777, 81126823, 9514410, 467915400, 82217501, 2441094 #### [facility] [address] [place] [address] Physician Orderon 04-29-2023 Physician Order [id number] 732#1.00CD:[address] [facility] TSHon 04-29-2023 TSH Qn 2.70 m[IU]/L Normal 0.34-5.60 [facility] Comment on above: Performed By: #### 1 7756140, 8252369, 0030364, 25110645, 0017594, 328039859, 81157219, 1571812 #### [facility] [address] [place] [address] BhCG Quanton 04-22-2023 HCG.beta subunit Qn 2 m[IU]/mL Normal 1-3 [facility] Comment on above: Result Comment: GEST ATIONAL AGE HCG RANGE (mIU/mL) NON- <1-3 0.2-1 WEEKS 5-50 1-2 WEEKS 50-500 2-3 WEEKS 100-5,000 3-4 WEEKS 500-10,000 4-5 WEEKS 1,000-50,000 5-6 WEEKS 10,000-100,000 6-8 WEEKS 15,000-200,000 8-12 WEEKS 10,000-100,000 Performed By: #### 2 734144 #### [facility] [address] [place] [address] CHEMISTRYOrdered By: SYSTEM SYSTEM on 04-22-2023 HCG.beta subunit Qn 2 m[IU]/mL Normal 1 - 3 mIU/mL FTM C Remisol Consent for Treatmenton Consent for Treatment [id number] 5B#1.00CD:[address] [facility] Physician Orderon 04-22-2023 Physician Order [id number] 571#1.00CD:[address] [facility] Ambulatory Visit Summaryon 0 10-07-2022 Ambulatory Visit [...] longer receiving treatment for. Appendectomy hyperthyroid Normal [facility] Medicine Office/Clini c Noteon 10-07-2022 Family [...] bedtime), # 90 tab(s), Refills(s) 1, Pharmacy: [facility]/pharmacy #[id number], 170, cm, 08/23/20 8:37:00 EST, Height/Length Dosing, 65.1, kg, 08/23/20 8:37:00 EST, Weight Dosing pantoprazole, 40 mg = 1 tab(s), Oral, Daily, # 90 tab(s), Refills(s) 1, Pharmacy: [facility]/pharmacy #[id number], 170, cm, 08/23/20 8:37:00 EST, Height/Length Dosing, 65.1, kg, 08/23/20 8:37:00 EST, Weight Dosing Follow-up With When Contact Information Len YEPEZ DO, FAM In 1 year [address] [place] [address]- Additional Instructions: Problem List/Past Medical History Ongoing [...] - Not Given Patient Refuses Normal [facility] Comment on above: Result Comment: Elec tronically Signed By: Len YEPEZ DO\.br\Date and Time Signed: 10/07/22 17:12 EST Vital Signs Date Time Vital Sign Value Performing Clinician Facility 10-02-2023 14:02-0500 Body mass index (BMI) [Ratio] 24.22 kg[facility]m2 [facility] 10-02-2023 14:050 Body weight 74.39 kg [facility] 10-02-2023 14:02-0500 Diastolic blood pressure 70 mm[Hg] [facility] 10-02-2023 14:02-0500 Systolic blood pressure 118 mm[Hg] [facility] 10-07-2022 16:18-0500 Blood Pressure Location Len YEPEZ [facility] 10-07-2022 16:18-0500 Body temperature 96.98 [degF] Len YEPEZ [facility] 10-07-2022 16:18-0500 Diastolic blood pressure 68 mm[Hg] Len YEPEZ [facility] 10-07-2022 16:18-0500 Heart rate 66 /min Len YEPEZ [facility] 10-07-2022 16:18-0500 SaO2% (BldA) [Mass fraction] 99 % Len YEPEZ [facility] 10-07-2022 16:18-0500 Systolic blood pressure 114 mm[Hg] Len YEPEZ [facility] Encounters Encounter Date Encounter Type Care Provider [...] Start: 12-30-2023 End: 12-30-2023 ambulatory ОЛЬГА CAVAZOS [facility] Start: 12-29-2023 End: 12-29-2023 ambulatory FRED ELIU [...] 04-29-2023 End: 04-30-2023 ambulatory Fred R ELIU Facility:[facility] Start: 04-29-2023 End: 04-29-2023 Patient encounter procedure Fred R ELIU [facility] Start: 04-22-2023 End: 04-23-2023 ambulatory Calin Ordaz Facility:[facility] Start: 04-22-2023 End: 04-22-2023 Patient encounter procedure Calin Ordaz [facility] Start: 10-07-2022 End: 10-08-2022 ambulatory Len YEPEZ Facility:[facility] Start: 10-07-2022 End: 10-07-2022 Patient encounter procedure Len YEPEZ [facility] Start: 10-07-2022 End: 10-07-2022 Well adult monitoring check done Len Garcia LUCHO [facility] Procedures Date Procedure Procedure Detail Performing Clinician [...] Missed menses Expected: 10/02/2023 (Approximate), Expires: 10/02/2024 [facility] Comment on above: Expected: 10/02/2023 (Approximate), Expires: 10/02/2024 Start: 10-02-2023 End: 10-02-2024 Blood type and Indirect antibody screen panel - Blood Type and screen Lab Routine Missed menses Expected: 10/02/2023 (Approximate), Expires: 10/02/2024 [facility] Work Phone: Comment on above: Expected: 10/02/2023 (Approximate), Expires: 10/02/2024 Start: 10-02-2023 End: 10-02-2024 US Pelvis transvaginal US OB transvaginal Imaging Routine Missed menses Expected: 10/02/2023 (Approximate), Expires: 10/02/2024 [facility] Comment on above: Expected: 10/02/2023 (Approximate), Expires: 10/02/2024 Bacteria identified in Urine by Culture Urine culture Microbiology Routine Missed menses Ordered: 10/02/2023 [facility] Comment on above: Ordered: 10/02/2023 CBC W Auto Different ial panel - Blood CBC and differential Lab Routine Missed menses Ordered: 10/02/2023 [facility] Comment on above: Ordered: 10/02/2023 Hemoglobin A1c/Hemoglobin.total in Blood Hemoglobin A1c Lab Routine Missed menses Ordered: 10/02/2023 [facility] Comment on above: Ordered: 10/02/2023 Hepatitis B virus surface Ag [Presence] in Serum or Plasma by Immunoassay Hepatitis B surface antigen Lab Routine Missed menses Ordered: 10/02/2023 [facility] Comment on above: Ordered: 10/02/2023 Hepatitis C virus Ab [Presence] in Serum or Plasma by Immunoassay Hepatitis C antibody Lab Routine Missed menses Ordered: 10/02/2023 [facility] Comment on above: Ordered: 10/02/2023 HIV-1/HIV-2 antigen/antibody combination immunoassay HIV-1 and HIV-2 antibodies Lab Routine Missed menses Ordered: 10/02/2023 [facility] Comment on above: Ordered: 10/02/2023 Reagin Ab [Presence] in Serum by RPR RPR Lab Routine Missed menses Ordered: 10/02/2023 [facility] Comment on above: Ordered: 10/02/2023 Rubella antibody, IgG Rubella an tibody, IgG Lab Routine Missed menses Ordered: 10/02/2023 [facility] Comment on above: Ordered: 10/02/2023 Immunizations Immunization Date Immunization Notes Care Provider Aurora guy NEGATED: Highlighted row has not occurred!10-07-2022 influenza virus vaccine, unspecified formulation Len YEPEZ [facility] [place] Payers Date Payer Category Payer Unknown [employer] [id number] 2023-Present [address] [place] [address] [id number] 2023 Private Health Insurance 2023 Managed Care HMO (unspecified) RHIANNA MOCTEZUMA [id number] 2023-Present [address] [place] [address] HMO [id number] 2023 Private Health Insurance [id number] 2021 Unknown [id number] 1985 Unknown [id number] 2.16.840.1.758398.3.579.2.7 27 1987 Unknown [id number] 2.16.840.1.436981.3.579.2.7 27 1987 Unknown [id number] 2.16.840.1.978221.3.579.2.7 27 1987 Unknown [id number] 2.16.840.1.339313.3.579.2.1 75 1987 Unknown [id number] 2.16.840.1.028569.3.579.2.1 259 1987 Unknown [id number] 2.16.840.1.772988.3.579.2.1 259 1987 Unknown [id number] 2.16.840.1.078359.3.579.2.1 259 1987 Unknown [id number] 2.16.840.1.789282.3.579.2.1 259 1987 Unknown [id number] 2.16.840.1.018152.3.579.2.1 259 1987 Unknown [id number] 2.16.840.1.915556.3.579.2.1 259 1987 Unknown [id number] 2.16.840.1.853742.3.579.2.1 259 1987 Unknown [id number] 2.16.840.1.754902.3.579.2.1 259 1987 Unknown [id number] 2.16.840.1.803976.3.579.2.1 259 1987 Unknown [id number] 2.16.840.1.510280.3.579.2.1 259 Social History Date Type Detail Facility Start: 03-04-2019 Tobacco smoking status Never smoked tobacco (finding) [facility] Sex Assigned At Female [facility] Tobacco smoking status NHIS Tobacco smoking consumption unknown [facility] Start: 08-17-2023 [facility] Start: 1985 Sex Assigned At Not on file [facility] Functional Status Date Assessment Result Facility 10-07-2022 Functional Status N/A [facility] [place] History of Present illness Narrative 10-02-2023 Teodora [...] was given her OB folder and desires Gill 21. Advised to make sure she is 10 weeks before having Gill done along with her labs. Pt did [...] Teodora Vegas MA documented in this encounter [facility] Evaluation + Plan note 04-29-2023 Note Date & Type Note Facility 04-29-2023 Evaluation + Plan note Diagnostic Tests PendingFS and LH 04/29/23DHEA 04/29/23DHEAS 04/29/23 [facility] Hospital Discharge instructions 09-24-2022 Note Date & Type Note Facility 09-24-2022 Hospital Discharg e instructions Follow Up Care 09/24/2022 13:44:14 With:Len YEPEZ DO, FAM Address: [address] [address]- When:Within 1 Year(s) [facility] Evaluation + Plan note Note Date & Type Note Facility Evaluation + Plan note No data available for this section [facility] Evaluation note Note Date & Type Note Facility Evaluation note Diagnosis Missed menses documented in this encounter [facility] Hospital Discharge instructions Note Date & Type Note Facility Hospital Discharge instructions No data available for this section [facility] Progress note Note Date & Type Note Facility Progress note No data available for this section [facility] [place] Summary Purpose Family History No Family History Records FoundNo Family History Records FoundNo Family History Records Found Advance Directives No Advanced Directives Records FoundNo Advanced Directives Records FoundNo Advanced Directives Records Found Additional Source Comments Patient Care team informatio n (unrecognized section and content) Personnel Name: Len YEPEZ DO Address: Address: [address] [place] [address]- Name: Salome Sousa I Personnel Name: Len YEPEZ DO Address: Address: [address] [facility] [place] [address]- Name: Salome Sousa I Personnel Name: NONE, XXXX Address: Address: [facility] Name: Salome Sousa I INFORMATION SOURCE (unrecogn ized section and content) DATE CREATED AUTHOR 05/05/2023 [facility] DATE CREATED AUTHOR AUTHOR'S ORGANIZ ATION 03/08/2024 [facility] DATE CREATED AUTHOR AUTHOR'S ORGANIZ ATION 04/10/2024 [facility] EPIC Reason for [...] BE BASED ON THE PRIMARY CLINICAL RECORDS. [facility] [employer] [facility]. provides no warranty or guarantee of the accuracy or completeness of information in this document.
[2024-04-23 16:50] VITALS: BP 115/78; PULSE 85
== END 2024-04-23 17:25 | disposition home or self-care (01) ==
LOC: FBCO 07:01 → FBC 16:42
PROVIDERS: Visit Provider Obstetrics & Gynecology
DX: O24.419 Gestational diabetes mellitus in pregnancy, unspecified control (principal); Z3A.00 Weeks of gestation of pregnancy not specified
CPT/HCPCS: 59025

== ENCOUNTER 2024-04-27 06:51 | Outpatient (OUT) | payer OTHER, SELFPAY ==
--- OUTSIDE RECORDS SUMMARY | 2024-04-27 06:53 | XMS_ITS | CCD ---
Author Organization [facility] Care Team Providers Care Senior Product Integrity Engineer Name Role Phone Len YEPEZ Primary Care Physician [phone] Salome Sousa I Unavailable Unavailable NONE, XXXX Primary Care Physician Unavailab le Fred GUZMAN Attending Unavailable ELIU, Fred R Admitting Unavailable ReineckCalin Attending Unavailable Calin Ordaz Admitting Unavailable ELIU, [...] sources) Morphine; Translations: [morphine] Drug Allergy 10-29-2010 [facility] Medications Current Medications Medication Drug Class(es) Dates Sig (Normalized) Sig (Original) busPIRone hydrochloride 15 mg oral tablet (4 sources) Start: 05-02-2023 busPIRone (Buspar) 15 MG tablet Start: 10-07-2022 take 1 tablet by shyla th twice daily busPIRone 5 mg Tab 5 [...] Out Report FORWARD TAJ ARROYO, FED EX [phone] [id number] Normal [facility] Comment on above: Performed By: #### C MIS #### [place] [id number] Production Coordinator: Gonzalo Matthews MD HCG ( test) Ql (U)o n 10-02-2023 Interpretation and review of laboratory results Abnormal [facility] Preg Test, Ur Positive [facility] Urinalysis macro (dipstick) panel (U)on 10-02-2023 Bilirubin, UA Negative Negative - 4(70) +++ mg/dL [facility] Blood, UA Negative Negative - 50 Ra/mcL [facility] Clarity, UA Clear [facility] Color, UA Yellow [facility] Glucose, UA Negative Negative - 2000(110) ++++ mg/dL [facility] Interpretation and review of laboratory results Abnormal [facility] Ketones, UA Negative Negative - 160(16) ++++ mg/dL [facility] Leukocytes, UA Trace Negative - 500+++ Gaurav/mcL [facility] Nitrite, UA Negative Negative - Positive [facility] pH, UA 6.0 5 - 9 [facility] Protein, UA Negative Negative - 2000(20) ++++ mg/dL [facility] Spec Grav, UA 1.030 1 - 1.03 [facility] Urobilinogen, UA 0.2 0.2 - 12 mg/dL [facility] DHEAon 05-05-2023 DHEA [Mass/Vol] 118 ng/dL Invalid Interpretation Code 31701 [facility] Comment on above: Result Comment: This test was developed and its performance characteristics determined by [employer]. It has not been cleared or approved by the Food and Drug Administration. Performed at: [address] [id number] MD Garry Montenegro Performed By: #### 1 [id number], 2959033, 1961622, 76618730, 1305654, 897100756, 34272593, 6306550 ####[facility] [address] [place] [address] DHEASon 05-05-2023 DHEA-S [Mass/Vol] 91.7 microgram/dL Invalid Interpretation Code 57.3-279.2 [facility] Comment on above: Result Comment: Perf ormed at: [address] [id number] PhD Salbador Douglass Performed By: #### 1 5363285, 1826085, 2982915, 11771846, 7408261, 329800758, 67772599, 7633995 #### [facility] Laboratory [address] [place] [address] FSH and LHon 05-05-2023 Follitropin Qn 5.6 m[IU]/mL Invalid Interpretation Code [facility] Comment on above: Result Comment: Adul t Female: Follicular phase 3.5 - 12.5 Ovulation phase 4.7 - 21.5 Luteal phase 1.7 - 7.7 Postmenopausal 25.8 - 134.8 Performed at: [facility] [address], [place] [id number] PhD Salbador Douglass Performed By: #### 1 2724108, 2551231, 0902720, 41615318, 1012393, 522975597, 58587173, 1492653 #### [facility] Laboratory [address] [place] [address] Lutropin Qn 10.4 m[IU]/mL Invalid Interpretation Code [facility] Comment on above: Result Comment: Adul t Female: Follicular phase 2.4 - 12.6 Ovulation phase 14.0 - 95.6 Luteal phase 1.0 - 11.4 Postmenopausal 7.7 - 58.5 Performed By: #### 1 5922217, 2223087, 8637276, 21588761, 3765420, 223679019, 39788608, 0730216 #### [facility] Laboratory [address] [place] [address] Auto Diffon 04-29-2023 Basophils/100 WBC (Bld) 0.8 % Normal 0.0-2.0 [facility] Comment on above: Order Comment: Order Added by Discern Expert. Performed By: #### 1 2382467, 9893532, 0355413, 63519113, 9119250, 638709729, 39272143, 6469075 #### [facility] [address] [place] [address] Basophils/Leukocytes Auto (Bld) [Pure # fraction] 0.0 E9/L Normal 0.0-0.2 [facility] Comment on above: Order Comment: Order Added by Discern Expert. Performed By: #### 1 8943548, 5097998, 9274263, 43275102, 6456924, 916429731, 37977069, 7523403 #### [facility] [address] [place] [address] Eosinophils/100 WBC (Bld) 2.3 % Normal 0.0-8.0 [facility] Comment on above: Order Comment: Order Added by Discern Expert. Performed By: #### 1 3880747, 3584776, 7182576, 37085105, 2885281, 101490279, 49230877, 6948111 #### [facility] [address] [place] [address] Eosinophils/Leukocyte s Auto (Bld) [Pure # fraction] 0.1 E9/L Normal 0.0-0.5 [facility] Comment on above: Order Comment: Order Added by Discern Expert. Performed By: #### 1 0071171, 7520977, 8763630, 34654692, 5434100, 136097487, 45704835, 5539883 #### [facility] [address] [place] [address] Lymphocytes/100 WBC (Bld) 42.1 % Normal 14.0-50.0 [facility] Comment on above: Order Comment: Order Added by Discern Expert. Performed By: #### 1 5823572, 2156149, 5755672, 42402082, 0269100, 561355160, 07785933, 1002746 #### [facility] [address] [place] [address] Lymphocytes/Leukocyte s Auto (Bld) [Pure # fraction] 2.0 E9/L Normal 1.0-4.0 [facility] Comment on above: Order Comment: Order Added by Discern Expert. Performed By: #### 1 9828461, 6082404, 2331756, 24538392, 3837241, 890090904, 28875010, 0749685 #### [facility] [address] [place] [address] Monocytes/100 WBC (Bld) 7.7 % Normal 4.0-14.0 [facility] Comment on above: Order Comment: Order Added by Discern Expert. Performed By: #### 1 7589439, 5225469, 5542441, 97809263, 6641926, 498361691, 53922631, 1086827 #### [facility] [address] [place] [address] Monocytes/Leukocytes Auto (Bld) [Pure # fraction] 0.4 E9/L Normal 0.2-1.0 [facility] Comment on above: Order Comment: Order Added by Discern Expert. Performed By: #### 1 3580867, 0673305, 1237101, 69256335, 0699575, 208648870, 96100886, 4804910 #### [facility] [address] [place] [address] Neutrophils/100 WBC (Bld) 47.1 % Normal 36.0-75.0 [facility] Comment on above: Order Comment: Order Added by Discern Expert. Performed By: #### 1 3020298, 1272178, 8212365, 20269916, 3092839, 822304542, 48481798, 7081171 #### [facility] [address] [place] [address] Neutrophils/Leukocyte s Auto (Bld) [Pure # fraction] 2.3 E9/L Normal 2.0-7.5 [facility] Comment on above: Order Comment: Order Added by Discern Expert. Performed By: #### 1 5658833, 4396571, 3173425, 32131487, 1682779, 131546979, 40997241, 4746733 #### [facility] [address] [place] [address] BhCG Quanton 04-29-2023 HCG.beta subunit Qn m[IU]/mL Normal 1-3 [facility] Comment on above: Result Comment: GEST ATIONAL AGE HCG RANGE (mIU/mL) NON- <1-3 0.2-1 WEEKS 5-50 1-2 WEEKS 50-500 2-3 WEEKS 100-5,000 3-4 WEEKS 500-10,000 4-5 WEEKS 1,000-50,000 5-6 WEEKS 10,000-100,000 6-8 WEEKS 15,000-200,000 8-12 WEEKS 10,000-100,000 Performed By: #### 2 538278 ####[facility] [address] [place] [address] CBC w/ Auto Diffon Erythrocyte distribution width (RBC) [Ratio] 12.5 % Normal 10.9-14.2 [facility] Comment on above: Performed By: #### 1 9412943, 0794057, 8924118, 28176651, 1848858, 448172726, 82719937, 5455076 #### [facility] [address] [place] [address] Hematocrit (Bld) [Volume fraction] 39.3 % Normal 34.0-46.0 [facility] Comment on above: Performed By: #### 1 1113899, 9583354, 7267695, 76711938, 1154607, 068797777, 73605580, 2681626 #### [facility] [address] [place] [address] Hemoglobin (Bld) [Mass/Vol] 13.3 g/dL Normal 12.0-16.0 [facility] Comment on above: Performed By: #### 1 9755868, 6656104, 0359573, 13490390, 9908459, 268928875, 04233899, 5957048 #### [facility] [address] [place] [address] MCH (RBC) [Entitic mass] 32.3 pg Normal 27.0-34.0 [facility] Comment on above: Performed By: #### 1 2764960, 1502499, 4241940, 81430653, 2536120, 567302437, 76849966, 9154181 #### [facility] [address] [place] [address] MCHC (RBC) [Mass/Vol] 33.9 g/dL Normal 31.4-36.0 [facility] Comment on above: Performed By: #### 1 8343486, 6877240, 1374403, 79536115, 3595394, 206380532, 54818300, 0296877 #### [facility] [address] [place] [address] MCV (RBC) [Entitic vol] 95.2 fL Normal 80.0-100.0 [facility] Comment on above: Performed By: #### 1 5651980, 6426388, 6030471, 95113541, 4377820, 151425063, 72822408, 0106700 #### [facility] [address] [place] [address] Platelet mean volume (Bld) [Entitic vol] 9.0 fL Normal 6.4-10.8 [facility] Comment on above: Performed By: #### 1 7607816, 0251342, 0807568, 14580158, 8465183, 873313827, 87416115, 5151486 #### [facility] [address] [place] [address] Platelets (Bld) [#/Vol] 172.0 E9/L Normal 150.0-500.0 [facility] Comment on above: Performed By: #### 1 3428678, 7740436, 6471924, 81549232, 3002884, 133104579, 53416026, 4205715 #### [facility] [address] [place] [address] RBC (Bld) [#/Vol] 4.1 E12/L Low 4.3-5.9 [facility] Comment on above: Performed By: #### 1 3595825, 9151760, 1787797, 09315334, 1708249, 427665929, 20966821, 8984904 #### [facility] [address] [place] [address] WBC corrected for nucl RBC Auto (Bld) [#/Vol] 4.8 E9/L Normal 4.0-11.0 [facility] Comment on above: Performed By: #### 1 8488173, 6359757, 4216904, 54060984, 5805083, 024888768, 25944743, 6413198 #### [facility] [address] [place] [address] CHEMISTRYOrdered By: SYSTEM SYSTEM on 04-29-2023 Free [...] Treatmenton 04-18 Consent for Treatment [id number] 36#1.00CD:127 Normal [facility] Free T4on 04-29-2023 Free T4 [Mass/Vol] 0.89 ng/dL Normal 0.58-1.64 [facility] Comment on above: Performed By: #### 1 2750333, 8205464, 5904736, 15254720, 9779874, 340105820, 01088847, 4100781 #### [facility] [address] [place] [address] HEMATOLOGYOrdered By: SYSTEM SYSTEM on 04-29-2023 Basophils/100 [...] 2.3 E9/L Normal 2.0 - 7.5 E9/L FT HemeAutoSS HEMATOLOGYOrdered By: Emily Encarnacion on 04-29-2023 [...] Normal 4.0 - 11.0 E9/L FT HemeAutoSS HstV0vol 04-29-2023 HbA1c (Bld) [Mass fraction] 4.4 % Normal <=5.9 [facility] Comment on above: Performed By: #### 1 8904276, 7302534, 7907737, 91679247, 9427286, 740696304, 04351097, 1551900 #### [facility] Laboratory [address] [place] [address] Physician Orderon 04-29-2023 Physician Order [id number] 732#1.00CD:127 Normal [facility] TSHon 04-29-2023 TSH Qn 2.70 m[IU]/L Normal 0.34-5.60 [facility] Comment on above: Performed By: #### 1 8349550, 5065477, 4681327, 06493973, 8331104, 370667448, 53811489, 9104361 #### [facility] [address] [place] [address] BhCG Quanton 04-22-2023 HCG.beta subunit Qn 2 m[IU]/mL Normal 1-3 [facility] Comment on above: Result Comment: GEST ATIONAL AGE HCG RANGE (mIU/mL) NON- <1-3 0.2-1 WEEKS 5-50 1-2 WEEKS 50-500 2-3 WEEKS 100-5,000 3-4 WEEKS 500-10,000 4-5 WEEKS 1,000-50,000 5-6 WEEKS 10,000-100,000 6-8 WEEKS 15,000-200,000 8-12 WEEKS 10,000-100,000 Performed By: #### 2 678089 #### [facility] [address] [place] [address] CHEMISTRYOrdered By: SYSTEM SYSTEM on 04-22-2023 HCG.beta subunit Qn 2 m[IU]/mL Normal 1 - 3 mIU/mL FTM C Remisol Consent for Treatmenton Consent for Treatment [id number] 5B#1.00CD:127 Normal [facility] Physician Orderon 04-22-2023 Physician Order [id number]#1.00CD:127 Normal [facility] Ambulatory Visit Summaryon 0 10-07-2022 Ambulatory Visit [...] hyperthyroid Normal [facility] Family Medicine Office/Clini c Noteon 10-07-2022 Family [...] bedtime), # 90 tab(s), Refills(s) 1, Pharmacy: [facility]/pharmacy #[id number], 170, cm, 08/23/20 8:37:00 EST, Height/Length Dosing, 65.1, kg, 08/23/20 8:37:00 EST, Weight Dosing pantoprazole, 40 mg = 1 tab(s), Oral, Daily, # 90 tab(s), Refills(s) 1, Pharmacy: [facility]/pharmacy #[id number], 170, cm, 08/23/20 8:37:00 EST, Height/Length Dosing, 65.1, kg, 08/23/20 8:37:00 EST, Weight Dosing Follow-up With When Contact Information Len YEPEZ DO, FAM In 1 year [address] [place] [address]- Additional Instructions: Problem List/Past Medical [...] Refuses Normal [facility] Comment on above: Result Comment: Elec tronically Signed By: Len YEPZE DO\.br\Date and Time Signed: 10/07/22 17:12 EST Vital Signs Date Time Vital Sign Value Performing Clinician Facility 10-02-2023 14:02-0500 Body mass index (BMI) [Ratio] 24.22 kg/m2 [facility] 10-02-2023 14:02-0500 Body weight 74.39 kg [facility] 10-02-2023 14:02-0500 Diastolic blood pressure 70 mm[Hg] [facility] 10-02-2023 14:02-0500 Systolic blood pressure 118 mm[Hg] [facility] 10-07-2022 16:18-0500 Blood Pressure Location Len YEPEZ [facility] 10-07-2022 16:18-0500 Body temperature 96.98 [degF] Len YEPEZ [facility] 10-07-2022 16:18-0500 Diastolic blood pressure 68 mm[Hg] Len YEPEZ [facility] 10-07-2022 16:18-0500 Heart rate 66 /min Len YEPEZ [facility] 10-07-2022 16:18-0500 SaO2% (BldA) [Mass fraction] 99 % Len YEPEZ [facility] 10-07-2022 16:18-0500 Systolic blood pressure 114 mm[Hg] Len YEPEZ [facility] Encounters Encounter Date Encounter Type Care Provider Facility Start: 04-22-2024 End: 04-22-2024 ambulatory FRED ELIU Not Available Start: 04-15-2024 End: 04-15-2024 ambulatory FRED ELIU Not Available Start: 04-08-2024 End: 04-08-2024 ambulatory FRED ELIU Not Available Start: 04-01-2024 End: 04-01-2024 ambulatory FRED ELIU Not Available Start: 03-17-2024 End: 03-17-2024 ambulatory MADIHA CARL Not Available Start: 03-01-2024 End: 03-01-2024 ambulatory MADIHA CARL Not Available Start: 02-16-2024 End: 02-16-2024 ambulatory FRED ELIU Not Available Start: 01-26-2024 End: 01-26-2024 ambulatory FRED ELIU Not Available Start: 12-30-2023 End: 12-30-2023 ambulatory ОЛЬГА CAVAZOS [facility] Start: 12-29-2023 End: 12-29-2023 ambulatory [...] 04-29-2023 End: 04-30-2023 ambulatory Fred R ELIU Facility[place] Start: 04-29-2023 End: 04-29-2023 Patient encounter procedure Fred R ELIU [facility] Start: 04-22-2023 End: 04-23-2023 ambulatory Calin Ordaz Facility:[facility] Start: 04-22-2023 End: 04-22-2023 Patient encounter procedure Calin Ordaz [facility] Start: 10-07-2022 End: 10-08-2022 ambulatory Lensilverio YEPEZ Facility:[facility] Start: 10-07-2022 End: 10-07-2022 Patient encounter procedure Len YEPEZ [facility] Start: 10-07-2022 End: 10-07-2022 Well adult monitoring check done Len YEPEZ [facility] Procedures Date Procedure Procedure Detail Performing [...] Missed menses Expected: 10/02/2023 (Approximate), Expires: 10/02/2024 [facility] Comment on above: Expected: 10/02/2023 (Approximate), Expires: 10/02/2024 Start: 10-02-2023 End: 10-02-2024 Blood type and Indirect antibody screen panel - Blood Type and screen Lab Routine Missed menses Expected: 10/02/2023 (Approximate), Expires: 10/02/2024 [facility] Work Phone: Comment on above: Expected: 10/02/2023 (Approximate), Expires: 10/02/2024 Start: 10-02-2023 End: 10-02-2024 US Pelvis transvaginal US OB transvaginal Imaging Routine Missed menses Expected: 10/02/2023 (Approximate), Expires: 10/02/2024 [facility] Comment on above: Expected: 10/02/2023 (Approximate), Expires: 10/02/2024 Bacteria identified in Urine by Culture Urine culture Microbiology Routine Missed menses Ordered: 10/02/2023 [facility] Comment on above: Ordered: 10/02/2023 CBC W Auto Different ial panel - Blood CBC and differential Lab Routine Missed menses Ordered: 10/02/2023 [facility] Comment on above: Ordered: 10/02/2023 Hemoglobin A1c/Hemoglobin.total in Blood Hemoglobin A1c Lab Routine Missed menses Ordered: 10/02/2023 [facility] Comment on above: Ordered: 10/02/2023 Hepatitis B virus surface Ag [Presence] in Serum or Plasma by Immunoassay Hepatitis B surface antigen Lab Routine Missed menses Ordered: 10/02/2023 [facility] Comment on above: Ordered: 10/02/2023 Hepatitis C virus Ab [Presence] in Serum or Plasma by Immunoassay Hepatitis C antibody Lab Routine Missed menses Ordered: 10/02/2023 [facility] Comment on above: Ordered: 10/02/2023 HIV-1/HIV-2 antigen/antibody combination immunoassay HIV-1 and HIV-2 antibodies Lab Routine Missed menses Ordered: 10/02/2023 [facility] Comment on above: Ordered: 10/02/2023 Reagin Ab [Presence] in Serum by RPR RPR Lab Routine Missed menses Ordered: 10/02/2023 [facility] Comment on above: Ordered: 10/02/2023 Rubella antibody, IgG Rubella an tibody, IgG Lab Routine Missed menses Ordered: 10/02/2023 [facility] Comment on above: Ordered: 10/02/2023 Immunizations Immunization Date Immunization Notes Care Provider Fa cility NEGATED: Highlighted row has not occurred!10-07-2022 influenza virus vaccine, unspecified formulation Len YEPEZ [facility] [place] Payers Date Payer Category Payer Unknown [employer] [id number] 2023-Present [address] [place] [address] [id number] 2023 Private Health Insurance 2023 Managed Care HMO (unspecified) [employer] A[employer]NA [id number] 2023-Present [address] [place] [address] HMO [id number] 2023 Private Health Insurance [id number] 2021 Unknown [id number] 1987 Unknown [id number] 2.16.840.1.746687.3.579.2.7 27 1987 Unknown [id number] 2.16.840.1.534790.3.579.2.7 27 1987 Unknown [id number] 2.16.840.1.442803.3.579.2.7 27 1987 Unknown [id number] 2.16.840.1.653315.3.579.2.1 75 1987 Unknown [id number] 2.16.840.1.845370.3.579.2.1 259 1987 Unknown [id number] 2.16.840.1.099385.3.579.2.1 259 1987 Unknown [id number] 2.16.840.1.352120.3.579.2.1 259 1987 Unknown [id number] 2.16.840.1.821418.3.579.2.1 259 1987 Unknown [id number] 2.16.840.1.070598.3.579.2.1 259 1987 Unknown [id number] 2.16.840.1.622427.3.579.2.1 259 1987 Unknown [id number] 2.16.840.1.136859.3.579.2.1 259 1987 Unknown [id number] 2.16.840.1.827298.3.579.2.1 259 1987 Unknown [id number] 2.16.840.1.210370.3.579.2.1 259 1987 Unknown [id number] 2.16.840.1.651889.3.579.2.1 259 1987 Unknown [id number] 2.16.840.1.451644.3.579.2.1 259 1987 Unknown [id number] 2.16.840.1.418810.3.579.2.1 259 Social History Date Type Detail Facility Start: 03-04-2019 Tobacco smoking status Never smoked tobacco (finding) [facility] Sex Assigned At Female [facility] Tobacco smoking status NHIS Tobacco smoking consumption unknown [facility] Start: 08-17-2023 [facility] Start: 1985 Sex Assigned At Not on file [facility] Functional Status Date Assessment Result Facility 10-07-2022 Functional Status N/A [facility] [place] History of Present illness Narrative 10-02-2023 Teodora [...] was given her OB folder and desires [place] [facility]. Advised to make sure she is 10 weeks before having [place] done along with her labs. Pt did [...] + Plan note [facility] 04/29/23DHEAS 04/29/23 [facility] Hospital Discharge instructions 09-24-2022 Note Date & Type Note Facility 09-24-2022 Hospital Discharg e instructions Follow Up Care 09/24/2022 13:44:14 With:Len YEPEZ DO, FAM Address: [address] [place] [address]- When:Within 1 Year(s) [facility] Evaluation + Plan note Note Date & Type Note Facility Evaluation + Plan note No data available for this section [facility] Evaluation note Note Date & Type Note Facility Evaluation note Diagnosis Missed menses documented in this encounter [facility] Hospital Discharge instructions Note Date & Type Note Facility Hospital Discharge instructions No data available for this section [facility] Progress note Note Date & Type Note Facility Progress note No data available for this section [facility] Summary Purpose Family History No Family History Records FoundNo Family History Records FoundNo Family History Records Found Advance Directives No Advanced Directives Records FoundNo Advanced Directives Records FoundNo Advanced Directives Records Found Additional Source Comments Patient Care team informatio n (unrecognized section and content) Personnel Name: Len YEPEZ DO Address: Address: [address] [place] [address]- Name: Salome Sousa I Personnel Name: Len YEPEZ DO Address: Address: [address] [place] [address] [place] [address]- Name: Salome Sousa I Personnel Name: NONE, XXXX Address: Address: [facility] Name: Salome Sousa I INFORMATION SOURCE (unrecogn ized section and content) DATE CREATED AUTHOR 05/05/2023 [facility] DATE CREATED AUTHOR AUTHOR'S ORGANIZ ATION 03/08/2024 [facility] DATE CREATED AUTHOR AUTHOR'S ORGANIZ ATION 04/23/2024 [facility] EPIC Reason for Visit (unrecogniz [...] BE BASED ON THE PRIMARY CLINICAL RECORDS. [facility] [employer] [facility]. provides no warranty or guarantee of the accuracy or completeness of information in this document.
--- NOTE | 2024-04-27 16:53 | US_ITS ---
[address] [address] Patient Name: ALYSA BALDWIN MRN: [id number] date: 1985 Sex: F Assigned Patient Location: [facility] Current Patient Location: Accession/Order Number: [id number] Exam Date: 04/27/2024 16:59 Report Date: 04/28/2024 07:11 At the request of: FRED GUZMAN Procedure: US OB BPP w non-stress EXAMINATION: US OB BPP w non-stress HISTORY: ama COMPARISON: No relevant comparison available. TECHNIQUE: Ultrasound biophysical profile was performed in the radiology department. non-reactive stress testing was performed by nursing staff in the birthing center. FINDINGS: BREATHING MOVEMENTS: 2 GROSS BODY MOVEMENTS: 2 TONE: 2 QUALITATIVE AMNIOTIC FLUID VOLUME: 2 PRESENTATION: CEPHALIC HEART RATE: 134.33 bpm AMNIOTIC FLUID VOLUME: 17.2 cm GESTATIONAL AGE: 38 weeks 2 days US/US OB BPP w non-stress IMPRESSION: Total biophysical profile score: 8 Electronically authenticated by: LYNETTE NORMAN Date: 04/28/2024 07:11
[2024-04-27 17:29] VITALS: BP 139/77; PULSE 78
== END 2024-04-27 17:51 | disposition home or self-care (01) ==
LOC: US 06:51 → FBC 16:51
PROVIDERS: Visit Provider Obstetrics & Gynecology
DX: O24.419 Gestational diabetes mellitus in pregnancy, unspecified control (principal); O09.523 Supervision of elderly multigravida, third trimester; Z3A.38 38 weeks gestation of pregnancy
CPT/HCPCS: 76818

== ENCOUNTER 2024-04-30 08:06 | Outpatient (OUT) | payer OTHER, SELFPAY ==
[2024-04-30 16:36] VITALS: BP 125/84; PULSE 93
== END 2024-04-30 17:05 | disposition home or self-care (01) ==
LOC: FBCO 08:06 → FBC 16:31
PROVIDERS: Visit Provider Obstetrics & Gynecology
DX: O09.523 Supervision of elderly multigravida, third trimester (principal)
CPT/HCPCS: 59025

== ENCOUNTER 2024-05-03 05:14 | Inpatient (IN) | payer OTHER, SELFPAY ==
[2024-05-03] VITALS (44 sets, daily range): BP systolic 113–150; BP diastolic 62–86; PULSE 64–89; TEMP 36.5–36.8
--- OUTSIDE RECORDS SUMMARY | 2024-05-03 05:17 | XMS_ITS | CCD ---
Author Organization [facility] Care Team Providers Care Propeller Engineer Name Role Phone Len YEPEZ Primary Care Physician [phone] Salome Sousa I Unavailable Unavailable NONE, XXXX [...] sources) Morphine; Translations: [morphine] Drug Allergy 10-29-2010 [facility] Medications Current Medications Medication Drug Class(es) [...] Miscellaneouson 12-31-2023 Send Out Report FORWARD TAJ KIT, FED EX [phone] Normal [facility] Comment on above: Performed By: #### C MIS #### [address] [place] [address] Telephone Operators Supervisor: Gonzalo Matthews MD HCG ( test) Ql (U)o n 10-02-2023 Interpretation and review of laboratory results Abnormal [facility] Preg Test, Ur Positive [facility] Urinalysis macro (dipstick) panel (U)on [...] UA 0.2 0.2 - 12 mg/dL [facility] DHEAon 05-05-2023 DHEA [Mass/Vol] 118 ng/dL Invalid Interpretation Code 31-151 [facility] Comment on above: Result Comment: This test was developed and its performance characteristics determined by [facility]. It has not been cleared or approved by the Food and Drug Administration. Performed at: [address] [id number] MD Garry Montenegro Performed By: #### 1 [id number], 8099924, 7085107, 26814558, 4174161, 328463762, 38506663, 9656389 ####[facility] [address] [place] [address] DHEASon 05-05-2023 DHEA-S [Mass/Vol] 91.7 microgram/dL Invalid Interpretation Code 57.3-279.2 [facility] Comment on above: Result Comment: Perf ormed at: [address] [id number] PhD Salbador Douglass Performed By: #### 1 0789518, 3436231, 5032524, 23093552, 1874855, 852993982, 16857382, 7654592 #### [facility] [address] [place] [address] FSH and LHon 05-05-2023 Follitropin Qn 5.6 m[IU]/mL Invalid Interpretation Code [facility] Comment on above: Result Comment: Adul t Female: Follicular phase 3.5 - 12.5 Ovulation phase 4.7 - 21.5 Luteal phase 1.7 - 7.7 Postmenopausal 25.8 - 134.8 Performed at: [facility] [address] [place], [place] [id number] PhD Salbador Douglass Performed By: #### 1 [id number], 0361671, 0232024, 82278874, 0409728, 275193264, 71755154, 7976250 #### [facility] [address] [place] [address] Lutropin Qn 10.4 m[IU]/mL Invalid Interpretation Code [facility] Comment on above: Result Comment: Adul t Female: Follicular phase 2.4 - 12.6 Ovulation phase 14.0 - 95.6 Luteal phase 1.0 - 11.4 Postmenopausal 7.7 - 58.5 Performed By: #### 1 3645694, 1246471, 5779204, 61917513, 4137802, 558193507, 44400508, 2164147 #### [facility] [address] [place] [address] Auto Diffon 04-29-2023 Basophils/100 WBC (Bld) 0.8 % Normal 0.0-2.0 [facility] Comment on above: Order Comment: Order Added by Discern Expert. Performed By: #### 1 7718232, 7447477, 8900202, 63781088, 9973359, 071790880, 41014057, 5261197 #### [facility] [address] [place] [address] Basophils/Leukocytes Auto (Bld) [Pure # fraction] 0.0 E9/L Normal 0.0-0.2 [facility] Comment on above: Order Comment: Order Added by Discern Expert. Performed By: #### 1 2797627, 5903418, 1670868, 64873680, 1816446, 652077302, 36463759, 8310940 #### [facility] [address] [place] [address] Eosinophils/100 WBC (Bld) 2.3 % Normal 0.0-8.0 [facility] Comment on above: Order Comment: Order Added by Discern Expert. Performed By: #### 1 8004873, 1930830, 6678016, 14323899, 4227908, 636486732, 69662655, 6023257 #### [facility] [address] [place] [address] Eosinophils/Leukocyte s Auto (Bld) [Pure # fraction] 0.1 E9/L Normal 0.0-0.5 [facility] Comment on above: Order Comment: Order Added by Discern Expert. Performed By: #### 1 6609238, 3059513, 6132179, 76764758, 4805100, 560843592, 86088673, 0928631 #### [facility] [address] [place] [address] Lymphocytes/100 WBC (Bld) 42.1 % Normal 14.0-50.0 [facility] Comment on above: Order Comment: Order Added by Discern Expert. Performed By: #### 1 7920856, 5029929, 2322291, 93479894, 1601471, 047427687, 50065362, 4107932 #### [facility] [address] [place] [address] Lymphocytes/Leukocyte s Auto (Bld) [Pure # fraction] 2.0 E9/L Normal 1.0-4.0 [facility] Comment on above: Order Comment: Order Added by Discern Expert. Performed By: #### 1 9562831, 7730057, 3815391, 57678047, 3759398, 389051945, 81391897, 7495831 #### [facility] [address] [place] [address] Monocytes/100 WBC (Bld) 7.7 % Normal 4.0-14.0 [facility] Comment on above: Order Comment: Order Added by Discern Expert. Performed By: #### 1 7349767, 8286611, 2980453, 62276518, 9538658, 414641431, 90696049, 6334000 #### [facility] [address] [place] [address] Monocytes/Leukocytes Auto (Bld) [Pure # fraction] 0.4 E9/L Normal 0.2-1.0 [facility] Comment on above: Order Comment: Order Added by Discern Expert. Performed By: #### 1 5078044, 1275345, 3785203, 23871961, 4725496, 630949933, 50257764, 8964810 #### [facility] [address] [place] [address] Neutrophils/100 WBC (Bld) 47.1 % Normal 36.0-75.0 [facility] Comment on above: Order Comment: Order Added by Discern Expert. Performed By: #### 1 9080638, 1315437, 4257600, 58984201, 5570486, 643844368, 79880410, 9083397 #### [facility] [address] [place] [address] Neutrophils/Leukocyte s Auto (Bld) [Pure # fraction] 2.3 E9/L Normal 2.0-7.5 [facility] Comment on above: Order Comment: Order Added by Discern Expert. Performed By: #### 1 2961961, 1409655, 4688996, 78641597, 0211285, 282923714, 84502982, 8762716 #### [facility] [address] [place] [address] BhCG Quanton 04-29-2023 HCG.beta subunit Qn m[IU]/mL Normal 1-3 [facility] Comment on above: Result Comment: GEST ATIONAL AGE HCG RANGE (mIU/mL) NON- <1-3 0.2-1 WEEKS 5-50 1-2 WEEKS 50-500 2-3 WEEKS 100-5,000 3-4 WEEKS 500-10,000 4-5 WEEKS 1,000-50,000 5-6 WEEKS 10,000-100,000 6-8 WEEKS 15,000-200,000 8-12 WEEKS 10,000-100,000 Performed By: #### 2 028929 ####[facility] [address] [place] [address] CBC w/ Auto Diffon Erythrocyte distribution width (RBC) [Ratio] 12.5 % Normal 10.9-14.2 [facility] Comment on above: Performed By: #### 1 8599595, 0064219, 8545652, 43382651, 1351571, 255968554, 24438923, 1261713 #### [facility] [address] [place] [address] Hematocrit (Bld) [Volume fraction] 39.3 % Normal 34.0-46.0 [facility] Comment on above: Performed By: #### 1 7161294, 0352193, 1509745, 02862691, 9709001, 780529982, 76913610, 7534349 #### [facility] [address] [place] [address] Hemoglobin (Bld) [Mass/Vol] 13.3 g/dL Normal 12.0-16.0 [facility] Comment on above: Performed By: #### 1 0654830, 3238939, 8038042, 36276974, 5844972, 014067792, 60478549, 5123458 #### [facility] [address] [place] [address] MCH (RBC) [Entitic mass] 32.3 pg Normal 27.0-34.0 [facility] Comment on above: Performed By: #### 1 3188919, 2571182, 5545377, 18791871, 2831979, 196639038, 40808606, 4347497 #### [facility] [address] [place] [address] MCHC (RBC) [Mass/Vol] 33.9 g/dL Normal 31.4-36.0 [facility] Comment on above: Performed By: #### 1 1615395, 9709511, 1930127, 16914293, 0570557, 981350170, 50757456, 9409959 #### [facility] [address] [place] [address] MCV (RBC) [Entitic vol] 95.2 fL Normal 80.0-100.0 [facility] Comment on above: Performed By: #### 1 2315234, 1256785, 1859519, 28693992, 7096190, 487285425, 72321742, 1530854 #### [facility] [address] [place] [address] Platelet mean volume (Bld) [Entitic vol] 9.0 fL Normal 6.4-10.8 [facility] Comment on above: Performed By: #### 1 6409575, 3053191, 8152103, 29588330, 4184666, 253433059, 51508742, 8909197 #### [facility] [address] [place] [address] Platelets (Bld) [#/Vol] 172.0 E9/L Normal 150.0-500.0 [facility] Comment on above: Performed By: #### 1 2725029, 5062417, 6457422, 89507323, 3978148, 283989421, 79582854, 8508693 #### [facility] [address] [place], [place] [address] RBC (Bld) [#/Vol] 4.1 E12/L Low 4.3-5.9 [facility] Comment on above: Performed By: #### 1 7227821, 0300995, 7658608, 00694681, 7541648, 702415030, 86862585, 5511423 #### [facility] [address] [place] [address] WBC corrected for nucl RBC Auto (Bld) [#/Vol] 4.8 E9/L Normal 4.0-11.0 [facility] Comment on above: Performed By: #### 1 8535769, 5398190, 0513529, 98292583, 5153789, 797682561, 39290533, 0417942 #### [facility] [address] [place] [address] CHEMISTRYOrdered By: SYSTEM SYSTEM on 04-29-2023 Free [...] Treatmenton 04-18 Consent for Treatment [id number] 36#1.00CD:127 Normal [facility] Free T4on 04-29-2023 Free T4 [Mass/Vol] 0.89 ng/dL Normal 0.58-1.64 [facility] Comment on above: Performed By: #### 1 6264039, 6282802, 1551261, 10523178, 4929761, 027671224, 35504588, 7802085 #### [facility] [address] [place] [address] HEMATOLOGYOrdered By: SYSTEM SYSTEM on 04-29-2023 Basophils/100 [...] Normal 4.0 - 11.0 E9/L [facility] HemeAutoSS DfuM1cpn 04-29-2023 HbA1c (Bld) [Mass fraction] 4.4 % Normal <=5.9 [facility] Comment on above: Performed By: #### 1 5845863, 3298366, 9159302, 39899940, 6121134, 975610931, 36612423, 1954730 #### [facility] [address] [place] [address] Physician Orderon 04-29-2023 Physician Order [id number] 732#1.00CD:127 Normal [facility] TSHon 04-29-2023 TSH Qn 2.70 m[IU]/L Normal 0.34-5.60 [facility] Comment on above: Performed By: #### 1 6956769, 1211361, 2894046, 85303427, 2540229, 945593873, 87726206, 0421159 #### [facility] [address] [place] [address] BhCG Quanton 04-22-2023 HCG.beta subunit Qn 2 m[IU]/mL Normal 1-3 [facility] Comment on above: Result Comment: GEST ATIONAL AGE HCG RANGE (mIU/mL) NON- <1-3 0.2-1 WEEKS 5-50 1-2 WEEKS 50-500 2-3 WEEKS 100-5,000 3-4 WEEKS 500-10,000 4-5 WEEKS 1,000-50,000 5-6 WEEKS 10,000-100,000 6-8 WEEKS 15,000-200,000 8-12 WEEKS 10,000-100,000 Performed By: #### 2 157432 #### [facility] [address] [place] [address] CHEMISTRYOrdered By: SYSTEM SYSTEM on 04-22-2023 HCG.beta subunit Qn 2 m[IU]/mL Normal 1 - 3 mIU/mL FTM C Remisol Consent for Treatmenton Consent for Treatment [id number] 5B#1.00CD:127 Normal [facility] Physician Orderon 04-22-2023 Physician Order [id number]#1.00CD:127 Normal [facility] Ambulatory Visit Summaryon [...] bedtime), # 90 tab(s), Refills(s) 1, Pharmacy: [facility]/pharmacy #[id number], 170, cm, 08/23/20 8:37:00 EST, Height/Length Dosing, 65.1, kg, 08/23/20 8:37:00 EST, Weight Dosing pantoprazole, 40 mg = 1 tab(s), Oral, Daily, # 90 tab(s), Refills(s) 1, Pharmacy: [facility]/pharmacy #[id number], 170, cm, 08/23/20 8:37:00 EST, Height/Length Dosing, 65.1, kg, 08/23/20 8:37:00 EST, Weight Dosing Follow-up With When Contact Information Len YEPEZ DO, FAM In 1 year [address] [place] [address]- Additional Instructions: Problem List/Past Medical History Ongoing [...] index (BMI) [Ratio] 24.22 kg/m2 [facility] 10-02-2023 14:02-0500 Body weight 74.39 kg [facility] Nurse [facility] 10-02-2023 14:02-0500 Diastolic blood pressure 70 mm[Hg] [facility] Nurse [facility] 10-02-2023 14:02-0500 Systolic blood pressure 118 mm[Hg] [facility] Nurse [facility] 10-07-2022 16:18-0500 Blood Pressure Location Len YEPEZ [facility] 10-07-2022 16:18-0500 Body temperature 96.98 [degF] Len YEPEZ [facility] 10-07-2022 16:18-0500 Diastolic blood pressure 68 mm[Hg] Len YEPEZ [facility] 10-07-2022 16:18-0500 Heart rate 66 /min Len YEPEZ [facility] 10-07-2022 16:18-0500 SaO2% (BldA) [Mass fraction] 99 % Len YEPEZ [facility] 10-07-2022 16:18-0500 Systolic blood pressure 114 mm[Hg] Len YEPEZ [facility] [place] Encounters Encounter Date Encounter Type Care Provider Facility Start: 04-29-2024 End: 04-29-2024 ambulatory FRED ELIU Not Available Start: 04-22-2024 End: 04-22-2024 ambulatory FRED ELIU Not Available Start: 04-15-2024 End: 04-15-2024 ambulatory FRED ELIU Not Available Start: 04-08-2024 End: 04-08-2024 ambulatory FRED ELIU Not Available Start: 04-01-2024 End: 04-01-2024 ambulatory FRED ELIU Not Available Start: 03-17-2024 End: 03-17-2024 ambulatory MADIHA HENRY Not Available Start: 03-01-2024 End: 03-01-2024 ambulatory MADIHA JAMESEY Not Available Start: 02-16-2024 End: 02-16-2024 ambulatory FRED ELIU Not Available Start: 01-26-2024 End: 01-26-2024 ambulatory FRED ELIU Not Available Start: 12-30-2023 End: 12-30-2023 ambulatory ОЛЬГА CAVAZOS [facility] Start: 12-29-2023 End: 12-29-2023 ambulatory [...] 04-29-2023 End: 04-30-2023 ambulatory Fred R ELIU Facility:[facility] Start: 04-29-2023 End: 04-29-2023 Patient encounter procedure Fred R ELIU [facility] Start: 04-22-2023 End: 04-23-2023 ambulatory Calin Ordaz Facility:[facility] Start: 04-22-2023 End: 04-22-2023 Patient encounter procedure Calin Ordaz [facility] Start: 10-07-2022 End: 10-08-2022 ambulatory Len Jose LUCHO Facility:[facility] Start: 10-07-2022 End: 10-07-2022 Patient encounter procedure Len YEPEZ [facility] Start: 10-07-2022 End: 10-07-2022 Well adult monitoring check done Len YEPEZ [facility] Procedures Date Procedure Procedure Detail Performing [...] Immunization Date Immunization Notes Care Provider Fa brooks NEGATED: Highlighted row has not occurred!10-07-2022 influenza virus vaccine, unspecified formulation Len YEPEZ [facility] [place] Payers Date Payer Category Payer Unknown [employer] [id number] 2023-Present [address] [place] [address] [id number] 2023 Private Health Insurance 2023 Managed Care HMO (unspecified) [employer] A[employer] [id number] 2023-Present [address] [place] [address] HMO [id number] 2023 Private Health Insurance [id number] 2021 Unknown [id number] 1985 Unknown [id number] 2.16.840.1.369267.3.579.2.7 27 1985 Unknown [id number] 2.16.840.1.747527.3.579.2.7 27 1987 Unknown [id number] 2.16.840.1.629990.3.579.2.7 27 1987 Unknown [id number] 2.16.840.1.318433.3.579.2.1 75 1985 Unknown [id number] 2.16.840.1.526261.3.579.2.1 259 1985 Unknown [id number] 2.16.840.1.302008.3.579.2.1 259 1987 Unknown [id number] 2.16.840.1.620669.3.579.2.1 259 1987 Unknown [id number] 2.16.840.1.431239.3.579.2.1 259 1987 Unknown [id number] 2.16.840.1.017805.3.579.2.1 259 1987 Unknown [id number] 2.16.840.1.340751.3.579.2.1 259 1987 Unknown [id number] 2.16.840.1.716678.3.579.2.1 259 1987 Unknown [id number] 2.16.840.1.998810.3.579.2.1 259 1987 Unknown [id number] 2.16.840.1.271363.3.579.2.1 259 1987 Unknown [id number] 2.16.840.1.484106.3.579.2.1 259 1987 Unknown [id number] 2.16.840.1.706844.3.579.2.1 259 1987 Unknown [id number] 2.16.840.1.509081.3.579.2.1 259 1987 Unknown [id number] 2.16.840.1.679571.3.579.2.1 259 Social History Date Type Detail Facility Start: 03-04-2019 Tobacco smoking status Never smoked tobacco (finding) [facility] Sex Assigned At Female [facility] Tobacco smoking status NHIS Tobacco smoking consumption unknown [facility] Start: 08-17-2023 [facility] Start: 1985 Sex Assigned At Not on file [facility] Functional Status Date Assessment Result Facility 10-07-2022 Functional Status N/A [facility] [place] History of Present illness Narrative 10-02-2023 Teodora [...] was given her OB folder and desires [place] 21. Advised to make sure she is 10 weeks before having Woolrich done along with her labs. Pt did [...] 04-29-2023 Evaluation + Plan note [facility]29/23[facility] 04/29/23DHEAS 04/29/23 [facility] Hospital Discharge instructions 09-24-2022 Note Date & Type Note Facility 09-24-2022 Hospital Discharg e instructions Follow Up Care 09/24/2022 13:44:14 With:Len YEPEZ DO, FAM Address: [address] [place] [address]- When:Within 1 Year(s) [facility] Evaluation + Plan note Note Date & Type Note Facility Evaluation + Plan note No data available for this section [facility] Evaluation note Note Date & Type Note Facility Evaluation note Diagnosis Missed menses documented in this encounter [facility] Hospital Discharge instructions Note Date & Type Note Facility Hospital Discharge instructions No data available for this section [facility] Progress note Note Date & Type Note Facility Progress note No data available for this section [facility] Summary Purpose Family History No Family History Records FoundNo Family History Records FoundNo Family History Records Found Advance Directives No Advanced Directives Records FoundNo Advanced Directives Records FoundNo Advanced Directives Records Found Additional Source Comments Patient Care team informatio n (unrecognized section and content) Personnel Name: Len YEPEZ DO Address: Address: [address] [place] [address] Name: Salome Sousa I Personnel Name: Len YEPEZ DO Address: Address: [address] [place] [address] [place], [place] [address] Name: Salome Sousa I Personnel Name: NONE, XXXX Address: Address: [place] Name: Salome Sousa I INFORMATION SOURCE (unrecogn ized section and content) DATE CREATED AUTHOR 05/05/2023 [facility] DATE CREATED AUTHOR AUTHOR'S ORGANIZ ATION 03/08/2024 [facility] DATE CREATED AUTHOR AUTHOR'S ORGANIZ ATION 05/01/2024 [facility] EPIC Reason for [...] BE BASED ON THE PRIMARY CLINICAL RECORDS. [facility] One Month [facility]. provides no warranty or guarantee of the accuracy or completeness of information in this document.
[2024-05-03] MEDS: 0.9 % SODIUM CHLORIDE 1,000 ML 125 ML IV ×2 (06:00→16:46)
[2024-05-03] MEDS: OXYTOCIN/0.9 % SODIUM CHLORIDE 10 UNITS/500 ML PLAST..BAG 6 UNIT IV (06:00)
[2024-05-03 06:33] LABS: Hematocrit 35.9 % (36.0-48.0); Hemoglobin 12.2 g/dL (12.0-16.0); Mean Corpuscular Hemoglobin 32.8 pg (26.7-34.0); Mean Corpuscular Volume 96.5 fL (81.0-99.0); Mean Platelet Volume 10.1 fL (9.5-13.5); Platelet Count 237 10^3/uL (150-450); Red Blood Count 3.72 10^6/uL (4.20-5.40); Red Cell Distribution Width 12.3 % (11.0-15.0)
[2024-05-03 06:49] LABS: Amphetamine Screen Urine NEGATIVE (NEGATIVE); Barbiturates Screen Urine NEGATIVE (NEGATIVE); Benzodiazepines Screen Urine NEGATIVE (NEGATIVE); Buprenorphine Screen Urine NEGATIVE (NEGATIVE); Cannabinoid Screen Urine NEGATIVE (NEGATIVE); Cocaine Screen Urine NEGATIVE (NEGATIVE); Methadone Screen Urine NEGATIVE (NEGATIVE); Methamphetamines Screen Urine NEGATIVE (NEGATIVE); Opiate Screen Urine NEGATIVE (NEGATIVE); Oxycodone Screen Urine NEGATIVE (NEGATIVE); Phencyclidine Screen Urine NEGATIVE (NEGATIVE); Tricyclic Antidepressant Urine NEGATIVE (NEGATIVE)
[2024-05-03] MEDS: 0.9 % SODIUM CHLORIDE 1,000 ML 1000 ML IV (13:25)
[2024-05-03] MEDS: ROPIVACAINE HCL/PF 400 MG/200 ML PREMIX 6 MG EPIDURAL (14:05)
[2024-05-03] MEDS: OXYTOCIN/0.9 % SODIUM CHLORIDE 20 UNITS/1,000 ML PLAST..BAG 125 UNIT IV (17:50)
--- NOTE | 2024-05-03 18:04 | PM.OBPRCVD ---
Procedure Intrapartal events: None Induction method: per pitocin protocol Delivery augmentation: rupture of membranes and pitocin Delivery monitor: external FHT and external uterine Route of delivery: Episiotomy Description: none L&D Laceration Description: perineal - 2nd degree Delivery repair: Vicryl Estimated blood loss (mL): 300 Anesthesia type: Epidural Disposition: floor Infant Delivery date: 05/03/24 Gender: male presentation: vertex Placental delivery description: Spontaneous cord description: 3 Vessels Labor State Duration Labor - Stage 3 Duration: 2 minutes Total Length of Latency: 9 hours and 4 minutes
[2024-05-03] MEDS: BENZOCAINE/MENTHOL 85 GRAM SPRAY BOTTLE 1 APPLIC TOPICAL (21:15)
[2024-05-03] MEDS: GLYCERIN/WITCH HAZEL PADS 1 PAD TOPICAL (21:16)
[2024-05-03] MEDS: IBUPROFEN 600 MG TABLET PO (22:37)
[2024-05-04] MEDS: ACETAMINOPHEN 325 MG TABLET 650 MG PO ×2 (03:07→21:43)
[2024-05-04] MEDS: IBUPROFEN 600 MG TABLET PO ×3 (05:58→19:37)
[2024-05-04 06:14] LABS: Basophils Absolute Auto 0.1 10^3/uL (0.0-0.1); Basophils Percent Auto 0.5 % (0.2-2.0); Eosinophils Absolute Auto 0.1 10^3/uL (0.0-0.7); Eosinophils Percent Auto 0.7 % (0.9-7.0); Hematocrit 36.7 % (36.0-48.0); Hemoglobin 12.6 g/dL (12.0-16.0); Immature Granulocytes Pct Auto 2.3 % (0.0-0.5); Lymphocytes Absolute Auto 2.2 10^3/uL (1.2-3.8); Lymphocytes Percent Auto 16.3 % (20.5-60.0); Mean Corpuscular HGB Conc 34.3 g/dL (29.9-35.2); Mean Corpuscular Hemoglobin 33.1 pg (26.7-34.0); Mean Corpuscular Volume 96.3 fL (81.0-99.0); Mean Platelet Volume 9.6 fL (9.5-13.5); Monocytes Absolute Auto 0.8 10^3/uL (0.3-0.8); Monocytes Percent Auto 6.2 % (1.7-12.0); Neutrophils Absolute Auto 9.9 10^3/uL (1.4-6.5); Platelet Count 249 10^3/uL (150-450); Red Blood Count 3.81 10^6/uL (4.20-5.40); Red Cell Distribution Width 12.3 % (11.0-15.0); White Blood Count 13.3 10^3/uL (4.0-11.0)
[2024-05-04 08:03] VITALS: BP 129/80; PULSE 66
[2024-05-04] MEDS: DOCUSATE SODIUM 100 MG CAPSULE PO ×2 (08:11→21:43)
[2024-05-04 08:14] VITALS: BP 129/80; PULSE 66; TEMP 36.9
--- NOTE | 2024-05-04 08:41 | P.OBPN_ITS ---
OB - PN: Subj Subjective Patient comments: no complaints and pain well controlled [place] status: doing well Exam Constitutional Vital Signs, click to edit/add: Last Vital Signs Temp 98.5 F 05/04/24 08:14 Pulse 66 05/04/24 08:14 Resp 16 05/04/24 08:14 BP 129/80 05/04/24 08:14 O2 Del Method Room Air 05/04/24 08:14 Documenting provider has reviewed patient's vital signs: yes Common normals: no apparent distress Respiratory Common normals: normal respiratory effort and clear to auscultation bilaterally Cardio Common normals: regular rate and regular rhythm GI Common normals: Normal to inspection, nondistended, normoactive bowel sounds present Extremity Common normals: no calf tenderness Results Labs Labs: Short CBC 05/04/24 Range/Units 06:08 WBC 13.3 H (4.0-11.0) 10^3/uL Hgb 12.6 (12.0-16.0) g/dL Hct 36.7 (36.0-48.0) % Plt Count 249 (150-450) 10^3/uL OB - PN: A/P Plan - Vaginal Delivery day: 1 Plan: routine care Time Spent with Patient Time: Total time spent is greater than 50% in coordination of care (as documented) at patient's floor/unit and/or counseling patient: Total time spent with greater than 50% in coordination of care (as documented) at patient's floor/unit and/or counseling patient: less than 15 minutes
[2024-05-04 15:52] VITALS: BP 132/77; PULSE 70
[2024-05-04 16:00] VITALS: BP 132/77; PULSE 70; TEMP 36.6
--- NOTE | 2024-05-04 19:23 | W.PC.ACHO ---
Registration Status: ADM IN Primary Language: Gibraltarian Preferred Language: Gibraltarian Reported on pain control, fundus & . Active Medications Generic Name Dose Route Start Last Admin Trade Name Freq PRN Reason Stop Dose Admin Acetaminophen 650 mg 05/03/24 18:05 05/04/24 03:07 Acetaminophen 325 Mg Tablet PO 650 mg Q6H PRN Administration Mild Pain Al Hydroxide/Mg Hydroxide 2,400 mg 05/03/24 18:05 Magnesium Hydroxide 2,400 Mg/10 Ml Oral.Susp PO Q6H PRN Dyspepsia Benzocaine/Menthol 1 applic 05/03/24 18:05 05/03/24 21:15 Benzocaine/Menthol 85 Gram [place] Bottle TOPICAL 1 applic Q2H PRN Administration Pain Diphtheria/Pertussis/Tetanus Vacc 0.5 ml 05/05/24 09:00 Adacel Diph,Pertuss(Acell),Tet Vac/Pf 0.5 Ml Adult Syringe IM 05/05/24 09:01 .ONCE ONE Docusate Sodium 100 mg 05/04/24 09:00 05/04/24 08:11 Docusate Sodium 100 Mg Capsule PO 100 mg BID TANVIR Administration Sodium Chloride 1,000 mls @ 125 mls/hr 05/03/24 05:30 05/03/24 18:23 Sodium Chloride 0.9% 1,000 Ml IV Infused .Q8H TANVIR Infusion Ibuprofen 600 mg 05/03/24 18:05 05/04/24 13:31 Ibuprofen 600 Mg Tablet PO 600 mg Q6H PRN Administration Moderate Pain Measles/Mumps/Rubella Vaccine Live 0.5 ml 05/05/24 09:00 Measles,Mumps,Rubella Vacc/Pf 0.5 Ml Vial SQ 05/05/24 09:01 .ONCE ONE Ondansetron HCl 4 mg 05/03/24 05:16 Ondansetron Pf 4 Mg/2 Ml Vial IV Q6H PRN Nausea And Vomiting Ondansetron HCl 4 mg 05/03/24 05:16 Ondansetron 4 Mg Rapdis Tablet SL Q6H PRN Nausea And Vomiting Senna 17.2 mg 05/03/24 20:00 Sennosides 8.6 Mg Tablet PO QHS PRN Constipation Simethicone 80 mg 05/03/24 18:05 Simethicone 80 Mg Tab.Chew PO QID PRN Abdominal Distention Temazepam 15 mg 05/03/24 18:05 Temazepam 15 Mg Capsule PO QHS PRN Sleep Witch [place]ler/Glycerin 1 pad 05/03/24 18:05 05/03/24 21:16 Glycerin/Witch [place]ler Pads TOPICAL 1 pad Q2H PRN Administration Pain Respiratory Oxygen Delivery Method Room Air Oxygen Delivery Method Room Air Oxygen Delivery Method Room Air Oxygen Delivery Method Room Air Oxygen Delivery Method Room Air Cardiology Heart Sounds Regular Heart Sounds Regular Bowels Bowel Pattern No Bowel Movement Bowel Pattern No Bowel Movement
[2024-05-04 21:46] VITALS: BP 137/78; PULSE 68
[2024-05-04 22:00] VITALS: BP 137/78; PULSE 68; TEMP 36.4
[2024-05-05] MEDS: IBUPROFEN 600 MG TABLET PO ×2 (02:49→09:55)
--- NOTE | 2024-05-05 07:44 | P.OBPN_ITS ---
OB - PN: Subj Subjective Patient comments: no complaints and pain well controlled [place] status: doing well Exam Constitutional Vital Signs, click to edit/add: Last Vital Signs Temp 97.6 F 05/04/24 22:00 Pulse 68 05/04/24 22:00 Resp 16 05/04/24 22:00 BP 137/78 05/04/24 22:00 O2 Del Method Room Air 05/04/24 16:00 Documenting provider has reviewed patient's vital signs: yes Common normals: no apparent distress Respiratory Common normals: clear to auscultation bilaterally Cardio Common normals: regular rate and regular rhythm GI Common normals: Normal to inspection, nondistended, normoactive bowel sounds present Extremity Common normals: no calf tenderness OB - PN: A/P Plan - Vaginal Delivery day: 2 Plan: routine care, discharge home and follow up 6 weeks Time Spent with Patient Time: Total time spent is greater than 50% in coordination of care (as documented) at patient's floor/unit and/or counseling patient: Total time spent with greater than 50% in coordination of care (as documented) at patient's floor/unit and/or counseling patient: less than 15 minutes
[2024-05-05] MEDS: GLYCERIN/WITCH HAZEL PADS 1 PAD TOPICAL (08:36)
[2024-05-05] MEDS: DOCUSATE SODIUM 100 MG CAPSULE PO (08:36)
[2024-05-05 08:39] VITALS: BP 141/78; PULSE 66
== END 2024-05-05 13:30 | disposition home or self-care (01) | DRG 807 ==
PROVIDERS: Admitting Provider Obstetrics & Gynecology; Visit Provider Obstetrics & Gynecology
DX: O70.1 Second degree perineal laceration during delivery (principal); Z37.0 Single live birth; Z3A.39 39 weeks gestation of pregnancy
CPT/HCPCS: 36415; 59050; 59410; 80307; 85025; 85027; 86850; 86900; 86901; 96365; 96366; 96368; J2795

== ENCOUNTER 2024-12-01 20:13 | Outpatient (REF) | payer OTHER, SELFPAY ==
--- OUTSIDE RECORDS SUMMARY | 2024-12-01 20:19 | XMS_ITS | CCD ---
Author Organization [facility] Inform ion [facility] Care Team Providers Care Portable Sawyer Name Role Phone Len YEPEZ Primary Care Physician [phone] Salome Sousa I Unavailable Unavailable NONE, XXXX Primary Care Physician Unavailab le ELIU, Fred R Attending Unavailable ELIU, Fred R Admitting Unavailable [...] FRED Attending Unavailable ELIU, FRED Attending Unavailable Madiha Rhodes Unavailable Allergies Allergy Classification Reported Allergen(s) Allergy Type Date of Onset Reaction(s) Facility (20 sources) Morphine; Translations: [morphine] Drug Allergy 10-29-2010 [facility] Medications Current Medications Medication Drug Class(es) Dates Sig (Normalized) Sig (Original) busPIRone hydrochloride 15 mg oral tablet (20 sources) Start: 05-02-2023 busPIRone (Buspar) 15 MG tablet 05/02/2023 Active Start: 10-07-2022 take 1 tablet by twice [...] (six) hours if needed. 0 07/18/2022 Active norethindrone 0.35 mg oral tablet (6 sources) Start: 06-14-2024 End: 07-12-2024 take 1 tablet by mouth once daily, then take 1 tablet by mouth once daily norethindrone (Micronor) 0.35 MG tablet Indications: 6 weeks follow-up Take 1 tablet (0.35 mg) by mouth Daily for 28 days Take 1 tablet by mouth daily 28 tablet 11 06/14/2024 Active VIT W/ FE BISG-FA PO (18 sources) take 1 tablet by mouth once daily VIT W/ FE BISG-FA PO Take 1 tablet by mouth Daily Active Completed/Discontinued Medications Medication Drug Class(es) Dates Sig (Normalized) Sig (Original) aspirin 81 mg delayed release oral tablet (15 sources) Platelet Aggregation Inhibitor, Nonsteroidal Anti-inflammatory Drug End: 06-14-2024 take 1 tablet by mouth once daily aspirin 81 MG EC tablet Take 1 tablet by mouth Daily 06/14/2024 Discontinued (Other) omeprazole 20 mg delayed release oral capsule (16 sources) Proton Pump Inhibitor Start: 03-18-2024 End: 06-16-2024 take 1 capsule by mouth before mealtime omeprazole (PriLOSEC) [address] capsule Indications: Gastroesophageal Reflux Disease , Heartburn Take 1 capsule (20 mg) by mouth in the morning. Take before meals. Do not crush or chew.. 90 capsule 03/18/2024 06/14/2024 Discontinued (Other) sodium chloride 0.111 meq/ml nasal solution (16 sources) Start: 10-31-2023 End: 10-30-2024 sodium chloride (Jacumba) 0.65 % nasal spray Indications: Nasal congestion Administer 1 spray into each nostril if needed for congestion 30 mL 10/31/2023 06/14/2024 Discontinued (Other) Problems Active Problems Problem Classification Problem Date Documented Date Episodic/Chronic Abdominal pain (3 sources) Epigastric pain 08-23-2020 Episodic Anxiety disorders (1 source) Anxiety; Translations: [Anxiety disorder, unspecified] 11-03-2024 Chronic Biliary tract disease (3 sources) Biliary dyskinesia [...] risk pregnancies, second trimester] Onset: 12-30-2023 Episodic Other and delivery including normal (10 sources) care status; Translations: [Encounter for routine follow-up] 06-14-2024 Episodic Thyroid disorders (3 sources) Hyperthyroidism 07-07-2010 Chronic Unclassified (3 sources) Exposure to 2019 novel coronavirus 07-12-2020 Unclassified (3 sources) Patient encounter status 08-23-2020 Past or Other Problems Problem Classification Problem Date Documented Da te Episodic/Chronic Other complications of ; puerperium affecting management of mother (19 sources) Abnormality of heart; Translations: [ ventricular septal defect affecting antepartum care of mother] Onset: 04-07-2024 04-07-2024 Episodic Other complications of (19 sources) Heartburn; Translations: [Other specified related conditions, unspecified trimester] Onset: 01-26-2024 Resolved: 05-03-2024 06-09-2024 Episodic Results Test Name Value Interpretation Reference Range Facility ALL CBC WITH AUTO DIFFon BASOPHILS ABSOLUTE AUTO 0.1 [facility] Basophils/100 WBC (Bld) 0.5 % 0.2 - 2.0 % [facility] Eosinophils/100 WBC (Bld) 0.7 % Low 0.9 - 7.0 % [facility] Erythrocyte distribution width (RBC) [Ratio] 12.3 % 11.0 - 15.0 % [facility] Hematocrit (Bld) [Volume fraction] 36.7 % 36.0 - 48.0 % [facility] Hemoglobin (Bld) [Mass/Vol] 12.6 g/dL 12.0 - 16.0 g/dL [facility] IMMATURE GRANULOCYTES ABS AUTO 0.30 High [facility] Immature granulocytes/100 WBC (Bld) 2.3 % High 0.0 - 0.5 % [facility] Interpretation and review of laboratory results Abnormal [facility] LYMPHOCYTES ABSOLUTE AUTO 2.2 [facility] Lymphocytes/100 WBC (Bld) 16.3 % Low 20.5 - 60.0 % [facility] MCH (RBC) [Entitic mass] 33.1 pg 26.7 - 34.0 pg [facility] MCHC (RBC) [Mass/Vol] 34.3 g/dL 29.9 - 35.2 g/dL [facility] MCV (RBC) [Entitic vol] 96.3 fL 81.0 - 99.0 fL [facility] MONOCYTES ABSOLUTE AUTO 0.8 [facility] Monocytes/100 WBC (Bld) 6.2 % 1.7 - 12.0 % [facility] NEUTROPHILS ABSOLUTE AUTO 9.9 High [facility] Neutrophils/100 WBC (Bld) 74.0 % 43.0 - 75.0 % [facility] Platelet mean volume (Bld) [Entitic vol] 9.6 fL 9.5 - 13.5 fL [facility] TBH EO # 0.1 [facility] PLT 249 [facility] RBC 3.81 Low [facility] WBC 13.3 High [facility] WITH PLATELET NO DI FFERENTIALon 05-03-2024 Erythrocyte distribution width (RBC) [Ratio] 12.3 % 11.0 - 15.0 % [facility] Hematocrit (Bld) [Volume fraction] 35.9 % Low 36.0 - 48.0 % [facility] Hemoglobin (Bld) [Mass/Vol] 12.2 g/dL 12.0 - 16.0 g/dL [facility] Interpretation and review of laboratory results Abnormal [facility] MCH (RBC) [Entitic mass] 32.8 pg 26.7 - 34.0 pg [facility] MCHC (RBC) [Mass/Vol] 34.0 g/dL 29.9 - 35.2 g/dL [facility] MCV (RBC) [Entitic vol] 96.5 fL 81.0 - 99.0 fL [facility] Platelet mean volume (Bld) [Entitic vol] 10.1 fL 9.5 - 13.5 fL [facility] 3.72 Low [facility] WBC 9.0 [facility] Urinalysis macro (dipstick) panel (U)on 04-29-2024 Bilirubin, UA Negative Negative - 4(70) +++ mg/dL [facility] Blood, UA Negative Negative - 50 Ra/mcL [facility] Clarity, UA Clear [facility] Color, UA Yellow [facility] Glucose, UA Negative Negative - 1999(110) ++++ mg/dL [facility] Interpretation and review of laboratory results Abnormal [facility] Ketones, UA Positive Negative - 160(16) ++++ mg/dL [facility] Comment on above: trace Leukocytes, UA Negative Negative - 500+++ Gaurav/mcL [facility] Nitrite, UA Negative Negative - Positive [facility] pH, UA 5.5 5 - 9 [facility] Protein, UA Negative Negative - 1999(20) ++++ mg/dL [facility] Spec Grav, UA 1.025 1 - 1.03 [facility] Urobilinogen, UA 0.2 0.2 - 12 mg/dL [facility] Urinalysis macro (dipstick) panel (U)on 04-22-2024 Bilirubin, UA Negative Negative - 4(70) +++ mg/dL [facility] Blood, UA Negative Negative - 50 Ra/mcL [facility] Clarity, UA Clear [facility] Color, UA Yellow [facility] Glucose, UA Negative Negative - 1999(110) ++++ mg/dL [facility] Interpretation and review of laboratory results Abnormal [facility] Ketones, UA Positive Negative - 160(16) ++++ mg/dL [facility] Comment on above: trace Leukocytes, UA Trace Negative - 500+++ Gaurav/mcL [facility] Nitrite, UA Negative Negative - Positive [facility] pH, UA 7.0 5 - 9 [facility] Protein, UA Negative Negative - 1999(20) ++++ mg/dL [facility] Spec Grav, UA 1.025 1 - 1.03 [facility] Urobilinogen, UA 0.2 0.2 - 12 mg/dL [facility] Urinalysis macro (dipstick) panel (U)on 04-15-2024 Bilirubin, UA Negative Negative - 4(70) +++ mg/dL [facility] Blood, UA Negative Negative - 50 Ra/mcL [facility] Clarity, UA Clear [facility] Color, UA Yellow [facility] Glucose, UA Negative Negative - 1999(110) ++++ mg/dL [facility] Interpretation and review of laboratory results Abnormal [facility] Ketones, UA Positive Negative - 160(16) ++++ mg/dL [facility] Leukocytes, UA Few Negative - 500+++ Gaurav/mcL [facility] Nitrite, UA Negative Negative - Positive [facility] pH, UA 7.5 5 - 9 [facility] Protein, UA Negative Negative - 1999(20) ++++ mg/dL [facility] Spec Grav, UA 1.025 1 - 1.03 [facility] Urobilinogen, UA 1.0 0.2 - 12 mg/dL [facility] Urinalysis macro (dipstick) panel (U)on 04-08-2024 Bilirubin, UA Negative Negative - 4(70) +++ mg/dL [facility] Blood, UA Negative Negative - 50 Ra/mcL [facility] Healthcare Clarity, UA Clear [facility] Color, UA Yellow [facility] Glucose, UA Negative Negative - 1999(110) ++++ mg/dL [facility] Interpretation and review of laboratory results Abnormal [facility] Ketones, UA Positive Negative - 160(16) ++++ mg/dL [facility] Leukocytes, UA Positive Negative - 500+++ Gaurav/mcL [facility] Nitrite, UA Negative Negative - Positive [facility] pH, UA 7.5 5 - 9 [facility] Protein, UA Positive Negative - 1999(20) ++++ mg/dL [facility] Spec Grav, UA 1.025 1 - 1.03 [facility] Urobilinogen, UA 1.0 0.2 - 12 mg/dL [facility] Miscellaneouson 12-31-2023 Send Out Report [employer], FED EX [phone] Normal [facility] Comment on above: Performed By: #### C MIS #### [facility] [employer] [address] [place] [address] Social Work Case Manager: Gonzalo Matthews MD HCG ( test) Ql [...] UA Negative Negative - 1999(110) ++++ mg/dL [facility] Interpretation and review of laboratory results Abnormal [facility] Ketones, UA Negative Negative - 160(16) ++++ mg/dL [facility] Leukocytes, UA Trace Negative - 500+++ Gaurav/mcL [facility] Nitrite, UA Negative Negative - Positive [facility] pH, UA 6.0 5 - 9 [facility] Protein, UA Negative Negative - 1999(20) ++++ mg/dL [facility] Spec Grav, UA 1.030 1 - 1.03 [facility] Urobilinogen, UA 0.2 0.2 - 12 mg/dL [facility] DHEAon 05-05-2023 DHEA [Mass/Vol] 118 ng/dL Invalid Interpretation Code [id number] [facility] Comment on above: Result Comment: This test was developed and its performance characteristics determined by [facility]. It has not been cleared or approved by the Food and Drug Administration. Performed at: [address] [id number] MD Garry Montenegro Performed By: #### 1 [id number], 9034105, 1431415, 45000695, 5797002, 351415133, 72726452, 0405572 ####[facility] [address] [place] [address] DHEASon 05-05-2023 DHEA-S [Mass/Vol] 91.7 microgram/dL Invalid Interpretation Code 57.3-279.2 [facility] Comment on above: Result Comment: Perf ormed at: [address] [id number] PhD Salbador Douglass Performed By: #### 1 [id number], 9674577, 3906078, 55210116, 8533774, 664724186, 51351674, 7158371 #### [facility] [address] [place] [address] FSH and LHon 05-05-2023 Follitropin Qn 5.6 m[IU]/mL Invalid Interpretation Code [facility] Comment on above: Result Comment: Adul t Female: Follicular phase 3.5 - 12.5 Ovulation phase 4.7 - 21.5 Luteal phase 1.7 - 7.7 Postmenopausal 25.8 - 134.8 Performed at: [address] [id number] PhD Salbador Douglass Performed By: #### 1 7858677, 5603398, 3499103, 75906198, 7224505, 670811301, 98713857, 2098256 #### [facility] [address] [place] [address] Lutropin Qn 10.4 m[IU]/mL Invalid Interpretation Code [facility] Comment on above: Result Comment: Adul t Female: Follicular phase 2.4 - 12.6 Ovulation phase 14.0 - 95.6 Luteal phase 1.0 - 11.4 Postmenopausal 7.7 - 58.5 Performed By: #### 1 3725341, 1347722, 3235574, 85276460, 8827943, 455168690, 39020591, 4291013 #### [facility] [address] [place] [address] Auto Diffon 04-29-2023 Basophils/100 WBC (Bld) 0.8 % Normal 0.0-2.0 [facility] Comment on above: Order Comment: Order Added by Discern Expert. Performed By: #### 1 6661984, 3543542, 0720551, 69479398, 0591918, 009417237, 74164599, 7803317 #### [facility] [address] [place] [address] Basophils/Leukocytes Auto (Bld) [Pure # fraction] 0.0 E9/L Normal 0.0-0.2 [facility] Comment on above: Order Comment: Order Added by Discern Expert. Performed By: #### 1 8855482, 7727077, 7158708, 09133893, 8752152, 363061339, 92409410, 1196808 #### [facility] [address] [place] [address] Eosinophils/100 WBC (Bld) 2.3 % Normal 0.0-8.0 [facility] Comment on above: Order Comment: Order Added by Discern Expert. Performed By: #### 1 1351301, 3780739, 7193225, 39424224, 1026213, 343182302, 25279017, 2351928 #### [facility] [address] [place] [address] Eosinophils/Leukocyte s Auto (Bld) [Pure # fraction] 0.1 E9/L Normal 0.0-0.5 [facility] Comment on above: Order Comment: Order Added by Discern Expert. Performed By: #### 1 [id number], 1513497, 4422827, 71208517, 3890387, 234244434, 97378170, 8250625 #### [facility] [address] [place] [address] Lymphocytes/100 WBC (Bld) 42.1 % Normal 14.0-50.0 [facility] Comment on above: Order Comment: Order Added by Discern Expert. Performed By: #### 1 1427758, 0866303, 6734092, 40917667, 7928127, 239251780, 47114446, 0458284 #### [facility] [address] [place] [address] Lymphocytes/Leukocyte s Auto (Bld) [Pure # fraction] 2.0 E9/L Normal 1.0-4.0 [facility] Comment on above: Order Comment: Order Added by Francisco Expert. Performed By: #### 1 8174021, 6322870, 5618526, 70755946, 4180141, 678855924, 55650689, 1496467 #### [facility] [address] [place] [address] Monocytes/100 WBC (Bld) 7.7 % Normal 4.0-14.0 [facility] Comment on above: Order Comment: Order Added by Francisco Expert. Performed By: #### 1 8546277, 1243535, 5568746, 38859417, 8777536, 086082733, 97981835, 7295229 #### [facility] [address] [place] [address] Monocytes/Leukocytes Auto (Bld) [Pure # fraction] 0.4 E9/L Normal 0.2-1.0 [facility] Comment on above: Order Comment: Order Added by Francisco Expert. Performed By: #### 1 6460872, 6213585, 7369580, 45480347, 6847624, 463573297, 23423300, 7143835 #### [facility] [address] [place] [address] Neutrophils/100 WBC (Bld) 47.1 % Normal 36.0-75.0 [facility] Comment on above: Order Comment: Order Added by Francisco Expert. Performed By: #### 1 0548132, 1735380, 9354660, 22000751, 5871204, 738418282, 27433098, 9476713 #### [facility] [address] [place] [address] Neutrophils/Leukocyte s Auto (Bld) [Pure # fraction] 2.3 E9/L Normal 2.0-7.5 [facility] Comment on above: Order Comment: Order Added by Discern Expert. Performed By: #### 1 2459359, 1118734, 7086370, 73640862, 9774506, 337400557, 93199889, 3016274 #### [facility] [address] [place] [address] BhCG Quanton 04-29-2023 HCG.beta subunit Qn m[IU]/mL Normal 1-3 [facility] Comment on above: Result Comment: GEST ATIONAL AGE HCG RANGE (mIU/mL) NON- <1-3 0.2-1 WEEKS 5-50 1-2 WEEKS 50-500 2-3 WEEKS 100-5,000 3-4 WEEKS 500-10,000 4-5 WEEKS 1,000-50,000 5-6 WEEKS 10,000-100,000 6-8 WEEKS 15,000-200,000 8-12 WEEKS 10,000-100,000 Performed By: #### 2 305595 ####[facility] [address] [place] [address] CBC w/ Auto Diffon 3 Erythrocyte distribution width (RBC) [Ratio] 12.5 % Normal 10.9-14.2 [facility] Comment on above: Performed By: #### 1 2876967, 1608104, 7421567, 70332658, 3498845, 023421191, 52357718, 2111451 #### [facility] [address] [place] [address] Hematocrit (Bld) [Volume fraction] 39.3 % Normal 34.0-46.0 [facility] Comment on above: Performed By: #### 1 6872900, 4120115, 6327499, 34878449, 8246884, 073468703, 41147645, 7283542 #### [facility] [address] [place] [address] Hemoglobin (Bld) [Mass/Vol] 13.3 g/dL Normal 12.0-16.0 [facility] Comment on above: Performed By: #### 1 8061869, 5346315, 1455499, 03130486, 5042006, 503899096, 89273748, 8178447 #### [facility] [address] [place] [address] MCH (RBC) [Entitic mass] 32.3 pg Normal 27.0-34.0 [facility] Comment on above: Performed By: #### 1 0414683, 2866185, 7435206, 84018498, 7541379, 259497200, 17885930, 9468012 #### [facility] [address] [place] [address] MCHC (RBC) [Mass/Vol] 33.9 g/dL Normal 31.4-36.0 [facility] Comment on above: Performed By: #### 1 5101797, 7345115, 0120856, 70011357, 3575949, 993116505, 87059197, 3016734 #### [facility] [address] [place] [address] MCV (RBC) [Entitic vol] 95.2 fL Normal 80.0-100.0 [facility] Comment on above: Performed By: #### 1 8748042, 6882301, 1555525, 61453596, 9128700, 594021758, 98314718, 5777270 #### [facility] [address] [place] [address] Platelet mean volume (Bld) [Entitic vol] 9.0 fL Normal 6.4-10.8 [facility] Comment on above: Performed By: #### 1 2803200, 2457165, 1977504, 87147622, 1286536, 167405482, 89749671, 2572151 #### [facility] [address] [place] [address] Platelets (Bld) [#/Vol] 172.0 E9/L Normal 150.0-500.0 [facility] Comment on above: Performed By: #### 1 1827033, 5017831, 9908069, 69558378, 4672754, 551660042, 01067002, 1187863 #### [facility] [address] [place] [address] RBC (Bld) [#/Vol] 4.1 E12/L Low 4.3-5.9 [facility] Comment on above: Performed By: #### 1 6616279, 5961285, 7229480, 67239872, 9550877, 148194581, 82808464, 0735752 #### [facility] [address] [place] [address] WBC corrected for nucl RBC Auto (Bld) [#/Vol] 4.8 E9/L Normal 4.0-11.0 [facility] Comment on above: Performed By: #### 1 6197028, 8835775, 2370081, 86929979, 4296834, 016309121, 08996152, 1844745 #### [facility] [address] [place] [address] CHEMISTRYOrdered By: SYSTEM SYSTEM on 04-29-2023 Free [...] Treatmenton 04-18 Consent for Treatment [id number]:127 Normal [facility] Free T4on 04-29-2023 Free T4 [Mass/Vol] 0.89 ng/dL Normal 0.58-1.64 [facility] Comment on above: Performed By: #### 1 5003441, 8097945, 7073101, 56752082, 8203831, 033736282, 60928158, 3283742 #### [facility] [address] [place] [address] HEMATOLOGYOrdered By: SYSTEM SYSTEM on 04-29-2023 Basophils/100 [...] Normal 4.0 - 11.0 E9/L [facility] HemeAutoSS [id number] 04-29-2023 HbA1c (Bld) [Mass fraction] 4.4 % Normal <=5.9 [facility] Comment on above: Performed By: #### 1 3244348, 2748185, 4142139, 34462686, 6807110, 170701239, 38249324, 4503293 #### [facility] [address] [place] [address] Physician Orderon 04-29-2023 Physician Order [id number]:127 Normal [facility] TSHon 04-29-2023 TSH Qn 2.70 m[IU]/L Normal 0.34-5.60 [facility] Comment on above: Performed By: #### 1 9676835, 5962214, 4161322, 27618328, 8770964, 765424653, 32690028, 3734005 #### [facility] [address] [place] [address] BhCG Quanton 04-22-2023 HCG.beta subunit Qn 2 m[IU]/mL Normal 1-3 [facility] Comment on above: Result Comment: GEST ATIONAL AGE HCG RANGE (mIU/mL) NON- <1-3 0.2-1 WEEKS 5-50 1-2 WEEKS 50-500 2-3 WEEKS 100-5,000 3-4 WEEKS 500-10,000 4-5 WEEKS 1,000-50,000 5-6 WEEKS 10,000-100,000 6-8 WEEKS 15,000-200,000 8-12 WEEKS 10,000-100,000 Performed By: #### 2 609482 #### [facility] [address] [place] [address] CHEMISTRYOrdered By: SYSTEM SYSTEM on 04-22-2023 HCG.beta subunit Qn 2 m[IU]/mL Normal 1 - 3 mIU/mL FTM C Remisol Consent for Treatmenton 0 Consent for Treatment [id number]:127 Normal [facility] Physician Orderon 04-22-2023 Physician Order [id number]:127 Normal [facility] Ambulatory Visit Summaryon 0 10-07-2022 Ambulatory Visit [...] longer receiving treatment for. Appendectomy hyperthyroid Normal [facility] Family Medicine Office/Clini c Noteon 10-07-2022 Family [...] bedtime), # 90 tab(s), Refills(s) 1, Pharmacy: [facility]/pharmacy #[id number], 170, cm, 08/23/20 8:37:00 EST, Height/Length Dosing, 65.1, kg, 08/23/20 8:37:00 EST, Weight Dosing pantoprazole, 40 mg = 1 tab(s), Oral, Daily, # 90 tab(s), Refills(s) 1, Pharmacy: [facility]/pharmacy #[id number], 170, cm, 08/23/20 8:37:00 EST, Height/Length Dosing, 65.1, kg, 08/23/20 8:37:00 EST, Weight Dosing Follow-up With When Contact Information Len YEPEZ DO, FAM In 1 [address] [place] [address]- Additional Instructions: Problem List/Past Medical History Ongoing [...] inactivated - Not Given Patient Refuses Normal [facility] Comment on above: Result Comment: Elec tronically Signed By: Len YEPEZ DO\.br\Date and Time Signed: 10/07/22 17:12 EST Vital Signs Date Time Vital Sign Value Performing Clinician Facility 12-01-2024 15:19-0400 Body mass index (BMI) [Ratio] 24.34 kg/m2 [employer] Work Phone: [facility] 12-01-2024 15:19-0400 Body weight 74.75 kg [employer] Work Phone: [facility] 12-01-2024 15:19-0400 Diastolic blood pressure 68 mm[Hg] Fred Eliu DO Work Phone: [facility] 12-01-2024 15:19-0400 Systolic blood pressure 114 mm[Hg] Fred Eliu DO Work Phone: [facility] 11-03-2024 16:14-0400 Body height 167.64 cm [facility] 11-03-2024 16:14-0400 Body mass index (BMI) [Ratio] 27.9 kg/m2 [facility] 11-03-2024 16:14-0400 Body temperature 98 [degF] [facility] 11-03-2024 16:14-0400 Body weight 78.47 kg [facility] 11-03-2024 16:14-0400 Diastolic blood pressure 72 mm[Hg] [facility] 11-03-2024 16:14-0400 Heart rate 83 /min [facility] 11-03-2024 16:14-0400 Respiratory rate 20 /min [facility] 11-03-2024 16:14-0400 SaO2% (BldA) [Mass fraction] 99 % [facility] 11-03-2024 16:14-0400 Systolic blood pressure 116 mm[Hg] [facility] 06-14-2024 09:42-0400 Body height 175.3 cm [employer] Work Phone: [facility] 06-14-2024 09:42-0400 Body mass index (BMI) [Ratio] 27.47 kg/m2 Fred Eliu DO Work Phone: [facility] 06-14-2024 09:42-0400 Body weight 84.37 kg Fred Eliu DO Work Phone: [facility] 06-14-2024 09:42-0400 Diastolic blood pressure 76 mm[Hg] Fred Eliu DO Work Phone: [facility] 06-14-2024 09:42-0400 Systolic blood pressure 120 mm[Hg] Fred Eliu DO Work Phone: [facility] 04-29-2024 08:38-0400 Body mass index (BMI) [Ratio] 30.64 kg/m2 Fred Eliu DO Work Phone: [facility] 04-29-2024 08:38-0400 Body weight 94.12 kg Fred Eliu DO Work Phone: [facility] 04-29-2024 08:38-0400 Diastolic blood pressure 80 mm[Hg] Fred Eliu DO Work Phone: [facility] 04-29-2024 08:38-0400 Systolic blood pressure 122 mm[Hg] Fred Eliu DO Work Phone: [facility] 04-22-2024 08:56-0400 Body mass index (BMI) [Ratio] 30.97 kg/m2 Fred Eliu DO Work Phone: [facility] 04-22-2024 08:56-0400 Body weight 95.14 kg Fred Eliu DO Work Phone: [facility] 04-22-2024 08:56-0400 Diastolic blood pressure 76 mm[Hg] Fred Eliu DO Work Phone: [facility] 04-22-2024 08:56-0400 Systolic blood pressure 114 mm[Hg] Fred Eliu DO Work Phone: [facility] 04-15-2024 11:58-0400 Body mass index (BMI) [Ratio] 30.57 kg/m2 Fred Eliu DO Work Phone: [facility] 04-15-2024 11:58-0400 Body weight 93.89 kg Fred Eliu DO Work Phone: [facility] 04-15-2024 11:58-0400 Diastolic blood pressure 74 mm[Hg] Fred Eliu DO Work Phone: [facility] 04-15-2024 11:58-0400 Systolic blood pressure 120 mm[Hg] Fred Eliu DO Work Phone: [facility] 04-08-2024 11:17-0400 Body mass index (BMI) [Ratio] 30.24 kg/m2 Fred Eliu DO Work Phone: [facility] 04-08-2024 11:17-0400 Body weight 92.9 kg Fred Eliu DO Work Phone: [facility] 04-08-2024 11:17-0400 Diastolic blood pressure 74 mm[Hg] Fred Eliu DO Work Phone: [facility] 04-08-2024 11:17-0400 Systolic blood pressure 122 mm[Hg] Fred Eliu DO Work Phone: [facility] 10-02-2023 14:02-0500 Body mass index (BMI) [Ratio] 24.22 kg/m2 [facility] Nurse [facility] 10-02-2023 14:02-0500 Body weight 74.39 kg [facility] Nurse [facility] 10-02-2023 14:02-0500 Diastolic blood pressure 70 mm[Hg] [facility] Nurse [facility] 10-02-2023 14:02-0500 Systolic blood pressure 118 mm[Hg] [facility] Nurse [facility] 10-07-2022 16:18-0500 Blood Pressure Location Len YEPEZ [facility] 10-07-2022 16:18-0500 Body temperature 96.98 [degF] Len YEPEZ [facility] 10-07-2022 16:18-0500 Diastolic blood pressure 68 mm[Hg] Len YEPEZ [facility] 10-07-2022 16:18-0500 Heart rate 66 /min Len YEPEZ [facility] 10-07-2022 16:18-0500 SaO2% (BldA) [Mass fraction] 99 % Len YEPEZ [facility] 10-07-2022 16:18-0500 Systolic blood pressure 114 mm[Hg] Len YEPEZ [facility] Encounters Encounter Date Encounter Type Care Provider Facility Start: 12-01-2024 End: 12-01-2024 Patient encounter procedure Fred Eliu DO Work Phone: [facility] Work Phone: Start: 12-01-2024 End: 12-01-2024 Periodic preventive med est patient 18-39 yrs Fred Eliu DO Work Phone: [facility] Comment on above: Well woman exam with routine gynecological exam Start: 12-01-2024 End: 12-01-2024 Bamboo flowsheet Fred Eliu DO Work Phone: [facility] Start: 12-01-2024 End: 12-01-2024 Bamboo flowsheet Fred Eliu DO Work Phone: [facility] Start: 11-03-2024 End: 11-03-2024 ambulatory [facility] Work Phone: Start: 11-03-2024 End: 11-03-2024 Patient encounter procedure [facility] [place] Work Phone: Start: 06-14-2024 End: 06-14-2024 ambulatory FRED ELIU Not Available Start: 06-14-2024 End: 06-14-2024 care visit Fred Eliu DO Work Phone: [facility] Comment on above: 6 weeks f ollow-up Start: 05-04-2024 End: 05-04-2024 Clinisync Result Encounter Fred Eliu DO Work Phone: [facility] Unsolicited Start: 05-04-2024 End: 05-04-2024 Clinisync Result Encounter Fred Eliu DO Work Phone: [facility] Unsolic[facility] Start: 05-03-2024 End: 05-03-2024 Clinisync Result Encounter Fred Eliu DO Work Phone: [facility] Unsolicited Start: 05-03-2024 End: 05-03-2024 Clinisync Result Encounter Fred Eliu DO Work Phone: [facility] Unsolicited Start: 04-29-2024 End: 04-29-2024 Bamboo flowsheet Fred Eliu DO Work Phone: [facility] Start: 04-29-2024 End: 04-29-2024 Bamboo flowsheet Fred Eliu DO Work Phone: [facility] Start: 04-29-2024 End: 04-29-2024 flow sheet Fred Eliu DO Work Phone: [facility] Comment on above: Third trimester preg derek Start: 04-29-2024 End: 04-29-2024 ambulatory FRED ELIU Not Available Start: 04-22-2024 End: 04-22-2024 Bamboo flowsheet Fred Eliu DO Work Phone: [facility] Start: 04-22-2024 End: 04-22-2024 Bamboo flowsheet Fred Eliu DO Work Phone: [facility] Start: 04-22-2024 End: 04-22-2024 flow sheet Fred Eliu DO Work Phone: [facility] Comment on above: Third trimester preg derek Start: 04-22-2024 End: 04-22-2024 ambulatory FRED ELIU Not Available Start: 04-15-2024 End: 04-15-2024 Bamboo flowsheet Fred Eliu DO Work Phone: [facility] Start: 04-15-2024 End: 04-15-2024 Bamboo flowsheet Fred Eliu DO Work Phone: [facility] Start: 04-15-2024 End: 04-15-2024 ambulatory FRED ELIU Not Available Start: 04-15-2024 End: 04-15-2024 flow sheet Fred Eliu DO Work Phone: [facility] Comment on above: Third trimester preg derek Start: 04-08-2024 End: 04-08-2024 Bamboo flowsheet Fred Eliu DO Work Phone: [facility] Start: 04-08-2024 End: 04-08-2024 Bamboo flowsheet Fred Eliu DO Work Phone: [facility] Start: 04-08-2024 End: 04-08-2024 ambulatory FRED ELIU Not Available Start: 04-08-2024 End: 04-08-2024 flow sheet Fred Eliu DO Work Phone: [facility] Comment on above: Third trimester preg derek Start: 04-01-2024 End: 04-01-2024 ambulatory FRED ELIU Not Available Start: 03-17-2024 End: 03-17-2024 ambulatory MADIHA CARL Not Available Start: 03-01-2024 End: 03-01-2024 ambulatory MADIHA CARL Not Available Start: 02-16-2024 End: 02-16-2024 ambulatory FRED ELIU Not Available Start: 01-26-2024 End: 01-26-2024 ambulatory FRED ELIU Not Available Start: 12-30-2023 End: 12-30-2023 ambulatory ОЛЬГА [facility] Start: 12-29-2023 End: 12-29-2023 ambulatory FRED ELIU Not Available Start: 12-01-2023 End: 12-01-2023 ambulatory FRED ELIU Not Available Start: 10-30-2023 End: 10-30-2023 ambulatory FRED ELIU Not Available Start: 10-02-2023 End: 10-02-2023 ambulatory FRED LEIU Not Available Start: 10-02-2023 End: 10-02-2023 Office outpatient visit 5 minutes [facility] Eliu Nurse [facility] Comment on above: GA: 8w4d Start: 04-29-2023 End: 04-30-2023 ambulatory Fred R ELIU Facility:[facility] Start: 04-29-2023 End: 04-29-2023 Patient encounter procedure Fred R ELIU [facility] Start: 04-22-2023 End: 04-23-2023 ambulatory Calin Ordaz Facility:[facility] Start: 04-22-2023 End: 04-22-2023 Patient encounter procedure Calin Ordaz [facility] Start: 10-07-2022 End: 10-08-2022 ambulatory Len YEPEZ Facility:[facility] Start: 10-07-2022 End: 10-07-2022 Patient encounter procedure Len YEPEZ [facility] Start: 10-07-2022 End: 10-07-2022 Well adult monitoring check done Len YEPEZ [facility] Procedures Date Procedure Procedure Detail Performing Clinician Start: 05-04-2024 ALL CBC WITH AUTO DIFF Fred Eliu DO Work Phone: Start: 05-03-2024 [facility] CBC WITH PLATEL ET NO DIFFERENTIAL Fred Eliu DO Work Phone: Start: 04-29-2024 Urnls dip stick/tabl et rgnt non-auto w/o micrscp Fred Eliu DO Work Phone: Start: 04-22-2024 Urnls dip stick/tabl et rgnt non-auto w/o micrscp Fred Eliu DO Work Phone: Start: 04-15-2024 Urnls dip stick/tabl et rgnt non-auto w/o micrscp Madiha MCDANIEL Work Phone: Start: 04-08-2024 Urnls dip stick/tabl et rgnt non-auto w/o micrscp Fred Eliu DO Work Phone: Start: 12-01-2023 Microscopic observat ion [Identifier] in Cervix by Cyto stain Fred Eliu DO Work Phone: Start: 10-02-2023 Urnls dip stick/tabl et rgnt [...] Treatment Date Care Activity Detail Author Start: 11-30-2028 Screening for malign ant neoplasm of cervix [facility] Start: 12-05-2025 End: 12-05-2025 Patient encounter procedure 12/05/2025 3:00 PM EDT Office Visit [facility] [address] [id number] Fred Nowak, DO [address] [place], [place] [address] [facility] Start: 04-18-2025 Influenza vaccination Influenz a Vaccine (Season Ended) [facility] Start: 12-01-2024 End: 12-01-2024 Patient encounter procedure 12/01/2024 3:00 PM EDT Office Visit [facility] [address] [place] [phone] Fred Nowak, DO [address] [place], [place] [address] [facility] Start: 04-29-2024 End: 04-29-2024 Patient encounter procedure [facility] Comment on above: Arrived Start: 04-22-2024 End: 04-22-2024 Patient encounter procedure [facility] Comment on above: Arrived Start: 04-18-2024 Influenza vaccination Influenza Vacc ine (#1) [facility] Start: 04-15-2024 End: 04-15-2025 Strep B DNA probe, amplification Strep B DNA probe, amplification Lab Routine Third trimester Expected: 04/15/2024 (Approximate), Expires: 04/15/2025 [facility] Work Phone: Comment on above: Expected: 04/15/2024 (Approximate), Expires: 04/15/2025 Start: 04-15-2024 End: 04-15-2024 Patient encounter procedure 04/15/2024 11:30 AM EDT Routine [facility] [address] [place] [phone] Fred Nowak DO [address] [place] [address] [facility] Start: 10-02-2023 End: 10-02-2024 ABO/Rh ABO/Rh Lab Routine Missed menses Expected: 10/02/2023 (Approximate), Expires: 10/02/2024 [facility] Comment on above: Expected: 10/02/2023 (Approximate), Expires: 10/02/2024 Start: 10-02-2023 End: 10-02-2024 Blood type and Indirect antibody screen panel - Blood Type and screen Lab Routine Missed menses Expected: 10/02/2023 (Approximate), Expires: 10/02/2024 [facility] Work Phone: Comment on above: [...] Medical Center Comment on above: Ordered: 10/02/2023 Cytology Cervical or vaginal smear or scraping study Pap Smear Pathology and Cytology Routine Well woman exam with routine gynecological exam Ordered: 12/01/2024 [facility] Work Phone: Comment on above: Ordered: 12/01/2024 Hemoglobin A1c/Hemoglobin.total in Blood Hemoglobin A1c Lab [...] Medical Center Comment on above: Ordered: 10/02/2023 Human papilloma viru s DNA [Presence] in Unspecified specimen by Probe with amplification HPV DNA probe, amplified Microbiology Routine Well woman exam with routine gynecological exam Ordered: 12/01/2024 [facility] Comment on above: Ordered: 12/01/2024 Reagin Ab [Presence] in Serum by RPR [...] vaccine, unspecified formulation Len YEPEZ [facility] [place] Payers Date Payer Category Payer Unknown [employer] [id number] 2023-Present [address] [place] [address] [id number] 2023 Private Health Insurance 2023 Managed Care HMO (unspecified) [id number] 2023 Private Health Insurance [id number] 2021 Unknown [id number] 1987 Unknown [id number] 27 1987 Unknown [id number] [id number] 27 1987 Unknown [id number] [id number] 27 1987 Unknown [id number] [id number] 75 1987 Unknown [id number] [id number] 259 1987 Unknown [id number] [id number] 259 1987 Unknown [id number] 2.16.840.1.600815.3.579.2.1 259 1987 Unknown [id number] 2.16.840.1.760773.3.579.2.1 259 1987 Unknown [id number] [id number] 259 1987 Unknown [id number] 2.16.840.1.266938.3.579.2.1 259 1987 Unknown [id number] 2.16.840.1.499982.3.579.2.1 259 1987 Unknown [id number] 2.16.840.1.058039.3.579.2.1 259 1987 Unknown [id number] 2.16.840.1.983099.3.579.2.1 259 1987 Unknown [id number] 2.16.840.1.572586.3.579.2.1 259 1987 Unknown [id number] 2.16.840.1.447998.3.579.2.1 259 1987 Unknown [id number] 2.16.840.1.141546.3.579.2.1 259 1987 Unknown [id number] [id number] 259 1987 Unknown [id number] 259 Social History Date Type Detail Facility Start: 03-04-2019 End: 01-26-2024 Tobacco smoking status Never smoked tobacco (finding) [facility] Start: 01-26-2024 Sex Assigned At Female F [facility] Tobacco smoking stat [facility] Tobacco smoking consumption unknown [facility] Start: 08-17-2023 [facility] Start: 1985 Sex Assigned At Not on file [facility] Start: 01-26-2024 Tobacco use and exposure Smokeless tobacco non-user [facility] Start: 06-14-2024 End: 12-01-2024 Alcoholic beverage intake Ex-drinker (finding) [facility] Start: 01-26-2024 History of Social function [facility] Start: 10-07-2023 Alcohol Comment caffeine: 1 cu p coffee in the morning [facility] Start: 11-03-2024 Sex Female (finding) [facility] Start: 1985 Sex Assigned At Female F [facility] Functional Status Date Assessment Result Facility 10-07-2022 Functional Status N/A [facility] [place] Clinical Notes 09-24-2022 to 12-01-2024 Didi Blackwell, FLUID JET CUTTER OPERATOR - 12/01/2024 3:00 PM EDTSusaarian Bourne, FLUID JET CUTTER OPERATOR - 06/14/2024 9:10 AM EDTSusan Tayla, FLUID JET CUTTER OPERATOR - 04/29/2024 8:30 AM EDTSusan Tayla, FLUID JET CUTTER OPERATOR - 04/22/2024 8:40 AM EDT Note Date & Type Note Facility 12-01-2024 History of Presen t illness Narrative Reason for Appointment: Patient ID: Alysa William is a 39 y.o. female who presents for Well Women Visit Patient presents today for Annual Exam. MEDICATIONS Current Outpatient Medications Medication Instructions busPIRone (Buspar) 15 MG tablet norethindrone (MICRONOR) 0.35 mg, Oral, Daily, Take 1 tablet by mouth daily VIT W/ FE BISG-FA PO 1 tablet, Oral, Daily ALLERGIES Allergies Allergen Reactions Morphine Hives PROBLEMS Active Ambulatory Problems Diagnosis Date Noted ventricular septal defect affecting antepartum care of mother 04/07/2024 Resolved Ambulatory Problems Diagnosis Date Noted Heartburn during , antepartum 01/26/2024 Past Medical History: Diagnosis Date Migraines (CMS/HCC) Miscarriage 04/18/2023 HISTORY PAST MEDICAL HISTORY SOCIAL HISTORY Past Medical History: Diagnosis Date Migraines (CMS/HCC) Miscarriage 04/18/2023 Social History Tobacco Use Smoking status: Never Smokeless tobacco: Never Substance Use Topics Alcohol use: Not Currently Comment: caffeine: 1 cup coffee in the morning Drug use: Never FAMILY HISTORY Family History Problem Relation Name Age of Onset Heart disease Father Hal Kilo Diabetes Father Hal Kilo Seizures Father Hal Kilo Heart disease Maternal Grandmother Heart disease Maternal Grandfather Heart disease Paternal Grandmother Kim Kilo Diabetes Paternal Grandmother Kim Kilo Diabetes Paternal Grandfather Roger Kilo Heart disease Paternal Grandfather Roger Kilo Diabetes Sister Saul Boateng SURGICAL HISTORY Past Surgical History: Procedure Laterality Date APPENDECTOMY 2001 Appendix GALL BLADDER REVIEW OF SYSTEMS Review of Systems: Review of Systems Constitutional: Negative. HENT: Negative. Eyes: Negative. Respiratory: Negative. Cardiovascular: Negative. Gastrointestinal: Negative. Genitourinary: Negative. Musculoskeletal: Negative. Skin: Negative. Neurological: Negative. All other systems reviewed and are negative. Hematological: Negative. Endocrine: Negative. Allergic/Immunologic: Negative. OBJECTIVE Objective: Physical Exam Constitutional: Appearance: Normal appearance. She is well-developed. Genitourinary: Vulva normal. Breasts: Breasts are soft. Right: Normal. Left: Normal. Cardiovascular: Rate and Rhythm: Normal rate and regular rhythm. Pulmonary: Effort: Pulmonary effort is normal. Breath sounds: Normal breath sounds. Abdominal: General: Bowel sounds are normal. There is no distension. Palpations: Abdomen is soft. Tenderness: There is no abdominal tenderness. There is no guarding or rebound. Musculoskeletal: General: No swelling. Normal range of motion. Right lower leg: No edema. Left lower leg: No edema. Neurological: Mental Status: She is alert and oriented to person, place, and time. Skin: General: Skin is warm and dry. Psychiatric: Mood and Affect: Mood normal. Behavior: Behavior normal. Vitals and nursing note reviewed. Exam conducted with a flare stitcher present. Vitals: Estimated body mass index is 24.34 kg/m as calculated from the following: Height as of 06/14/24: 5' 9 . Weight as of this encounter: 164 lb 12.8 oz. BP: 114/68 No LMP recorded. ASSESSMENT & PLAN ICD-10-CM 1. Well woman exam with routine gynecological exam Z01.419 Pap Smear HPV DNA probe, amplified Annual Exam: Patient presents today for an annual exam. Patient states she is doing well and has no complaints. Pap was obtained without difficulty. Orders Placed This Encounter Procedures HPV DNA probe, amplified Follow Up: Patient is to return in one year for annual unless needed otherwise. Documented by Didi Blackwell LPN on behalf of: Fred Nowak DO documented in this encounter [facility] 06-14-2024 History of Presen t illness Narrative Reason for Appointment: Patient ID: Alysa William is a 38 y.o. female who presents for Care Patient presents today for 6 week . MEDICATIONS Current Outpatient Medications Medication Instructions busPIRone (Buspar) 15 MG tablet VIT W/ FE BISG-FA PO 1 tablet, Oral, Daily ALLERGIES Allergies Allergen Reactions Morphine Hives PROBLEMS Active Ambulatory Problems Diagnosis Date Noted ventricular septal defect affecting antepartum care of mother 04/07/2024 Resolved Ambulatory Problems Diagnosis Date Noted Heartburn during , antepartum 01/26/2024 Past Medical History: Diagnosis Date Migraines (CMS/HCC) Miscarriage 04/18/2023 HISTORY PAST MEDICAL HISTORY SOCIAL HISTORY Past Medical History: Diagnosis Date Migraines (CMS/HCC) Miscarriage 04/18/2023 Social History Tobacco Use Smoking status: Never Smokeless tobacco: Never Substance Use Topics Alcohol use: Not Currently Comment: caffeine: 1 cup coffee in the morning Drug use: Never FAMILY HISTORY Family History Problem Relation Name Age of Onset Heart disease Father Hal Boateng Diabetes Father Hal Boateng Seizures Father Hal Boateng Heart disease Maternal Grandmother Heart disease Maternal Grandfather Heart disease Paternal Grandmother Kim Boateng Diabetes Paternal Grandmother Kim Boateng Diabetes Paternal Grandfather Roger Boateng Heart disease Paternal Grandfather Roger Boateng Diabetes Sister Saul Boateng SURGICAL HISTORY Past Surgical History: Procedure Laterality Date APPENDECTOMY 2002 Appendix GALL BLADDER REVIEW OF SYSTEMS Review of Systems: Review of Systems All other systems reviewed and are negative. OBJECTIVE Objective: Physical Exam Constitutional: Appearance: Normal appearance. She is well-developed. Cardiovascular: Rate and Rhythm: Normal rate and regular rhythm. Pulmonary: Effort: Pulmonary effort is normal. Breath sounds: Normal breath sounds. Abdominal: General: Bowel sounds are normal. There is no distension. Palpations: Abdomen is soft. Tenderness: There is no abdominal tenderness. There is no guarding or rebound. Musculoskeletal: General: No swelling. Normal range of motion. Right lower leg: No edema. Left lower leg: No edema. Neurological: Mental Status: She is alert and oriented to person, place, and time. Skin: General: Skin is warm and dry. Psychiatric: Mood and Affect: Mood normal. Behavior: Behavior normal. Vitals and nursing note reviewed. Exam conducted with a flare stitcher present. Vitals: Estimated body mass index is 27.47 kg/m as calculated from the following: Height as of this encounter: 5' 9 . Weight as of this encounter: 186 lb. BP: 120/76 No LMP recorded. ASSESSMENT & PLAN ICD-10-CM 1. 6 weeks follow-up Z39.2 Post Follow Up: Patient is doing well but has complaints of breast pain. Patient presents today for 6 week visit. Patient is s/p Vaginal delivery. Patient states she has no complaints of post depression. All options were discussed with the patient regarding control and patient desires oral contraception. If patient calls while provider is out nursing is able to have antibiotic sent in to help with breast discomfort. Patient is currently pumping as baby has a tongue tie and has appointment today. Follow Up: Patient is to return for annual unless needed otherwise. Documented by Camelia Bourne LPN on behalf of: Fred Nowak DO documented in this encounter [facility] 04-29-2024 History of Presen t illness Narrative Reason for Appointment: Patient ID: Alysa William is a 38 y.o. female who presents for Routine Visit Patient presents today for Return OB appointment. MEDICATIONS Current Outpatient Medications Medication Instructions aspirin 81 MG EC tablet 1 tablet, Oral, Daily busPIRone (Buspar) 15 MG tablet omeprazole (PRILOSEC) 20 mg, Oral, Daily before breakfast, Do not crush or chew. VIT W/ FE BISG-FA PO 1 tablet, Oral, Daily sodium chloride (Jacumba) 0.65 % nasal spray 1 spray, Each Nostril, As needed ALLERGIES Allergies Allergen Reactions Morphine Hives PROBLEMS Active Ambulatory Problems Diagnosis Date Noted Heartburn during , antepartum 01/26/2024 ventricular septal defect affecting antepartum care of mother 04/07/2024 Resolved Ambulatory Problems Diagnosis Date Noted No Resolved Ambulatory Problems Past Medical History: Diagnosis Date Migraines (CMS/HCC) Miscarriage 04/18/2023 HISTORY PAST MEDICAL HISTORY SOCIAL HISTORY Past Medical History: Diagnosis Date Migraines (CMS/HCC) Miscarriage 04/18/2023 Social History Tobacco Use Smoking status: Never Smokeless tobacco: Never Substance Use Topics Alcohol use: Not Currently Comment: caffeine: 1 cup coffee in the morning Drug use: Never FAMILY HISTORY Family History Problem Relation Name Age of Onset Heart disease Father Hal Kilo Diabetes Father Hal Kilo Seizures Father Hal Kilo Heart disease Maternal Grandmother Heart disease Maternal Grandfather Heart disease Paternal Grandmother Kim Kilo Diabetes Paternal Grandmother Kim Kilo Diabetes Paternal Grandfather Roger Kilo Heart disease Paternal Grandfather Roger Kilo Diabetes Sister Saul Boateng SURGICAL HISTORY Past Surgical History: Procedure Laterality Date APPENDECTOMY 2001 Appendix GALL BLADDER REVIEW OF SYSTEMS Review of Systems: Review of Systems All other systems reviewed and are negative. OBJECTIVE Objective: Physical Exam Constitutional: Appearance: Normal appearance. Genitourinary: Right Adnexa: not tender and no mass present. Left Adnexa: not tender and no mass present. No cervical discharge. Breasts: Breasts are soft. Right: Normal. Left: Normal. HENT: Head: Normocephalic. Nose: Nose normal. Mouth/Throat: Mouth: Mucous membranes are moist. Cardiovascular: Rate and Rhythm: Normal rate. Pulmonary: Effort: Pulmonary effort is normal. Abdominal: General: Bowel sounds are normal. Palpations: Abdomen is soft. Musculoskeletal: General: Normal range of motion. Cervical back: Normal range of motion. Neurological: General: No focal deficit present. Mental Status: She is alert. Skin: General: Skin is warm and dry. Psychiatric: Mood and Affect: Mood normal. Vitals and nursing note reviewed. Exam conducted with a flare stitcher present. Vitals: Estimated body mass index is 30.64 kg/m as calculated from the following: Height as of 04/28/23: 5' 9 . Weight as of this encounter: 207 lb 8 oz. BP: 122/80 Patient's last menstrual period was 08/03/2023. ASSESSMENT & PLAN ICD-10-CM 1. Third trimester Z34.93 POCT urinalysis dipstick manually resulted Patient presents today for a routine obstetrics appointment. Patient is currently 38w4d with a Estimated Date of Delivery: 05/09/24. Patinet is currently is current 2cm dilated and will have IOL on 05/03/24. Patient signed induction of labor consents and on the books for Friday. Patient to return to clinic for 6 week follow up appointment. Documented by Camelia Bourne LPN on behalf of: Madiha Modi PA-C documented in this encounter [facility] 04-22-2024 History of Presen t illness Narrative Reason for Appointment: Patient ID: Alysa William is a 38 y.o. female who presents for Routine Visit Patient presents today for Return OB appointment. MEDICATIONS Current Outpatient Medications Medication Instructions aspirin 81 MG EC tablet 1 tablet, Oral, Daily busPIRone (Buspar) 15 MG tablet omeprazole (PRILOSEC) 20 mg, Oral, Daily before breakfast, Do not crush or chew. VIT W/ FE BISG-FA PO 1 tablet, Oral, Daily sodium chloride (Jacumba) 0.65 % nasal spray 1 spray, Each Nostril, As needed ALLERGIES Allergies Allergen Reactions Morphine Hives PROBLEMS Active Ambulatory Problems Diagnosis Date Noted Heartburn during , antepartum 01/26/2024 ventricular septal defect affecting antepartum care of mother 04/07/2024 Resolved Ambulatory Problems Diagnosis Date Noted No Resolved Ambulatory Problems Past Medical History: Diagnosis Date Migraines (CMS/HCC) Miscarriage 04/18/2023 HISTORY PAST MEDICAL HISTORY SOCIAL HISTORY Past Medical History: Diagnosis Date Migraines (CMS/HCC) Miscarriage 04/18/2023 Social History Tobacco Use Smoking status: Never Smokeless tobacco: Never Substance Use Topics Alcohol use: Not Currently Comment: caffeine: 1 cup coffee in the morning Drug use: Never FAMILY HISTORY Family History Problem Relation Name Age of Onset Heart disease Father Hal Kilo Diabetes Father Hal Kilo Seizures Father Hal Kilo Heart disease Maternal Grandmother Heart disease Maternal Grandfather Heart disease Paternal Grandmother Kim Kilo Diabetes Paternal Grandmother Kim Kilo Diabetes Paternal Grandfather Roger Kilo Heart disease Paternal Grandfather Roger Boateng Diabetes Sister Saul Boateng SURGICAL HISTORY Past Surgical History: Procedure Laterality Date APPENDECTOMY 2001 Appendix GALL BLADDER REVIEW OF SYSTEMS Review of Systems: Review of Systems All other systems reviewed and are negative. OBJECTIVE Objective: Physical Exam Constitutional: Appearance: Normal appearance. She is well-developed. Genitourinary: Vulva normal. Cardiovascular: Rate and Rhythm: Normal rate and regular rhythm. Pulmonary: Effort: Pulmonary effort is normal. Breath sounds: Normal breath sounds. Abdominal: General: Bowel sounds are normal. There is no distension. Palpations: Abdomen is soft. Tenderness: There is no abdominal tenderness. There is no guarding or rebound. Musculoskeletal: General: No swelling. Normal range of motion. Right lower leg: No edema. Left lower leg: No edema. Neurological: Mental Status: She is alert and oriented to person, place, and time. Skin: General: Skin is warm and dry. Psychiatric: Mood and Affect: Mood normal. Behavior: Behavior normal. Vitals and nursing note reviewed. Exam conducted with a flare stitcher present. Vitals: Estimated body mass index is 30.97 kg/m as calculated from the following: Height as of 04/28/23: 5' 9 . Weight as of this encounter: 209 lb 12 oz. BP: 114/76 Patient's last menstrual period was 08/03/2023. ASSESSMENT & PLAN ICD-10-CM 1. Third trimester Z34.93 POCT urinalysis dipstick manually resulted Patient presents today for a routine obstetrics appointment. Patient is currently 37w4d with a Estimated Date of Delivery: 05/09/24. Reviewed recent ultrasound with patient and spouse. Pelvic exam performed and patient is currently 1cm dilated. Patient to return to clinic in 1 week. Documented by Camelia Bourne LPN on behalf of: Fred Nowak DO documented in this encounter [facility] 04-15-2024 History of Presen t illness Narrative Reason for Appointment: Patient ID: Alysa William is a 38 y.o. female who presents for Routine Visit Patient presents today for Return OB appointment. MEDICATIONS Current Outpatient Medications Medication Instructions aspirin 81 MG EC tablet 1 tablet, Oral, Daily busPIRone (Buspar) 15 MG tablet omeprazole (PRILOSEC) 20 mg, Oral, Daily before breakfast, Do not crush or chew. VIT W/ FE BISG-FA PO 1 tablet, Oral, Daily sodium chloride (Jacumba) 0.65 % nasal spray 1 spray, Each Nostril, As needed ALLERGIES Allergies Allergen Reactions Morphine Hives PROBLEMS Active Ambulatory Problems Diagnosis Date Noted Heartburn during , antepartum 01/26/2024 ventricular septal defect affecting antepartum care of mother 04/07/2024 Resolved Ambulatory Problems Diagnosis Date Noted No Resolved Ambulatory Problems Past Medical History: Diagnosis Date Migraines (CMS/HCC) Miscarriage 04/18/2023 HISTORY PAST MEDICAL HISTORY SOCIAL HISTORY Past Medical History: Diagnosis Date Migraines (CMS/HCC) Miscarriage 04/18/2023 Social History Tobacco Use Smoking status: Never Smokeless tobacco: Never Substance Use Topics Alcohol use: Not Currently Comment: caffeine: 1 cup coffee in the morning Drug use: Never FAMILY HISTORY Family History Problem Relation Name Age of Onset Heart disease Father Hal Kilo Diabetes Father Hal Kilo Seizures Father Hal Kilo Heart disease Maternal Grandmother Heart disease Maternal Grandfather Heart disease Paternal Grandmother Kim Kilo Diabetes Paternal Grandmother Kim Kilo Diabetes Paternal Grandfather Roger Kilo Heart disease Paternal Grandfather Roger Kilo Diabetes Sister Saul Boateng SURGICAL HISTORY Past Surgical History: Procedure Laterality Date APPENDECTOMY 2002 Appendix GALL BLADDER REVIEW OF SYSTEMS Review of Systems: Review of Systems Constitutional: Negative. HENT: Negative. Eyes: Negative. Respiratory: Negative. Cardiovascular: Negative. Gastrointestinal: Negative. Genitourinary: Negative. Musculoskeletal: Negative. Skin: Negative. Neurological: Negative. All other systems reviewed and are negative. Hematological: Negative. Endocrine: Negative. Allergic/Immunologic: Negative. OBJECTIVE Objective: Physical Exam Constitutional: Appearance: Normal appearance. She is normal weight. HENT: Head: Normocephalic. Cardiovascular: Rate and Rhythm: Normal rate. Pulses: Normal pulses. Pulmonary: Effort: Pulmonary effort is normal. Breath sounds: Normal breath sounds. Abdominal: Palpations: Abdomen is soft. Musculoskeletal: General: Normal range of motion. Neurological: General: No focal deficit present. Mental Status: She is alert and oriented to person, place, and time. Psychiatric: Mood and Affect: Mood normal. Behavior: Behavior normal. Thought Content: Thought content normal. Judgment: Judgment normal. Vitals and nursing note reviewed. Vitals: Estimated body mass index is 30.57 kg/m as calculated from the following: Height as of 04/28/23: 5' 9 . Weight as of this encounter: 207 lb. BP: 120/74 Patient's last menstrual period was 08/03/2023. ASSESSMENT & PLAN ICD-10-CM 1. Third trimester Z34.93 POCT urinalysis dipstick manually resulted Strep B DNA probe, amplification Return OB: Patient presents today for a routine obstetrics appointment. Patient is currently 36w4d . Patient states she is doing well but has complaints of being tired due to current . Patient has verbalizes frequent movement. labor precautions was discussed/given and patient was instructed to perform kick counts three times a day. Orders Placed This Encounter Procedures Strep B DNA probe, amplification POCT urinalysis dipstick manually resulted Follow Up: Patient is to return to office in 1 week for routine OB appointment. Documented by Adeline Szymanski LPN on behalf of: Fred Nowak DO documented in this encounter [facility] 04-08-2024 History of Presen t illness Narrative Reason for Appointment: Patient ID: Alysa William is a 38 y.o. female who presents for Routine Visit Patient presents today for Return OB appointment. MEDICATIONS Current Outpatient Medications Medication Instructions aspirin 81 MG EC tablet 1 tablet, Oral, Daily busPIRone (Buspar) 15 MG tablet omeprazole (PRILOSEC) 20 mg, Oral, Daily before breakfast, Do not crush or chew. VIT W/ FE BISG-FA PO 1 tablet, Oral, Daily sodium chloride (Jacumba) 0.65 % nasal spray 1 spray, Each Nostril, As needed ALLERGIES Allergies Allergen Reactions Morphine Hives PROBLEMS Active Ambulatory Problems Diagnosis Date Noted Heartburn during , antepartum 01/26/2024 ventricular septal defect affecting antepartum care of mother 04/07/2024 Resolved Ambulatory Problems Diagnosis Date Noted No Resolved Ambulatory Problems Past Medical History: Diagnosis Date Migraines (CMS/HCC) Miscarriage 04/18/2023 HISTORY PAST MEDICAL HISTORY SOCIAL HISTORY Past Medical History: Diagnosis Date Migraines (CMS/HCC) Miscarriage 04/18/2023 Social History Tobacco Use Smoking status: Never Smokeless tobacco: Never Substance Use Topics Alcohol use: Not Currently Comment: caffeine: 1 cup coffee in the morning Drug use: Never FAMILY HISTORY Family History Problem Relation Name Age of Onset Heart disease Father Hal Kilo Diabetes Father Hal Kilo Seizures Father Hal Kilo Heart disease Maternal Grandmother Heart disease Maternal Grandfather Heart disease Paternal Grandmother Kim Kilo Diabetes Paternal Grandmother Kim Kilo Diabetes Paternal Grandfather Roger Kilo Heart disease Paternal Grandfather Roger Kilo Diabetes Sister Saul Boateng SURGICAL HISTORY Past Surgical History: Procedure Laterality Date APPENDECTOMY 2002 Appendix GALL BLADDER REVIEW OF SYSTEMS Review of Systems: Review of Systems All other systems reviewed and are negative. OBJECTIVE Objective: Physical Exam Constitutional: Appearance: Normal appearance. She is well-developed. Cardiovascular: Rate and Rhythm: Normal rate and regular rhythm. Pulmonary: Effort: Pulmonary effort is normal. Breath sounds: Normal breath sounds. Abdominal: General: Bowel sounds are normal. There is no distension. Palpations: Abdomen is soft. Tenderness: There is no abdominal tenderness. There is no guarding or rebound. Musculoskeletal: General: No swelling. Normal range of motion. Right lower leg: No edema. Left lower leg: No edema. Neurological: Mental Status: She is alert and oriented to person, place, and time. Skin: General: Skin is warm and dry. Psychiatric: Mood and Affect: Mood normal. Behavior: Behavior normal. Vitals and nursing note reviewed. Exam conducted with a flare stitcher present. Vitals: Estimated body mass index is 30.24 kg/m as calculated from the following: Height as of 04/28/23: 5' 9 . Weight as of this encounter: 204 lb 12.8 oz. BP: 122/74 Patient's last menstrual period was 08/03/2023. ASSESSMENT & PLAN ICD-10-CM 1. Third trimester Z34.93 Urine dip Patient presents today for a routine obstetrics appointment. Patient is currently 35w4d with a Estimated Date of Delivery: 05/09/24. Patient still having complaints of back pain with no improvement to the chiropractor or getting a message. Patient will have GBS checked at next appointment. Documented by Camelia Bourne LPN on behalf of: Fred Nowak DO documented in this encounter [facility] 10-02-2023 History of Presen t illness Narrative [...] was given her OB folder and desires Imboden 21. Advised to make sure she is 10 weeks before having Imboden done along with her labs. Pt did [...] Teodora Vegas MA documented in this encounter [facility] 04-29-2023 Evaluation + Plan note Diagnostic Tests PendingFS and LH 04/29/23[facility] 04/29/23[facility] 04/29/23 [facility] 09-24-2022 Hospital Discharg e instructions Follow Up Care 09/24/2022 13:44:14 With:Len YEPEZ DO, FAM Address: [address] [place] [id number] When:Within 1 Year(s) [facility] Evaluation + Plan note No data available for this section [facility] Evaluation note Diagnosis Missed menses [facility] Diagnosis 6 weeks follow-up [facility]* Diagnosis Third trimester state, incidental [facility]* Diagnosis Third trimester state, incidental [facility]* Diagnosis Third trimester state, incidental [facility] noteNo assessment information availableBl[facility] Work Phone: Evaluation note* Diagnosis Well woman exam with routine gynecological exam Routine gynecological examination documented in this encounter [facility] Discharge instructions No data available for this section [facility] No data available for this section [facility] [place] Summary Purpose Family History Relationship Condition Age at Onset Recorded Date/T marv paternal grandmother Diabetes mellitus Unknown Advance Directives Advance Directive Response Recorded Date/ Time Advance Directives No October 27 3:34pm Chief Complaint and Reason for Visit Chief Complaint Admit Date establish November 03, 2024 4:1 2pm Additional Source Comments Patient Care team informatio n (unrecognized section and content) Portable Sawyer Relationship Specialty Start Date End Date Madiha Modi PA [address] [place], [facility] PCP - Medical [place] [employer] 07/03/23 08/17/99 Portable Sawyer Relationship Specialty Start Date End Date Madiha Modi PA [address] [place], [facility] PCP - Medical [place] [employer] 07/03/23 08/17/99 Portable Sawyer Relationship Specialty Start Date End Date Madiha Modi PA [address] [place], [facility] PCP - Medical [place] [employer] 07/03/23 08/17/99 Portable Sawyer Relationship Specialty Start Date End Date Madiha Modi PA [address] [place], [facility] PCP - Medical [place] [employer] 07/03/23 08/17/99 Portable Sawyer Relationship Specialty Start Date End Date Madiha Modi PA [address] [place], [facility] PCP - Medical [place] [employer] 07/03/23 08/17/99 Portable Sawyer Relationship Specialty Start Date End Date Madiha Modi PA [address] [place] [address] PCP - Medical [place] [employer] 07/03/23 08/17/99 Portable Sawyer Relationship Specialty Start Date End Date Madiha Modi PA [address] [facility] [place] [address] PCP - Medical [place] [employer] 07/03/23 08/17/99 Team Status: Active Member Role Status Dates Dulce Browne APRN Primary Care Provider Active Team Status: Inactive Member Role Status Dates Dulce Browne APRN Primary Care Pr ovider, Attending Provider Active Start: November 03, 2024 End: November 03, 2024 Portable Sawyer Relationship Specialty Start Date End Date Madiha Modi PA [address] [place] [address] PCP - Medical [place] [employer] 07/03/23 08/17/99 INFORMATION SOURCE (unrecogn ized section and content) DATE CREATED AUTHOR 05/05/2023 [facility] DATE CREATED AUTHOR AUTHOR'S ORGANIZ ATION 03/08/2024 [facility] DATE CREATED AUTHOR AUTHOR'S ORGANIZ ATION 06/14/2024 [facility] EPIC Reason for Visit (unrecogniz ed section and content) Reason Comments Amenorrhea Reason Comments Care Reason Comments Routine Visit Reason Comments Well Women Visit Goals (unrecognized section and content) Goals may be documented in a n alternate section FOR RECORDS PERTAINING TO PATIENTS WHO ARE [...] CLINICAL RECORDS. [facility]. provides no warranty or guarantee of the accuracy or completeness of information in this document.
[2024-12-06 14:08] LABS: Age Gdln ACOG Testing Note (.); HPV Aptima Negative (Negative); IGP, Aptima HPV, rfx 16/18,45 Note (.)
== END 2024-12-01 20:14 | disposition home or self-care (01) ==
LOC: LAB 20:13
PROVIDERS: Visit Provider Obstetrics & Gynecology
DX: Z01.419 Encounter for gynecological examination (general) (routine) without abnormal findings (principal)
CPT/HCPCS: 87624; 88175